=== PATIENT | male | born 1935 | race Caucasian/White ===

== ENCOUNTER → 2016-11-09 | Outpatient (CLI) | payer MEDICARE, OTHER ==
[~2016-11-09] MED LIST: ALLP300T PO; AMLO5TAB2 PO; ASP81TEC PO; B12 IJ; CHOL10003 PO; FRSM40T PO; IOHEXOL 350 MG/ML 100 ML (OMNIPAQUE 350) VIAL IV ONE; IPRA3AMP IH; LOSA100T7 PO; MTP100TCR PO; NS 100 ML (IVPB) BAG IV ONE; OXYGEN; SMV20T PO; TRM50T PO; WRF1T PO
[2016-11-09 12:37] LABS: BLOOD UREA NITROGEN 20 MG/DL (7-18); BUN/CREATININE RATIO 22; GFR ESTIMATED > 60
--- NOTE | 2016-11-09 16:00 | Diagnostic Imaging Report ---
EXAMINATION: CT angiogram of the neck was performed with intravenous contrast. MIP technique, coronal and sagittal reconstructions were performed. 80 mL of Omnipaque 350 is administered intravenously. INDICATION: Carotid stenosis. Presyncope. FINDINGS: There is prominent atherosclerotic plaque around the carotid bifurcation on both sides. The common, internal and external carotid arteries are patent. The calcified plaque in the right carotid bifurcation extends about 2.5 cm distance within the proximal internal carotid artery and is associated with prominent blooming artifact that appears to exaggerate the degree of stenosis. The estimated underlying degree of stenosis is around 60% in the proximal right internal carotid artery. There is less than 50% stenosis in the left internal carotid artery. Both carotid arteries demonstrate prominent tortuosity in the mid segment with a portion of the artery demonstrating a retropharyngeal course. The right common carotid artery is patent. The brachycephalic artery is patent. The right subclavian artery is patent. The left common carotid and the left subclavian arteries demonstrate proximal atherosclerotic plaque with no significant stenosis. There is codominance of the vertebral arteries with perhaps minimally larger left vertebral artery compared to the right side. No significant stenosis is seen. There is no significant soft tissue mass or lymphadenopathy seen in the neck. There is a mucosal retention cyst in the inferior aspect of the left maxillary sinus. Mild emphysema changes are seen in the upper lungs. The osseous structures demonstrate prominent degenerative changes with multilevel anterior osteophytes. IMPRESSION: 1. Prominent calcified plaque along the carotid bifurcation bilaterally, more prominent in the right side with extension into the proximal 2.5 cm of the right internal carotid artery. The heavy calcified plaque results in blooming artifacts exaggerating its size. The true underlying stenosis in the proximal right ICA is estimated to be around 60%. 2. Estimated underlying stenosis in the left ICA is less than 50%. Dictated by: Dictated on workstation # [id number]
== END ==
LOC: RAD 12:09
PROVIDERS: ATTEND Internal Medicine Cardiovascular Disease
DX: I65.23 Occlusion and stenosis of bilateral carotid arteries (principal)
CPT/HCPCS: 36415; 70498; 82565; 84520

== ENCOUNTER 2016-12-02 14:20 | Emergency (ER) | payer MEDICARE, OTHER ==
[~2016-12-02] VITALS: Ht 172.7 cm; Wt 90.7 kg
[~2016-12-02 14:20] MED LIST changes: -IOHEXOL 350 MG/ML 100 ML (OMNIPAQUE 350) VIAL IV ONE; -NS 100 ML (IVPB) BAG IV ONE
[2016-12-02] MEDS ORDERED: LIDOCAINE/EPI 2% 1:100,00 (XYLOCAINE) 20 ML VIAL ONE (14:59)
[2016-12-02] MEDS ORDERED: LIDOCAINE/EPI 1%-1:200,000 (XYLOCAINE) 10 ML VIAL INJ ONE (15:15)
--- NOTE | 2016-12-02 15:20 | Diagnostic Imaging Report ---
PROCEDURE: CT head and CT cervical spine without contrast. TECHNIQUE: Multiple contiguous axial images were obtained through the brain and cervical spine without the use of intravenous contrast. Sagittal and coronal reformations through the cervical spine were then performed. INDICATION: Injury. FINDINGS: CT HEAD: There is no intracranial hemorrhage, edema, or mass effect. The brain parenchyma demonstrates periventricular and deep white matter hypodensities, compatible with chronic microvascular ischemic changes. The lateral ventricles are mildly dilated which could be in part related to age related volume loss with question of an element of normal pressure hydrocephalus. The calvarium and visualized portions of the paranasal sinuses and orbits appear grossly unremarkable. There is a medial right parietal scalp hematoma. CT CERVICAL SPINE: There is reversal of the lordotic curvature. There is mild left convexity curvature also seen which is most likely positional. The vertebral body heights are preserved. There is moderate to severe disc height loss at the mid and lower cervical spine disc levels. Multilevel posterior osteophytes are seen. The alignment of the posterior spinal line and of the facet joints is satisfactory. Advanced degenerative changes along the upper to mid cervical spine facet joints are noted. There is no widening of the predental space. There is satisfactory alignment of the lateral masses of C1 and C2 and the atlantooccipital joints. There is severe foraminal stenosis bilaterally at C3-4 and C4-5. No fracture is seen. IMPRESSION: CT HEAD: 1. No intracranial hemorrhage. There is a posterior medial right scalp hematoma. 2. Mild dilatation of the lateral ventricles which is in part related to brain volume loss relating to aging. There is a possible element of normal pressure hydrocephalus. CT CERVICAL SPINE: Advanced degenerative changes. No fracture is seen. Dictated by: Dictated on workstation # [id number]
--- NOTE | 2016-12-02 15:33 | ED Fall/Injury ---
General Chief Complaint: Laceration Stated Complaint: HEAD VELARDE Nursing Triage Note: PT STATES HE FELL ASLEEP AND FELL OUT OF HIS CHAIR, WOKE AND WAS GRASPING FOR SOMETHING ON THE WAY DOWN BUT THERE WAS NOTHING TO CATCH HIS FALL, CC OF LAC TO THE TOP OF HIS HEAD THAT NEEDS REPAIRED. DENIES ANY LOC DUE TO FALL, DENIES NECK PAIN. BLEEDING ON ARRIVAL, NOT CONTROLLED, STATES IT HAS BEEN BLEEDING FOR AN HOUR. Source: patient Exam Limitations: no limitations History of Present Illness Time seen by provider: 15:15 Initial Comments Here with report of falling out of his chair and hitting the top of his head. He states that he was sitting on a high stool and thinks he fell asleep after eating. He fell backwards and hit his head. Denies loss of consciousness. He went to his doctor's office. Patient is on Coumadin so he was sent over here for further evaluation. Aside from the laceration to the top of the head, patient denies any other injury. Occurred: this morning Severity: moderate Injuries/Pain Location: head Context: other (fell asleep sitting up) Loss of Consciousness: no loss of consciousness Associated Symptoms (Fall): No Abdominal Pain, No Chest Pain, No Confusion, Headache, No Muscle Spasms, No Neck Pain Allergies and Home Medications Allergies Coded Allergies: No Allergy Information Available (Unverified , 11/09/16) Home Medications Allopurinol 300 Mg Tab, 300 MG PO DAILY, (Reported) Amlodipine Besylate 5 Mg Tablet, 5 MG PO DAILY, (Reported) Aspirin 81 Mg Tabec, 81 MG PO DAILY, (Reported) Cholecalciferol 1,000 Unit Tablet, 1,000 UNIT PO DAILY, (Reported) Furosemide 40 Mg Tab, 40 MG PO DAILY, (Reported) Ipratropium/Albuterol Sulfate 3 Ml Ampul.neb, 3 ML IH BID, (Reported) Losartan Potassium 100 Mg Tablet, 100 MG PO DAILY, (Reported) Metoprolol Succinate 100 Mg Tab.sr.24h, 1 EACH PO DAILY, (Reported) Simvastatin 20 Mg Tab, 20 MG PO DAILY, (Reported) Tramadol Hcl 50 Mg Tablet, 1-2 TAB PO NEEDED, (Reported) Warfarin Sodium 1 Mg Tablet, PO INSTRUCTED, (Reported) [B12] , IJ MONTHLY, (Reported) [Oxygen] , 2 L NA HS, (Reported) Constitutional: see HPI, No chills, No fever Respiratory: no symptoms reported Cardiovascular: no symptoms reported Musculoskeletal: see HPI Skin: see HPI, lesions Past Buqubwt-Vrxuha-Ndjoxt Hx Patient Social History Alcohol Use: Occasionally Uses Alcohol Beverage of Choice: Beer Recreational Drug Use: No Smoking Status: Former Smoker Type Used: Cigarettes Former Smoker, Quit: Nov 14, 1969 Recent Foreign Travel: No Contact w/Someone Who Travel: No Recent Infectious Disease Expo: No Recent Hopitalizations: No Seasonal Allergies Seasonal Allergies: Yes Surgeries History of Surgeries: No Cardiovascular History of Cardiac Disorders: Yes Cardiac Disorders: Hypertension Neurological History of Neurological Disord: No Genitourinary History of Genitourinary Disor: No Gastrointestinal History of Gastrointestinal Di: No Musculoskeletal History of Musculoskeletal Dis: No Endocrine History of Endocrine Disorders: No HEENT History of HEENT Disorders: No Cancer History of Cancer: No Psychosocial History of Psychiatric Problem: No Reviewed Nursing Assessment Reviewed/Agree w Nursing PMH: Yes Family Medical History Significant Family History: No Pertinent Family Hx Physical Exam Vital Signs Vital Sign - Last 12Hours 12/02/16 14:30 Temp 97.0 Pulse 69 Resp 20 B/P (MAP) 158/81 Pulse Ox 95 O2 Delivery Simple Mask Capillary Refill : Less Than 3 Seconds General Appearance: WD/WN, no apparent distress HEENT: PERRL/EOMI, pharynx normal Neck: non-tender, full range of motion, supple, normal inspection Cardiovascular: regular rate, rhythm, no murmur Respiratory: lungs clear, normal breath sounds Skin: normal color, other (4 cm laceration to the top of the head) Ye Coma Score Best Eye Response: (4) Open Spontaneously Best Verbal Response: (5) Oriented Best Motor Response: (6) Obeys Commands Laceration Repair : Staple Repair: Stapler 35W Progress/Results/Core Measures Results/Orders My Orders Orders - SABIHA HERNANDEZ MD Ct Head/Cervical Spine Wo (12/02/16 14:23) Lidocaine/Epi Mpf 1% 1:200,000 (Xylocain (12/02/16 15:15) Lidocaine/Epi 2% 1:100,000 (Xylocaine/Ep (12/02/16 14:59) Medications Given in ED Current Medications Medications Dose Ordered Sig/Nikia Route Start Time Stop Time Status Last Admin Dose Admin Lidocaine/ Epinephrine 20 ml STK-MED ONCE .ROUTE 12/02/16 14:59 12/02/16 15:08 DC 12/02/16 15:09 20 ML Vital Signs/I&O Vital Sign - Last 12Hours 12/02/16 12/02/16 14:30 15:09 Temp 97.0 97.0 Pulse 69 Resp 20 B/P (MAP) 158/81 Pulse Ox 95 O2 Delivery Simple Mask Blood Pressure Mean: 106 Progress Note : Progress Note Seen and evaluated. CT head and neck ordered. Dr. Mcintosh graciously evaluated and closed wound via comfort. See his note for procedures. Patient is on Coumadin and is followed by Dr. Antonio and he is following his INR. Discharged home with return precautions. Patient verbalize understanding instructions and agreement with plan. Diagnostic Imaging Diagonstic Imaging: CT Plain Films/CT/US/NM/MRI: c-spine, head Comments [facility] [place], [place] NAME: ODELL VELARDE [facility] REC#: [id number] PT STATUS: REG ER : 1935 PHYSICIAN: SABIHA HERNANDEZ MD ADMIT DATE: 12/02/16/ER Draft Date of Exam:12/02/16 CT HEAD/CERVICAL SPINE WO PROCEDURE: CT head and CT cervical spine without contrast. TECHNIQUE: Multiple contiguous axial images were obtained through the brain and cervical spine without the use of intravenous contrast. Sagittal and coronal reformations through the cervical spine were then performed. INDICATION: Injury. FINDINGS: CT HEAD: There is no intracranial hemorrhage, edema, or mass effect. The brain parenchyma demonstrates periventricular and deep white matter hypodensities, compatible with chronic microvascular ischemic changes. The lateral ventricles are mildly dilated which could be in part related to age related volume loss with question of an element of normal pressure hydrocephalus. The calvarium and visualized portions of the paranasal sinuses and orbits appear grossly unremarkable. There is a medial right parietal scalp hematoma. CT CERVICAL SPINE: There is reversal of the lordotic curvature. There is mild left convexity curvature also seen which is most likely positional. The vertebral body heights are preserved. There is moderate to severe disc height loss at the mid and lower cervical spine disc levels. Multilevel posterior osteophytes are seen. The alignment of the posterior spinal line and of the facet joints is satisfactory. Advanced degenerative changes along the upper to mid cervical spine facet joints are noted. There is no widening of the predental space. There is satisfactory alignment of the lateral masses of C1 and C2 and the atlantooccipital joints. There is severe foraminal stenosis bilaterally at C3-4 and C4-5. No fracture is seen. IMPRESSION: CT HEAD: 1. No intracranial hemorrhage. There is a posterior medial right scalp hematoma. 2. Mild dilatation of the lateral ventricles which is in part related to brain volume loss relating to aging. There is a possible element of normal pressure hydrocephalus. CT CERVICAL SPINE: Advanced degenerative changes. No fracture is seen. Dictated on workstation # [id number] Dict: 12/02/16 1503 Trans: 12/02/16 1519 [id number] Interpreted by: ZAIRE ONTIVEROS MD Electronically signed by: Departure Impression Impression: Primary Impression: Scalp laceration Qualified Codes: S01.01XA - Laceration without foreign body of scalp, initial encounter Disposition: HOME, SELF-CARE Condition: Improved Departure-Patient Inst. Decision time for Depature: 15:34 Referrals: NISSA ANTONIO DO (PCP/Family) Primary Care Physician Patient Instructions: Laceration Repair With [place] (DC) Add. Discharge Instructions: All discharge instructions reviewed with patient and/or family. Voiced understanding. [place] out in 7 days. He may return to the ER for staple removal. He may use antibiotic ointment and dressing over the comfort to protect the wound for the next few days and then as needed. Return for worse pain, fever, vomiting, weakness, vision or balance problems or other concerns as needed. Copy Copies To 1: NISSA ANTONIO TIMOTHY D MD Dec 02, 2016 15:33
[2016-12-02 15:37] VITALS: BP 158/81
--- NOTE | 2016-12-03 09:18 | OPERATIVE REPORT ---
DATE OF SERVICE: PREOPERATIVE DIAGNOSIS: Scalp laceration. POSTOPERATIVE DIAGNOSIS: Scalp laceration. PROCEDURE PERFORMED: Repair of scalp laceration, 3.8 cm. SURGEON: Indu Mcintosh DO. ANESTHESIA: Local anesthetic, Xylocaine 1% with epinephrine. INDICATIONS: The patient is an 81-year-old male on Coumadin, who was sitting on a bar stool and fell backward, striking his head, causing a semicircular laceration to the scalp that was approximately 3.8 cm in overall length. The wound was irrigated with Betasept and prepped. PROCEDURE: A 6 mL of 1% Xylocaine with epinephrine was used to anesthetize the area. The wound was irrigated with copious amounts of irrigation. The skin was then closed with comfort achieving hemostasis. The area was then washed and dried and sterile bandage was applied. The patient tolerated procedure well without any complications. Job ID: [id number] DocumentID: [id number] Dictated Date: 12/02/2016 15:26:07 Chief School Finance Officer Date: 12/02/2016 22:42:44 Dictated By: INDU MCINTOSH DO
== END 2016-12-02 15:37 | disposition home or self-care (01) ==
LOC: EDUNIT# 14:20 → ER 14:22
DX: S01.01XA Laceration without foreign body of scalp, initial encounter (principal); I10 Essential (primary) hypertension; Z79.82 Long term (current) use of aspirin; Z79.01 Long term (current) use of anticoagulants; Z87.891 Personal history of nicotine dependence; W07.XXXA Fall from chair, initial encounter; W22.09XA Striking against other stationary object, initial encounter
CPT/HCPCS: 12002; 70450; 72125

== ENCOUNTER 2016-12-08 14:26 | Inpatient (IN) | payer MEDICARE, OTHER ==
[~2016-12-08] VITALS: Ht 172.7 cm; Wt 94.8 kg
[2016-12-08] MEDS ORDERED: FUROSEMIDE 40 MG/4 ML INJ (LASIX) IVP ONE (14:45)
--- NOTE | 2016-12-08 14:50 | ED Cardiac General ---
History of Present Illness General Chief Complaint: General Problems/Pain Stated Complaint: FILLING UP W/ FLUID Nursing Triage Note: patient reports filling up with fluid over the last week. patient reports increased SOA Source: patient, spouse Exam Limitations: no limitations History of Present Illness Time seen by provider: 14:38 Initial Comments Patient presents ER by private conveyance with a chief complaint of shortness of breath, tiredness and malaise. He was sent over by his primary care physician after being seen in the clinic in follow-up for his recent fall a week ago in which she had to get comfort placed in the hospital his scalp. Patient had a fall about a week before that as well while at the [facility]. Patient says last to 3 days he's been feeling weak and tired and progressively worsening. He says in the last week he is gained 15 pounds and feels distended in his belly as well as his legs more swollen. He denies a cough, fevers, chills or heart palpitations or chest pain. His primary care physician called prior to his arrival and gave the history that the patient was somnolent and falling asleep in the middle of their interview and not like himself. Apparently his baseline he walks around is quite active and talkative and this concerned the PCP given the recent history of weight gain and CHF. The patient has had his coronary arteries catheterized by Dr. Bass, cardiology. Patient denies history of heart attack or stent. He is on warfarin for his atrial fibrillation and managed by his primary care physician. Patient remarks that he takes an albuterol treatment daily and took it this morning. Review of the records shows: Echocardiogram from 2013 mild left ventricular hypertrophy with ejection fraction 50% diastolic dysfunction suggested. Biatrial enlargement and mild mitral, tricuspid and aortic regurgitation. Pulmonary artery pressure 35 mmHg. Cardiac catheterization 2010 Dr. [place]: Heavily calcified coronary system with mild disease, nonobstructive throughout the coronary tree. Estimated ejection fraction of 45% with a previous echo showing a lower systolic function. Atherosclerosis in the thoracic artery without dissection or aneurysm seen. Allergies and Home Medications Allergies Coded Allergies: No Allergy Information Available (Unverified , 11/09/16) Home Medications Allopurinol 300 Mg Tab, 300 MG PO DAILY, (Reported) Amlodipine Besylate 5 Mg Tablet, 5 MG PO DAILY, (Reported) Aspirin 81 Mg Tabec, 81 MG PO DAILY, (Reported) Cholecalciferol 1,000 Unit Tablet, 1,000 UNIT PO DAILY, (Reported) Furosemide 40 Mg Tab, 40 MG PO DAILY, (Reported) Ipratropium/Albuterol Sulfate 3 Ml Ampul.neb, 3 ML IH BID, (Reported) Losartan Potassium 100 Mg Tablet, 100 MG PO DAILY, (Reported) Metoprolol Succinate 100 Mg Tab.sr.24h, 1 EACH PO DAILY, (Reported) Simvastatin 20 Mg Tab, 20 MG PO DAILY, (Reported) Tramadol Hcl 50 Mg Tablet, 1-2 TAB PO NEEDED, (Reported) Warfarin Sodium 1 Mg Tablet, PO INSTRUCTED, (Reported) [B12] , IJ MONTHLY, (Reported) [Oxygen] , 2 L NA HS, (Reported) Review of Systems Constitutional: No chills, No diaphoresis EENTM: No Eye Pain, No Ear Pain Respiratory: Denies Cough, Orthopnea, Shortness of Air, SOA With Exertion, SOA at Rest, Denies Wheezing Gastrointestinal: Abdomen Distended, Denies Abdominal Pain, Denies Nausea, Denies Vomiting Genitourinary: Denies Burning, Denies Discharge Musculoskeletal: No back pain, No joint pain Skin: No pruritus, No rash Psychiatric/Neurological: Denies Headache, Denies Numbness Past Vpodwjs-Hkncnl-Szmgge Hx Patient Social History Alcohol Use: Past History Number of Drinks Today: AA Alcohol Beverage of Choice: Beer Recreational Drug Use: No Smoking Status: Former Smoker Type Used: Cigarettes Former Smoker, Quit: Nov 14, 1969 Recent Foreign Travel: No Contact w/Someone Who Travel: No Recent Infectious Disease Expo: No Recent Hopitalizations: No Physical Abuse: No Sexual Abuse: No Seasonal Allergies Seasonal Allergies: Yes Surgeries History of Surgeries: No Respiratory History of Respiratory Disorde: Yes Respiratory Disorders: COPD Cardiovascular History of Cardiac Disorders: Yes Cardiac Disorders: Hypertension Neurological History of Neurological Disord: No Genitourinary History of Genitourinary Disor: No Gastrointestinal History of Gastrointestinal Di: No Musculoskeletal History of Musculoskeletal Dis: No Endocrine History of Endocrine Disorders: No HEENT History of HEENT Disorders: No Cancer History of Cancer: No Psychosocial History of Psychiatric Problem: No Suicide Risk Score: 0 Family Medical History Significant Family History: No Pertinent Family Hx Physical Exam Vital Signs Vital Sign - Last 12Hours 12/08/16 14:32 Temp 98.7 Pulse 70 Resp 18 B/P (MAP) 139/64 Pulse Ox 94 O2 Delivery Room Air Capillary Refill : Less Than 3 Seconds General Appearance: WD/WN, Mild Distress HEENT: PERRL/EOMI, TMs Normal, Normal ENT Inspection, Pharynx Normal (mucous membrane moist.) Neck: Full Range of Motion, Normal Inspection Respiratory: Chest Non Tender, No Accessory Muscle Use, No Respiratory Distress , Crackles (bilateral bases), No Wheezing Cardiovascular: Irregularly Irregular, JVD Gastrointestinal: Normal Bowel Sounds, No Organomegaly, Non Tender, Soft, Distended Extremity: Normal Capillary Refill, Pedal Edema (up to the level of the knees weeping 2+ pitting edema) Neurologic/Psychiatric: Alert, Oriented x3, Normal Mood/Affect Skin: Normal Color, Damp Focused Exam Time of Focused Exam: 15:58 Respiratory: Chest Non Tender, No Accessory Muscle Use, No Respiratory Distress , Crackles Cardiovascular: Irregularly Irregular, JVD, Other (weeping 2+ pitting bilateral lower extremity edema up to the knees.) Capillary Refill: Less Than 3 Seconds Peripheral Pulses: 1+ Dorsalis Pedis (R), 1+ Left Dors-Pedis (L) Skin: normal color, damp Progress/Results/Core Measures Results/Orders Lab Results Laboratory Tests Test 12/08/16 14:49 12/08/16 14:55 Range/Units White Blood Count 9.0 4.3-11.0 10^3/uL Red Blood Count 3.54 L 4.35-5.85 10^6/uL Hemoglobin 9.3 L 13.3-17.7 G/DL Hematocrit 30 L 40-54 % Mean Corpuscular Volume 85 80-99 FL Mean Corpuscular Hemoglobin 26 25-34 PG Mean Corpuscular Hemoglobin Concent 31 L 32-36 G/DL Red Cell Distribution Width 15.2 H 10.0-14.5 % Platelet Count 284 130-400 10^3/uL Mean Platelet Volume 8.7 7.4-10.4 FL Neutrophils (%) (Auto) 87 H 42-75 % Lymphocytes (%) (Auto) 6 L 12-44 % Monocytes (%) (Auto) 6 0-12 % Eosinophils (%) (Auto) 0 0-10 % Basophils (%) (Auto) 0 0-10 % Neutrophils # (Auto) 7.9 H 1.8-7.8 X 10^3 Lymphocytes # (Auto) 0.5 L 1.0-4.0 X 10^3 Monocytes # (Auto) 0.6 0.0-1.0 X 10^3 Eosinophils # (Auto) 0.0 0.0-0.3 10^3/uL Basophils # (Auto) 0.0 0.0-0.1 10^3/uL Neutrophils % (Manual) 88 % Lymphocytes % (Manual) 7 % Monocytes % (Manual) 5 % Eosinophils % (Manual) 0 % Basophils % (Manual) 0 % Band Neutrophils 0 % Blood Morphology Comment NORMAL Prothrombin Time 40.7 H 12.2-14.7 SEC INR Comment 4.3 H 0.8-1.4 Activated Partial Thromboplast Time 63 H 24-35 SEC Sodium Level 126 L 135-145 MMOL/L Potassium Level 5.4 H 3.6-5.0 MMOL/L Chloride Level 90 L 98-107 MMOL/L Carbon Dioxide Level 27 21-32 MMOL/L Anion Gap 9 5-14 MMOL/L Blood Urea Nitrogen 38 H 7-18 MG/DL Creatinine 1.09 0.60-1.30 MG/DL Estimat Glomerular Filtration Rate > 60 BUN/Creatinine Ratio 35 Glucose Level 69 L 70-105 MG/DL Calcium Level 8.4 L 8.5-10.1 MG/DL Magnesium Level 2.1 1.8-2.4 MG/DL Total Bilirubin 1.4 H 0.1-1.0 MG/DL Aspartate Amino Transf (AST/SGOT) 56 H 5-34 U/L Alanine Aminotransferase (ALT/SGPT) 32 0-55 U/L Alkaline Phosphatase 100 40-136 U/L Troponin I < 0.30 <0.30 NG/ML B-Type Natriuretic Peptide 951.3 H <100.0 PG/ML Total Protein 7.0 6.4-8.2 GM/DL Albumin 3.8 3.2-4.5 GM/DL Thyroid Stimulating Hormone (TSH) 1.61 0.35-4.94 UIU/ML My Orders Orders - ROMÁN LEWIS BNP (12/08/16 14:41) Cbc With Automated Diff (12/08/16 14:41) Comprehensive Metabolic Panel (12/08/16 14:41) Magnesium (12/08/16 14:41) Protime With Inr (12/08/16 14:41) Partial Thromboplastin Time (12/08/16 14:41) Troponin I (12/08/16 14:41) Chest Pa/Lat (2 View) (12/08/16 14:41) Ekg Tracing (12/08/16 14:41) Saline Lock/Iv-Start (12/08/16 14:41) Monitor-Rhythm Ecg Trace Only (12/08/16 14:41) Furosemide Injection (Lasix Injection) (12/08/16 14:45) Thyroid Stimulating Hormone (12/08/16 14:55) Manual Differential (12/08/16 14:49) Medications Given in ED Current Medications Medications Dose Ordered Sig/Nikia Route Start Time Stop Time Status Last Admin Dose Admin Furosemide 80 mg ONCE ONCE IVP 12/08/16 14:45 12/08/16 14:46 DC 12/08/16 14:54 80 MG Vital Signs/I&O Vital Sign - Last 12Hours 12/08/16 14:32 Temp 98.7 Pulse 70 Resp 18 B/P (MAP) 139/64 Pulse Ox 94 O2 Delivery Room Air Blood Pressure Mean: 89 Progress Note #1: Time: 14:53 Progress Note Appears to have heart failure is a recovered ejection fraction and in acute decompensation. We'll give him a double dose of his Lasix and labs as well as EKG looking for causes of his worsening heart failure. Progress Note #2: Time: 15:57 Progress Note Patient ate some crackers in response to mildly low blood sugar. He is breathing much better without wheezing after receiving the Lasix and he is producing urine. ECG Initial ECG Impression Date: Dec 08, 2016 Initial ECG Impression Time: 14:53 Initial ECG Rate: 86 Initial ECG Rhythm: A Fib/Flutter Initial ECG Intervals: QT (450) Initial ECG Impression: Atrial Fibrillation Initial ECG Comparisson: Unchanged Comment No T-wave elevation or depression. Diagnostic Imaging Diagonstic Imaging: Xray Plain Films/CT/US/NM/MRI: chest (2v) Comments Pulmonary congestion without any definitive infiltrate seen. Heart shadow mildly enlarged with a calcified aorta seen best in the lateral view. No other acute osseous or soft tissue abnormality noted. Reviewed: Reviewed by Me Departure Communication (Admissions) Time/Spoke to Admitting Phy: 15:[address] Antonio he recommends getting a BNP, CBC, CMP in the morning and consult in his risk consulting treasury director and he will see the patient. Time/Spoke to Consulting Phy: 15:45 Communication/Consulting Akshat: Left a message with cell, clinic and [facility]. Will have the floor contact Cardio when the patient arrives. Impression Impression: Primary Impression: Heart failure, diastolic, with acute decompensation Additional Impressions: Normocytic anemia Supratherapeutic INR Hypoglycemia associated with diabetes Hyperkalemia Hyponatremia Hypochloremia Disposition: ADMITTED INPATIENT Condition: Stable Admissions Decision to Admit Reason: Admit from ER (General) Decision to Admit/Date: Dec 08, 2016 Time/Decision to Admit Time: 15:58 Departure-Patient Inst. Referrals: NISSA ANTONIO DO (PCP/Family) Primary Care Physician Copy Copies To 1: NISSA ANTONIO DO Copies To 2: SVETLANA RUTLEDGE MD FACP FACC CCDS ROMÁN LEWIS Dec 08, 2016 14:50
[2016-12-08 14:55] LABS: BASOPHILS % (AUTO) 0 % (0-10); EOSINOPHILS % (AUTO) 0 % (0-10); LYMPHOCYTES # (AUTO) 0.5 X 10^3 (1.0-4.0); LYMPHOCYTES % (AUTO) 6 % (12-44); MEAN CORPUSCULAR HEMOGLOBIN 26 PG (25-34); MEAN CORPUSCULAR HGB CONC 31 G/DL (32-36); MEAN CORPUSCULAR VOLUME 85 FL (80-99); MEAN PLATELET VOLUME 8.7 FL (7.4-10.4); MONOCYTES # (AUTO) 0.6 X 10^3 (0.0-1.0); MONOCYTES % (AUTO) 6 % (0-12); NEUTROPHILS # (AUTO) 7.9 X 10^3 (1.8-7.8); NEUTROPHILS % (AUTO) 87 % (42-75); PLATELET COUNT 284 10^3/uL (130-400); RED BLOOD COUNT 3.54 10^6/uL (4.35-5.85); RED CELL DISTRIBUTION WIDTH 15.2 % (10.0-14.5)
[2016-12-08 15:07] LABS: INR 4.3 (0.8-1.4); PROTHROMBIN TIME PATIENT 40.7 SEC (12.2-14.7)
[2016-12-08 15:15] LABS: BAND NEUTROPHILS 0 %; BASOPHILS % (MANUAL) 0 %; EOSINOPHILS % (MANUAL) 0 %; LYMPHOCYTES % (MANUAL) 7 %; NEUTROPHILS % (MANUAL) 88 %
[2016-12-08 15:16] LABS: ALANINE AMINOTRANSFERASE 32 U/L (0-55); ALBUMIN 3.8 GM/DL (3.2-4.5); ANION GAP 9 MMOL/L (5-14); ASPARTATE AMINO TRANSFERASE 56 U/L (5-34); BILIRUBIN,TOTAL 1.4 MG/DL (0.1-1.0); BLOOD UREA NITROGEN 38 MG/DL (7-18); BUN/CREATININE RATIO 35; CALCIUM 8.4 MG/DL (8.5-10.1); CARBON DIOXIDE 27 MMOL/L (21-32); CHLORIDE 90 MMOL/L (98-107); CREATININE SERUM 1.09 MG/DL (0.60-1.30); GFR ESTIMATED > 60; GLUCOSE 69 MG/DL (70-105); MAGNESIUM 2.1 MG/DL (1.8-2.4); POTASSIUM 5.4 MMOL/L (3.6-5.0); SODIUM 126 MMOL/L (135-145)
[2016-12-08 15:40] LABS: TROPONIN I < 0.30 NG/ML (<0.30)
--- NOTE | 2016-12-08 15:42 | Diagnostic Imaging Report ---
AP and lateral views of the chest. INDICATION: Shortness of breath. COMPARISON: 07/24/2010. FINDINGS: The heart is moderately enlarged. There is mild pulmonary vascular congestion with no focal infiltrates. No effusion or pneumothorax. The mediastinum and julian appear unremarkable. IMPRESSION: Cardiomegaly with mild vascular congestion. Dictated by: Dictated on workstation # [id number]
[2016-12-08 16:40] VITALS: BP 170/77
[2016-12-08] MEDS ORDERED: CATHETER FLUSH 10 ML SYR IV PRN (17:15)
[2016-12-08] MEDS: FUROSEMIDE 40 MG/4 ML INJ (LASIX) IV SCH (18:19)
[2016-12-08 19:48] VITALS: BP 168/78
[2016-12-08] MEDS ORDERED: amLODIPine 5 MG (NORVASC) TAB PO NR (20:00)
[2016-12-09] VITALS (8 sets, daily range): BP systolic 137–175; BP diastolic 63–86
[2016-12-09] MEDS: FUROSEMIDE 40 MG/4 ML INJ (LASIX) IV SCH ×2 (00:16→06:16)
[2016-12-09] MEDS: HYDROcodone/APAP 5 MG/325 MG (LORTAB) TAB PO PRN ×2 (00:16→20:16)
[2016-12-09] MEDS: CATHETER FLUSH 10 ML SYR IV SCH ×4 (00:16→20:16)
[2016-12-09 06:36] LABS: BASOPHILS % (AUTO) 0 % (0-10); EOSINOPHILS # (AUTO) 0.2 10^3/uL (0.0-0.3); EOSINOPHILS % (AUTO) 2 % (0-10); LYMPHOCYTES # (AUTO) 0.7 X 10^3 (1.0-4.0); LYMPHOCYTES % (AUTO) 8 % (12-44); MEAN CORPUSCULAR HEMOGLOBIN 27 PG (25-34); MEAN CORPUSCULAR HGB CONC 32 G/DL (32-36); MEAN CORPUSCULAR VOLUME 85 FL (80-99); MEAN PLATELET VOLUME 9.4 FL (7.4-10.4); MONOCYTES # (AUTO) 0.9 X 10^3 (0.0-1.0); MONOCYTES % (AUTO) 11 % (0-12); NEUTROPHILS # (AUTO) 6.8 X 10^3 (1.8-7.8); NEUTROPHILS % (AUTO) 79 % (42-75); PLATELET COUNT 268 10^3/uL (130-400); RED BLOOD COUNT 3.14 10^6/uL (4.35-5.85); RED CELL DISTRIBUTION WIDTH 15.3 % (10.0-14.5); WHITE BLOOD COUNT 8.6 10^3/uL (4.3-11.0)
[2016-12-09 06:45] LABS: INR 3.4 (0.8-1.4)
[2016-12-09 07:03] LABS: ALANINE AMINOTRANSFERASE 29 U/L (0-55); ALBUMIN 3.4 GM/DL (3.2-4.5); ANION GAP 10 MMOL/L (5-14); ASPARTATE AMINO TRANSFERASE 48 U/L (5-34); BILIRUBIN,TOTAL 1.1 MG/DL (0.1-1.0); BLOOD UREA NITROGEN 38 MG/DL (7-18); BUN/CREATININE RATIO 38; CALCIUM 8.3 MG/DL (8.5-10.1); CARBON DIOXIDE 28 MMOL/L (21-32); CHLORIDE 92 MMOL/L (98-107); CREATININE SERUM 1.01 MG/DL (0.60-1.30); GFR ESTIMATED > 60; GLUCOSE 78 MG/DL (70-105); POTASSIUM 3.8 MMOL/L (3.6-5.0); SODIUM 130 MMOL/L (135-145)
--- NOTE | 2016-12-09 07:46 | History & Physicial ---
History of Present Illness History of Present Illness Reason for visit/HPI patient came into the office yesterday with shortness of breath and unsteady gait. patient states he gained 15 pounds in the last week. Patient fell asleep in the chair and unable to give history patient usually is alert and able to walk without shortness Patient states he uses 2 L of oxygen at night. Family states he snores much. Surgeries coronary angiography Patient has been falling lately and has comfort in the scalp Date of Admission Dec 08, 2016 at 15:52 Time Seen by Provider: 07:40 I consulted on this patient on 12/09/16 07:41 Attending Physician Brian Antonio DO Admitting Physician Brian Antonio DO Consult Allergies and Home Medications Allergies Coded Allergies: No Allergy Information Available (Unverified , 11/09/16) Home Medications Allopurinol 300 Mg Tab, 300 MG PO DAILY, (Reported) Amlodipine Besylate 5 Mg Tablet, 5 MG PO DAILY, (Reported) Aspirin 81 Mg Tabec, 81 MG PO DAILY, (Reported) Cholecalciferol 1,000 Unit Tablet, 1,000 UNIT PO DAILY, (Reported) Furosemide 40 Mg Tab, 40 MG PO DAILY, (Reported) Ipratropium/Albuterol Sulfate 3 Ml Ampul.neb, 3 ML IH BID, (Reported) Losartan Potassium 100 Mg Tablet, 100 MG PO DAILY, (Reported) Metoprolol Succinate 100 Mg Tab.sr.24h, 1 EACH PO DAILY, (Reported) Simvastatin 20 Mg Tab, 20 MG PO DAILY, (Reported) Tramadol Hcl 50 Mg Tablet, 1-2 TAB PO NEEDED, (Reported) Warfarin Sodium 1 Mg Tablet, PO INSTRUCTED, (Reported) [B12] , IJ MONTHLY, (Reported) [Oxygen] , 2 L NA HS, (Reported) Past Shijmte-Idprjy-Yrethz Hx Patient Social History Marrital Status: Employed/Student: unemployed Alcohol Use: Past History Number of Drinks Today: AA Alcohol Beverage of Choice: Beer Recreational Drug Use: No Smoking Status: Former Smoker Former Smoker, Quit: Nov 14, 1969 Type Used: Cigarettes Recent Foreign Travel: No Contact w/other who traveled: No Recent Hopitalizations: No Recent Infectious Disease Expo: No Seasonal Allergies Seasonal Allergies: Yes Surgeries No Respiratory Yes COPD Cardiovascular Yes Atrial Fibrillation, Hypertension, Irregular Heartbeat Neurological No Genitourinary No Gastrointestinal No Musculoskeletal No Endocrine History of Endocrine Disorders: No HEENT History of HEENT Disorders: No Cancer No Psychosocial History of Psychiatric Problem: No Family Medical History Significant Family History: No Pertinent Family Hx Constitutional: malaise, weakness EENTM: no symptoms reported Respiratory: dyspnea on exertion, short of breath Cardiovascular: edema, other (rouble fibrillation history) Gastrointestinal: no symptoms reported Genitourinary: no symptoms reported Musculoskeletal: no symptoms reported Physical Exam Vital Signs Vital Sign - Last 12Hours 12/08/16 14:32 Temp 98.7 Pulse 70 Resp 18 B/P (MAP) 139/64 Pulse Ox 94 O2 Delivery Room Air Capillary Refill : Less Than 3 Seconds General Appearance: WD/WN Eyes: Bilateral Eye Normal Inspection HEENT: Normal ENT Inspection, Other (6 tables n scalp) Neck: Full Range of Motion, Normal Inspection Respiratory: No Accessory Muscle Use, No Respiratory Distress, Decreased Breath Sounds Cardiovascular: Irregularly Irregular Assessment/Plan Assessment and Plan congestive heart failure. Anemia. Atrial fibrillation. probable sleep apnea. Supratherapeutic INR. Hyponatremia. Hypotension. scalp laceration healing well. Pretibial edema Problems: BRIAN ANTONIO DO Dec 09, 2016 07:46
--- NOTE | 2016-12-09 08:15 | Consultation-Cardiology ---
HPI-Cardiology Cardiology Consultation Date of Consultation 12/09/16 Date of Admission Time Seen by Provider: 08:10 Indication: shortness of breath, weight gain HPI 81 years old gentleman with history of COPD, persistent atrial fibrillation, had history of congestive heart failure. Seen in Dr. Mccoy's office yesterday he was lethargic, falling asleep easily. Denied any chest pain but reported some pressure in his chest. Has been having shortness of breath and pedal edema which has been worse, falling asleep easily in his chair. Denied any fever or chills. No cough or phlegm. Home Medications & Allergies Allergies: Coded Allergies: No Allergy Information Available (Unverified , 11/09/16) Home Medication List Reviewed: Yes QRW-Frbdom-Joqzza Hx Patient Social History Marital Status: Employed/Student: unemployed Alcohol Use: Past History Recreational Drug Use: No Smoking Status: Former Smoker Type Used: Cigarettes Recent Foreign Travel: No Recent Infectious Disease Expo: No Recent Hopitalizations: No Past Medical History medical history as discussed below Family Medical History Significant Family History: No Pertinent Family Hx Family Medical Hx noncontributory to his current condition Constitutional: see HPI, malaise, weakness EENTM: see HPI, no symptoms reported Respiratory: see HPI, dyspnea on exertion, orthopnea, short of breath Cardiovascular: see HPI, chest pain, edema, No Hx of Intervention, No palpitations, No syncope, No vascular heart diseas, No other Gastrointestinal: no symptoms reported, see HPI Genitourinary: no symptoms reported, see HPI Musculoskeletal: see HPI, muscle stiffness, muscle weakness Skin: no symptoms reported, see HPI Psychiatric/Neurological: No Symptoms Reported, See HPI Reviewed Test Results Reviewed Test Results Lab Laboratory Tests Test 12/08/16 14:49 12/08/16 14:55 12/09/16 05:43 Range/Units White Blood Count 9.0 8.6 4.3-11.0 10^3/uL Red Blood Count 3.54 L 3.14 L 4.35-5.85 10^6/uL Hemoglobin 9.3 L 8.5 L 13.3-17.7 G/DL Hematocrit 30 L 27 L 40-54 % Mean Corpuscular Volume 85 85 80-99 FL Mean Corpuscular Hemoglobin 26 27 25-34 PG Mean Corpuscular Hemoglobin Concent 31 L 32 32-36 G/DL Red Cell Distribution Width 15.2 H 15.3 H 10.0-14.5 % Platelet Count 284 268 130-400 10^3/uL Mean Platelet Volume 8.7 9.4 7.4-10.4 FL Neutrophils (%) (Auto) 87 H 79 H 42-75 % Lymphocytes (%) (Auto) 6 L 8 L 12-44 % Monocytes (%) (Auto) 6 11 0-12 % Eosinophils (%) (Auto) 0 2 0-10 % Basophils (%) (Auto) 0 0 0-10 % Neutrophils # (Auto) 7.9 H 6.8 1.8-7.8 X 10^3 Lymphocytes # (Auto) 0.5 L 0.7 L 1.0-4.0 X 10^3 Monocytes # (Auto) 0.6 0.9 0.0-1.0 X 10^3 Eosinophils # (Auto) 0.0 0.2 0.0-0.3 10^3/uL Basophils # (Auto) 0.0 0.0 0.0-0.1 10^3/uL Neutrophils % (Manual) 88 % Lymphocytes % (Manual) 7 % Monocytes % (Manual) 5 % Eosinophils % (Manual) 0 % Basophils % (Manual) 0 % Band Neutrophils 0 % Blood Morphology Comment NORMAL Prothrombin Time 40.7 H 34.0 H 12.2-14.7 SEC INR Comment 4.3 H 3.4 H 0.8-1.4 Activated Partial Thromboplast Time 63 H 24-35 SEC Sodium Level 126 L 130 L 135-145 MMOL/L Potassium Level 5.4 H 3.8 3.6-5.0 MMOL/L Chloride Level 90 L 92 L 98-107 MMOL/L Carbon Dioxide Level 27 28 21-32 MMOL/L Anion Gap 9 10 5-14 MMOL/L Blood Urea Nitrogen 38 H 38 H 7-18 MG/DL Creatinine 1.09 1.01 0.60-1.30 MG/DL Estimat Glomerular Filtration Rate > 60 > 60 BUN/Creatinine Ratio 35 38 Glucose Level 69 L 78 70-105 MG/DL Calcium Level 8.4 L 8.3 L 8.5-10.1 MG/DL Magnesium Level 2.1 1.8-2.4 MG/DL Total Bilirubin 1.4 H 1.1 H 0.1-1.0 MG/DL Aspartate Amino Transf (AST/SGOT) 56 H 48 H 5-34 U/L Alanine Aminotransferase (ALT/SGPT) 32 29 0-55 U/L Alkaline Phosphatase 100 82 40-136 U/L Troponin I < 0.30 <0.30 NG/ML B-Type Natriuretic Peptide 951.3 H 1001.8 H <100.0 PG/ML Total Protein 7.0 6.0 L 6.4-8.2 GM/DL Albumin 3.8 3.4 3.2-4.5 GM/DL Thyroid Stimulating Hormone (TSH) 1.61 0.35-4.94 UIU/ML Physical Exam Vital Signs Vital Sign - Last 12Hours 12/08/16 14:32 Temp 98.7 Pulse 70 Resp 18 B/P (MAP) 139/64 Pulse Ox 94 O2 Delivery Room Air Capillary Refill : Less Than 3 Seconds General Appearance: WD/WN, Moderate Distress Eyes: Bilateral Eye Normal Inspection, Bilateral Eye PERRL, Bilateral Eye EOMI HEENT: PERRL/EOMI, TMs Normal, Normal ENT Inspection, Pharynx Normal Neck: Full Range of Motion, Normal Inspection, Non Tender, Supple, Carotid Bruit Respiratory: Chest Non Tender, No Accessory Muscle Use, No Respiratory Distress , Crackles Cardiovascular: Regular Rate, Rhythm, No Gallop, No JVD, Normal Peripheral Pulses, Systolic Murmur, Irregularly Irregular Gastrointestinal: Normal Bowel Sounds, No Organomegaly, No Pulsatile Mass, Non Tender, Soft Back: Normal Inspection, No CVA Tenderness, No Vertebral Tenderness Extremity: Normal Capillary Refill, Normal Inspection, Normal Range of Motion, Non Tender, No Calf Tenderness, Pedal Edema (+2-3) Neurologic/Psychiatric: Alert, Oriented x3, No Motor/Sensory Deficits, Normal Mood/Affect Skin: Normal Color, Warm/Dry Lymphatic: No Adenopathy A/P-Cardiology Admission Diagnosis Shortness of breath Persistent atrial fibrillation Congestive heart failure Hypertension Assessment/Plan Shortness of breath, fatigue and loss of energy, weight gain 15 pound, congestive heart failure acute on chronic left ventricular diastolic dysfunction probably secondary to atrial fibrillation. I will start aggressive diuresis and monitor closely. COPD, bronchial asthma, questionable underlying sleep apnea, consider sleep study. Using oxygen at home. Persistent atrial fibrillation, rate is controlled, restart home medication and monitor heart rate and blood pressure response [id number] score is 4, yearly risk of stroke without oral anticoagulation is 4 percent. Patient is maintained on Coumadin, INR is elevated, hold Coumadin for now and monitor daily PT/INR. Consider NOACs Anemia, worse today, supratherapeutic INR, monitor H&H, followed and managed by Dr. Mccoy Coronary artery disease, mild to moderate disease, last cardiac catheterization was done in July 2010. Showing heavily calcified coronary system with mild disease, nonobstructive disease with cardiomyopathy, did not have the echocardiogram or the stress test done. Patient does not want to have a stress test done. Hypertension, restart home medication monitor blood pressure Hyperlipidemia, monitor lipids History of gouty arthritis, currently asymptomatic. Moderate carotid stenosis, continue to monitor as an outpatient Valvular heart disease with mild mitral, tricuspid and aortic regurgitation, Clinical Quality Measures DVT/VTE Risk/Contraindication: Contraindications-Pharm: Other *list below* LAVONNE KELLY MD Dec 09, 2016 08:15
[2016-12-09] MEDS ORDERED: METO-274 PO (08:59)
[2016-12-09] MEDS ORDERED: DIGO125T PO (08:59)
[2016-12-09] MEDS ORDERED: ASPI-983 PO (08:59)
[2016-12-09] MEDS ORDERED: WARF3TAB6 PO (08:59)
[2016-12-09] MEDS ORDERED: WARF-47 PO (08:59)
[2016-12-09] MEDS ORDERED: ALBU18HF2 INH (08:59)
[2016-12-09] MEDS ORDERED: ATOR20TA66 PO (08:59)
[2016-12-09] MEDS ORDERED: FURO40TA4 PO (08:59)
[2016-12-09] MEDS ORDERED: AMLO5TAB2 PO (08:59)
[2016-12-09] MEDS ORDERED: LOSA100T28 PO (08:59)
[2016-12-09] MEDS ORDERED: ALLO300T2 PO (08:59)
[2016-12-09] MEDS ORDERED: CHOL10007 PO (08:59)
[2016-12-09] MEDS ORDERED: meTOproloL SUCCINATE 50 MG (TOPROL XL) TAB PO SCH (09:00)
[2016-12-09] MEDS ORDERED: CYAN10006 PO (09:06)
[2016-12-09] MEDS ORDERED: TRAM50TA2 PO (09:06)
[2016-12-09] MEDS ORDERED: CLOB15CR2 TOP (09:06)
[2016-12-09] MEDS ORDERED: IPRA3AMP NEB (09:16)
[2016-12-09] MEDS: FUROSEMIDE 40 MG/4 ML INJ (LASIX) IVP SCH ×2 (09:36→17:07)
--- NOTE | 2016-12-09 09:47 | Diagnostic Imaging Report ---
PA and lateral views of the chest. INDICATION: COPD, CHF. FINDINGS: The heart is moderately enlarged. There is mild pulmonary vascular congestion. No effusion or pneumothorax. The mediastinum and julian appear unremarkable. Prominent atherosclerotic calcifications are seen in the thoracic aorta. IMPRESSION: Cardiomegaly with minimal vascular congestion. Dictated by: Dictated on workstation # [id number]
--- NOTE | 2016-12-09 10:06 | Physical Therapy Evaluation ---
PT Evaluation-General Medical Diagnosis Admission Date Dec 08, 2016 at 15:52 Medical Diagnosis: CHF Onset Date: Dec 09, 2016 Therapy Diagnosis Therapy Diagnosis: weakness Height/Weight Height (Feet): 5 Height (Inches): 8.00 Weight (Pounds): 222 Weight (Ounces): 8.0 Precautions Precautions/Isolations: Fall Prevention, Standard Precautions Weight Bear Status Full Weight Bearing Full Weight Bearing Referral Physician: Nadine Reason for Referral: Evaluation/Treatment Medical History Pertinent Medical History: COPD, Heart Failure, HTN Additional Medical History normocytic anemia Current History ER SOB malaise recent fall 15 lb weight gain Reviewed History: Yes Social History Home: Single Level Current Living Status: Spouse Prior/Core FIM Prior Level of Function Functional [place] Measure 0=Not Assessed/NA 4=Minimal Assistance 1=Total Assistance 5=Supervision or Setup 2=Maximal Assistance 6=Modified [place] 3=Moderate Assistance 7=Complete [place] Bed Mobility: 6 Transfers (B,C,W/C) (FIM): 6 Gait: 6 Locomotion: 6 Patient uses single point cane with ambulation. PT Evaluation-Current Subjective Patient is seated in deborah upon PT arrival. Patient is hard of hearing, but agrees to PT. HE states he has swelling in his legs and it has been taking him 20 minutes to put his shoes and socks on the last few days. Pain Numeric Pain Scale: 0-No Pain Location: No Pain Reported Pt/Family Goals Patient hopes to return to home without the extra weight in his legs. Objective Patient Orientation: Normal For Age Problem Solving: Good ROM/Strength ROM Upper Extremities WNL ROM Lower Extremities WNL Strength Upper Extremities WNL Strength Lower Extremities Left LE- hip flexion 4/5, knee flexion/extension 4/5, plantar/dorsiflexion 4/5 Right LE- hip flexion 4+/5, knee flexion/extension 4+/5, plantar/dorsiflexion 4+ /5 Integumentary/Posture Integumentary refer to nursing notes Bowel Incontinence: No Bladder Incontinence: No Posture WNL Neuromuscular (Tone, Coordination, Reflexes) grossly intact Sensory Vision: Functional Hearing: Impaired Hand Dominance: Right Sensation Right Upper Extremit: Intact Sensation Left Upper Extremity: Intact Sensation Right Lower Extremit: Intact Sensation Left Lower Extremity: Intact Transfers Functional [place] Measure 0=Not Assessed/NA 4=Minimal Assistance 1=Total Assistance 5=Supervision or Setup 2=Maximal Assistance 6=Modified [place] 3=Moderate Assistance 7=Complete [place] Transfers (B, C, W/C) (FIM): 5 Scootin Rollin Supine to/from Sit: 5 Sit to/from Stand: 5 Patient performs transfers with close SBA for safety. Gait Mode of Locomotion: Walk Anticipated Mode of Locomotion: Walk Gait (FIM): 5 Distance: 150' Gait Level of Assist: 5 Gait Persons Needed: 1 Gait Assistive Device: FWW Comments/Gait Description Patient ambulates with SBA for safety. Walking distance limited by patient becoming SOB due to diminished aerobic capacity. Balance Sitting Static: Normal Sitting Dynamic: Normal Standing Static: Normal Standing Dynamic: Normal Assessment/Needs Patient had good tolerance for PT and good mobility in bed. Patient is mostly limited by CHF and COPD limiting his tolerance for aerobic activity. PT will progress exercise as patient tolerates. Rehab Potential: Good PT Manager Environmental Health And Safety Goals Retirement Goals PT Retirement Goals Time Frame: Dec 16, 2016 Transfers (B,C,W/C) (FIM): 6 Gait (FIM): 6 Distance: >300' Gait Level of Assist: 6 Gait Assistive Device: Cane Single Point PT Plan Problem List Problem List: Activity Tolerance, Functional Strength, Balance, Gait, Bed Mobility Treatment/Plan Treatment Plan: Continue Plan of Care Treatment Plan: Education, Functional Activity [place], Functional Strength, Gait , Therapeutic Exercise Treatment Duration: Dec 16, 2016 Frequency: 6 times per week Estimated Hrs Per Day: .25 hour per day Patient and/or Family Agrees t: Yes Safety Risks/Education Patient Education: Gait Training, Steps Teaching Recipient: Patient Teaching Methods: Demonstration, Discussion Response to Teaching: Verbalize Understanding Discharge Recommendations Therapy D/C Recommendations: Home w/ Family Support Time/GCodes Time In: 915 Time Out: 930 Total Billed Treatment Time: 15 Total Billed Treatment 1 visit EVMod 15 min RILEY MALIK PT Dec 09, 2016 10:06
[2016-12-09] MEDS ORDERED: BACI1TAB3 PO (11:07)
[2016-12-09] MEDS ORDERED: CHOL500044 PO (11:07)
[2016-12-09] MEDS ORDERED: INFLUENZA TRIvalent 2017-2018 0.5 ML/45 MCG SYR IM ONE (13:00)
[2016-12-09] MEDS ORDERED: RT-ALBUTEROL HFA (VENTOLIN) PER PUFF IH PRN (13:30)
[2016-12-09] MEDS ORDERED: RT-ALBUTEROL/IPRATROPIUM 3 ML (DUONEB) VIAL IH PRN (13:30)
[2016-12-09] MEDS ORDERED: RX-TRAMADOL 50 MG (ULTRAM) TAB PPK#4 PO PRN (13:30)
[2016-12-09] MEDS ORDERED: RT-ALBUTEROL/IPRATROPIUM 3 ML (DUONEB) VIAL INH PRN (14:15)
[2016-12-09] MEDS: RT-ALBUTEROL/IPRATROPIUM 3 ML (DUONEB) VIAL INH SCH ×3 (14:35→22:17)
[2016-12-09] MEDS ORDERED: ATORVASTATIN 20 MG (LIPITOR) TABLET PO SCH (21:00)
[2016-12-10 00:05] VITALS: BP 154/65
[2016-12-10] MEDS: RT-ALBUTEROL/IPRATROPIUM 3 ML (DUONEB) VIAL INH SCH ×5 (02:05→14:28)
[2016-12-10 04:00] VITALS: BP 140/58
[2016-12-10 06:14] LABS: BASOPHILS % (AUTO) 0 % (0-10); EOSINOPHILS # (AUTO) 0.2 10^3/uL (0.0-0.3); EOSINOPHILS % (AUTO) 2 % (0-10); LYMPHOCYTES # (AUTO) 0.8 X 10^3 (1.0-4.0); LYMPHOCYTES % (AUTO) 11 % (12-44); MEAN CORPUSCULAR HEMOGLOBIN 27 PG (25-34); MEAN CORPUSCULAR HGB CONC 31 G/DL (32-36); MEAN CORPUSCULAR VOLUME 86 FL (80-99); MEAN PLATELET VOLUME 9.1 FL (7.4-10.4); MONOCYTES # (AUTO) 0.7 X 10^3 (0.0-1.0); MONOCYTES % (AUTO) 9 % (0-12); NEUTROPHILS # (AUTO) 6.2 X 10^3 (1.8-7.8); NEUTROPHILS % (AUTO) 78 % (42-75); PLATELET COUNT 270 10^3/uL (130-400); RED BLOOD COUNT 3.28 10^6/uL (4.35-5.85); RED CELL DISTRIBUTION WIDTH 15.5 % (10.0-14.5); WHITE BLOOD COUNT 7.9 10^3/uL (4.3-11.0)
[2016-12-10] MEDS: FUROSEMIDE 40 MG/4 ML INJ (LASIX) IVP SCH (06:17)
[2016-12-10] MEDS: CATHETER FLUSH 10 ML SYR IV SCH ×2 (06:17→14:11)
[2016-12-10 06:39] LABS: INR 3.7 (0.8-1.4); PROTHROMBIN TIME PATIENT 36.5 SEC (12.2-14.7)
[2016-12-10 06:48] LABS: ALANINE AMINOTRANSFERASE 28 U/L (0-55); ALBUMIN 3.4 GM/DL (3.2-4.5); ANION GAP 8 MMOL/L (5-14); ASPARTATE AMINO TRANSFERASE 46 U/L (5-34); BILIRUBIN,TOTAL 0.8 MG/DL (0.1-1.0); BLOOD UREA NITROGEN 29 MG/DL (7-18); BUN/CREATININE RATIO 33; CALCIUM 8.3 MG/DL (8.5-10.1); CARBON DIOXIDE 32 MMOL/L (21-32); CHLORIDE 92 MMOL/L (98-107); CHOLESTEROL 115 MG/DL (< 200); CREATININE SERUM 0.89 MG/DL (0.60-1.30); DIRECT LDL 70 MG/DL (1-129); GFR ESTIMATED > 60; GLUCOSE 109 MG/DL (70-105); MAGNESIUM 2.1 MG/DL (1.8-2.4); POTASSIUM 3.6 MMOL/L (3.6-5.0); SODIUM 132 MMOL/L (135-145); TRIGLYCERIDES 79 MG/DL (<150); VLDL CHOLESTEROL 16 MG/DL (5-40)
[2016-12-10 07:13] LABS: THYROID STIMULATING HORMONE 1.85 UIU/ML (0.35-4.94); TROPONIN I < 0.30 NG/ML (<0.30)
[2016-12-10 08:00] VITALS: BP 139/63
--- NOTE | 2016-12-10 08:09 | Progress Note (SOAP) ---
Subjective Time Seen by Provider: 08:05 Subjective/Events-last exam patient feeling better today. Patient alert. Patient lost 13 of his 15 pound weight gain. Anemia. INR 3.7. Sodium 132 better. BNP 587 better than 951. Asked x-ray yesterday shows cardiomegaly with minimal vascular congestion better than day before area Still some shortness of breath with exertion. COPD. Atrial fibrillation. Short of breath. Pretibial edema doing better. Supratherapeutic INR. Coronary artery disease. Hypertension better with medication. Hyperlipidemia history. Patient told no salt. Walker wanted her his instability Objective Exam Vital Signs Date Time Temp Pulse Resp B/P (MAP) Pulse Ox O2 Delivery O2 Flow Rate FiO2 12/10/16 06:18 91 Nasal Cannula 2.00 12/10/16 04:00 97.2 84 19 140/58 97 Nasal Cannula 2.00 12/10/16 02:05 97 Nasal Cannula 2.00 12/10/16 01:00 82 12/10/16 00:05 97.1 97 18 154/65 98 Nasal Cannula 2.00 12/09/16 22:18 96 Nasal Cannula 2.00 12/09/16 21:00 Nasal Cannula 2.00 12/09/16 20:55 97.9 61 17 137/63 99 Room Air 12/09/16 19:00 77 12/09/16 18:28 97 Nasal Cannula 2.00 12/09/16 16:41 97.7 66 17 151/70 98 Room Air 12/09/16 14:35 96 Nasal Cannula 2.00 12/09/16 13:55 83 86 12/09/16 13:55 86 Room Air 12/09/16 13:00 91 12/09/16 12:00 98.0 68 20 158/64 93 Room Air 12/09/16 09:08 Room Air 12/09/16 08:15 98.0 66 20 138/79 98 Room Air Capillary Refill : Less Than 3 Seconds General Appearance: No Apparent Distress, WD/WN HEENT: Normal ENT Inspection Neck: Normal Inspection, Non Tender Respiratory: Decreased Breath Sounds Cardiovascular: Irregularly Irregular Gastrointestinal: non tender, soft Results Lab Laboratory Tests 12/10/16 05:38 Laboratory Tests 12/10/16 05:38: White Blood Count 7.9, Red Blood Count 3.28L, Hemoglobin 8.8L, Hematocrit 28L, Mean Corpuscular Volume 86, Mean Corpuscular Hemoglobin 27, Mean Corpuscular Hemoglobin Concent 31L, Red Cell Distribution Width 15.5H, Platelet Count 270, Mean Platelet Volume 9.1, Neutrophils (%) (Auto) 78H, Lymphocytes (%) (Auto) 11L , Monocytes (%) (Auto) 9, Eosinophils (%) (Auto) 2, Basophils (%) (Auto) 0, Neutrophils # (Auto) 6.2, Lymphocytes # (Auto) 0.8L, Monocytes # (Auto) 0.7, Eosinophils # (Auto) 0.2, Basophils # (Auto) 0.0, Prothrombin Time 36.5H, INR Comment 3.7H, Sodium Level 132L, Potassium Level 3.6, Chloride Level 92L, Carbon Dioxide Level 32, Anion Gap 8, Blood Urea Nitrogen 29H, Creatinine 0.89, Estimat Glomerular Filtration Rate > 60, BUN/Creatinine Ratio 33, Glucose Level 109H, Calcium Level 8.3L, Magnesium Level 2.1, Total Bilirubin 0.8, Aspartate Amino Transf (AST/SGOT) 46H, Alanine Aminotransferase (ALT/SGPT) 28, Alkaline Phosphatase 81, Troponin I < 0.30, B-Type Natriuretic Peptide 582.7H, Total Protein 6.0L, Albumin 3.4, Triglycerides Level 79, Cholesterol Level 115, LDL Cholesterol Direct 70, VLDL Cholesterol 16, HDL Cholesterol 35L, Thyroid Stimulating Hormone (TSH) 1.85 Assessment/Plan Assessment/Plan Assess & Plan/Chief Complaint weakness. Confusion. COPD. Short of breath. Atrial fibrillation. Pretibial edema improving. Lost 13 pounds from the 15 pound weight gain. Supratherapeutic INR. Coronary artery disease. Hypertension better with medication. Hyperlipidemia. Unsteady gait needs a walker Clinical Quality Measures DVT/VTE Risk/Contraindication: Contraindications-Pharm: Other *list below* NISSA ANTONIO DO Dec 10, 2016 08:09
[2016-12-10] MEDS ORDERED: LACTOBACILLUS Acidoph/Bulgar (LACTINEX/FLORANEX) TAB PO SCH (09:00)
[2016-12-10] MEDS ORDERED: amLODIPine 5 MG (NORVASC) TAB PO SCH (09:00)
[2016-12-10] MEDS ORDERED: ASPIRIN E.C. 81 MG (ECOTRIN) TAB PO SCH (09:00)
[2016-12-10] MEDS ORDERED: CYANOCOBALAMIN 500 MCG TAB (VITAMIN B-12) PO SCH (09:00)
[2016-12-10] MEDS ORDERED: NON-FORMULARY MEDICATION 1 EA EA (Losartan Potassium 100 MG) PO SCH (09:00)
[2016-12-10] MEDS ORDERED: LOSARTAN 50 MG (COZAAR) TAB PO SCH (09:00)
[2016-12-10] MEDS ORDERED: meTOprolol SUCCINATE 100 MG (TOPROL XL) TAB PO SCH (09:00)
[2016-12-10] MEDS ORDERED: BACILLUS COAGULANS PO SCH (09:00)
[2016-12-10] MEDS ORDERED: VITAMIN D3 5,000 UNITS (CHOLECALCIFEROL ) CAPSULE PO SCH (09:00)
[2016-12-10] MEDS ORDERED: DIGOXIN 0.125 MG (LANOXIN) TAB PO SCH (09:00)
[2016-12-10] MEDS ORDERED: ALLOPURINOL 300 MG (ZYLOPRIM) TAB PO SCH (09:00)
[2016-12-10] MEDS ORDERED: NON-FORMULARY MEDICATION 1 EA EA (Cyanocobalamin (Vitamin B-12) (Vitamin B-12) 1,000 MCG) PO SCH (09:00)
--- NOTE | 2016-12-10 11:00 | Cardiology Progress Note ---
Subjective Date Seen by Provider: Dec 10, 2016 Time Seen by Provider: 10:58 Subjective/Events-last exam Patient is feeling better, breathing better, was walking earlier today. Still having peripheral edema Review of Systems General: No Chills, No Night Sweats, No Fatigue, No Malaise, No Appetite, No Other HEENT: No Head Aches, No Visual Changes, No Eye Pain, No Ear Pain, No Dysphasia , No Sinus Congestion, No Post Nasal Drip, No Sore Throat, No Other Pulmonary: Dyspnea, No Cough, No Pleuritic Chest Pain, No Other Cardiovascular: Edema, No: Chest Pain, Palpitations, Orthopnea, Paroxysmal Noc. Dyspnea, Lt Headedness, Other Objective-Cardiology Exam Last Set of Vital Signs Vital Signs 12/10/16 12/10/16 12/10/16 08:00 08: 10:51 Temp 98.2 Pulse 101 Resp 20 B/P (MAP) 139/63 Pulse Ox 96 O2 Delivery Nasal Cannula O2 Flow Rate 2.00 Capillary Refill : Less Than 3 Seconds I&O Intake and Output 12/11/16 00:00 Intake Total 200 ml Balance 200 ml Intake Oral 200 ml # Voids 2 General: Alert, Oriented X3, Cooperative HEENT: Atraumatic, PERRLA Neck: Supple, No JVD, No Thyromegaly Lungs: Normal Air Movement, Other (Bilateral rhonchi) Heart: Normal S1, Normal S2, No Murmurs, Other (Atrial fibrillation) Abdomen: Normal Bowel Sounds, Soft, No Tenderness, No Hepatosplenomegaly, No Masses Extremities: No Clubbing, No Cyanosis, Normal Pulses, No Tenderness/Swelling, Other (Peripheral edema) Skin: No Significant Lesion, Other (Chronic venous stasis) Neuro: Normal Gait, Normal Speech, Normal Tone, Sensation Intact Psych/Mental Status: Mood NL Results Lab Laboratory Tests 12/10/16 05:38 A/P-Cardiology Admission Diagnosis Shortness of breath Persistent atrial fibrillation Congestive heart failure Hypertension Assessment/Plan Shortness of breath, fatigue and loss of energy, improving, receiving physical therapy. Congestive heart failure acute on chronic left ventricular diastolic dysfunction probably secondary to atrial fibrillation. Continue with diuretics and monitor intake and output COPD, bronchial asthma, questionable underlying sleep apnea, consider sleep study. Using oxygen at home. Persistent atrial fibrillation, rate is controlled, restart home medication and monitor heart rate and blood pressure response [id number] score is 4, yearly risk of stroke without oral anticoagulation is 4 percent. Patient is maintained on Coumadin, INR is elevated, hold Coumadin for now and monitor daily PT/INR. Consider NOACs Anemia, supratherapeutic INR, monitor H&H, followed and managed by Dr. Mccoy Coronary artery disease, mild to moderate disease, last cardiac catheterization was done in July 2010. Showing heavily calcified coronary system with mild disease, nonobstructive disease with cardiomyopathy, did not have the echocardiogram or the stress test done. Patient does not want to have a stress test done. Hypertension, restart home medication monitor blood pressure Hyperlipidemia, monitor lipids History of gouty arthritis, currently asymptomatic. Moderate carotid stenosis, continue to monitor as an outpatient Valvular heart disease with mild mitral, tricuspid and aortic regurgitation, Clinical Quality Measures DVT/VTE Risk/Contraindication: Contraindications-Pharm: Other *list below* LAVONNE KELLY MD Dec 10, 2016 11:00
--- NOTE | 2016-12-10 11:15 | Physical Therapy Daily Note ---
PT Daily Note-Current Subjective Patient states that he has a bad attitude today and just wants to get this over with. PT is performed while RT performs an O2 study during patient's gait. Patient states he is going home today or tomorrow. Pain Numeric Pain Scale: 0-No Pain Location: No Pain Reported Appearance Patient appears healthy. Mental Status Patient Orientation: Normal For Age Attachments: Oxygen 2.0 L at rest; 3.0 L with activity Transfers Functional [place] Measure 0=Not Assessed/NA 4=Minimal Assistance 1=Total Assistance 5=Supervision or Setup 2=Maximal Assistance 6=Modified [place] 3=Moderate Assistance 7=Complete IndependenceIRFPAI Quality Coding Scale 6 Independent with activity with or without an assistive device 5 Patient requires set up or clean up by helper. Patient completes activity by themselves 4 Supervision or touching assist (CGA). Rienzi provide cues , steadying assist 3 The helper provides less than half the effort to complete the activity 2 The helper provides more than half the effort to complete the activity 1 Dependent. The helper does all the effort to complete an activity 7 Patient refused to complete or attempt activity 9 The patient did not perform the activity before the current illness or injury 88 Not attempted due to Medical conditions or safety concerns Transfers (B, C, W/C) (FIM): 5 Scootin Rollin Supine to/from Sit: 5 Sit to/from Stand: 5 Patient performs all transfers observed with SBA. Weight Bearing Full Weight Bearing Full Weight Bearing Gait Training Gait (FIM): 4 Distance (FIM): 3=150 ft Distance: 200' Gait Level of Assist: 4 Gait Persons Needed: 1 Gait Assistive Device: FWW PT alternates between CGA and SBA. Patient becomes SOB quickly and walks with a normal reciprocal gait pattern. Assessment Current Status: Good Progress RT study determined patient has a need for O2 at rest and with activity. Patient performs PT with good tolerance only being limited by SOB. PT Alf Goals Alf Goals PT Alf Goals Time Frame: Dec 16, 2016 Transfers (B,C,W/C) (FIM): 6 Gait (FIM): 6 Distance: >300' Gait Level of Assist: 6 Gait Assistive Device: Cane Single Point PT Plan Problem List Problem List: Activity Tolerance, Safety, Balance, Gait Treatment/Plan Treatment Plan: Continue Plan of Care Treatment Plan: Education, Functional Activity [place], Functional Strength, Gait , Therapeutic Exercise Treatment Duration: Dec 16, 2016 Frequency: 6 times per week Estimated Hrs Per Day: .25 hour per day Patient and/or Family Agrees t: Yes Time/GCodes Time In: 1031 Time Out: 1044 Total Billed Treatment Time: 13 Total Billed Treatment 1 visit GT 13 min RILEY MALIK PT Dec 10, 2016 11:15
[2016-12-10 12:06] VITALS: BP 180/74
--- NOTE | 2016-12-10 12:18 | Diagnostic Imaging Report ---
EXAM: PA and lateral views of the chest. INDICATION: Shortness of breath. COMPARISON: 12/09/16. FINDINGS: There is minimal opacity in the right lung base favored to be atelectasis rather than mild pneumonia. The heart size is moderately enlarged. No effusion or pneumothorax The mediastinum and julian appear unremarkable. IMPRESSION: Mild right basilar opacity may relate to atelectasis or less likely, mild pneumonia. Correlate clinically and with followup exams. Dictated by: Dictated on workstation # [id number]
--- NOTE | 2016-12-13 07:33 | Discharge Summary ---
Diagnosis/Chief Complaint Date of Admission Dec 08, 2016 at 15:52 Date of Discharge Dec 10, 2016 at 17:00 Discharge Date: Dec 10, 2016 Discharge Time: 07:30 Admission Diagnosis Admission Diagnosis congestive heart failure. Anemia. Atrial fibrillation. probable sleep apnea. Supratherapeutic INR. Hyponatremia. Hypotension. scalp laceration healing well. Pretibial edema Discharge Diagnosis short of breath. Congestive heart failure. Acute on chronic left ventricular diastolic dysfunction. Supratherapeutic INR. Hypertension. Chronic atrial fibrillation. Hyponatremia. Scalp laceration healing well. COPD. Lethargic. Pretibial edema . Anemia. Coronary artery disease. Hyperlipidemia Reason Hospital Visit patient came into the office yesterday with shortness of breath and unsteady gait. patient states he gained 15 pounds in the last week. Patient fell asleep in the chair and unable to give history patient usually is alert and able to walk without shortness Patient states he uses 2 L of oxygen at night. Family states he snores much. Surgeries coronary angiography Patient has been falling lately and has comfort in the scalp Discharge Summary Consultations cardiology Discharge Physical Examination Allergies: Coded Allergies: No Allergy Information Available (Unverified , 11/09/16) Vitals & I&Os Vital Signs Date Time Temp Pulse Resp B/P (MAP) Pulse Ox O2 Delivery O2 Flow Rate FiO2 12/10/16 17:01 12/10/16 14:28 95 Nasal Cannula 2.00 12/10/16 12:06 98.4 94 20 Hospital Course patient in hospital did do better. Patient alert. Patient wanted to go home. Patient improved Labs (last 24 hrs) Laboratory Tests 12/08/16 14:49: White Blood Count 9.0, Red Blood Count 3.54L, Hemoglobin 9.3L, Hematocrit 30L, Mean Corpuscular Volume 85, Mean Corpuscular Hemoglobin 26, Mean Corpuscular Hemoglobin Concent 31L, Red Cell Distribution Width 15.2H, Platelet Count 284, Mean Platelet Volume 8.7, Neutrophils (%) (Auto) 87H, Lymphocytes (%) (Auto) 6L , Monocytes (%) (Auto) 6, Eosinophils (%) (Auto) 0, Basophils (%) (Auto) 0, Neutrophils # (Auto) 7.9H, Lymphocytes # (Auto) 0.5L, Monocytes # (Auto) 0.6, Eosinophils # (Auto) 0.0, Basophils # (Auto) 0.0, Neutrophils % (Manual) 88, Lymphocytes % (Manual) 7, Monocytes % (Manual) 5, Eosinophils % (Manual) 0, Basophils % (Manual) 0, Band Neutrophils 0, Blood Morphology Comment NORMAL, Prothrombin Time 40.7H, INR Comment 4.3H, Activated Partial Thromboplast Time 63H, Sodium Level 126L, Potassium Level 5.4H, Chloride Level 90L, Carbon Dioxide Level 27, Anion Gap 9, Blood Urea Nitrogen 38H, Creatinine 1.09, Estimat Glomerular Filtration Rate > 60, BUN/Creatinine Ratio 35, Glucose Level 69L, Calcium Level 8.4L, Magnesium Level 2.1, Total Bilirubin 1.4H, Aspartate Amino Transf (AST/SGOT) 56H, Alanine Aminotransferase (ALT/SGPT) 32, Alkaline Phosphatase 100, Troponin I < 0.30, B-Type Natriuretic Peptide 951.3H, Total Protein 7.0, Albumin 3.8 12/08/16 14:55: Thyroid Stimulating Hormone (TSH) 1.61 12/09/16 05:43: White Blood Count 8.6, Red Blood Count 3.14L, Hemoglobin 8.5L, Hematocrit 27L, Mean Corpuscular Volume 85, Mean Corpuscular Hemoglobin 27, Mean Corpuscular Hemoglobin Concent 32, Red Cell Distribution Width 15.3H, Platelet Count 268, Mean Platelet Volume 9.4, Neutrophils (%) (Auto) 79H, Lymphocytes (%) (Auto) 8L , Monocytes (%) (Auto) 11, Eosinophils (%) (Auto) 2, Basophils (%) (Auto) 0, Neutrophils # (Auto) 6.8, Lymphocytes # (Auto) 0.7L, Monocytes # (Auto) 0.9, Eosinophils # (Auto) 0.2, Basophils # (Auto) 0.0, Prothrombin Time 34.0H, INR Comment 3.4H, Sodium Level 130L, Potassium Level 3.8, Chloride Level 92L, Carbon Dioxide Level 28, Anion Gap 10, Blood Urea Nitrogen 38H, Creatinine 1.01 , Estimat Glomerular Filtration Rate > 60, BUN/Creatinine Ratio 38, Glucose Level 78, Calcium Level 8.3L, Total Bilirubin 1.1H, Aspartate Amino Transf (AST/ SGOT) 48H, Alanine Aminotransferase (ALT/SGPT) 29, Alkaline Phosphatase 82, B- Type Natriuretic Peptide 1001.8H, Total Protein 6.0L, Albumin 3.4 12/10/16 05:38: White Blood Count 7.9, Red Blood Count 3.28L, Hemoglobin 8.8L, Hematocrit 28L, Mean Corpuscular Volume 86, Mean Corpuscular Hemoglobin 27, Mean Corpuscular Hemoglobin Concent 31L, Red Cell Distribution Width 15.5H, Platelet Count 270, Mean Platelet Volume 9.1, Neutrophils (%) (Auto) 78H, Lymphocytes (%) (Auto) 11L , Monocytes (%) (Auto) 9, Eosinophils (%) (Auto) 2, Basophils (%) (Auto) 0, Neutrophils # (Auto) 6.2, Lymphocytes # (Auto) 0.8L, Monocytes # (Auto) 0.7, Eosinophils # (Auto) 0.2, Basophils # (Auto) 0.0, Prothrombin Time 36.5H, INR Comment 3.7H, Sodium Level 132L, Potassium Level 3.6, Chloride Level 92L, Carbon Dioxide Level 32, Anion Gap 8, Blood Urea Nitrogen 29H, Creatinine 0.89, Estimat Glomerular Filtration Rate > 60, BUN/Creatinine Ratio 33, Glucose Level 109H, Calcium Level 8.3L, Magnesium Level 2.1, Total Bilirubin 0.8, Aspartate Amino Transf (AST/SGOT) 46H, Alanine Aminotransferase (ALT/SGPT) 28, Alkaline Phosphatase 81, Troponin I < 0.30, B-Type Natriuretic Peptide 582.7H, Total Protein 6.0L, Albumin 3.4, Thyroid Stimulating Hormone (TSH) 1.85, Triglycerides Level 79, Cholesterol Level 115, LDL Cholesterol Direct 70, VLDL Cholesterol 16, HDL Cholesterol 35L Laboratory Tests 12/08/16 14:49 12/09/16 05:43 12/10/16 05:38 Pending Labs Laboratory Tests 12/08/16 14:49: White Blood Count 9.0, Red Blood Count 3.54, Hemoglobin 9.3, Hematocrit 30, Mean Corpuscular Volume 85, Mean Corpuscular Hemoglobin 26, Mean Corpuscular Hemoglobin Concent 31, Red Cell Distribution Width 15.2, Platelet Count 284, Mean Platelet Volume 8.7, Neutrophils (%) (Auto) 87, Lymphocytes (%) (Auto) 6, Monocytes (%) (Auto) 6, Eosinophils (%) (Auto) 0, Basophils (%) (Auto) 0, Neutrophils # (Auto) 7.9, Lymphocytes # (Auto) 0.5, Monocytes # (Auto) 0.6, Eosinophils # (Auto) 0.0, Basophils # (Auto) 0.0, Neutrophils % (Manual) 88, Lymphocytes % (Manual) 7, Monocytes % (Manual) 5, Eosinophils % (Manual) 0, Basophils % (Manual) 0, Band Neutrophils 0, Blood Morphology Comment NORMAL, Prothrombin Time 40.7, INR Comment 4.3, Activated Partial Thromboplast Time 63, Sodium Level 126, Potassium Level 5.4, Chloride Level 90, Carbon Dioxide Level 27, Anion Gap 9, Blood Urea Nitrogen 38, Creatinine 1.09, Estimat Glomerular Filtration Rate > 60, BUN/Creatinine Ratio 35, Glucose Level 69, Calcium Level 8.4, Magnesium Level 2.1, Total Bilirubin 1.4, Aspartate Amino Transf (AST/SGOT ) 56, Alanine Aminotransferase (ALT/SGPT) 32, Alkaline Phosphatase 100, Troponin I < 0.30, B-Type Natriuretic Peptide 951.3, Total Protein 7.0, Albumin 3.8 12/08/16 14:55: Thyroid Stimulating Hormone (TSH) 1.61 12/09/16 05:43: White Blood Count 8.6, Red Blood Count 3.14, Hemoglobin 8.5, Hematocrit 27, Mean Corpuscular Volume 85, Mean Corpuscular Hemoglobin 27, Mean Corpuscular Hemoglobin Concent 32, Red Cell Distribution Width 15.3, Platelet Count 268, Mean Platelet Volume 9.4, Neutrophils (%) (Auto) 79, Lymphocytes (%) (Auto) 8, Monocytes (%) (Auto) 11, Eosinophils (%) (Auto) 2, Basophils (%) (Auto) 0, Neutrophils # (Auto) 6.8, Lymphocytes # (Auto) 0.7, Monocytes # (Auto) 0.9, Eosinophils # (Auto) 0.2, Basophils # (Auto) 0.0, Prothrombin Time 34.0, INR Comment 3.4, Sodium Level 130, Potassium Level 3.8, Chloride Level 92, Carbon Dioxide Level 28, Anion Gap 10, Blood Urea Nitrogen 38, Creatinine 1.01, Estimat Glomerular Filtration Rate > 60, BUN/Creatinine Ratio 38, Glucose Level 78, Calcium Level 8.3, Total Bilirubin 1.1, Aspartate Amino Transf (AST/SGOT) 48 , Alanine Aminotransferase (ALT/SGPT) 29, Alkaline Phosphatase 82, B-Type Natriuretic Peptide 1001.8, Total Protein 6.0, Albumin 3.4 12/10/16 05:38: White Blood Count 7.9, Red Blood Count 3.28, Hemoglobin 8.8, Hematocrit 28, Mean Corpuscular Volume 86, Mean Corpuscular Hemoglobin 27, Mean Corpuscular Hemoglobin Concent 31, Red Cell Distribution Width 15.5, Platelet Count 270, Mean Platelet Volume 9.1, Neutrophils (%) (Auto) 78, Lymphocytes (%) (Auto) 11, Monocytes (%) (Auto) 9, Eosinophils (%) (Auto) 2, Basophils (%) (Auto) 0, Neutrophils # (Auto) 6.2, Lymphocytes # (Auto) 0.8, Monocytes # (Auto) 0.7, Eosinophils # (Auto) 0.2, Basophils # (Auto) 0.0, Prothrombin Time 36.5, INR Comment 3.7, Sodium Level 132, Potassium Level 3.6, Chloride Level 92, Carbon Dioxide Level 32, Anion Gap 8, Blood Urea Nitrogen 29, Creatinine 0.89, Estimat Glomerular Filtration Rate > 60, BUN/Creatinine Ratio 33, Glucose Level 109, Calcium Level 8.3, Magnesium Level 2.1, Total Bilirubin 0.8, Aspartate Amino Transf (AST/SGOT) 46, Alanine Aminotransferase (ALT/SGPT) 28, Alkaline Phosphatase 81, Troponin I < 0.30, B-Type Natriuretic Peptide 582.7, Total Protein 6.0, Albumin 3.4, Thyroid Stimulating Hormone (TSH) 1.85, Triglycerides Level 79, Cholesterol Level 115, LDL Cholesterol Direct 70, VLDL Cholesterol 16 , HDL Cholesterol 35 Discharge Home Medications: Active Scripts Active Reported Probiotic (Bacillus Coagulans) 1 Each Tab.chew 1 Tab.chew PO DAILY Vitamin D3 (Cholecalciferol (Vitamin D3)) 5,000 Unit Tablet 5,000 Unit PO DAILY Iprat-Albut 0.5-3(2.5) mg/3 ml (Ipratropium/Albuterol Sulfate) 3 Ml Ampul.neb 3 Ml NEB QID PRN Tramadol HCl 50 Mg Tablet 50 Mg PO QID PRN Clobetasol Propionate 15 Gm Cream..g. TOP BID PRN Vitamin B-12 (Cyanocobalamin (Vitamin B-12)) 1,000 Mcg Tablet 1,000 Mcg PO DAILY Losartan Potassium 100 Mg Tablet 100 Mg PO DAILY Metoprolol Succinate 100 Mg Tab.er.24h 100 Mg PO DAILY Furosemide 40 Mg Tablet 40 Mg PO DAILY Allopurinol 300 Mg Tablet 300 Mg PO DAILY Ventolin Hfa (Albuterol Sulfate) 18 Gm Hfa.aer.ad 2 Puff INH Q4H PRN Amlodipine Besylate 5 Mg Tablet 5 Mg PO DAILY Digoxin 125 Mcg Tablet 125 Mcg PO DAILY Warfarin Sodium 3 Mg Tablet 3 Mg PO HS TAKES ALONG WITH 2MG TABLET FOR A TOTAL DAILY DOSE OF 5MG Warfarin Sodium 2 Mg Tablet 2 Mg PO HS TAKES ALONG WITH 3MG TABLET FOR A TOTAL DOSE OF 5MG Atorvastatin Calcium 20 Mg Tablet 20 Mg PO HS Aspirin EC (Aspirin) 81 Mg Tablet.dr 81 Mg PO DAILY Instructions to patient/family Please see electronic discharge instructions given to patient. Clinical Quality Measures DVT/VTE Risk/Contraindication: Risk Factor Score Per Nursin RFS Level Per Nursing on Admit: 2=Moderate Contraindications-Pharm: Other *list below* NISSA ANTONIO DO Dec 13, 2016 07:33
== END 2016-12-10 17:00 | disposition home or self-care (01) | DRG 292 ==
LOC: EDUNIT# 14:26 → ER 14:30 → 4TH 15:52
PROVIDERS: ADMIT Family Medicine; ATTEND Family Medicine
DX: I11.0 Hypertensive heart disease with heart failure (principal); I50.33 Acute on chronic diastolic (congestive) heart failure; I48.1 Persistent atrial fibrillation; I42.9 Cardiomyopathy, unspecified; E87.1 Hypo-osmolality and hyponatremia; J44.9 Chronic obstructive pulmonary disease, unspecified; G47.30 Sleep apnea, unspecified; D64.9 Anemia, unspecified; I25.10 Atherosclerotic heart disease of native coronary artery without angina pectoris; I70.8 Atherosclerosis of other arteries; E11.649 Type 2 diabetes mellitus with hypoglycemia without coma; E78.5 Hyperlipidemia, unspecified; I65.29 Occlusion and stenosis of unspecified carotid artery; I08.3 Combined rheumatic disorders of mitral, aortic and tricuspid valves; E87.5 Hyperkalemia; E87.8 Other disorders of electrolyte and fluid balance, not elsewhere classified; R79.1 Abnormal coagulation profile; J30.2 Other seasonal allergic rhinitis; R53.1 Weakness; R60.0 Localized edema; R41.0 Disorientation, unspecified; R26.81 Unsteadiness on feet; Z99.81 Dependence on supplemental oxygen; Z91.81 History of falling; Z87.891 Personal history of nicotine dependence; Z79.01 Long term (current) use of anticoagulants
CPT/HCPCS: 36415; 71020; 80053; 80061; 83735; 83880; 84443; 84484; 85007; 85025; 85027; 85610; 85730; 93005; 93306; 94640; 94760; 94761; 96374

== ENCOUNTER 2017-06-12 18:36 | Inpatient (IN) | payer MEDICARE, OTHER ==
[~2017-06-12] VITALS: Ht 172.7 cm; Wt 90.2 kg
[~2017-06-12 18:36] MED LIST changes: +ALBU18HF2 INH; +ALLO300T2 PO; +ASPI-983 PO; +ATOR20TA66 PO; +BACI1TAB3 PO; +CHOL10007 PO; +CHOL500044 PO; +CLOB15CR2 TOP; +CYAN10006 PO; +DIGO125T PO; +FURO40TA4 PO; +IPRA3AMP NEB; +LOSA100T28 PO; +METO-395 PO; +TRAM50TA2 PO; +WARF-47 PO; +WARF3TAB56 PO
[2017-06-12] MEDS ORDERED: RT-ALBUTEROL/IPRATROPIUM 3 ML (DUONEB) VIAL ONE (20:30)
[2017-06-12] MEDS ORDERED: RT-ALBUTEROL SULF 2.5 MG/3 ML PRE-MIX VIAL ONE (20:43)
[2017-06-12] MEDS ORDERED: RT-ALBUTEROL SULF 2.5 MG/3 ML PRE-MIX VIAL INH STA (20:56)
[2017-06-12] MEDS ORDERED: FURO80TA3 PO (20:56)
[2017-06-12] MEDS ORDERED: POTA10TA14 PO (20:56)
[2017-06-12] MEDS ORDERED: FUROSEMIDE 40 MG/4 ML INJ (LASIX) ONE (20:56)
[2017-06-12] MEDS ORDERED: HYDR25TA4 PO (20:56)
[2017-06-12] MEDS ORDERED: FUROSEMIDE 40 MG/4 ML INJ (LASIX) IVP ONE (21:00)
[2017-06-12] MEDS ORDERED: RT-ALBUTEROL/IPRATROPIUM 3 ML (DUONEB) VIAL INH ONE (21:00)
--- NOTE | 2017-06-12 21:04 | ED Respiratory ---
General Chief Complaint: Respiratory Problems Stated Complaint: FILLING UP WITH FLUID Nursing Triage Note: pt presents to er with complaint of wheezing and "filling up with fluid". pt has also been falling more frequently. Source: patient, family Exam Limitations: no limitations History of Present Illness Date Seen by Provider: Jun 12, 2017 Time Seen by Provider: 20:30 Initial Comments Patient presents to the ER by private conveyance with a family spouse and daughter and chief complaint that for the past couple days he's been getting short of breath, filling up with fluids and coughing productive mucopurulent sputum without fevers chills nausea vomiting or chest pain. He has some wheezing and mild shortness of breath using 2 L of oxygen at baseline per nasal cannula. The patient also says he's had a fall 2 days ago after which time his or having some right lower quadrant abdominal pain. He had another fall again last night. He daily basis to breathlessness. He says he did strike his head and he is on warfarin but he hasn't had any problems since then however he is not declining imaging her examination. He is having no pain in his neck. He has bandaged up his left elbow with some Band-Aids because of the recent falls. His remarks that he is very good at remembering to take all of his medications and has brought all of his medicines as well as his pill organizer's and with him. Allergies and Home Medications Allergies Coded Allergies: No Allergy Information Available (Unverified , 11/09/16) Home Medications Albuterol Sulfate 18 Gm Hfa.aer.ad, 2 PUFF INH Q4H PRN for SHORTNESS OF BREATH, (Reported) Allopurinol 300 Mg Tablet, 300 MG PO DAILY, (Reported) Amlodipine Besylate 5 Mg Tablet, 5 MG PO DAILY, (Reported) Aspirin 81 Mg Tablet.dr, 81 MG PO DAILY, (Reported) Atorvastatin Calcium 20 Mg Tablet, 20 MG PO HS, (Reported) Bacillus Coagulans 1 Each Tab.chew, 1 TAB.CHEW PO DAILY, (Reported) Cholecalciferol (Vitamin D3) 5,000 Unit Tablet, 5,000 UNIT PO DAILY, (Reported) Clobetasol Propionate 15 Gm Cream..g., TOP BID PRN for RASH, (Reported) Cyanocobalamin (Vitamin B-12) 1,000 Mcg Tablet, 1,000 MCG PO DAILY, (Reported) Digoxin 125 Mcg Tablet, 125 MCG PO DAILY, (Reported) Furosemide 40 Mg Tablet, 40 MG PO DAILY, (Reported) Ipratropium/Albuterol Sulfate 3 Ml Ampul.neb, 3 ML NEB QID PRN for SHORTNESS OF BREATH, (Reported) Losartan Potassium 100 Mg Tablet, 100 MG PO DAILY, (Reported) Metoprolol Succinate 100 Mg Tab.er.24h, 100 MG PO DAILY, (Reported) Tramadol HCl 50 Mg Tablet, 50 MG PO QID PRN for PAIN-MODERATE, (Reported) Warfarin Sodium 2 Mg Tablet, 2 MG PO HS, (Reported) TAKES ALONG WITH 3MG TABLET FOR A TOTAL DOSE OF 5MG Warfarin Sodium 3 Mg Tablet, 3 MG PO HS, (Reported) TAKES ALONG WITH 2MG TABLET FOR A TOTAL DAILY DOSE OF 5MG Patient Home Medication List Home Medication List Reviewed: Yes Review of Systems Constitutional: No chills, No diaphoresis, No fever, No malaise; weight gain ( he can't button his pants but he does not do daily weights) EENTM: No ear discharge, No hearing loss, No ear pain Respiratory: cough, phlegm, short of breath, wheezing Cardiovascular: No chest pain; edema, vascular heart diseas Gastrointestinal: RLQ; No nausea, No vomiting Genitourinary: No discharge, No dysuria Musculoskeletal: No back pain; joint pain Past Wfjxosa-Elaauo-Suhqca Hx Patient Social History Alcohol Use: Occasionally Uses Number of Drinks Today: AA Alcohol Beverage of Choice: Beer Recreational Drug Use: No Smoking Status: Former Smoker Type Used: Cigarettes Former Smoker, Quit: Nov 14, 1969 Recent Foreign Travel: No Contact w/Someone Who Travel: No Recent Infectious Disease Expo: No Recent Hopitalizations: No Immunizations Up To Date PED Vaccines UTD: Yes Seasonal Allergies Seasonal Allergies: Yes Past Medical History Surgeries: Yes Orthopedic Respiratory: Yes COPD Cardiac: Yes (CHF) Atrial Fibrillation, Chronic Edema/Swelling, Hypertension, Irregular Heartbeat Neurological: No Genitourinary: No Gastrointestinal: No Musculoskeletal: No Endocrine: No HEENT: No Cancer: No Psychosocial: No Family Medical History Alzheimer's disease Congenital heart disease Hypertension Respiratory disorder No Pertinent Family Hx Physical Exam Vital Signs Vital Signs - First Documented 06/12/17 06/12/17 20:28 20:51 Temp 97.7 Pulse 73 Resp 25 B/P (MAP) 161/80 (107) Pulse Ox 95 O2 Delivery Room Air O2 Flow Rate 2.00 Capillary Refill : Less Than 3 Seconds General Appearance: WD/WN, mild distress Eyes: Bilateral Eye Normal Inspection, Bilateral Eye PERRL, Bilateral Eye EOMI HEENT: PERRL/EOMI, normal ENT inspection, pharynx normal Neck: non-tender, full range of motion, supple, normal inspection Respiratory: chest non-tender, no accessory muscle use, respiratory distress ( mild), decreased breath sounds, rhonchi (b), wheezing (b), expiration Cardiovascular: normal peripheral pulses, regular rate, rhythm, other (2+ pitting edema bilateral lower extremity up to the calves) Gastrointestinal: normal bowel sounds, guarding (right lower quadrant); No rebound; tenderness, other (large ventral hernia involving the umbilicus) Neurologic/Psychiatric: alert, normal mood/affect, oriented x 3 Skin: normal color, warm/dry, ecchymosis (various stages of healing) Progress/Results/Core Measures Suspected Sepsis Recent Fever Within 48 Hours: No Infection Criteria Present: None New/Unexplained Altered Menta: No Sepsis Screen: No Definite Risk SIRS Temperature:97.7 Pulse: 73 Respiratory Rate: 25 Laboratory Tests 06/12/17 20:40: White Blood Count 9.6 Blood Pressure 161 /80 Mean: 107 Laboratory Tests 06/12/17 20:40: Creatinine 1.31H, INR Comment 1.8H, Platelet Count 281, Total Bilirubin 1.2H Results/Orders Lab Results Laboratory Tests Test 06/12/17 20:40 Range/Units White Blood Count 9.6 4.3-11.0 10^3/uL Red Blood Count 3.10 L 4.35-5.85 10^6/uL Hemoglobin 8.5 L 13.3-17.7 G/DL Hematocrit 26 L 40-54 % Mean Corpuscular Volume 82 80-99 FL Mean Corpuscular Hemoglobin 27 25-34 PG Mean Corpuscular Hemoglobin Concent 33 32-36 G/DL Red Cell Distribution Width 15.4 H 10.0-14.5 % Platelet Count 281 130-400 10^3/uL Mean Platelet Volume 9.3 7.4-10.4 FL Neutrophils (%) (Auto) 84 H 42-75 % Lymphocytes (%) (Auto) 7 L 12-44 % Monocytes (%) (Auto) 8 0-12 % Eosinophils (%) (Auto) 1 0-10 % Basophils (%) (Auto) 0 0-10 % Neutrophils # (Auto) 8.1 H 1.8-7.8 X 10^3 Lymphocytes # (Auto) 0.6 L 1.0-4.0 X 10^3 Monocytes # (Auto) 0.8 0.0-1.0 X 10^3 Eosinophils # (Auto) 0.1 0.0-0.3 10^3/uL Basophils # (Auto) 0.0 0.0-0.1 10^3/uL Neutrophils % (Manual) 89 % Lymphocytes % (Manual) 4 % Monocytes % (Manual) 4 % Eosinophils % (Manual) 2 % Basophils % (Manual) 0 % Band Neutrophils 0 % Reactive Lymphocytes 1 % Toxic Granulation 1+ Poikilocytosis MODERATE Basophilic Stippling SLIGHT Anisocytosis MODERATE Stomatocytes MODERATE Elliptocytes MODERATE Acanthocytes SLIGHT Rouleau MOD Prothrombin Time 20.9 H 12.2-14.7 SEC INR Comment 1.8 H 0.8-1.4 Activated Partial Thromboplast Time 46 H 24-35 SEC Urine Color YELLOW Urine Clarity CLEAR Urine pH 7 5-9 Urine Specific Warba 1.010 L 1.016-1.022 Urine Protein NEGATIVE NEGATIVE Urine Glucose (UA) NEGATIVE NEGATIVE Urine Ketones NEGATIVE NEGATIVE Urine Nitrite NEGATIVE NEGATIVE Urine Bilirubin NEGATIVE NEGATIVE Urine Urobilinogen NORMAL NORMAL MG/DL Urine Leukocyte Esterase NEGATIVE NEGATIVE Urine RBC (Auto) NEGATIVE NEGATIVE Urine RBC NONE /HPF Urine WBC RARE /HPF Urine Squamous Epithelial Cells 0-2 /HPF Urine Renal Epithelial Cells NONE /HPF Urine Crystals NONE /LPF Urine Bacteria NEGATIVE /HPF Urine Casts PRESENT /LPF Urine Hyaline Casts 5-10 H /LPF Urine Mucus NEGATIVE /LPF Urine Culture Indicated NO Sodium Level 120 *L 135-145 MMOL/L Potassium Level 4.1 3.6-5.0 MMOL/L Chloride Level 80 L 98-107 MMOL/L Carbon Dioxide Level 26 21-32 MMOL/L Anion Gap 14 5-14 MMOL/L Blood Urea Nitrogen 45 H 7-18 MG/DL Creatinine 1.31 H 0.60-1.30 MG/DL Estimat Glomerular Filtration Rate 53 BUN/Creatinine Ratio 34 Glucose Level 96 70-105 MG/DL Calcium Level 9.0 8.5-10.1 MG/DL Magnesium Level 2.4 1.8-2.4 MG/DL Total Bilirubin 1.2 H 0.1-1.0 MG/DL Aspartate Amino Transf (AST/SGOT) 38 H 5-34 U/L Alanine Aminotransferase (ALT/SGPT) 16 0-55 U/L Alkaline Phosphatase 86 40-136 U/L Troponin I < 0.30 <0.30 NG/ML C-Reactive Protein High Sensitivity 6.58 H 0.00-0.50 MG/DL B-Type Natriuretic Peptide 462.2 H <100.0 PG/ML Total Protein 7.1 6.4-8.2 GM/DL Albumin 4.2 3.2-4.5 GM/DL Digoxin Level 1.63 0.80-2.00 NG/ML My Orders Orders - ROMÁN LEWIS Albuterol/Ipra Inhalation Soln (Duoneb I (06/12/17 20:30) Albuterol Pre-Mix Nebs (Rt) (Proventil (06/12/17 20:43) BNP (06/12/17 20:56) Cbc With Automated Diff (06/12/17 20:56) Comprehensive Metabolic Panel (06/12/17 20:56) Hs C Reactive Protein (06/12/17 20:56) Magnesium (06/12/17 20:56) Protime With Inr (06/12/17 20:56) Partial Thromboplastin Time (06/12/17 20:56) Troponin I (06/12/17 20:56) Ua Culture If Indicated (06/12/17 20:56) Ct Abdomen/Pelvis Wo (06/12/17 20:56) Ct Head/Cervical Spine Wo (06/12/17 20:56) Saline Lock/Iv-Start (06/12/17 20:56) Chest 1 View, Ap/Pa Only (06/12/17 20:56) Albuterol Pre-Mix Nebs (Rt) (Proventil (06/12/17 20:56) Albuterol/Ipra Inhalation Soln (Duoneb I (06/12/17 21:00) Ekg Tracing (06/12/17 20:56) Monitor-Rhythm Ecg Trace Only (06/12/17 20:56) Svn Small Volume Nebulizer (06/12/17 20:56) Furosemide Injection (Lasix Injection) (06/12/17 21:00) Furosemide Injection (Lasix Injection) (06/12/17 20:56) Digoxin (06/12/17 21:04) Manual Differential (06/12/17 20:40) Medications Given in ED Current Medications Medications Dose Ordered Sig/Nikia Route Start Time Stop Time Status Last Admin Dose Admin Albuterol Sulfate 2.5 mg STK-MED ONCE .ROUTE 06/12/17 20:43 06/12/17 20:48 DC 06/12/17 20:48 5 MG Albuterol/ Ipratropium 3 ml STK-MED ONCE .ROUTE 06/12/17 20:30 06/12/17 20:34 DC 06/12/17 20:36 3 ML Furosemide 80 mg ONCE ONCE IVP 06/12/17 21:00 06/12/17 21:01 DC 06/12/17 21:04 80 MG Vital Signs/I&O 06/12/17 06/12/17 06/12/17 20:28 20:36 20:51 Temp 97.7 Pulse 73 Resp 25 B/P (MAP) 161/80 (107) Pulse Ox 95 100 99 O2 Delivery Room Air Room Air Nasal Cannula O2 Flow Rate 2.00 Capillary Refill : Less Than 3 Seconds Blood Pressure Mean: 107 Progress Note : Time: 21:11 Progress Note Appears to be CHF and acute exacerbation possible with a pneumonia although is having no fever or tachycardia. Check basic labs to include PT/INR and digoxin. We'll consider coverage with Rocephin and/or azithromycin for atypical coverage until we can prove there is not a pneumonia. We have given him 80 mg of Lasix. Echocardiogram by Dr. France on November 2016. EF 50-55% with mild diffuse hypokinesis. Strict of pattern with decreased left ventricular diastolic compliance grade 3 diastolic dysfunction. Right cavity size is moderately to severely increased. Left atrium moderately dilated. Right atrium moderately to severely dilated. Mitral regurg, mild. Aortic valve thickening and sclerotic Tricuspid valve with severe heart regurgitation. Severe pulmonary hypertension with estimated pulmonary artery pressure of 70 mmHg. ECG Initial ECG Impression Date: Jun 12, 2017 Initial ECG Impression Time: 21:12 Initial ECG Rate: 79 Initial ECG Rhythm: A Fib/Flutter Initial ECG Intervals: Normal Initial ECG Impression: Atrial Fibrillation Initial ECG Comparisson: Unchanged Comment Atrial fibrillation with an incomplete right bundle-branch block. Diagnostic Imaging Diagonstic Imaging: Xray Plain Films/CT/US/NM/MRI: chest (1v) Comments NAME: ODELL VELARDE [facility] REC#: [id number] PHYSICIAN: ROMÁN LEWIS MD CC: NEHEMIAS YOO MD; ROMÁN LEWIS Page 1 of 1 RADIOLOGY REPORT VIA [facility]. [place], [place] CC: NEHEMIAS YOO MD; ROMÁN LEWIS Page 1 of 1 RADIOLOGY REPORT NAME: ODELL VELARDE [facility] REC#: [id number] PT STATUS: REG ER : 1935 PHYSICIAN: ROMÁN LEWIS MD ADMIT DATE: 06/12/17/ER Signed Date of Exam: 06/12/17 CHEST 1 VIEW, AP/PA ONLY INDICATION: Wheezing. Comparison is made with prior examination from 12/20/2016. FINDINGS: There is cardiomegaly. There is mild venous congestion. There is no pleural effusion, pneumothorax or pneumonia. The mediastinum is unremarkable. IMPRESSION: Cardiomegaly and mild central pulmonary venous congestion. Dictated by: Dictated on workstation # [id number] Dict: 06/12/172135 Trans: 06/12/172143 Interpreted by: NEHEMIAS YOO MD Electronically signed by: NEHEMIAS YOO MD 06/12/172143 Reviewed: Reviewed by Me Diagonstic Imaging: CT Plain Films/CT/US/NM/MRI: abdomen, pelvis Comments NAME: ODELL VELARDE [facility] REC#: [id number] PHYSICIAN: ROMÁN LEWIS MD CC: NEHEMIAS YOO MD; ROMÁN LEWIS Page 2 of 2 RADIOLOGY REPORT VIA [facility]. [place], [place] CC: NEHEMIAS YOO MD; ROMÁN LEWIS Page 1 of 2 RADIOLOGY REPORT NAME: ODELL VELARDE [facility] REC#: [id number] PT STATUS: REG ER : 1935 PHYSICIAN: ROMÁN LEWIS MD ADMIT DATE: 06/12/17/ER Signed Date of Exam: 06/12/17 CT ABDOMEN/PELVIS WO PROCEDURE: CT abdomen and pelvis without contrast. TECHNIQUE: Multiple contiguous axial images were obtained through the abdomen and pelvis without the use of intravenous contrast. INDICATION: Wheezing and frequent falls. FINDINGS: The lung bases are clear. There are coronary artery calcifications. There is cardiomegaly. The liver is normal in size without focal lesions. There is cholelithiasis. There is no biliary ductal dilatation. The spleen is normal. The pancreas and adrenal glands are unremarkable. There are bilateral renal cysts. There is marked atherosclerotic calcification of the aorta which is nonaneurysmal. There is diastasis of the anterior abdominal wall. Bowel gas pattern is nonspecific. Bladder is normal. There is no pelvic mass or adenopathy. There is no ascites. There is no free air. There are no focal inflammatory changes. There are marked degenerative changes in the spine. IMPRESSION: Cardiomegaly and coronary artery calcification. Moderate atherosclerotic calcification of the aorta which is nonaneurysmal. Bilateral renal cysts. Degenerative changes in the spine. Dictated by: Dictated on workstation # [id number] Dict: 06/12/172132 Trans: 06/12/172143 Interpreted by: NEHEMIAS YOO MD Electronically signed by: NEHEMIAS YOO MD 06/12/172143 Reviewed: Reviewed by Me Diagonstic Imaging: CT Plain Films/CT/US/NM/MRI: c-spine, head Comments NAME: ODELL VELARDE [facility] REC#: [id number] PHYSICIAN: ROMÁN LEWIS MD CC: NEHEMIAS YOO MD; ROMÁN LEWIS Page 2 of 2 RADIOLOGY REPORT VIA [place], [place] CC: NEHEMIAS YOO MD; ROMÁN LEWIS Page 1 of 2 RADIOLOGY REPORT NAME: ODELL VELARDE [facility] REC#: [id number] PT STATUS: REG ER : 1935 PHYSICIAN: ROMÁN LEWIS MD ADMIT DATE: 06/12/17/ER Signed Date of Exam: 06/12/17 CT HEAD/CERVICAL SPINE WO PROCEDURE: CT head and CT cervical spine without contrast. TECHNIQUE: Multiple contiguous axial images were obtained through the brain and cervical spine without the use of intravenous contrast. Sagittal and coronal reformations through the cervical spine were then performed. INDICATION: Frequent falls. COMPARISON: Prior examination from 12/02/2016. FINDINGS: There is prominence of the ventricles and sulci. There is some chronic microvascular ischemic disease. There is no hydrocephalus. There is no midline shift. There is no intracranial mass, hemorrhage or extra-axial fluid collection. Calvarium is intact. Sinuses and mastoid air cells are clear. There is straightening of the normal cervical lordosis. There is severe cervical spondylosis and multilevel degenerative disease as well as some posterior facet arthropathy. The prevertebral soft tissues are within normal limits. There is no fracture or traumatic subluxation. There is marked atherosclerotic calcification of the carotid arteries. IMPRESSION: 1. No acute intracranial abnormality. There is some atrophy and mild chronic microvascular ischemic disease. 2. Severe cervical spondylosis and multilevel degenerative disc disease without acute fracture or traumatic subluxation. 3. Marked atherosclerotic calcification of the carotid arteries. Dictated by: Dictated on workstation # [id number] Dict: 06/12/172138 Trans: 06/12/172153 Interpreted by: NEHEMIAS YOO MD Electronically signed by: NEHEMIAS YOO MD 06/12/172153 Reviewed: Reviewed by Me Departure Communication (Admissions) Time/Spoke to Admitting Phy: 22:30 Discussed the case lab imaging and findings with Dr. Grimes and he would like saline at 100 miles milliliters an hour for the hyponatremia. He is okay with some Lasix in the morning as well as a standard dose of warfarin and jock some. Impression Primary Impression: COPD exacerbation Additional Impressions: Acute decompensated heart failure Hyponatremia Disposition: ADMITTED INPATIENT Condition: Improved Admissions Decision to Admit Reason: Admit from ER (General) Decision to Admit/Date: Jun 12, 2017 Time/Decision to Admit Time: 22:30 Departure-Patient Inst. Referrals: NISSA ANTONIO DO (PCP/Family) Primary Care Physician Copy Copies To 1: NISSA ANTONIO TITUS J Jun 12, 2017 21:03
[2017-06-12 21:06] LABS: BASOPHILS % (AUTO) 0 % (0-10); EOSINOPHILS # (AUTO) 0.1 10^3/uL (0.0-0.3); EOSINOPHILS % (AUTO) 1 % (0-10); HEMATOCRIT 26 % (40-54); HEMOGLOBIN 8.5 G/DL (13.3-17.7); LYMPHOCYTES # (AUTO) 0.6 X 10^3 (1.0-4.0); LYMPHOCYTES % (AUTO) 7 % (12-44); MEAN CORPUSCULAR HEMOGLOBIN 27 PG (25-34); MEAN CORPUSCULAR HGB CONC 33 G/DL (32-36); MEAN CORPUSCULAR VOLUME 82 FL (80-99); MEAN PLATELET VOLUME 9.3 FL (7.4-10.4); MONOCYTES # (AUTO) 0.8 X 10^3 (0.0-1.0); MONOCYTES % (AUTO) 8 % (0-12); NEUTROPHILS # (AUTO) 8.1 X 10^3 (1.8-7.8); NEUTROPHILS % (AUTO) 84 % (42-75); PLATELET COUNT 281 10^3/uL (130-400); RED CELL DISTRIBUTION WIDTH 15.4 % (10.0-14.5); WHITE BLOOD COUNT 9.6 10^3/uL (4.3-11.0)
[2017-06-12 21:10] LABS: INR 1.8 (0.8-1.4); PROTHROMBIN TIME PATIENT 20.9 SEC (12.2-14.7)
[2017-06-12 21:17] LABS: BILIRUBIN,URINE NEGATIVE (NEGATIVE); CLARITY,URINE CLEAR; COLOR,URINE YELLOW; GLUCOSE, URINE (UA) NEGATIVE (NEGATIVE); KETONES,URINE NEGATIVE (NEGATIVE); LEUKOCYTE ESTERASE ,URINE NEGATIVE (NEGATIVE); NITRITE,URINE NEGATIVE (NEGATIVE); PH,URINE 7 (5-9); PROTEIN,URINE NEGATIVE (NEGATIVE); UROBILINOGEN,URINE NORMAL (NORMAL)
[2017-06-12 21:25] LABS: BAND NEUTROPHILS 0 %; BASOPHILS % (MANUAL) 0 %; EOSINOPHILS % (MANUAL) 2 %; LYMPHOCYTES % (MANUAL) 4 %; MONOCYTES % (MANUAL) 4 %; NEUTROPHILS % (MANUAL) 89 %; POIKILOCYTOSIS MODERATE; REACTIVE LYMPHOCYTES 1 %
[2017-06-12 21:26] LABS: ACANTHOCYTES SLIGHT; ANISOCYTOSIS MODERATE; ELLIPT/OVALOCYTES MODERATE; ROULEAUX MOD; STOMATOCYTES MODERATE; TOXIC GRANULATION/VACUOLAZATIO 1+
[2017-06-12 21:34] LABS: BACTERIA,URINE NEGATIVE /HPF; SQUAMOUS EPITHELIAL CELL,UR 0-2 /HPF; WBC,URINE RARE /HPF
[2017-06-12 21:37] LABS: ALANINE AMINOTRANSFERASE 16 U/L (0-55); ALBUMIN 4.2 GM/DL (3.2-4.5); ALKALINE PHOSPHATASE 86 U/L (40-136); BILIRUBIN,TOTAL 1.2 MG/DL (0.1-1.0); BUN/CREATININE RATIO 34; CARBON DIOXIDE 26 MMOL/L (21-32); CHLORIDE 80 MMOL/L (98-107); CREATININE SERUM 1.31 MG/DL (0.60-1.30); GFR ESTIMATED 53; GLUCOSE 96 MG/DL (70-105); MAGNESIUM 2.4 MG/DL (1.8-2.4); POTASSIUM 4.1 MMOL/L (3.6-5.0); TOTAL PROTEIN 7.1 GM/DL (6.4-8.2)
--- NOTE | 2017-06-12 21:38 | Diagnostic Imaging Report ---
PROCEDURE: CT abdomen and pelvis without contrast. TECHNIQUE: Multiple contiguous axial images were obtained through the abdomen and pelvis without the use of intravenous contrast. INDICATION: Wheezing and frequent falls. FINDINGS: The lung bases are clear. There are coronary artery calcifications. There is cardiomegaly. The liver is normal in size without focal lesions. There is cholelithiasis. There is no biliary ductal dilatation. The spleen is normal. The pancreas and adrenal glands are unremarkable. There are bilateral renal cysts. There is marked atherosclerotic calcification of the aorta which is nonaneurysmal. There is diastasis of the anterior abdominal wall. Bowel gas pattern is nonspecific. Bladder is normal. There is no pelvic mass or adenopathy. There is no ascites. There is no free air. There are no focal inflammatory changes. There are marked degenerative changes in the spine. IMPRESSION: Cardiomegaly and coronary artery calcification. Moderate atherosclerotic calcification of the aorta which is nonaneurysmal. Bilateral renal cysts. Degenerative changes in the spine. Dictated by: Dictated on workstation # [id number]
--- NOTE | 2017-06-12 21:41 | Diagnostic Imaging Report ---
INDICATION: Wheezing. Comparison is made with prior examination from 12/20/2016. FINDINGS: There is cardiomegaly. There is mild venous congestion. There is no pleural effusion, pneumothorax or pneumonia. The mediastinum is unremarkable. IMPRESSION: Cardiomegaly and mild central pulmonary venous congestion. Dictated by: Dictated on workstation # [id number]
[2017-06-12 21:43] LABS: SODIUM 120 MMOL/L (135-145)
--- NOTE | 2017-06-12 21:52 | Diagnostic Imaging Report ---
PROCEDURE: CT head and CT cervical spine without contrast. TECHNIQUE: Multiple contiguous axial images were obtained through the brain and cervical spine without the use of intravenous contrast. Sagittal and coronal reformations through the cervical spine were then performed. INDICATION: Frequent falls. COMPARISON: Prior examination from 12/02/2016. FINDINGS: There is prominence of the ventricles and sulci. There is some chronic microvascular ischemic disease. There is no hydrocephalus. There is no midline shift. There is no intracranial mass, hemorrhage or extra-axial fluid collection. Calvarium is intact. Sinuses and mastoid air cells are clear. There is straightening of the normal cervical lordosis. There is severe cervical spondylosis and multilevel degenerative disease as well as some posterior facet arthropathy. The prevertebral soft tissues are within normal limits. There is no fracture or traumatic subluxation. There is marked atherosclerotic calcification of the carotid arteries. IMPRESSION: 1. No acute intracranial abnormality. There is some atrophy and mild chronic microvascular ischemic disease. 2. Severe cervical spondylosis and multilevel degenerative disc disease without acute fracture or traumatic subluxation. 3. Marked atherosclerotic calcification of the carotid arteries. Dictated by: Dictated on workstation # [id number]
[2017-06-12] MEDS ORDERED: ACETAMINOPHEN 500 MG TAB (TYLENOL) PO PRN (23:45)
[2017-06-13] VITALS (10 sets, daily range): BP systolic 120–156; BP diastolic 57–89
[2017-06-13] MEDS: NS W/KCL 20 MEQ/L 1,000 ML IV SCH ×3 (01:47→21:17)
[2017-06-13 06:05] LABS: BASOPHILS % (AUTO) 0 % (0-10); EOSINOPHILS # (AUTO) 0.1 10^3/uL (0.0-0.3); EOSINOPHILS % (AUTO) 2 % (0-10); HEMATOCRIT 22 % (40-54); HEMOGLOBIN 7.2 G/DL (13.3-17.7); LYMPHOCYTES # (AUTO) 0.6 X 10^3 (1.0-4.0); LYMPHOCYTES % (AUTO) 8 % (12-44); MEAN CORPUSCULAR HEMOGLOBIN 27 PG (25-34); MEAN CORPUSCULAR HGB CONC 33 G/DL (32-36); MEAN CORPUSCULAR VOLUME 83 FL (80-99); MEAN PLATELET VOLUME 9.5 FL (7.4-10.4); MONOCYTES # (AUTO) 0.6 X 10^3 (0.0-1.0); MONOCYTES % (AUTO) 9 % (0-12); NEUTROPHILS # (AUTO) 5.6 X 10^3 (1.8-7.8); NEUTROPHILS % (AUTO) 81 % (42-75); PLATELET COUNT 223 10^3/uL (130-400); RED BLOOD COUNT 2.64 10^6/uL (4.35-5.85); RED CELL DISTRIBUTION WIDTH 15.7 % (10.0-14.5); WHITE BLOOD COUNT 6.9 10^3/uL (4.3-11.0)
[2017-06-13 06:40] LABS: INR 1.9 (0.8-1.4); PROTHROMBIN TIME PATIENT 21.8 SEC (12.2-14.7)
[2017-06-13 06:50] LABS: CALCIUM 8.4 MG/DL (8.5-10.1); CREATININE SERUM 1.33 MG/DL (0.60-1.30); POTASSIUM 3.5 MMOL/L (3.6-5.0)
[2017-06-13] MEDS ORDERED: FUROSEMIDE 40 MG/4 ML INJ (LASIX) IV ONE (07:00)
[2017-06-13] MEDS: RT-ALBUTEROL/IPRATROPIUM 3 ML (DUONEB) VIAL INH SCH ×4 (07:24→19:41)
[2017-06-13 08:22] LABS: MAGNESIUM 2.2 MG/DL (1.8-2.4)
--- NOTE | 2017-06-13 08:31 | History & Physicial ---
History of Present Illness History of Present Illness Reason for visit/HPI Patient was brought out to the emergency room by family. According to daughter the patient feeling up with fluid. Patient has a history of atrial fibrillation. Family feels he is in congestive heart failure. Previous surgeries hip. Patient's blood cell shows anemia. Chest x-ray shows congestive heart failure. Elevated BNP. Date of Admission Jun 12, 2017 at 22:38 Time Seen by Provider: 08:25 I consulted on this patient on 06/13/17 08:25 Attending Physician Luan Grimes MD Admitting Physician Brian Antonio DO Consult Allergies and Home Medications Allergies Coded Allergies: No Allergy Information Available (Unverified , 11/09/16) Home Medications Albuterol Sulfate 18 Gm Hfa.aer.ad, 2 PUFF INH Q4H PRN for SHORTNESS OF BREATH, (Reported) Allopurinol 300 Mg Tablet, 300 MG PO DAILY, (Reported) Amlodipine Besylate 5 Mg Tablet, 5 MG PO DAILY, (Reported) Aspirin 81 Mg Tablet.dr, 81 MG PO DAILY, (Reported) Atorvastatin Calcium 20 Mg Tablet, 20 MG PO HS, (Reported) Bacillus Coagulans 1 Each Tab.chew, 1 TAB.CHEW PO DAILY, (Reported) Cholecalciferol (Vitamin D3) 5,000 Unit Tablet, 5,000 UNIT PO DAILY, (Reported) Clobetasol Propionate 15 Gm Cream..g., TOP BID PRN for RASH, (Reported) Cyanocobalamin (Vitamin B-12) 1,000 Mcg Tablet, 1,000 MCG PO DAILY, (Reported) Digoxin 125 Mcg Tablet, 125 MCG PO DAILY, (Reported) Furosemide 40 Mg Tablet, 40 MG PO DAILY, (Reported) Ipratropium/Albuterol Sulfate 3 Ml Ampul.neb, 3 ML NEB QID PRN for SHORTNESS OF BREATH, (Reported) Losartan Potassium 100 Mg Tablet, 100 MG PO DAILY, (Reported) Metoprolol Succinate 100 Mg Tab.er.24h, 100 MG PO DAILY, (Reported) Tramadol HCl 50 Mg Tablet, 50 MG PO QID PRN for PAIN-MODERATE, (Reported) Warfarin Sodium 2 Mg Tablet, 2 MG PO HS, (Reported) TAKES ALONG WITH 3MG TABLET FOR A TOTAL DOSE OF 5MG Warfarin Sodium 3 Mg Tablet, 3 MG PO HS, (Reported) TAKES ALONG WITH 2MG TABLET FOR A TOTAL DAILY DOSE OF 5MG Patient Home Medication List Home Medication List Reviewed: No Past [id number]-Jjkjzt Hx Patient Social History Marrital Status: Employed/Student: retired Alcohol Use: Regular Use Number of Drinks Today: AA Alcohol Beverage of Choice: Beer Recreational Drug Use: No Smoking Status: Former Smoker Former Smoker, Quit: Nov 14, 1969 Type Used: Cigarettes Physical Abuse Screen: No Sexual Abuse: No Recent Foreign Travel: No Contact w/other who traveled: No Recent Hopitalizations: No Recent Infectious Disease Expo: No Immunizations Up To Date Pediatric: Yes Seasonal Allergies Seasonal Allergies: Yes Surgeries Yes Orthopedic Respiratory Yes COPD Currently Using CPAP: No Currently Using BIPAP: No Cardiovascular Yes (CHF) Atrial Fibrillation, Chronic Edema/Swelling, Hypertension, Irregular Heartbeat Neurological Yes Reproductive System Sexually Transmitted Disease: No HIV/AIDS: No Genitourinary No Gastrointestinal No Musculoskeletal Yes Degenerate Disk Disease, Arthritis, Back Injury, Chronic Back Pain Endocrine History of Endocrine Disorders: No HEENT History of HEENT Disorders: No Hearing Impairment: Hard of Hearing Cancer No Psychosocial History of Psychiatric Problem: No Integumentary History of Skin or Integumenta: No (bruises, vairous stages) Blood Transfusions History of Blood Disorders: No Adverse Reaction to a Blood Tr: No Family Medical History Significant Family History: No Pertinent Family Hx Family Hx: Alzheimer's disease Congenital heart disease Hypertension Respiratory disorder Constitutional: weakness, other (Falling) EENTM: no symptoms reported Respiratory: dyspnea on exertion, short of breath, other (History of COPD and short of breath) Genitourinary: no symptoms reported Physical Exam Vital Signs Vital Signs - First Documented 06/12/17 06/12/17 06/13/17 20:28 20:51 03:20 Temp 97.7 Pulse 73 Resp 25 B/P (MAP) 161/80 (107) Pulse Ox 95 O2 Delivery Room Air O2 Flow Rate 2.00 FiO2 28 Capillary Refill : Less Than 3 Seconds General Appearance: No Apparent Distress, WD/WN Eyes: Bilateral Eye Normal Inspection HEENT: Normal ENT Inspection Neck: Normal Inspection Respiratory: Decreased Breath Sounds Cardiovascular: Irregularly Irregular Gastrointestinal: Non Tender, Soft Assessment/Plan Assessment and Plan Falling. Anemia. Congestive heart failure. Atrial fibrillation. COPD. CAD.PERICARDIOCENTESIS PROCEDURE NOTE INDICATION: Pericardial effusion with tamponade. INFORMED CONSENT: [Not obtained because of the patient's critical condition.] PROCEDURE: The subxiphoid region was prepped and draped in a sterile fashion. A spinal needle was introduced under the xiphoid process and directed posteriorly toward the tip of the right scapula until the pericardial space was entered and fluid aspirated. FINDINGS: [ ] EBL: [<25 mL] COMPLICATIONS: [None.] Admission Diagnosis 4 lying. Anemia. Congestive heart failure. Atrial fibrillation. COPD. CAD. Hyponatremia Admission Status: Inpatient Order (span 2 midnights) Reason for Inpatient Admission: Hyponatremia. Short of breath. Atrial fibrillation. Anemia requiring 1 blood. Coronary artery disease. Falling BRIAN ANTONIO DO Jun 13, 2017 08:31
[2017-06-13 08:35] LABS: DIGOXIN 1.26 NG/ML (0.80-2.00)
[2017-06-13] MEDS ORDERED: NON-FORMULARY MEDICATION 1 EA EA (Potassium Chloride (Klor-Con M10) 10 MEQ) PO SCH (09:00)
[2017-06-13] MEDS ORDERED: DIGOXIN 125 MCG PO SCH (09:00)
[2017-06-13] MEDS ORDERED: NON-FORMULARY MEDICATION 1 EA EA (Furosemide 80 MG) PO SCH (09:00)
[2017-06-13] MEDS ORDERED: NON-FORMULARY MEDICATION 1 EA EA (Amlodipine Besylate 5 MG) PO SCH (09:00)
[2017-06-13] MEDS ORDERED: LOSARTAN 100 MG (COZAAR) TABLET PO SCH (09:00)
[2017-06-13] MEDS ORDERED: ATORVASTATIN CALCIUM 20 MG PO SCH (09:00)
--- NOTE | 2017-06-13 09:04 | Consultation-Cardiology ---
HPI-Cardiology Cardiology Consultation Date of Consultation 06/13/17 Date of Admission Time Seen by Provider: 08:58 Indication: Atrial fibrillation, congestive heart failure HPI 81 years old gentleman with history of permanent atrial fibrillation, hypertension, congestive heart failure with left ventricular diastolic dysfunction and right-sided heart failure with cor pulmonale. Patient has been having increasing swelling. Generalized weakness and multiple falls, sustained a fall late last week, no syncope but patient has been complaining of generalized weakness. No chest pain, has chronic dyspnea which has been slightly worse, pedal edema has been slightly worse. Denied any fever or chills. No palpitation. Patient came into the emergency room yesterday with generalized weakness and shortness of breath. Upon my evaluation he was sitting up in a chair, eating breakfast, feeling slightly better but still complaining of generalized weakness. Home Medications & Allergies Allergies: Coded Allergies: No Allergy Information Available (Unverified , 11/09/16) Home Medication List Reviewed: Yes BVX-Oxvyyh-Uospls Hx Patient Social History Marital Status: Employed/Student: retired Alcohol Use: Regular Use Recreational Drug Use: No Smoking Status: Former Smoker Type Used: Cigarettes Recent Foreign Travel: No Recent Infectious Disease Expo: No Recent Hopitalizations: No Physical Abuse Screen: No Sexual Abuse: No Past Medical History Past medical history as discussed below Family Medical History Significant Family History: No Pertinent Family Hx Family History: Alzheimer's disease Congenital heart disease Hypertension Respiratory disorder Constitutional: see HPI, malaise, weakness EENTM: see HPI, no symptoms reported Respiratory: No no symptoms reported; see HPI, dyspnea on exertion; No hemoptysis; orthopnea; No phlegm; short of breath; No stridor, No wheezing, No other Cardiovascular: see HPI; No chest pain; edema; No Hx of Intervention, No palpitations, No syncope, No vascular heart diseas, No other Gastrointestinal: no symptoms reported, see HPI Genitourinary: see HPI, dysuria, frequency Musculoskeletal: see HPI, back pain, joint pain, muscle stiffness, muscle weakness Skin: no symptoms reported, see HPI Psychiatric/Neurological: No Symptoms Reported, See HPI Reviewed Test Results Reviewed Test Results Lab Laboratory Tests Test 06/12/17 20:40 06/13/17 05:33 Range/Units White Blood Count 9.6 6.9 4.3-11.0 10^3/uL Red Blood Count 3.10 L 2.64 L 4.35-5.85 10^6/uL Hemoglobin 8.5 L 7.2 L 13.3-17.7 G/DL Hematocrit 26 L 22 L 40-54 % Mean Corpuscular Volume 82 83 80-99 FL Mean Corpuscular Hemoglobin 27 27 25-34 PG Mean Corpuscular Hemoglobin Concent 33 33 32-36 G/DL Red Cell Distribution Width 15.4 H 15.7 H 10.0-14.5 % Platelet Count 281 223 130-400 10^3/uL Mean Platelet Volume 9.3 9.5 7.4-10.4 FL Neutrophils (%) (Auto) 84 H 81 H 42-75 % Lymphocytes (%) (Auto) 7 L 8 L 12-44 % Monocytes (%) (Auto) 8 9 0-12 % Eosinophils (%) (Auto) 1 2 0-10 % Basophils (%) (Auto) 0 0 0-10 % Neutrophils # (Auto) 8.1 H 5.6 1.8-7.8 X 10^3 Lymphocytes # (Auto) 0.6 L 0.6 L 1.0-4.0 X 10^3 Monocytes # (Auto) 0.8 0.6 0.0-1.0 X 10^3 Eosinophils # (Auto) 0.1 0.1 0.0-0.3 10^3/uL Basophils # (Auto) 0.0 0.0 0.0-0.1 10^3/uL Neutrophils % (Manual) 89 % Lymphocytes % (Manual) 4 % Monocytes % (Manual) 4 % Eosinophils % (Manual) 2 % Basophils % (Manual) 0 % Band Neutrophils 0 % Reactive Lymphocytes 1 % Toxic Granulation 1+ Poikilocytosis MODERATE Basophilic Stippling SLIGHT Anisocytosis MODERATE Stomatocytes MODERATE Elliptocytes MODERATE Acanthocytes SLIGHT Rouleau MOD Prothrombin Time 20.9 H 21.8 H 12.2-14.7 SEC INR Comment 1.8 H 1.9 H 0.8-1.4 Activated Partial Thromboplast Time 46 H 24-35 SEC Urine Color YELLOW Urine Clarity CLEAR Urine pH 7 5-9 Urine Specific [place] 1.010 L 1.016-1.022 Urine Protein NEGATIVE NEGATIVE Urine Glucose (UA) NEGATIVE NEGATIVE Urine Ketones NEGATIVE NEGATIVE Urine Nitrite NEGATIVE NEGATIVE Urine Bilirubin NEGATIVE NEGATIVE Urine Urobilinogen NORMAL NORMAL MG/DL Urine Leukocyte Esterase NEGATIVE NEGATIVE Urine RBC (Auto) NEGATIVE NEGATIVE Urine RBC NONE /HPF Urine WBC RARE /HPF Urine Squamous Epithelial Cells 0-2 /HPF Urine Renal Epithelial Cells NONE /HPF Urine Crystals NONE /LPF Urine Bacteria NEGATIVE /HPF Urine Casts PRESENT /LPF Urine Hyaline Casts 5-10 H /LPF Urine Mucus NEGATIVE /LPF Urine Culture Indicated NO Sodium Level 120 *L 121 *L 135-145 MMOL/L Potassium Level 4.1 3.5 L 3.6-5.0 MMOL/L Chloride Level 80 L 85 L 98-107 MMOL/L Carbon Dioxide Level 26 26 21-32 MMOL/L Anion Gap 14 10 5-14 MMOL/L Blood Urea Nitrogen 45 H 45 H 7-18 MG/DL Creatinine 1.31 H 1.33 H 0.60-1.30 MG/DL Estimat Glomerular Filtration Rate 53 52 BUN/Creatinine Ratio 34 34 Glucose Level 96 132 H 70-105 MG/DL Calcium Level 9.0 8.4 L 8.5-10.1 MG/DL Magnesium Level 2.4 2.2 1.8-2.4 MG/DL Total Bilirubin 1.2 H 0.1-1.0 MG/DL Aspartate Amino Transf (AST/SGOT) 38 H 5-34 U/L Alanine Aminotransferase (ALT/SGPT) 16 0-55 U/L Alkaline Phosphatase 86 40-136 U/L Troponin I < 0.30 <0.30 NG/ML C-Reactive Protein High Sensitivity 6.58 H 0.00-0.50 MG/DL B-Type Natriuretic Peptide 462.2 H <100.0 PG/ML Total Protein 7.1 6.4-8.2 GM/DL Albumin 4.2 3.2-4.5 GM/DL Digoxin Level 1.63 1.26 0.80-2.00 NG/ML Physical Exam Vital Signs Vital Signs - First Documented 06/12/17 06/12/17 06/13/17 20:28 20:51 03:20 Temp 97.7 Pulse 73 Resp 25 B/P (MAP) 161/80 (107) Pulse Ox 95 O2 Delivery Room Air O2 Flow Rate 2.00 FiO2 28 Capillary Refill : Less Than 3 Seconds General Appearance: WD/WN, Mild Distress Eyes: Bilateral Eye Normal Inspection, Bilateral Eye PERRL, Bilateral Eye EOMI HEENT: PERRL/EOMI, TMs Normal, Normal ENT Inspection, Pharynx Normal Neck: Full Range of Motion, Normal Inspection, Non Tender, Supple, Carotid Bruit Respiratory: Chest Non Tender, Lungs Clear, Normal Breath Sounds, No Accessory Muscle Use, No Respiratory Distress Cardiovascular: Normal Peripheral Pulses, Systolic Murmur, Gallop/S3, Irregularly Irregular Gastrointestinal: Normal Bowel Sounds, No Organomegaly, No Pulsatile Mass, Non Tender, Soft Back: Normal Inspection, No CVA Tenderness, No Vertebral Tenderness Extremity: Normal Capillary Refill, Normal Inspection, Normal Range of Motion, Non Tender, No Calf Tenderness, Pedal Edema Neurologic/Psychiatric: Alert, Oriented x3, No Motor/Sensory Deficits, Normal Mood/Affect Skin: Normal Color, Warm/Dry Lymphatic: No Adenopathy A/P-Cardiology Admission Diagnosis Generalized weakness Shortness of breath Acute renal insufficiency Anemia Hypertension Assessment/Plan Shortness of breath, fatigue and loss of energy, pedal edema. Patient has underlying left ventricular diastolic dysfunction and cor pulmonale with acute exacerbation secondary to atrial fibrillation and hypertension. Started on diuretics. We will continue to monitor closely. Anemia, worse today, stool for occult blood is ordered, will be given one unit of packed RBCs and continue to monitor renal function closely Acute renal insufficiency, continue to monitor renal function closely Congestive heart failure acute on chronic left ventricular diastolic dysfunction probably secondary to atrial fibrillation in addition to cor pulmonale with severe pulmonary hypertension. Restart beta blockers and losartan in addition to Lasix, hold hydrochlorothiazide for now. Generalized weakness, multiple falls, consider physical therapy consultation and evaluation. COPD, bronchial asthma, using home oxygen. Continue to monitor Persistent atrial fibrillation, rate is controlled, continue to monitor [id number] score is 4, yearly risk of stroke without oral anticoagulation is 4 percent. Patient is maintained on Coumadin, INR is elevated, hold Coumadin for now and monitor daily PT/INR. Consider NOACs Coronary artery disease, mild to moderate disease, last cardiac catheterization was done in July 2010. Showing heavily calcified coronary system with mild disease, nonobstructive disease with cardiomyopathy, continue to monitor Hypertension, restart home medication monitor blood pressure Hyperlipidemia, monitor lipids History of gouty arthritis, currently asymptomatic. Moderate carotid stenosis, continue to monitor as an outpatient Valvular heart disease with mild mitral, tricuspid and aortic regurgitation Clinical Quality Measures DVT/VTE Risk/Contraindication: Contraindications-Pharm: Other *list below* LAVONNE KELLY MD Jun 13, 2017 09:04
[2017-06-13] MEDS: ASPIRIN E.C. 81 MG (ECOTRIN) TAB PO SCH (10:06)
[2017-06-13] MEDS: KCL 20 MEQ TAB (K-DUR) PO SCH ×2 (10:06→21:18)
[2017-06-13] MEDS: DIGOXIN 0.125 MG (LANOXIN) TAB PO SCH (10:06)
[2017-06-13] MEDS: FUROSEMIDE 40 MG (LASIX) TAB PO SCH (10:07)
[2017-06-13] MEDS: predniSONE 20 MG TAB PO SCH (10:07)
[2017-06-13] MEDS: LOSARTAN 100 MG (COZAAR) TABLET PO SCH (10:07)
[2017-06-13] MEDS: PANTOPRAZOLE 40 MG/10 ML (PROTONIX) VIAL IV SCH (10:07)
[2017-06-13] MEDS: amLODIPine 5 MG (NORVASC) TAB PO SCH (10:07)
[2017-06-13] MEDS ORDERED: ACETAMINOPHEN 500 MG TAB (TYLENOL) PO ONE (10:15)
[2017-06-13] MEDS ORDERED: ACETAMINOPHEN 325 MG TABLET/CAPLET (TYLENOL) PO ONE (10:15)
[2017-06-13] MEDS ORDERED: diphenhydrAMINE 25 MG TAB (BENADRYL) PO ONE (10:15)
[2017-06-13] MEDS: NS IV 500 ML 500 ML IV SCH (11:01)
--- NOTE | 2017-06-13 14:53 | Physical Therapy Progress Note ---
Therapy Progress Note Pt had just sat up in chair and returned to bed. Will attempt PT eval tomorrow. Nurse reprots pt has had falls at home and therefore PT was ordered. SOLOMON STAUFFER PT Jun 13, 2017 14:53
[2017-06-13 16:54] LABS: HEMOGLOBIN 8.9 G/DL (13.3-17.7)
[2017-06-13] MEDS ORDERED: NON-FORMULARY MEDICATION 1 EA EA (Metoprolol Succinate 100 MG) PO SCH (21:00)
[2017-06-13] MEDS ORDERED: meTOprolol SUCCINATE 100 MG (TOPROL XL) TAB PO SCH (21:00)
[2017-06-13] MEDS ORDERED: warFARin 2 MG (COUMADIN) TAB PO SCH (21:00)
[2017-06-13] MEDS ORDERED: warFARin 3 MG (COUMADIN) TAB PO SCH (21:00)
[2017-06-13] MEDS: warFARin 5 MG (COUMADIN) TAB PO SCH (21:18)
[2017-06-13] MEDS: ATORVASTATIN 20 MG (LIPITOR) TABLET PO SCH (21:18)
[2017-06-14] VITALS: BP 145/69
[2017-06-14] MEDS: NS IV 500 ML 500 ML IV SCH ×5 (02:59→22:29)
[2017-06-14 05:00] VITALS: BP 160/71
[2017-06-14] MEDS: NS W/KCL 20 MEQ/L 1,000 ML IV SCH (06:32)
[2017-06-14] MEDS: VITAMIN D3 5,000 UNITS (CHOLECALCIFEROL ) CAPSULE PO SCH (06:36)
[2017-06-14] MEDS: predniSONE 20 MG TAB PO SCH (06:36)
[2017-06-14] MEDS: FUROSEMIDE 40 MG (LASIX) TAB PO SCH (06:36)
[2017-06-14] MEDS: CYANOCOBALAMIN 500 MCG TAB (VITAMIN B-12) PO SCH (06:36)
[2017-06-14 06:59] LABS: HEMOGLOBIN 8.6 G/DL (13.3-17.7); MEAN PLATELET VOLUME 9.4 FL (7.4-10.4); RED BLOOD COUNT 3.1 10^6/uL (4.35-5.85); RED CELL DISTRIBUTION WIDTH 15.4 % (10.0-14.5); WHITE BLOOD COUNT 7.1 10^3/uL (4.3-11.0)
[2017-06-14 07:12] LABS: INR 1.9 (0.8-1.4); PROTHROMBIN TIME PATIENT 21.8 SEC (12.2-14.7)
[2017-06-14 07:22] LABS: ALBUMIN 3.7 GM/DL (3.2-4.5); CALCIUM 8.4 MG/DL (8.5-10.1); CREATININE SERUM 1.32 MG/DL (0.60-1.30); TOTAL PROTEIN 6.3 GM/DL (6.4-8.2)
[2017-06-14 07:32] LABS: DIGOXIN 1.24 NG/ML (0.80-2.00)
[2017-06-14] MEDS: RT-ALBUTEROL/IPRATROPIUM 3 ML (DUONEB) VIAL INH SCH ×4 (07:35→19:04)
[2017-06-14 08:00] VITALS: BP 147/67
--- NOTE | 2017-06-14 08:09 | Progress Note (SOAP) ---
Subjective Time Seen by Provider: 08:05 Subjective/Events-last exam Patient seems to be feeling better today. Patient received a unit of blood yesterday. Hemoglobin and hematocrit stable today. Patient has hyponatremia. Weakness. Falls. Congestive heart failure. Hypertension. Pertinent atrial fibrillation Objective Exam Vital Signs Date Time Temp Pulse Resp B/P (MAP) Pulse Ox O2 Delivery O2 Flow Rate FiO2 06/14/17 07:35 98 Nasal Cannula 2.00 06/14/17 05:00 98.9 56 18 160/71 (100) 98 Nasal Cannula 2.00 06/14/17 01:00 77 06/14/17 00:00 97.0 84 19 145/69 (94) 97 Nasal Cannula 2.00 06/13/17 21:24 74 132/60 (84) 06/13/17 20:15 Nasal Cannula 3.00 06/13/17 19:41 97 Nasal Cannula 2.00 06/13/17 19:25 97.9 75 20 139/89 (106) 100 Nasal Cannula 2.00 06/13/17 19:00 79 06/13/17 16:05 97.8 70 22 120/58 (78) 97 Nasal Cannula 2.00 06/13/17 14:32 91 Room Air 06/13/17 14:30 97.6 75 20 126/57 96 Nasal Cannula 2.00 06/13/17 12:15 98.9 68 153/67 06/13/17 12:00 Nasal Cannula 2.00 06/13/17 11:50 99.1 63 148/64 06/13/17 10:17 92 Room Air 06/13/17 09:00 92 Nasal Cannula 2.00 06/13/17 08:45 96 Nasal Cannula 2.00 06/13/17 08:33 98.6 99 22 123/64 (83) 96 Nasal Cannula 2.00 I & O 06/14/17 07:00 Intake Total 3050 ml Output Total 2100 ml Balance 950 ml Capillary Refill : Less Than 3 Seconds General Appearance: No Apparent Distress, WD/WN HEENT: Normal ENT Inspection Neck: Normal Inspection Respiratory: No Accessory Muscle Use, No Respiratory Distress, Decreased Breath Sounds Cardiovascular: Irregularly Irregular Gastrointestinal: non tender, soft Results Lab Laboratory Tests 06/13/17 16:45 06/14/17 06:25 Laboratory Tests 06/13/17 16:45: Hemoglobin 8.9#L, Hematocrit 26L 06/14/17 06:25: Hemoglobin 8.6L, Hematocrit 26L, White Blood Count 7.1, Red Blood Count 3.10L, Mean Corpuscular Volume 84, Mean Corpuscular Hemoglobin 28, Mean Corpuscular Hemoglobin Concent 33, Red Cell Distribution Width 15.4H, Platelet Count 224, Mean Platelet Volume 9.4, Prothrombin Time 21.8H, INR Comment 1.9H, Activated Partial Thromboplast Time 45H, Sodium Level 121*L, Potassium Level 4.0, Chloride Level 85L, Carbon Dioxide Level 24, Anion Gap 12, Blood Urea Nitrogen 39H, Creatinine 1.32H, Estimat Glomerular Filtration Rate 52, BUN/Creatinine Ratio 30, Glucose Level 98, Calcium Level 8.4L, Total Bilirubin 1.0, Aspartate Amino Transf (AST/SGOT) 33, Alanine Aminotransferase (ALT/SGPT) 17, Alkaline Phosphatase 68, B-Type Natriuretic Peptide 224.5H, Total Protein 6.3L, Albumin 3.7, Digoxin Level 1.24 Assessment/Plan Assessment/Plan Assess & Plan/Chief Complaint CHF. Hyponatremia. Weakness. Falls. Hypertension. Permanent atrial fibrillation. COPD Clinical Quality Measures Admission Status Admission Dx 4 lying. Anemia. Congestive heart failure. Atrial fibrillation. COPD. CAD. Hyponatremia DVT/VTE Risk/Contraindication: Risk Factor Score Per Nursin RFS Level Per Nursing on Admit: 4+=Very High Contraindications-Pharm: Other *list below* NISSA ANTOINO DO June 14, 2017 08:09
--- NOTE | 2017-06-14 08:12 | Cardiology Progress Note ---
Subjective Date Seen by Provider: June 14, 2017 Time Seen by Provider: 08:05 Subjective/Events-last exam Patient is laying down in bed, receiving breathing treatment, feeling better, still having back pain, having wheezing. Review of Systems General: No Chills, No Night Sweats, No Fatigue, No Malaise, No Appetite, No Other HEENT: No Head Aches, No Visual Changes, No Eye Pain, No Ear Pain, No Dysphasia , No Sinus Congestion, No Post Nasal Drip, No Sore Throat, No Other Pulmonary: Dyspnea; No Cough, No Pleuritic Chest Pain, No Other Cardiovascular: Edema; No: Chest Pain, Palpitations, Orthopnea, Paroxysmal Noc. Dyspnea, Lt Headedness, Other Objective-Cardiology Exam Last Set of Vital Signs Vital Signs 06/13/17 06/14/17 06/14/17 03:20 05:00 07:35 Temp 98.9 Pulse 56 Resp 18 B/P (MAP) 160/71 (100) Pulse Ox 98 O2 Delivery Nasal Cannula O2 Flow Rate 2.00 FiO2 28 Capillary Refill : Less Than 3 Seconds I&O Intake and Output 06/14/17 00:00 Intake Total 2700 ml Output Total 1900 ml Balance 800 ml Intake Oral 1700 ml IV Total 1000 ml Output Urine Total 1900 ml Daily Weight Change No General: Alert, Oriented X3, Cooperative HEENT: Atraumatic, PERRLA Neck: Supple, No JVD, No Thyromegaly Lungs: Normal Air Movement, Other (Bilateral wheezing, bilateral rhonchi) Heart: Regular Rate, Normal S1, Normal S2, No Murmurs, Other (S3 present) Abdomen: Normal Bowel Sounds, Soft, No Tenderness, No Hepatosplenomegaly, No Masses Extremities: No Clubbing, No Cyanosis, Normal Pulses, No Tenderness/Swelling, Other (Mild edema) Skin: No Rashes, No Breakdown, No Significant Lesion Neuro: Normal Gait, Normal Speech, Strength at 5/5 X4 Ext, Normal Tone, Sensation Intact Psych/Mental Status: Mental Status NL, Mood NL Results Lab Laboratory Tests 06/13/17 16:45 06/14/17 06:25 A/P-Cardiology Admission Diagnosis Generalized weakness Shortness of breath Acute renal insufficiency Anemia Hypertension Assessment/Plan Shortness of breath, fatigue and loss of energy, pedal edema. Patient has underlying left ventricular diastolic dysfunction and cor pulmonale with acute exacerbation secondary to atrial fibrillation and hypertension. Continue on diuretics and monitor Bronchial asthma, COPD, still actively wheezing, I will hold metoprolol for now and monitor his response, continue on bronchodilators Anemia, received blood transfusion. Continue to monitor Acute renal insufficiency, continue to monitor renal function closely Congestive heart failure acute on chronic left ventricular diastolic dysfunction probably secondary to atrial fibrillation in addition to cor pulmonale with severe pulmonary hypertension. Continue on diuretics and monitor Generalized weakness, multiple falls, consider physical therapy consultation and evaluation. Persistent atrial fibrillation, rate is controlled, continue to monitor [id number] score is 4, yearly risk of stroke without oral anticoagulation is 4 percent. Patient is maintained on Coumadin, INR is elevated, hold Coumadin for now and monitor daily PT/INR. Consider NOACs Coronary artery disease, mild to moderate disease, last cardiac catheterization was done in July 2010. Showing heavily calcified coronary system with mild disease, nonobstructive disease with cardiomyopathy, continue to monitor Hypertension, monitor blood pressure Hyperlipidemia, monitor lipids History of gouty arthritis, currently asymptomatic. Moderate carotid stenosis, continue to monitor as an outpatient Valvular heart disease with mild mitral, tricuspid and aortic regurgitation Clinical Quality Measures DVT/VTE Risk/Contraindication: Risk Factor Score Per Nursin RFS Level Per Nursing on Admit: 4+=Very High Contraindications-Pharm: Other *list below* LAVONNE KELLY MD June 14, 2017 08:12
[2017-06-14] MEDS ORDERED: MILK OF MAGNESIA 400 MG/5 ML 30 ML UDC ONE (08:27)
[2017-06-14] MEDS: DIGOXIN 0.125 MG (LANOXIN) TAB PO SCH (08:38)
[2017-06-14] MEDS: ASPIRIN E.C. 81 MG (ECOTRIN) TAB PO SCH (08:38)
[2017-06-14] MEDS: ALLOPURINOL 300 MG (ZYLOPRIM) TAB PO SCH (08:38)
[2017-06-14] MEDS: LOSARTAN 100 MG (COZAAR) TABLET PO SCH (08:38)
[2017-06-14] MEDS: PANTOPRAZOLE 40 MG/10 ML (PROTONIX) VIAL IV SCH (08:39)
[2017-06-14] MEDS: KCL 20 MEQ TAB (K-DUR) PO SCH ×2 (08:39→20:44)
[2017-06-14] MEDS: amLODIPine 5 MG (NORVASC) TAB PO SCH (08:39)
[2017-06-14] MEDS ORDERED: MILK OF MAGNESIA 400 MG/5 ML 30 ML UDC PO PRN (09:30)
--- NOTE | 2017-06-14 09:33 | Diagnostic Imaging Report ---
Indication: Wheezing, congestive heart failure. Comparison: Study compared 06/12/2017. Findings: Cardiomegaly unchanged. No effusion or pneumothorax. Elevated right diaphragm unchanged. No focal pneumonia. Impression: Cardiomegaly and vascular congestion without pleural fluid or focal pneumonia. Overall significant change from prior is not apparent. Dictated by: Dictated on workstation # [id number]
--- NOTE | 2017-06-14 11:06 | Physical Therapy Evaluation ---
PT Evaluation-General Medical Diagnosis Admission Date Jun 12, 2017 at 22:38 Medical Diagnosis: CHF with acute exacerbation COPD Onset Date: Jun 12, 2017 Therapy Diagnosis Therapy Diagnosis: generalized weakness/debility Height/Weight Height (Feet): 5 Height (Inches): 8.00 Weight (Pounds): 205 Weight (Ounces): 4.2 Precautions Precautions/Isolations: Fall Prevention, Standard Precautions, Pressure Ulcer Weight Bear Status Right Lower Extremity: Right Full Weight Bearing Left Lower Extremity: Left Full Weight Bearing Referral Physician: Nadine Reason for Referral: Evaluation/Treatment Medical History Pertinent Medical History: CAD, COPD, Heart Failure, HTN Current History ED via POV with respiratory issues and falls/increase SOB Reviewed History: Yes Social History Home: Single Level Current Living Status: Spouse Entry Into Home: Stairs With Railing PT Steps Into Home: 2 Prior/Core FIM Prior Level of Function Functional [place] Measure 0=Not Assessed/NA 4=Minimal Assistance 1=Total Assistance 5=Supervision or Setup 2=Maximal Assistance 6=Modified [place] 3=Moderate Assistance 7=Complete [place] Bed Mobility: 6 Transfers (B,C,W/C) (FIM): 6 Gait: 6 uses FWW at home/wears O2 HS and PRN PT Evaluation-Current Subjective Patient agrees to PT. Pain Numeric Pain Scale: 5-Moderate Pain Location: Lower Location Body Site: Sacrum Pain Description: Acute Objective Patient Orientation: Person, Time, Situation Problem Solving: Fair Attachments: Oxygen, IV ROM/Strength ROM Lower Extremities bilateral LE WNL Strength Lower Extremities 4-/5 grossly bilaterally all planes Integumentary/Posture Integumentary sacral contusion Bowel Incontinence: No Bladder Incontinence: No Posture slightly kyphotic/trunk flexed posture Neuromuscular (Tone, Coordination, Reflexes) diminished coordination due to inactivity PLOF Sensory Vision: Functional Hearing: Impaired Sensation Right Lower Extremit: Impaired Sensation Left Lower Extremity: Impaired Transfers Functional [place] Measure 0=Not Assessed/NA 4=Minimal Assistance 1=Total Assistance 5=Supervision or Setup 2=Maximal Assistance 6=Modified [place] 3=Moderate Assistance 7=Complete [place] Transfers (B, C, W/C) (FIM): 5 Scootin Sit to/from Stand: 5 Gait Mode of Locomotion: Walk Anticipated Mode of Locomotion: Walk Gait (FIM): 5 Distance (FIM): 3=150 ft Distance: 380' Gait Level of Assist: 5 Gait Assistive Device: FWW Comments/Gait Description extended UE's with FWW (family reports this is his norm)/steady gait sequence Balance Sitting Static: Normal Sitting Dynamic: Normal Standing Static: Normal Standing Dynamic: Normal Assessment/Needs 81 y.o. male, will benefit from short term skilled PT to address functional strength and mobility to improve current LOF and to safely return to home with family at maximum LOF. Rehab Potential: Fair PT Plant Guard Goals Retirement Goals PT Retirement Goals Time Frame: June 24, 2017 Transfers (B,C,W/C) (FIM): 6 Gait (FIM): 6 Gait distance (FIM): 3=150 ft Distance: 400' Gait Level of Assist: 6 Gait Assistive Device: FWW PT Plan Problem List Problem List: Activity Tolerance, Safety, Gait Treatment/Plan Treatment Plan: Continue Plan of Care Treatment Plan: Bed Mobility, Education, Functional Activity [place], Functional Strength, Gait, Safety, Therapeutic Exercise, Transfers Treatment Duration: June 24, 2017 Frequency: 6 times per week Estimated Hrs Per Day: .25 hour per day Patient and/or Family Agrees t: Yes Safety Risks/Education Patient Education: Safety Issues (body position in FWW) Teaching Recipient: Patient, Family Teaching Methods: Demonstration, Discussion Response to Teaching: Verbalize Understanding (family), Return Demonstration, Reinforcement Needed (patient) Discharge Recommendations Therapy D/C Recommendations: Home w/ Family Support Time/GCodes Time In: 1005 Time Out: 1022 Total Billed Treatment Time: 17 Total Billed Treatment 1 visit EVModC 17 min G Codes Necessary: RILEY Bettencourt PT June 14, 2017 11:06
[2017-06-14 12:00] VITALS: BP 138/65
[2017-06-14 15:25] VITALS: BP 164/72
[2017-06-14 19:05] VITALS: BP 148/79
[2017-06-14] MEDS: HYDROcodone/APAP 5 MG/325 MG (LORTAB) TAB PO PRN (20:43)
[2017-06-14] MEDS: ATORVASTATIN 20 MG (LIPITOR) TABLET PO SCH (20:43)
[2017-06-14] MEDS: warFARin 5 MG (COUMADIN) TAB PO SCH (20:43)
[2017-06-15] VITALS (7 sets, daily range): BP systolic 140–179; BP diastolic 69–88
[2017-06-15] MEDS: HYDROcodone/APAP 5 MG/325 MG (LORTAB) TAB PO PRN ×2 (04:03→20:40)
[2017-06-15] MEDS: RT-ALBUTEROL/IPRATROPIUM 3 ML (DUONEB) VIAL INH PRN (04:12)
[2017-06-15 06:01] LABS: HEMOGLOBIN 7.8 G/DL (13.3-17.7); MEAN PLATELET VOLUME 9.3 FL (7.4-10.4); RED BLOOD COUNT 2.83 10^6/uL (4.35-5.85); RED CELL DISTRIBUTION WIDTH 15.5 % (10.0-14.5); WHITE BLOOD COUNT 9.3 10^3/uL (4.3-11.0)
[2017-06-15 06:21] LABS: BUN/CREATININE RATIO 33; CARBON DIOXIDE 28 MMOL/L (21-32); CHLORIDE 90 MMOL/L (98-107); CREATININE SERUM 1.05 MG/DL (0.60-1.30); GFR ESTIMATED > 60; GLUCOSE 101 MG/DL (70-105); POTASSIUM 4.5 MMOL/L (3.6-5.0); SODIUM 127 MMOL/L (135-145)
[2017-06-15 06:27] LABS: INR 1.8 (0.8-1.4); PROTHROMBIN TIME PATIENT 20.8 SEC (12.2-14.7)
[2017-06-15] MEDS: PANTOPRAZOLE 40 MG (PROTONIX) TAB PO SCH (06:42)
[2017-06-15] MEDS: VITAMIN D3 5,000 UNITS (CHOLECALCIFEROL ) CAPSULE PO SCH (06:42)
[2017-06-15] MEDS: CYANOCOBALAMIN 500 MCG TAB (VITAMIN B-12) PO SCH (06:42)
[2017-06-15] MEDS: FUROSEMIDE 40 MG (LASIX) TAB PO SCH (06:42)
[2017-06-15] MEDS: predniSONE 20 MG TAB PO SCH (06:43)
[2017-06-15] MEDS: RT-ALBUTEROL/IPRATROPIUM 3 ML (DUONEB) VIAL INH SCH ×4 (07:23→19:28)
--- NOTE | 2017-06-15 08:00 | Progress Note (SOAP) ---
Subjective Time Seen by Provider: 07:55 Subjective/Events-last exam Patient feeling better today. Hemoglobin and hematocrit decreased from yesterday. Sodium increased from 121-127. Plan to discharge tomorrow. Patient had home did not take his iron pills. Patient has a history of anemia. Occult blood of the stools negative Objective Exam Vital Signs Date Time Temp Pulse Resp B/P (MAP) Pulse Ox O2 Delivery O2 Flow Rate FiO2 06/15/17 07:23 98 Nasal Cannula 2.00 06/15/17 04:12 98 Nasal Cannula 2.00 06/15/17 04:09 98.3 79 20 144/83 (103) 98 Nasal Cannula 2.00 06/15/17 01:00 70 06/15/17 00:07 98.0 76 19 140/82 (101) 97 Nasal Cannula 2.00 06/14/17 19:50 Nasal Cannula 2.00 06/14/17 19:05 97.4 83 20 148/79 (102) 99 Nasal Cannula 2.00 06/14/17 19:04 99 Nasal Cannula 2.00 06/14/17 19:00 64 06/14/17 15:27 95 Nasal Cannula 2.00 06/14/17 15:25 97.0 78 20 164/72 (102) 98 Nasal Cannula 2.00 06/14/17 13:02 74 06/14/17 12:00 98.0 83 18 138/65 (89) 97 Nasal Cannula 2.00 06/14/17 11:28 94 Room Air 06/14/17 08:00 96.9 74 18 147/67 (93) 95 Nasal Cannula 2.00 06/14/17 08:00 92 Nasal Cannula 2.00 I & O 06/15/17 07:00 Intake Total 2530 ml Output Total 550 ml Balance 1980 ml Capillary Refill : Less Than 3 Seconds General Appearance: No Apparent Distress, WD/WN HEENT: Normal ENT Inspection, Other (E knows today) Neck: Full Range of Motion, Normal Inspection Respiratory: No Accessory Muscle Use, No Respiratory Distress, Decreased Breath Sounds Cardiovascular: Irregularly Irregular Extremity: Non Tender Results Lab Laboratory Tests 06/15/17 05:26 Laboratory Tests 06/14/17 12:10: Stool Occult Blood Immunoassay NEGATIVE 06/14/17 16:47: Lab Scanned Report Transfusion Reaction Form 06/15/17 05:26: White Blood Count 9.3, Red Blood Count 2.83L, Hemoglobin 7.8L, Hematocrit 24L, Mean Corpuscular Volume 86, Mean Corpuscular Hemoglobin 28, Mean Corpuscular Hemoglobin Concent 32, Red Cell Distribution Width 15.5H, Platelet Count 222, Mean Platelet Volume 9.3, Prothrombin Time 20.8H, INR Comment 1.8H, Sodium Level 127L, Potassium Level 4.5, Chloride Level 90L, Carbon Dioxide Level 28, Anion Gap 9, Blood Urea Nitrogen 35H, Creatinine 1.05, Estimat Glomerular Filtration Rate > 60, BUN/Creatinine Ratio 33, Glucose Level 101, Calcium Level 9.0 Assessment/Plan Assessment/Plan Assess & Plan/Chief Complaint CHF. Hyponatremia. Weakness. Falls. Hypertension. Permanent atrial fibrillation. COPD area . 06/15/17. CHF. Hyponatremia improving. Anemia worse today. Hypertension. Permanent atrial fibrillation. COPD Clinical Quality Measures Admission Status Admission Dx 4 lying. Anemia. Congestive heart failure. Atrial fibrillation. COPD. CAD. Hyponatremia DVT/VTE Risk/Contraindication: Risk Factor Score Per Nursin RFS Level Per Nursing on Admit: 4+=Very High Contraindications-Pharm: Other *list below* NISSA ANTONIO DO June 15, 2017 08:00
[2017-06-15] MEDS: LOSARTAN 100 MG (COZAAR) TABLET PO SCH (08:51)
[2017-06-15] MEDS: KCL 20 MEQ TAB (K-DUR) PO SCH ×2 (08:51→20:41)
[2017-06-15] MEDS: ALLOPURINOL 300 MG (ZYLOPRIM) TAB PO SCH (08:51)
[2017-06-15] MEDS: amLODIPine 5 MG (NORVASC) TAB PO SCH (08:51)
[2017-06-15] MEDS: DIGOXIN 0.125 MG (LANOXIN) TAB PO SCH (08:51)
[2017-06-15] MEDS: ASPIRIN E.C. 81 MG (ECOTRIN) TAB PO SCH (08:51)
--- NOTE | 2017-06-15 09:50 | Physical Therapy Daily Note ---
PT Daily Note-Current Subjective Patient agrees to PT. No c/o. He reports he wants to go home. Pain Numeric Pain Scale: 0-No Pain Location: No Pain Reported Mental Status Patient Orientation: Normal For Age Attachments: Oxygen, IV Transfers Functional [place] Measure 0=Not Assessed/NA 4=Minimal Assistance 1=Total Assistance 5=Supervision or Setup 2=Maximal Assistance 6=Modified [place] 3=Moderate Assistance 7=Complete [place] Quality Coding Scale 6 Independent with activity with or without an assistive device 5 Patient requires set up or clean up by helper. Patient completes activity by themselves 4 Supervision or touching assist (CGA). [place] provide cues , steadying assist 3 The helper provides less than half the effort to complete the activity 2 The helper provides more than half the effort to complete the activity 1 Dependent. The helper does all the effort to complete an activity 7 Patient refused to complete or attempt activity 9 The patient did not perform the activity before the current illness or injury 88 Not attempted due to Medical conditions or safety concerns Transfers (B, C, W/C) (FIM): 6 Scootin Sit to/from Stand: 6 Weight Bearing Right Lower Extremity: Right Full Weight Bearing Left Lower Extremity: Left Full Weight Bearing Gait Training Gait (FIM): 6 Distance (FIM): 3=150 ft Distance: 375' Gait Level of Assist: 6 Gait Assistive Device: FWW extended UE's with FWW use with skilled verbal instruction for body placement in FWW. Patient declined to use the technique described by PT. Assessment Patient ceased treatment and remains up in recliner with needs met. Patient does display minimal SOA with activity with O2 in place. PT Operational Assistant Goals Operational Assistant Goals PT [facility] Goals Time Frame: June 24, 2017 Transfers (B,C,W/C) (FIM): 6 Gait (FIM): 6 Gait distance (FIM): 3=150 ft Distance: 400' Gait Level of Assist: 6 Gait Assistive Device: FWW PT Plan Treatment/Plan Treatment Plan: Continue Plan of Care Treatment Plan: Bed Mobility, Education, Functional Activity [place], Functional Strength, Gait, Safety, Therapeutic Exercise, Transfers Treatment Duration: June 24, 2017 Frequency: 6 times per week Estimated Hrs Per Day: .25 hour per day Patient and/or Family Agrees t: Yes Safety Risks/Education Patient Education: Gait Training Teaching Recipient: Patient Teaching Methods: Demonstration, Discussion Response to Teaching: Reinforcement Needed Discharge Recommendations Therapy D/C Recommendations: Home w/ Family Support Time/GCodes Time In: 918 Time Out: 927 Total Billed Treatment Time: 9 Total Billed Treatment 1 visit GT 9 min RILEY MALIK PT June 15, 2017 09:50
--- NOTE | 2017-06-15 10:45 | Cardiology Progress Note ---
Subjective Date Seen by Provider: June 15, 2017 Time Seen by Provider: 10:42 Subjective/Events-last exam Patient sitting up in chair. States dyspnea has improved. Denies any CP or palpitations. Review of Systems General: No Chills, No Night Sweats HEENT: No Visual Changes, No Dysphasia Pulmonary: No Dyspnea, No Cough Cardiovascular: No: Chest Pain, Palpitations Gastrointestinal: No: Nausea, Vomiting, Abdominal Pain Genitourinary: No Dysuria, No Frequency Musculoskeletal: No: neck pain, back pain Neurological: No: Weakness, Change in speech, Confusion Objective-Cardiology Exam Last Set of Vital Signs Vital Signs 06/13/17 03:20 FiO2 28 Capillary Refill : Less Than 3 Seconds I&O Intake and Output 06/15/17 00:00 Intake Total 2930 ml Output Total 500 ml Balance 2430 ml Intake Oral 2180 ml IV Total 750 ml Output Urine Total 500 ml # Voids 7 # Bowel Movements 1 General: Alert, Oriented X3, Cooperative HEENT: Atraumatic, PERRLA Neck: Supple, No JVD, No Thyromegaly Lungs: Normal Air Movement, Other (bilat exp wheezing) Heart: Regular Rate, Normal S1, Normal S2, No Murmurs, Other (S3 present) Abdomen: Normal Bowel Sounds, Soft, No Tenderness, No Hepatosplenomegaly, No Masses Extremities: No Clubbing, No Cyanosis, Normal Pulses, No Tenderness/Swelling, Other (Mild edema) Skin: No Rashes, No Breakdown, No Significant Lesion Neuro: Normal Gait, Normal Speech, Strength at 5/5 X4 Ext, Normal Tone, Sensation Intact Psych/Mental Status: Mental Status NL, Mood NL Results Lab Laboratory Tests 06/15/17 05:26 A/P-Cardiology Admission Diagnosis Generalized weakness Shortness of breath Acute renal insufficiency Anemia Hypertension Assessment/Plan Shortness of breath, fatigue and loss of energy, pedal edema. Improving. Patient has underlying left ventricular diastolic dysfunction and cor pulmonale with acute exacerbation secondary to atrial fibrillation and hypertension. Continue on diuretics and monitor Bronchial asthma, COPD,improving. Beta blockers currently on hold, continue on bronchodilators Anemia, received blood transfusion. Continue to monitor H/H. Stool for occult blood is negative. Acute renal insufficiency, continue to monitor renal function closely Congestive heart failure acute on chronic left ventricular diastolic dysfunction probably secondary to atrial fibrillation in addition to cor pulmonale with severe pulmonary hypertension. Continue on diuretics and monitor Generalized weakness, multiple falls, consider physical therapy consultation and evaluation. Persistent atrial fibrillation, rate is controlled, continue to monitor [id number] score is 4, yearly risk of stroke without oral anticoagulation is 4 percent. Patient is maintained on Coumadin,continue to monitor INR. Coronary artery disease, mild to moderate disease, last cardiac catheterization was done in July 2010. Showing heavily calcified coronary system with mild disease, nonobstructive disease with cardiomyopathy, continue to monitor Hypertension, monitor blood pressure Hyperlipidemia, monitor lipids History of gouty arthritis, currently asymptomatic. Moderate carotid stenosis, continue to monitor as an outpatient Valvular heart disease with mild mitral, tricuspid and aortic regurgitation Clinical Quality Measures DVT/VTE Risk/Contraindication: Risk Factor Score Per Nursin RFS Level Per Nursing on Admit: 4+=Very High Contraindications-Pharm: Other *list below* LIVIER CERDA June 15, 2017 10:45
--- NOTE | 2017-06-15 15:20 | Cardiology Progress Note ---
Subjective Date Seen by Provider: June 15, 2017 Time Seen by Provider: 15:19 Subjective/Events-last exam Patient is sitting in a chair, feeling better, denied any chest pain or shortness of breath at this time. Muscle strength is improving. Receiving physical therapy Review of Systems General: No Chills, No Night Sweats, No Fatigue, No Malaise, No Appetite, No Other HEENT: No Head Aches, No Visual Changes, No Eye Pain, No Ear Pain, No Dysphasia , No Sinus Congestion, No Post Nasal Drip, No Sore Throat, No Other Pulmonary: No Dyspnea, No Cough, No Pleuritic Chest Pain, No Other Cardiovascular: No: Chest Pain, Palpitations, Orthopnea, Paroxysmal Noc. Dyspnea, Edema, Lt Headedness, Other Objective-Cardiology Exam Last Set of Vital Signs Vital Signs 06/13/17 06/15/17 03:20 12:00 Temp 98.3 Pulse 68 Resp 18 B/P (MAP) 160/69 (99) Pulse Ox 98 O2 Delivery Nasal Cannula O2 Flow Rate 2.00 FiO2 28 Capillary Refill : Less Than 3 Seconds I&O Intake and Output 06/15/17 00:00 Intake Total 2930 ml Output Total 500 ml Balance 2430 ml Intake Oral 2180 ml IV Total 750 ml Output Urine Total 500 ml # Voids 7 # Bowel Movements 1 General: Alert, Oriented X3, Cooperative HEENT: Atraumatic, PERRLA Neck: Supple, No JVD, No Thyromegaly Lungs: Normal Air Movement, Other (bilat exp wheezing) Heart: Regular Rate, Normal S1, Normal S2, No Murmurs, Other (S3 present) Abdomen: Normal Bowel Sounds, Soft, No Tenderness, No Hepatosplenomegaly, No Masses Extremities: No Clubbing, No Cyanosis, Normal Pulses, No Tenderness/Swelling, Other (Mild edema) Skin: No Rashes, No Breakdown, No Significant Lesion Neuro: Normal Gait, Normal Speech, Strength at 5/5 X4 Ext, Normal Tone, Sensation Intact Psych/Mental Status: Mental Status NL, Mood NL Results Lab Laboratory Tests 06/15/17 05:26 A/P-Cardiology Admission Diagnosis Generalized weakness Shortness of breath Acute renal insufficiency Anemia Hypertension Assessment/Plan Shortness of breath, fatigue and loss of energy, pedal edema. Improving. Patient has underlying left ventricular diastolic dysfunction and cor pulmonale with acute exacerbation secondary to atrial fibrillation and hypertension. Continue on diuretics and monitor Bronchial asthma, COPD,improving. Beta blockers currently on hold, continue on bronchodilators Anemia, received blood transfusion. Continue to monitor H/H. Stool for occult blood is negative. I will do another sets of stool occult blood. Acute renal insufficiency, continue to monitor renal function closely Congestive heart failure acute on chronic left ventricular diastolic dysfunction probably secondary to atrial fibrillation in addition to cor pulmonale with severe pulmonary hypertension. Continue on diuretics and monitor Generalized weakness, multiple falls, consider physical therapy consultation and evaluation. Persistent atrial fibrillation, rate is controlled, continue to monitor [id number] score is 4, yearly risk of stroke without oral anticoagulation is 4 percent. Patient is maintained on Coumadin,continue to monitor INR. Coronary artery disease, mild to moderate disease, last cardiac catheterization was done in July 2010. Showing heavily calcified coronary system with mild disease, nonobstructive disease with cardiomyopathy, continue to monitor Hypertension, monitor blood pressure Hyperlipidemia, monitor lipids History of gouty arthritis, currently asymptomatic. Moderate carotid stenosis, continue to monitor as an outpatient Valvular heart disease with mild mitral, tricuspid and aortic regurgitation Clinical Quality Measures DVT/VTE Risk/Contraindication: Risk Factor Score Per Nursin RFS Level Per Nursing on Admit: 4+=Very High Contraindications-Pharm: Other *list below* LAVONNE KELLY MD June 15, 2017 15:19
[2017-06-15] MEDS: NS IV 500 ML 500 ML IV SCH (15:30)
[2017-06-15] MEDS: ATORVASTATIN 20 MG (LIPITOR) TABLET PO SCH (20:40)
[2017-06-15] MEDS: warFARin 5 MG (COUMADIN) TAB PO SCH (20:40)
[2017-06-16] MEDS: RT-ALBUTEROL/IPRATROPIUM 3 ML (DUONEB) VIAL INH PRN (02:34)
[2017-06-16] MEDS: HYDROcodone/APAP 5 MG/325 MG (LORTAB) TAB PO PRN (04:07)
[2017-06-16 04:20] VITALS: BP 144/68
[2017-06-16 06:30] LABS: HEMOGLOBIN 7.9 G/DL (13.3-17.7); MEAN PLATELET VOLUME 9.4 FL (7.4-10.4); RED BLOOD COUNT 2.87 10^6/uL (4.35-5.85); RED CELL DISTRIBUTION WIDTH 15.7 % (10.0-14.5); WHITE BLOOD COUNT 10.2 10^3/uL (4.3-11.0)
[2017-06-16 06:43] LABS: INR 1.8 (0.8-1.4); PROTHROMBIN TIME PATIENT 21.3 SEC (12.2-14.7)
[2017-06-16] MEDS: predniSONE 20 MG TAB PO SCH (06:50)
[2017-06-16] MEDS: VITAMIN D3 5,000 UNITS (CHOLECALCIFEROL ) CAPSULE PO SCH (06:50)
[2017-06-16] MEDS: CYANOCOBALAMIN 500 MCG TAB (VITAMIN B-12) PO SCH (06:50)
[2017-06-16] MEDS: FUROSEMIDE 40 MG (LASIX) TAB PO SCH (06:50)
[2017-06-16] MEDS: PANTOPRAZOLE 40 MG (PROTONIX) TAB PO SCH (06:51)
[2017-06-16 07:00] LABS: BUN/CREATININE RATIO 29; CARBON DIOXIDE 25 MMOL/L (21-32); CHLORIDE 95 MMOL/L (98-107); CREATININE SERUM 1.02 MG/DL (0.60-1.30); GFR ESTIMATED > 60; GLUCOSE 95 MG/DL (70-105); POTASSIUM 4.4 MMOL/L (3.6-5.0); SODIUM 131 MMOL/L (135-145)
--- NOTE | 2017-06-16 07:10 | Cardiology Progress Note ---
Subjective Date Seen by Provider: June 16, 2017 Time Seen by Provider: 07:07 Subjective/Events-last exam Patient is sitting in a chair, short of breath, complaining of nose bleed, no chest pain Review of Systems General: No Chills, No Night Sweats, No Fatigue, No Malaise, No Appetite, No Other HEENT: No Head Aches, No Visual Changes, No Eye Pain, No Ear Pain, No Dysphasia , No Sinus Congestion, No Post Nasal Drip, No Sore Throat; Other (nose bleed) Pulmonary: Dyspnea; No Cough, No Pleuritic Chest Pain, No Other Cardiovascular: No: Chest Pain, Palpitations, Orthopnea, Paroxysmal Noc. Dyspnea, Edema, Lt Headedness, Other Objective-Cardiology Exam Last Set of Vital Signs Vital Signs 06/13/17 06/16/17 03:20 04:20 Temp 97.7 Pulse 75 Resp 20 B/P (MAP) 144/68 (93) Pulse Ox 97 O2 Delivery Nasal Cannula O2 Flow Rate 2.00 FiO2 28 Capillary Refill : Less Than 3 Seconds I&O Intake and Output 06/16/17 00:00 Intake Total 2420 ml Output Total 2650 ml Balance -230 ml Intake Oral 2420 ml Output Urine Total 2650 ml # Voids 4 # Bowel Movements 2 General: Alert, Oriented X3, Cooperative HEENT: Atraumatic, PERRLA Neck: Supple, No JVD, No Thyromegaly Lungs: Normal Air Movement, Other (bilat exp wheezing, Jose Martin rhonchi) Heart: Regular Rate, Normal S1, Normal S2, No Murmurs, Other (S3 present) Abdomen: Normal Bowel Sounds, Soft, No Tenderness, No Hepatosplenomegaly, No Masses Extremities: No Clubbing, No Cyanosis, Normal Pulses, No Tenderness/Swelling, Other (Mild edema) Skin: No Rashes, No Breakdown, No Significant Lesion Neuro: Normal Gait, Normal Speech, Strength at 5/5 X4 Ext, Normal Tone, Sensation Intact Psych/Mental Status: Mental Status NL, Mood NL Results Lab Laboratory Tests 06/16/17 05:35 A/P-Cardiology Admission Diagnosis Generalized weakness Shortness of breath Acute renal insufficiency Anemia Hypertension Assessment/Plan Bronchial asthma, COPD. Beta blockers currently on hold, continue on bronchodilators, slow improvement Anemia, received blood transfusion. Continue to monitor H/H. Stool for occult blood is negative. Continue to monitor Acute renal insufficiency, continue to monitor renal function closely Congestive heart failure acute on chronic left ventricular diastolic dysfunction probably secondary to atrial fibrillation in addition to cor pulmonale with severe pulmonary hypertension. Continue on diuretics and monitor Generalized weakness, multiple falls, consider physical therapy consultation and evaluation. Persistent atrial fibrillation, rate is controlled, continue to monitor [id number] score is 4, yearly risk of stroke without oral anticoagulation is 4 percent. Patient is maintained on Coumadin,continue to monitor INR. Coronary artery disease, mild to moderate disease, last cardiac catheterization was done in July 2010. Showing heavily calcified coronary system with mild disease, nonobstructive disease with cardiomyopathy, continue to monitor Hypertension, monitor blood pressure Hyperlipidemia, monitor lipids History of gouty arthritis, currently asymptomatic. Moderate carotid stenosis, continue to monitor as an outpatient Valvular heart disease with mild mitral, tricuspid and aortic regurgitation Clinical Quality Measures DVT/VTE Risk/Contraindication: Risk Factor Score Per Nursin RFS Level Per Nursing on Admit: 4+=Very High Contraindications-Pharm: Other *list below* LAVONNE KELLY MD June 16, 2017 07:10
[2017-06-16] MEDS: RT-ALBUTEROL/IPRATROPIUM 3 ML (DUONEB) VIAL INH SCH ×2 (07:36→11:20)
[2017-06-16 08:00] VITALS: BP 166/84
[2017-06-16] MEDS: ALLOPURINOL 300 MG (ZYLOPRIM) TAB PO SCH (08:20)
[2017-06-16] MEDS: ASPIRIN E.C. 81 MG (ECOTRIN) TAB PO SCH (08:20)
[2017-06-16] MEDS: LOSARTAN 100 MG (COZAAR) TABLET PO SCH (08:20)
[2017-06-16] MEDS: KCL 20 MEQ TAB (K-DUR) PO SCH (08:20)
[2017-06-16] MEDS: DIGOXIN 0.125 MG (LANOXIN) TAB PO SCH (08:20)
[2017-06-16] MEDS: amLODIPine 5 MG (NORVASC) TAB PO SCH (08:20)
--- NOTE | 2017-06-16 08:21 | Progress Note (SOAP) ---
Subjective Time Seen by Provider: 08:20 Subjective/Events-last exam Patient feeling better and doing better. Patient breathing better. Patient wants to go home. Last night patient had a small nosebleed. This morning no nosebleed. Waiting for chest x-ray report. Plan to discharge today Objective Exam Vital Signs Date Time Temp Pulse Resp B/P (MAP) Pulse Ox O2 Delivery O2 Flow Rate FiO2 06/16/17 07:36 100 96 06/16/17 07:36 96 Nasal Cannula 2.00 06/16/17 04:20 97.7 75 20 144/68 (93) 97 Nasal Cannula 2.00 06/16/17 02:35 96 Nasal Cannula 2.00 06/16/17 01:00 90 06/15/17 23:57 98.0 90 20 172/88 (116) 96 Nasal Cannula 2.00 06/15/17 20:35 Nasal Cannula 2.00 06/15/17 19:28 96 Nasal Cannula 2.00 06/15/17 19:00 70 06/15/17 19:00 98.0 56 18 179/72 (107) 96 Nasal Cannula 2.00 06/15/17 15:31 92 Nasal Cannula 2.00 06/15/17 15:15 98.0 75 18 168/72 (104) 95 Nasal Cannula 2.00 06/15/17 13:40 90 06/15/17 12:00 98.3 68 18 160/69 (99) 98 Nasal Cannula 2.00 06/15/17 11:58 98 Nasal Cannula 2.00 I & O 06/16/17 07:00 Intake Total 2270 ml Output Total 2500 ml Balance -230 ml Capillary Refill : Less Than 3 Seconds General Appearance: No Apparent Distress, WD/WN HEENT: Normal ENT Inspection Neck: Full Range of Motion, Normal Inspection Respiratory: Lungs Clear, No Accessory Muscle Use, No Respiratory Distress, Decreased Breath Sounds Cardiovascular: Irregularly Irregular Gastrointestinal: non tender, soft Results Lab Laboratory Tests 06/16/17 05:35 Laboratory Tests 06/15/17 14:50: Stool Occult Blood Immunoassay NEGATIVE 06/16/17 05:35: White Blood Count 10.2, Red Blood Count 2.87L, Hemoglobin 7.9L, Hematocrit 25L, Mean Corpuscular Volume 87, Mean Corpuscular Hemoglobin 28, Mean Corpuscular Hemoglobin Concent 32, Red Cell Distribution Width 15.7H, Platelet Count 266, Mean Platelet Volume 9.4, Prothrombin Time 21.3H, INR Comment 1.8H, Sodium Level 131L, Potassium Level 4.4, Chloride Level 95L, Carbon Dioxide Level 25, Anion Gap 11, Blood Urea Nitrogen 30H, Creatinine 1.02, Estimat Glomerular Filtration Rate > 60, BUN/Creatinine Ratio 29, Glucose Level 95, Calcium Level 9.0 Assessment/Plan Assessment/Plan Assess & Plan/Chief Complaint CHF. Hyponatremia. Weakness. Falls. Hypertension. Permanent atrial fibrillation. COPD area . 06/15/17. CHF. Hyponatremia improving. Anemia worse today. Hypertension. Permanent atrial fibrillation. COPD. . 06/16/17. CHF better. Hyponatremia better. Anemia stable. Hypertension. COPD. Atrial fibrillation. Patient feeling better and wants to go home Clinical Quality Measures Admission Status Admission Dx 4 lying. Anemia. Congestive heart failure. Atrial fibrillation. COPD. CAD. Hyponatremia DVT/VTE Risk/Contraindication: Risk Factor Score Per Nursin RFS Level Per Nursing on Admit: 4+=Very High Contraindications-Pharm: Other *list below* NISSA ANTONIO DO June 16, 2017 08:21
--- NOTE | 2017-06-16 09:02 | Diagnostic Imaging Report ---
INDICATION: Congestive heart failure. TECHNIQUE: Two view chest 8:25 AM CORRELATION STUDY: 06/14/2017 FINDINGS: Cardiac enlargement stable. Continued vascular congestion slightly less severe. Pulmonary parenchymal densities appear changed over the lateral right mid lung. No effusion. Degenerative changes about the thoracic spine are present. IMPRESSION: 1. Cardiac enlargement with some vascular congestion stable to perhaps minimally improved. 2. Parenchymal density lateral right mid lung appears change from prior study. This could reflect asymmetric edema versus developing infiltrate. Followup imaging as clinically warranted. Dictated by: Dictated on workstation # [id number]
--- NOTE | 2017-06-16 11:04 | D/C HH Face to Face Order ---
D/C Face to Face Orders Instructions for Patient Patient Instructions/FollowUp: to office on Tuesday Physician to follow Patient: yes Discharge Diet for Home: Low Sodium Diet Patient Data-Allergies,Ht & Wt Patient Allergies: Coded Allergies: No Allergy Information Available (Unverified , 11/09/16) Height (Feet): 5 Height (Inches): 8.00 Weight (Pounds): 198 Weight (Ounces): 13.7 Home Health Need/Face to Face Date of Face to Face: June 16, 2017 Clinical Findings: Generalized weakness and fatigue, Shortness of breath, Unsteady gait I have seen Pt [id number]: Yes Discharged To: Home Diagnosis/Conditions: chf unsteadygait falls atrial fibrillation Patient is Homebound due to: Blaze fall risk due to instabilty, Shortness of breath/distress Homebound Status Due to the above stated illness, injury or surgical procedure (medical condition or diagnosis) and associated clinical findings, the patient is homebound because of his/her inability to leave home except with aid of a supportive device and/or person AND leaving the home requires a considerable and taxing effort or is medically contraindicated. Pt req the following assistanc: Aid of another person, [facility] Nursing Orders Home Health Services Order: Nursing Services, Physical Therapy-Evaluate & Treat Home Health Infusion Therapy Line Start Date: Jun 12, 2017 Line Start Time: 2039 Line Type: Peripheral IV Site Location: Antecubital Certify Stmt I certify that this patient is under my care and that I, a nurse practitioner or a physician; a medication assistant working with me, had a face to face encounter that - meets the physician face to face encounter requirements with this patient as dated. NISSA ANTONIO DO June 16, 2017 11:04
[2017-06-16 11:40] VITALS: BP 166/84
--- NOTE | 2017-06-17 06:56 | Discharge Summary ---
Diagnosis/Chief Complaint Date of Admission Jun 12, 2017 at 22:38 Date of Discharge June 16, 2017 at 11:40 Discharge Date: June 16, 2017 Discharge Time: 06:55 Discharge Diagnosis Weakness. Congestive heart failure. Hypertension. Anemia. Hyponatremia. Renal insufficiency. Cardiomegaly. Permanent atrial fibrillation. COPD. Left ventricular diastolic dysfunction. Right sided heart failure. Coronary artery disease Reason Hospital Visit Patient was brought out to the emergency room by family. According to daughter the patient feeling up with fluid. Patient has a history of atrial fibrillation. Family feels he is in congestive heart failure. Previous surgeries hip. Patient's blood cell shows anemia. Chest x-ray shows congestive heart failure. Elevated BNP. Discharge Summary Consultations Cardiology Discharge Physical Examination Allergies: Coded Allergies: No Allergy Information Available (Unverified , 11/09/16) Vitals & I&Os Vital Signs Date Time Temp Pulse Resp B/P (MAP) Pulse Ox O2 Delivery O2 Flow Rate FiO2 06/16/17 11:40 84 16 166/84 95 Nasal Cannula 2.00 06/16/17 08:00 97.8 06/13/17 03:20 28 Hospital Course Patient hospital did improve. Patient discharged home. Patient put on home health Labs (last 24 hrs) Laboratory Tests 06/12/17 20:40: White Blood Count 9.6, Red Blood Count 3.10L, Hemoglobin 8.5L, Hematocrit 26L, Mean Corpuscular Volume 82, Mean Corpuscular Hemoglobin 27, Mean Corpuscular Hemoglobin Concent 33, Red Cell Distribution Width 15.4H, Platelet Count 281, Mean Platelet Volume 9.3, Neutrophils (%) (Auto) 84H, Lymphocytes (%) (Auto) 7L , Monocytes (%) (Auto) 8, Eosinophils (%) (Auto) 1, Basophils (%) (Auto) 0, Neutrophils # (Auto) 8.1H, Lymphocytes # (Auto) 0.6L, Monocytes # (Auto) 0.8, Eosinophils # (Auto) 0.1, Basophils # (Auto) 0.0, Neutrophils % (Manual) 89, Lymphocytes % (Manual) 4, Monocytes % (Manual) 4, Eosinophils % (Manual) 2, Basophils % (Manual) 0, Band Neutrophils 0, Reactive Lymphocytes 1, Toxic Granulation 1+, Poikilocytosis MODERATE, Basophilic Stippling SLIGHT, Anisocytosis MODERATE, Stomatocytes MODERATE, Elliptocytes MODERATE, Acanthocytes SLIGHT, Rouleau MOD, Prothrombin Time 20.9H, INR Comment 1.8H, Activated Partial Thromboplast Time 46H, Urine Color YELLOW, Urine Clarity CLEAR , Urine pH 7, Urine Specific [place] 1.010L, Urine Protein NEGATIVE, Urine Glucose (UA) NEGATIVE, Urine Ketones NEGATIVE, Urine Nitrite NEGATIVE, Urine Bilirubin NEGATIVE, Urine Urobilinogen NORMAL, Urine Leukocyte Esterase NEGATIVE , Urine RBC (Auto) NEGATIVE, Urine RBC NONE, Urine WBC RARE, Urine Squamous Epithelial Cells 0-2, Urine Renal Epithelial Cells NONE, Urine Crystals NONE, Urine Bacteria NEGATIVE, Urine Casts PRESENT, Urine Hyaline Casts 5-10H, Urine Mucus NEGATIVE, Urine Culture Indicated NO, Sodium Level 120*L, Potassium Level 4.1, Chloride Level 80L, Carbon Dioxide Level 26, Anion Gap 14, Blood Urea Nitrogen 45H, Creatinine 1.31H, Estimat Glomerular Filtration Rate 53, BUN/ Creatinine Ratio 34, Glucose Level 96, Calcium Level 9.0, Magnesium Level 2.4, Total Bilirubin 1.2H, Aspartate Amino Transf (AST/SGOT) 38H, Alanine Aminotransferase (ALT/SGPT) 16, Alkaline Phosphatase 86, Troponin I < 0.30, C- Reactive Protein High Sensitivity 6.58H, B-Type Natriuretic Peptide 462.2H, Total Protein 7.1, Albumin 4.2, Digoxin Level 1.63 06/13/17 05:33: White Blood Count 6.9, Red Blood Count 2.64L, Hemoglobin 7.2L, Hematocrit 22L, Mean Corpuscular Volume 83, Mean Corpuscular Hemoglobin 27, Mean Corpuscular Hemoglobin Concent 33, Red Cell Distribution Width 15.7H, Platelet Count 223, Mean Platelet Volume 9.5, Neutrophils (%) (Auto) 81H, Lymphocytes (%) (Auto) 8L , Monocytes (%) (Auto) 9, Eosinophils (%) (Auto) 2, Basophils (%) (Auto) 0, Neutrophils # (Auto) 5.6, Lymphocytes # (Auto) 0.6L, Monocytes # (Auto) 0.6, Eosinophils # (Auto) 0.1, Basophils # (Auto) 0.0, Prothrombin Time 21.8H, INR Comment 1.9H, Sodium Level 121*L, Potassium Level 3.5L, Chloride Level 85L, Carbon Dioxide Level 26, Anion Gap 10, Blood Urea Nitrogen 45H, Creatinine 1.33H , Estimat Glomerular Filtration Rate 52, BUN/Creatinine Ratio 34, Glucose Level 132H, Calcium Level 8.4L, Magnesium Level 2.2, Digoxin Level 1.26 06/13/17 16:45: Hemoglobin 8.9#L, Hematocrit 26L 06/14/17 06:25: White Blood Count 7.1, Red Blood Count 3.10L, Hemoglobin 8.6L, Hematocrit 26L, Mean Corpuscular Volume 84, Mean Corpuscular Hemoglobin 28, Mean Corpuscular Hemoglobin Concent 33, Red Cell Distribution Width 15.4H, Platelet Count 224, Mean Platelet Volume 9.4, Prothrombin Time 21.8H, INR Comment 1.9H, Activated Partial Thromboplast Time 45H, Sodium Level 121*L, Potassium Level 4.0, Chloride Level 85L, Carbon Dioxide Level 24, Anion Gap 12, Blood Urea Nitrogen 39H, Creatinine 1.32H, Estimat Glomerular Filtration Rate 52, BUN/Creatinine Ratio 30, Glucose Level 98, Calcium Level 8.4L, Total Bilirubin 1.0, Aspartate Amino Transf (AST/SGOT) 33, Alanine Aminotransferase (ALT/SGPT) 17, Alkaline Phosphatase 68, B-Type Natriuretic Peptide 224.5H, Total Protein 6.3L, Albumin 3.7, Digoxin Level 1.24 06/14/17 12:10: Stool Occult Blood Immunoassay NEGATIVE 06/14/17 16:47: Lab Scanned Report Transfusion Reaction Form 06/15/17 05:26: White Blood Count 9.3, Red Blood Count 2.83L, Hemoglobin 7.8L, Hematocrit 24L, Mean Corpuscular Volume 86, Mean Corpuscular Hemoglobin 28, Mean Corpuscular Hemoglobin Concent 32, Red Cell Distribution Width 15.5H, Platelet Count 222, Mean Platelet Volume 9.3, Prothrombin Time 20.8H, INR Comment 1.8H, Sodium Level 127L, Potassium Level 4.5, Chloride Level 90L, Carbon Dioxide Level 28, Anion Gap 9, Blood Urea Nitrogen 35H, Creatinine 1.05, Estimat Glomerular Filtration Rate > 60, BUN/Creatinine Ratio 33, Glucose Level 101, Calcium Level 9.0 06/15/17 14:50: Stool Occult Blood Immunoassay NEGATIVE 06/16/17 05:35: White Blood Count 10.2, Red Blood Count 2.87L, Hemoglobin 7.9L, Hematocrit 25L, Mean Corpuscular Volume 87, Mean Corpuscular Hemoglobin 28, Mean Corpuscular Hemoglobin Concent 32, Red Cell Distribution Width 15.7H, Platelet Count 266, Mean Platelet Volume 9.4, Prothrombin Time 21.3H, INR Comment 1.8H, Sodium Level 131L, Potassium Level 4.4, Chloride Level 95L, Carbon Dioxide Level 25, Anion Gap 11, Blood Urea Nitrogen 30H, Creatinine 1.02, Estimat Glomerular Filtration Rate > 60, BUN/Creatinine Ratio 29, Glucose Level 95, Calcium Level 9.0 Laboratory Tests 06/12/17 20:40 06/13/17 05:33 06/13/17 16:45 06/14/17 06:25 06/15/17 05:26 06/16/17 05:35 Pending Labs Laboratory Tests 06/12/17 20:40: White Blood Count 9.6, Red Blood Count 3.10, Hemoglobin 8.5, Hematocrit 26, Mean Corpuscular Volume 82, Mean Corpuscular Hemoglobin 27, Mean Corpuscular Hemoglobin Concent 33, Red Cell Distribution Width 15.4, Platelet Count 281, Mean Platelet Volume 9.3, Neutrophils (%) (Auto) 84, Lymphocytes (%) (Auto) 7, Monocytes (%) (Auto) 8, Eosinophils (%) (Auto) 1, Basophils (%) (Auto) 0, Neutrophils # (Auto) 8.1, Lymphocytes # (Auto) 0.6, Monocytes # (Auto) 0.8, Eosinophils # (Auto) 0.1, Basophils # (Auto) 0.0, Neutrophils % (Manual) 89, Lymphocytes % (Manual) 4, Monocytes % (Manual) 4, Eosinophils % (Manual) 2, Basophils % (Manual) 0, Band Neutrophils 0, Reactive Lymphocytes 1, Toxic Granulation 1+, Poikilocytosis MODERATE, Basophilic Stippling SLIGHT, Anisocytosis MODERATE, Stomatocytes MODERATE, Elliptocytes MODERATE, Acanthocytes SLIGHT, Rouleau MOD, Prothrombin Time 20.9, INR Comment 1.8, Activated Partial Thromboplast Time 46, Urine Color YELLOW, Urine Clarity CLEAR , Urine pH 7, Urine Specific [place] 1.010, Urine Protein NEGATIVE, Urine Glucose (UA) NEGATIVE, Urine Ketones NEGATIVE, Urine Nitrite NEGATIVE, Urine Bilirubin NEGATIVE, Urine Urobilinogen NORMAL, Urine Leukocyte Esterase NEGATIVE , Urine RBC (Auto) NEGATIVE, Urine RBC NONE, Urine WBC RARE, Urine Squamous Epithelial Cells 0-2, Urine Renal Epithelial Cells NONE, Urine Crystals NONE, Urine Bacteria NEGATIVE, Urine Casts PRESENT, Urine Hyaline Casts 5-10, Urine Mucus NEGATIVE, Urine Culture Indicated NO, Sodium Level 120, Potassium Level 4.1, Chloride Level 80, Carbon Dioxide Level 26, Anion Gap 14, Blood Urea Nitrogen 45, Creatinine 1.31, Estimat Glomerular Filtration Rate 53, BUN/ Creatinine Ratio 34, Glucose Level 96, Calcium Level 9.0, Magnesium Level 2.4, Total Bilirubin 1.2, Aspartate Amino Transf (AST/SGOT) 38, Alanine Aminotransferase (ALT/SGPT) 16, Alkaline Phosphatase 86, Troponin I < 0.30, C- Reactive Protein High Sensitivity 6.58, B-Type Natriuretic Peptide 462.2, Total Protein 7.1, Albumin 4.2, Digoxin Level 1.63 06/13/17 05:33: White Blood Count 6.9, Red Blood Count 2.64, Hemoglobin 7.2, Hematocrit 22, Mean Corpuscular Volume 83, Mean Corpuscular Hemoglobin 27, Mean Corpuscular Hemoglobin Concent 33, Red Cell Distribution Width 15.7, Platelet Count 223, Mean Platelet Volume 9.5, Neutrophils (%) (Auto) 81, Lymphocytes (%) (Auto) 8, Monocytes (%) (Auto) 9, Eosinophils (%) (Auto) 2, Basophils (%) (Auto) 0, Neutrophils # (Auto) 5.6, Lymphocytes # (Auto) 0.6, Monocytes # (Auto) 0.6, Eosinophils # (Auto) 0.1, Basophils # (Auto) 0.0, Prothrombin Time 21.8, INR Comment 1.9, Sodium Level 121, Potassium Level 3.5, Chloride Level 85, Carbon Dioxide Level 26, Anion Gap 10, Blood Urea Nitrogen 45, Creatinine 1.33, Estimat Glomerular Filtration Rate 52, BUN/Creatinine Ratio 34, Glucose Level 132, Calcium Level 8.4, Magnesium Level 2.2, Digoxin Level 1.26 06/13/17 16:45: Hemoglobin 8.9, Hematocrit 26 06/14/17 06:25: White Blood Count 7.1, Red Blood Count 3.10, Hemoglobin 8.6, Hematocrit 26, Mean Corpuscular Volume 84, Mean Corpuscular Hemoglobin 28, Mean Corpuscular Hemoglobin Concent 33, Red Cell Distribution Width 15.4, Platelet Count 224, Mean Platelet Volume 9.4, Prothrombin Time 21.8, INR Comment 1.9, Activated Partial Thromboplast Time 45, Sodium Level 121, Potassium Level 4.0, Chloride Level 85, Carbon Dioxide Level 24, Anion Gap 12, Blood Urea Nitrogen 39, Creatinine 1.32, Estimat Glomerular Filtration Rate 52, BUN/Creatinine Ratio 30 , Glucose Level 98, Calcium Level 8.4, Total Bilirubin 1.0, Aspartate Amino Transf (AST/SGOT) 33, Alanine Aminotransferase (ALT/SGPT) 17, Alkaline Phosphatase 68, B-Type Natriuretic Peptide 224.5, Total Protein 6.3, Albumin 3.7 , Digoxin Level 1.24 06/14/17 12:10: Stool Occult Blood Immunoassay NEGATIVE 06/14/17 16:47: Lab Scanned Report Transfusion Reaction Form 06/15/17 05:26: White Blood Count 9.3, Red Blood Count 2.83, Hemoglobin 7.8, Hematocrit 24, Mean Corpuscular Volume 86, Mean Corpuscular Hemoglobin 28, Mean Corpuscular Hemoglobin Concent 32, Red Cell Distribution Width 15.5, Platelet Count 222, Mean Platelet Volume 9.3, Prothrombin Time 20.8, INR Comment 1.8, Sodium Level 127, Potassium Level 4.5, Chloride Level 90, Carbon Dioxide Level 28, Anion Gap 9, Blood Urea Nitrogen 35, Creatinine 1.05, Estimat Glomerular Filtration Rate > 60, BUN/Creatinine Ratio 33, Glucose Level 101, Calcium Level 9.0 06/15/17 14:50: Stool Occult Blood Immunoassay NEGATIVE 06/16/17 05:35: White Blood Count 10.2, Red Blood Count 2.87, Hemoglobin 7.9, Hematocrit 25, Mean Corpuscular Volume 87, Mean Corpuscular Hemoglobin 28, Mean Corpuscular Hemoglobin Concent 32, Red Cell Distribution Width 15.7, Platelet Count 266, Mean Platelet Volume 9.4, Prothrombin Time 21.3, INR Comment 1.8, Sodium Level 131, Potassium Level 4.4, Chloride Level 95, Carbon Dioxide Level 25, Anion Gap 11, Blood Urea Nitrogen 30, Creatinine 1.02, Estimat Glomerular Filtration Rate > 60, BUN/Creatinine Ratio 29, Glucose Level 95, Calcium Level 9.0 Discharge Home Medications: Active Scripts Active Reported Furosemide 80 Mg Tablet 80 Mg PO DAILY Klor-Con M10 (Potassium Chloride) 10 Meq Tab.er.prt 10 Meq PO DAILY Vitamin D3 (Cholecalciferol (Vitamin D3)) 5,000 Unit Tablet 5,000 Unit PO DAILY Tramadol HCl 50 Mg Tablet 50 Mg PO QID PRN Vitamin B-12 (Cyanocobalamin (Vitamin B-12)) 1,000 Mcg Tablet 1,000 Mcg PO DAILY Losartan Potassium 100 Mg Tablet 100 Mg PO DAILY Metoprolol Succinate 100 Mg Tab.er.24h 100 Mg PO HS Allopurinol 300 Mg Tablet 300 Mg PO DAILY Ventolin Hfa (Albuterol Sulfate) 18 Gm Hfa.aer.ad 2 Puff INH Q4H PRN Amlodipine Besylate 5 Mg Tablet 5 Mg PO DAILY Digoxin 125 Mcg Tablet 125 Mcg PO DAILY Warfarin Sodium 3 Mg Tablet 3 Mg PO HS TAKES ALONG WITH 2MG TABLET FOR A TOTAL DAILY DOSE OF 5MG Warfarin Sodium 2 Mg Tablet 2 Mg PO HS TAKES ALONG WITH 3MG TABLET FOR A TOTAL DOSE OF 5MG Atorvastatin Calcium 20 Mg Tablet 20 Mg PO DAILY Aspirin EC (Aspirin) 81 Mg Tablet. 81 Mg PO DAILY Instructions to patient/family Please see electronic discharge instructions given to patient. Clinical Quality Measures DVT/VTE Risk/Contraindication: Risk Factor Score Per Nursin RFS Level Per Nursing on Admit: 4+=Very High Contraindications-Pharm: Other *list below* NISSA ANTONIO DO June 17, 2017 06:56
== END 2017-06-16 11:40 | disposition home health service (06) | DRG 292 ==
LOC: EDUNIT# 18:36 → ER 18:38 → 4TH 22:38
PROVIDERS: ADMIT Internal Medicine; ATTEND Internal Medicine
DX: I11.0 Hypertensive heart disease with heart failure (principal); I50.33 Acute on chronic diastolic (congestive) heart failure; I50.813 Acute on chronic right heart failure; I27.29 Other secondary pulmonary hypertension; E87.1 Hypo-osmolality and hyponatremia; J44.1 Chronic obstructive pulmonary disease with (acute) exacerbation; I48.2 Chronic atrial fibrillation; I25.10 Atherosclerotic heart disease of native coronary artery without angina pectoris; D64.9 Anemia, unspecified; N28.9 Disorder of kidney and ureter, unspecified; R53.1 Weakness; R29.6 Repeated falls; I08.3 Combined rheumatic disorders of mitral, aortic and tricuspid valves; I42.9 Cardiomyopathy, unspecified; I65.29 Occlusion and stenosis of unspecified carotid artery; M10.9 Gout, unspecified; E78.5 Hyperlipidemia, unspecified; J30.2 Other seasonal allergic rhinitis; Z87.891 Personal history of nicotine dependence; Z99.81 Dependence on supplemental oxygen; Z79.01 Long term (current) use of anticoagulants
CPT/HCPCS: 36415; 70450; 71045; 71046; 72125; 74176; 80048; 80053; 80162; 81000; 82274; 83735; 83880; 84484; 85007; 85014; 85018; 85025; 85027; 85610; 85730; 86141; 86850; 86900; 86901; 86920; 93005; 93041; 94640; 94664; 94760; 96374

== ENCOUNTER 2017-10-16 17:28 | Observation (INO) | payer MEDICARE, OTHER ==
[~2017-10-16] VITALS: Ht 172.7 cm; Wt 86.3 kg
[~2017-10-16 17:28] MED LIST changes: +AMLO5TAB7 PO; +FURO80TA3 PO; +HYDR25TA4 PO; -IPRA3AMP NEB; +IPRA3AMP31 NEB; -LOSA100T28 PO; +LOSA100T8 PO; +POTA10TA14 PO
--- OUTSIDE RECORDS SUMMARY | 2017-10-16 17:39 | XMS REPORT | Continuity of Care Document ---
Author Author [facility] Organization [facility] Address Unknown Phone Unavailable Allergies Active Description Code Type Severity Reaction Onset Reported/Identified Relationship to Patient Clinical Status Yes No Allergy Information Available [id number] Drug Allergy Unknown N/A 2016 Medications There is no data. Problems Date Dx Coded Attending Type Code Diagnosis Diagnosed By 07/24/2010 Ot 272.4 HYPERLIPIDEMIA NEC/NOS 07/24/2010 Ot 274.9 GOUT NOS 07/24/2010 Ot 414.01 CORONARY ATHEROSCLEROSIS OF [place] CORON 07/24/2010 Ot 416.8 CHR PULMON HEART DIS NEC 07/24/2010 Ot 425.4 PRIM CARDIOMYOPATHY NEC 07/24/2010 Ot 427.31 ATRIAL FIBRILLATION 07/24/2010 Ot 428.0 CONGESTIVE HEART FAILURE NOS 07/24/2010 Ot 440.0 AORTIC ATHEROSCLEROSIS 07/24/2010 Ot 727.3 BURSITIS NEC 07/24/2010 Ot 794.30 ABN CARDIOVASC STUDY NOS 07/24/2010 Ot V46.2 SUPPLEMENTAL OXYGEN 07/24/2010 Ot V58.61 ANTICOAGULANTS,LT,CURRENT USE 07/24/2010 Ot V58.66 LONG-TERM ( CURRENT) USE OF ASPIRIN 07/24/2010 Ot V58.69 OTH MED,LT, CURRENT USE 12/28/2013 LAVONNE KELLY MD Ot 272.4 12/28/2013 LAVONNE KELLY MD Ot 396.3 12/28/2013 LAVONNE KELLY MD Ot 397.0 12/28/2013 LAVONNE KELLY MD Ot 401.9 12/28/2013 LAVONNE KELLY MD Ot 414.00 12/28/2013 LAVONNE KELLY MD Ot 429.3 12/28/2013 LAVONNE KELLY MD Ot 433.10 12/28/2013 LAVONNE KELLY MD Ot 433.30 12/28/2013 LAVONNE KELLY MD Ot 785.9 12/28/2013 LAVONNE KELLY MD Ot 794.39 10/29/2015 Ot 429.3 CARDIOMEGALY 10/29/2015 Ot 496 CHR AIRWAY OBSTRUCT NEC 10/29/2015 Ot 729.81 SWELLING OF LIMB 10/29/2015 Ot 783.1 ABNORMAL WEIGHT GAIN 10/29/2015 Ot 786.05 SHORTNESS OF BREATH 10/29/2015 Ot 397.0 TRICUSPID VALVE DISEASE 10/29/2015 Ot 424.0 MITRAL VALVE DISORDER 10/29/2015 Ot 427.31 ATRIAL FIBRILLATION 10/29/2015 Ot 429.3 CARDIOMEGALY 10/29/2015 Ot 786.09 RESPIRATORY ABNORM NEC 11/04/2015 Ot 429.3 CARDIOMEGALY 11/04/2015 Ot 496 CHR AIRWAY OBSTRUCT NEC 11/04/2015 Ot 729.81 SWELLING OF LIMB 11/04/2015 Ot 783.1 ABNORMAL WEIGHT GAIN 11/04/2015 Ot 786.05 SHORTNESS OF BREATH 11/04/2015 Ot 397.0 TRICUSPID VALVE DISEASE 11/04/2015 Ot 424.0 MITRAL VALVE DISORDER 11/04/2015 Ot 427.31 ATRIAL FIBRILLATION 11/04/2015 Ot 429.3 CARDIOMEGALY 11/04/2015 Ot 786.09 RESPIRATORY ABNORM NEC 11/10/2015 Ot 429.3 CARDIOMEGALY 11/10/2015 Ot 496 CHR AIRWAY OBSTRUCT NEC 11/10/2015 Ot 729.81 SWELLING OF LIMB 11/10/2015 Ot 783.1 ABNORMAL WEIGHT GAIN 11/10/2015 Ot 786.05 SHORTNESS OF BREATH 11/10/2015 Ot 397.0 TRICUSPID VALVE DISEASE 11/10/2015 Ot 424.0 MITRAL VALVE DISORDER 11/10/2015 Ot 427.31 ATRIAL FIBRILLATION 11/10/2015 Ot 429.3 CARDIOMEGALY 11/10/2015 Ot 786.09 RESPIRATORY ABNORM NEC 11/10/2015 Ot 429.3 CARDIOMEGALY 11/10/2015 Ot 496 CHR AIRWAY OBSTRUCT NEC 11/10/2015 Ot 729.81 SWELLING OF LIMB 11/10/2015 Ot 783.1 ABNORMAL WEIGHT GAIN 11/10/2015 Ot 786.05 SHORTNESS OF BREATH 11/10/2015 Ot 397.0 TRICUSPID VALVE DISEASE 11/10/2015 Ot 424.0 MITRAL VALVE DISORDER 11/10/2015 Ot 427.31 ATRIAL FIBRILLATION 11/10/2015 Ot 429.3 CARDIOMEGALY 11/10/2015 Ot 786.09 RESPIRATORY ABNORM NEC 11/09/2016 LAVONNE KELLY MD Ot 272.4 HYPERLIPIDEMIA NEC/NOS 11/09/2016 LAVONNE KELLY MD Ot 401.9 HYPERTENSION NOS 11/09/2016 LAVONNE KELLY MD Ot 414.00 CORON ATHEROSCLER NOS TYPE VESSEL, NATIV 11/09/2016 LAVONNE KELLY MD Ot 428.0 CONGESTIVE HEART FAILURE NOS 11/09/2016 LAVONNE KELLY MD Ot 272.4 HYPERLIPIDEMIA NEC/NOS 11/09/2016 LAVONNE KELLY MD Ot 396.3 MITRAL/AORTIC STANISLAV INSUFF 11/09/2016 LAVONNE KELLY MD Ot 397.0 TRICUSPID VALVE DISEASE 11/09/2016 LAVONNE KELLY MD Ot 401.9 HYPERTENSION NOS 11/09/2016 LAVONNE KELLY MD Ot 414.00 CORON ATHEROSCLER NOS TYPE VESSEL, NATIV 11/09/2016 LAVONNE KELLY MD Ot 429.3 CARDIOMEGALY 11/09/2016 LAVONNE KELLY MD Ot 433.10 CAROTID ARTERY OCCLUSION W O CEREBRAL IN 11/09/2016 LAVONNE KELLY MD Ot 433.30 MULT BILTRAL ARTERY OCCLUSION WO CEREBRA 11/09/2016 LAVONNE KELLY MD Ot 785.9 CARDIOVAS SYS SYMP NEC 11/09/2016 LAVONNE KELLY MD Ot 794.39 ABN CARDIOVASC STUDY NEC 11/30/2016 LAVONNE KELLY MD Ot I65.23 OCCLUSION AND STENOSIS OF BILATERAL PORTER 12/02/2016 SABIHA HERNANDEZ MD Ot I10 ESSENTIAL (PRIMARY) HYPERTENSION 12/02/2016 SABIHA HERNANDEZ MD Ot S01.01XA LACERATION WITHOUT FOREIGN BODY OF SCALP 12/02/2016 SABIHA HERNANDEZ MD Ot S09.90XA UNSPECIFIED INJURY OF HEAD, INITIAL ENCO 12/02/2016 SABIHA HERNANDEZ MD Ot W07.XXXA FALL FROM CHAIR, INITIAL ENCOUNTER 12/02/2016 SABIHA HERNANDEZ MD Ot W22.09XA STRIKING AGAINST OTHER STATIONARY OBJECT 12/02/2016 SABIHA HERNANDEZ MD Ot Z79.01 INSULATION HELPER (CURRENT) USE OF ANTICOAGULANT 12/02/2016 SABIHA HERNANDEZ MD, Ot Z79.82 INSULATION HELPER (CURRENT) USE OF ASPIRIN 12/02/2016 DAVID MICHAELS, SABIHA Chauhan Ot Z87.891 PERSONAL HISTORY OF NICOTINE DEPENDENCE 12/06/2016 LETICIA MICAHELS, LAVONNE Manzano Ot I65.23 OCCLUSION AND STENOSIS OF BILATERAL PORTER 12/10/2016 NISSA ANTONIO DO Ot D64.9 ANEMIA, UNSPECIFIED 12/10/2016 NISSA ANTONIO DO Ot E11.649 TYPE 2 DIABETES MELLITUS WITH HYPOGLYCEM 12/10/2016 NISSA ANTONIO DO Ot E78.5 HYPERLIPIDEMIA, UNSPECIFIED 12/10/2016 NISSA ANTONIO DO Ot E87.1 HYPO-OSMOLALITY AND HYPONATREMIA 12/10/2016 NISSA ANTONIO DO Ot E87.5 HYPERKALEMIA 12/10/2016 NISSA ANTONIO DO Ot E87.8 OTH DISORDERS OF ELECTROLYTE AND FLUID B 12/10/2016 NISSA ANTONIO DO Ot G47.30 SLEEP APNEA, UNSPECIFIED 12/10/2016 NISSA ANTONIO DO Ot I08.3 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MITRAL, AORTIC 12/10/2016 NISSA ANTONIO DO Ot I10 ESSENTIAL (PRIMARY) HYPERTENSION 12/10/2016 NISSA ANTONIO DO Ot I25.10 ATHSCL HEART DISEASE OF [place] CORONARY 12/10/2016 NISSA ANTONIO DO Ot I42.9 CARDIOMYOPATHY, UNSPECIFIED 12/10/2016 NISSA ANTONIO DO Ot I48.1 PERSISTENT ATRIAL FIBRILLATION 12/10/2016 NISSA ANTONIO DO Ot I50.33 ACUTE ON CHRONIC DIASTOLIC (CONGESTIVE) 12/10/2016 NISSA ANTONIO DO Ot I65.29 OCCLUSION AND STENOSIS OF UNSPECIFIED CA 12/10/2016 NISSA ANTONIO DO Ot I70.8 ATHEROSCLEROSIS OF OTHER ARTERIES 12/10/2016 NISSA ANTONIO DO Ot J30.2 OTHER SEASONAL ALLERGIC RHINITIS 12/10/2016 NISSA ANTONIO DO Ot J44.9 CHRONIC OBSTRUCTIVE PULMONARY DISEASE, U 12/10/2016 NISSA ANTONIO DO Ot R79.1 ABNORMAL COAGULATION PROFILE 12/10/2016 NISSA ANTONIO DO Ot Z79.01 SNF (CURRENT) USE OF ANTICOAGULANT 12/10/2016 NISSA ANTONIO DO Ot Z87.891 PERSONAL HISTORY OF NICOTINE DEPENDENCE 12/10/2016 PACO BLACKMON NISSA Dubose Ot Z91.81 HISTORY OF FALLING 12/10/2016 [facility]ISSA Dubose Ot Z99.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 12/10/2016 [facility] DO, NISAS Dubose Ot D64.9 ANEMIA, UNSPECIFIED 12/10/2016 [facility] NISSA Dubose Ot E11.649 TYPE 2 DIABETES MELLITUS WITH HYPOGLYCEM 12/10/2016, NISSA Dubose Ot E78.5 HYPERLIPIDEMIA, UNSPECIFIED 12/10/2016 [facility] DO, NISSA Dubose Ot E87.1 HYPO-OSMOLALITY AND HYPONATREMIA 12/10/2016, NISSA Dubose Ot E87.5 HYPERKALEMIA 12/10/2016, NISSA Dubose Ot E87.8 OTH DISORDERS OF ELECTROLYTE AND FLUID B 12/10/2016, NISSA Dubose Ot G47.30 SLEEP APNEA, UNSPECIFIED 12/10/2016 [facility], NISSA Dubose Ot I08.3 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MITRAL, AORTIC 12/10/2016 [facility] , NISSA Dubose Ot I11.0 HYPERTENSIVE HEART DISEASE WITH HEART FA 12/10/2016 [facility], NISSA Dubose Ot I25.10 ATHSCL HEART DISEASE OF [place] CORONARY 12/10/2016 [facility], NISSA Dubose Ot I42.9 CARDIOMYOPATHY, UNSPECIFIED 12/10/2016 [facility], NISSA Dubose Ot I48.1 PERSISTENT ATRIAL FIBRILLATION 12/10/2016 [facility], NISSA Dubose Ot I50.33 ACUTE ON CHRONIC DIASTOLIC (CONGESTIVE) 12/10/2016 [facility], NISSA Dubose Ot I65.29 OCCLUSION AND STENOSIS OF UNSPECIFIED CA 12/10/2016 [facility], NISSA Dubose Ot I70.8 ATHEROSCLEROSIS OF OTHER ARTERIES 12/10/2016[facility], NISSA Dubose Ot J30.2 OTHER SEASONAL ALLERGIC RHINITIS 12/10/2016, NISSA Dubose Ot J44.9 CHRONIC OBSTRUCTIVE PULMONARY DISEASE, U 12/10/2016 [facility], NISSA Dubose Ot R26.81 UNSTEADINESS ON FEET 12/10/2016 DO, NISSA Dubose Ot R41.0 DISORIENTATION, UNSPECIFIED 12/10/2016 [facility] DON[facility]SA Ot R53.1 WEAKNESS 12/10/2016 [facility] DON[facility]SA Ot R60.0 LOCALIZED EDEMA 12/10/2016 NISSA ANTONIO DO Ot R79.1 ABNORMAL COAGULATION PROFILE 12/10/2016 NISSA ANTONIO DO Ot Z79.01 SNF (CURRENT) USE OF ANTICOAGULANT 12/10/2016 NISSA ANTONIO DO Ot Z87.891 PERSONAL HISTORY OF NICOTINE DEPENDENCE 12/10/2016 NISSA ANTONIO DO Ot Z91.81 HISTORY OF FALLING 12/10/2016 NISSA ANTONIO DO Ot Z99.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 12/20/2016 LAVONNE KELLY MD Ot 272.4 HYPERLIPIDEMIA NEC/NOS 12/20/2016 LAVONNE KELLY MD Ot 401.9 HYPERTENSION NOS 12/20/2016 LAVONNE KELLY MD Ot 414.00 CORON ATHEROSCLER NOS TYPE VESSEL, NATIV 12/20/2016 LAVONNE KELLY MD Ot 428.0 CONGESTIVE HEART FAILURE NOS 12/20/2016 LAVONNE KELLY MD Ot 272.4 HYPERLIPIDEMIA NEC/NOS 12/20/2016 LAVONNE KELLY MD Ot 396.3 MITRAL/AORTIC STANISLAV INSUFF 12/20/2016 LAVONNE KELLY MD Ot 397.0 TRICUSPID VALVE DISEASE 12/20/2016 LAVONNE KELLY MD Ot 401.9 HYPERTENSION NOS 12/20/2016 LAVONNE KELLY MD Ot 414.00 CORON ATHEROSCLER NOS TYPE VESSEL, NATIV 12/20/2016 LAVONNE KELLY MD Ot 429.3 CARDIOMEGALY 12/20/2016 LAVONNE KELLY MD Ot 433.10 CAROTID ARTERY OCCLUSION W O CEREBRAL IN 12/20/2016 LAVONNE KELLY MD Ot 433.30 MULT BILTRAL ARTERY OCCLUSION WO CEREBRA 12/20/2016 LAVONNE KELLY MD Ot 785.9 CARDIOVAS SYS SYMP NEC 12/20/2016 LAVONNE KELLY MD Ot 794.39 ABN CARDIOVASC STUDY NEC 12/20/2016 LAVONNE KELLY MD Ot I65.23 OCCLUSION AND STENOSIS OF BILATERAL PORTER 12/20/2016 NANCY HINKLE APRN Ot I48.91 UNSPECIFIED ATRIAL FIBRILLATION 12/20/2016 LAVONNE KELLY MD Ot 272.4 HYPERLIPIDEMIA NEC/NOS 12/20/2016 LAVONNE KELLY MD Ot 401.9 HYPERTENSION NOS 12/20/2016 LAVONNE KELLY MD Ot 414.00 CORON ATHEROSCLER NOS TYPE VESSEL, NATIV 12/20/2016 LAVONNE KELLY MD Ot 428.0 CONGESTIVE HEART FAILURE NOS 12/20/2016 LAVONNE KELLY MD Ot 272.4 HYPERLIPIDEMIA NEC/NOS 12/20/2016 LAVONNE KELLY MD Ot 396.3 MITRAL/AORTIC STANISLAV INSUFF 12/20/2016 LAVONNE KELLY MD Ot 397.0 TRICUSPID VALVE DISEASE 12/20/2016 LAVONNE KELLY MD Ot 401.9 HYPERTENSION NOS 12/20/2016 LAVONNE KELLY MD Ot 414.00 CORON ATHEROSCLER NOS TYPE VESSEL, NATIV 12/20/2016 LAVONNE KELLY MD Ot 429.3 CARDIOMEGALY 12/20/2016 LAVONNE KELLY MD Ot 433.10 CAROTID ARTERY OCCLUSION W O CEREBRAL IN 12/20/2016 LAVONNE KELLY MD Ot 433.30 MULT BILTRAL ARTERY OCCLUSION WO CEREBRA 12/20/2016 LAVONNE KELLY MD Ot 785.9 CARDIOVAS SYS SYMP NEC 12/20/2016 LAVONNE KELLY MD Ot 794.39 ABN CARDIOVASC STUDY NEC 12/20/2016 LAVONNE KELLY MD Ot I65.23 OCCLUSION AND STENOSIS OF BILATERAL PORTER 12/20/2016 NANCY HINKLE APRN Ot I48.91 UNSPECIFIED ATRIAL FIBRILLATION 12/22/2016 NANCY HINKLE APRN Ot G47.33 OBSTRUCTIVE SLEEP APNEA (ADULT) (PEDIATR 12/22/2016 NANCY HINKLE APRN Ot G47.33 OBSTRUCTIVE SLEEP APNEA (ADULT) (PEDIATR 12/22/2016 NANCY HINKLE APRN Ot G47.33 OBSTRUCTIVE SLEEP APNEA (ADULT) (PEDIATR 12/23/2016 LAVONNE KELLY MD Ot 272.4 HYPERLIPIDEMIA NEC/NOS 12/23/2016 LAVONNE KELLY MD Ot 401.9 HYPERTENSION NOS 12/23/2016 LAVONNE KELLY MD Ot 414.00 CORON ATHEROSCLER NOS TYPE VESSEL, NATIV 12/23/2016 LAVONNE KELLY MD Ot 428.0 CONGESTIVE HEART FAILURE NOS 12/23/2016 LAVONNE KELLY MD Ot 272.4 HYPERLIPIDEMIA NEC/NOS 12/23/2016 LAVONNE KELLY MD Ot 396.3 MITRAL/AORTIC STANISLAV INSUFF 12/23/2016 LAVONNE KELLY MD Ot 397.0 TRICUSPID VALVE DISEASE 12/23/2016 LAVONNE KELLY MD Ot 401.9 HYPERTENSION NOS 12/23/2016 LAVONNE KELLY MD Ot 414.00 CORON ATHEROSCLER NOS TYPE VESSEL, NATIV 12/23/2016 LAVONNE KELLY MD Ot 429.3 CARDIOMEGALY 12/23/2016 LAVONNE KELLY MD Ot 433.10 CAROTID ARTERY OCCLUSION W O CEREBRAL IN 12/23/2016 LAVONNE KELLY MD Ot 433.30 MULT BILTRAL ARTERY OCCLUSION WO CEREBRA 12/23/2016 LAVONNE KELLY MD Ot 785.9 CARDIOVAS SYS SYMP NEC 12/23/2016 LAVONNE KELLY MD Ot 794.39 ABN CARDIOVASC STUDY NEC 12/23/2016 LAVONNE KELLY MD Ot I65.23 OCCLUSION AND STENOSIS OF BILATERAL PORTER 12/23/2016 NANCY HINKLE E INFORMATION CLERK Ot G47.33 OBSTRUCTIVE SLEEP APNEA (ADULT) (PEDIATR 12/23/2016 ANGELES HINKLEINE E INFORMATION CLERK Ot I48.2 CHRONIC ATRIAL FIBRILLATION 12/23/2016 NANCY HINKLE E INFORMATION CLERK Ot J44.9 CHRONIC OBSTRUCTIVE PULMONARY DISEASE, U 01/03/2017 NANCY HINKLE E INFORMATION CLERK Ot G47.33 OBSTRUCTIVE SLEEP APNEA (ADULT) (PEDIATR 01/11/2017 ANGELES HINKLEINE E INFORMATION CLERK Ot I48.2 CHRONIC ATRIAL FIBRILLATION 01/11/2017 ANGELES HINKLEINE E INFORMATION CLERK Ot J44.9 CHRONIC OBSTRUCTIVE PULMONARY DISEASE, U 01/13/2017 ANGELES HINKLEINE E INFORMATION CLERK Ot I48.2 CHRONIC ATRIAL FIBRILLATION 01/13/2017 ANGELES HINKLEINE E INFORMATION CLERK Ot J44.9 CHRONIC OBSTRUCTIVE PULMONARY DISEASE, U 01/19/2017 NANCY HINKLE E INFORMATION CLERK Ot G47.33 OBSTRUCTIVE SLEEP APNEA (ADULT) (PEDIATR 06/12/2017 LAVONNE KELLY MD Ot 272.4 HYPERLIPIDEMIA NEC/NOS 06/12/2017 LAVONNE KELLY MD Ot 401.9 HYPERTENSION NOS 06/12/2017 LAVONNE KELLY MD Ot 414.00 CORON ATHEROSCLER NOS TYPE VESSEL, NATIV 06/12/2017 LAVONNE KELLY MD Ot 428.0 CONGESTIVE HEART FAILURE NOS 06/12/2017 LAVONNE KELLY MD Ot 272.4 HYPERLIPIDEMIA NEC/NOS 06/12/2017 LAVONNE KELLY MD Ot 396.3 MITRAL/AORTIC STANISLAV INSUFF 06/12/2017 LAVONNE KELLY MD Ot 397.0 TRICUSPID VALVE DISEASE 06/12/2017 LAVONNE KELLY MD Ot 401.9 HYPERTENSION NOS 06/12/2017 LAVONNE KELLY MD Ot 414.00 CORON ATHEROSCLER NOS TYPE VESSEL, NATIV 06/12/2017 LAVONNE KELLY MD Ot 429.3 CARDIOMEGALY 06/12/2017 LAVONNE KELLY MD Ot 433.10 CAROTID ARTERY OCCLUSION W O CEREBRAL IN 06/12/2017 LAVONNE KELLY MD Ot 433.30 MULT BILTRAL ARTERY OCCLUSION WO CEREBRA 06/12/2017 LAVONNE KELLY MD Ot 785.9 CARDIOVAS SYS SYMP NEC 06/12/2017 LAVONNE KELLY MD Ot 794.39 ABN CARDIOVASC STUDY NEC 06/12/2017 LAVONNE KELLY MD Ot I65.23 OCCLUSION AND STENOSIS OF BILATERAL PORTER 06/12/2017 NANCY HINKLE APRN Ot I48.2 CHRONIC ATRIAL FIBRILLATION 06/12/2017 NANCY HINKLE APRN Ot J44.9 CHRONIC OBSTRUCTIVE PULMONARY DISEASE, U 06/14/2017 LEVAR GARCIA MD Ot D64.9 ANEMIA, UNSPECIFIED 06/14/2017 LEVAR GARCIA MD Ot E78.5 HYPERLIPIDEMIA, UNSPECIFIED 06/14/2017 LEVAR GARCIA MD Ot E87.1 HYPO-OSMOLALITY AND HYPONATREMIA 06/14/2017 LEVAR GARCIA MD Ot I08.3 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MITRAL, AORTIC 06/14/2017 LEVAR GARCIA MD Ot I11.0 HYPERTENSIVE HEART DISEASE WITH HEART FA 06/14/2017 LEVAR GARCIA MD Ot I25.10 ATHSCL HEART DISEASE OF [place] CORONARY 06/14/2017 LEVAR GARCIA MD Ot I27.29 OTHER SECONDARY PULMONARY HYPERTENSION 06/14/2017 LEVAR GARCIA MD Ot I42.9 CARDIOMYOPATHY, UNSPECIFIED 06/14/2017 LEVAR GARCIA MD Ot I48.2 CHRONIC ATRIAL FIBRILLATION 06/14/2017 LEVAR GARCIA MD Ot I50.33 ACUTE ON CHRONIC DIASTOLIC (CONGESTIVE) 06/14/2017 LEVAR GARCIA MD Ot I50.813 ACUTE ON CHRONIC RIGHT HEART FAILURE 06/14/2017 LEVAR GARCIA MD Ot I65.29 OCCLUSION AND STENOSIS OF UNSPECIFIED CA 06/14/2017 LEVAR GARCIA MD Ot J30.2 OTHER SEASONAL ALLERGIC RHINITIS 06/14/2017 LEVAR GARCIA MD Ot J44.1 CHRONIC OBSTRUCTIVE PULMONARY DISEASE W 06/14/2017 LEVAR GARCIA MD Ot M10.9 GOUT, UNSPECIFIED 06/14/2017 LEVAR GARCIA MD Ot N28.9 DISORDER OF KIDNEY AND URETER, UNSPECIFI 06/14/2017 LEVAR GARCIA MD Ot R29.6 REPEATED FALLS 06/14/2017 LEVAR GARCIA MD Ot R53.1 WEAKNESS 06/14/2017 LEVAR GARCIA MD Ot Z79.01 INSULATION HELPER (CURRENT) USE OF ANTICOAGULANT 06/14/2017 LEVAR GARCIA MD Ot Z87.891 PERSONAL HISTORY OF NICOTINE DEPENDENCE 06/14/2017 LEVAR GARCIA MD Ot Z99.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 06/15/2017 LEVAR GARCIA MD Ot D64.9 ANEMIA, UNSPECIFIED 06/15/2017 LEVAR GARCIA MD Ot E78.5 HYPERLIPIDEMIA, UNSPECIFIED 06/15/2017 LVEAR GARCIA MD Ot E87.1 HYPO-OSMOLALITY AND HYPONATREMIA 06/15/2017 LEVAR GARCIA MD Ot I08.3 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MITRAL, AORTIC 06/15/2017 LEVAR GARCIA MD Ot I11.0 HYPERTENSIVE HEART DISEASE WITH HEART FA 06/15/2017 LEVAR GARCIA MD Ot I25.10 ATHSCL HEART DISEASE OF [place] CORONARY 06/15/2017 LEVAR GARCIA MD Ot I27.29 OTHER SECONDARY PULMONARY HYPERTENSION 06/15/2017 LEVAR GARCIA MD Ot I42.9 CARDIOMYOPATHY, UNSPECIFIED 06/15/2017 LEVAR GARCIA MD Ot I48.2 CHRONIC ATRIAL FIBRILLATION 06/15/2017 LEVAR GARCIA MD Ot I50.33 ACUTE ON CHRONIC DIASTOLIC (CONGESTIVE) 06/15/2017 LEVAR GARCIA MD Ot I50.813 ACUTE ON CHRONIC RIGHT HEART FAILURE 06/15/2017 LEVAR GARCIA MD Ot I65.29 OCCLUSION AND STENOSIS OF UNSPECIFIED CA 06/15/2017 LEVAR GARCIA MD Ot J30.2 OTHER SEASONAL ALLERGIC RHINITIS 06/15/2017 LEVAR GARCIA MD Ot J44.1 CHRONIC OBSTRUCTIVE PULMONARY DISEASE W 06/15/2017 LEVAR GARCIA MD Ot M10.9 GOUT, UNSPECIFIED 06/15/2017 LEVAR GARCIA MD Ot N28.9 DISORDER OF KIDNEY AND URETER, UNSPECIFI 06/15/2017 LEVAR GARCIA MD Ot R29.6 REPEATED FALLS 06/15/2017 LEVAR GARCIA MD Ot R53.1 WEAKNESS 06/15/2017 LEVAR GARCIA MD Ot Z79.01 INSULATION HELPER (CURRENT) USE OF ANTICOAGULANT 06/15/2017 LEVAR GARCIA MD Ot Z87.891 PERSONAL HISTORY OF NICOTINE DEPENDENCE 06/15/2017 LEVAR GARCIA MD Ot Z99.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 06/16/2017 LEVAR GARCIA MD Ot D64.9 ANEMIA, UNSPECIFIED 06/16/2017 LEVAR GARCIA MD Ot E78.5 HYPERLIPIDEMIA, UNSPECIFIED 06/16/2017 LEVAR GARCIA MD Ot E87.1 HYPO-OSMOLALITY AND HYPONATREMIA 06/16/2017 LEVAR GARCIA MD Ot I08.3 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MITRAL, AORTIC 06/16/2017 LEVAR GARCIA MD Ot I11.0 HYPERTENSIVE HEART DISEASE WITH HEART FA 06/16/2017 LEVAR GARCIA MD Ot I25.10 ATHSCL HEART DISEASE OF [place] CORONARY 06/16/2017 LEVAR GARCIA MD Ot I27.29 OTHER SECONDARY PULMONARY HYPERTENSION 06/16/2017 LEVAR GARCIA MD Ot I42.9 CARDIOMYOPATHY, UNSPECIFIED 06/16/2017 LEVAR GARCIA MD Ot I48.2 CHRONIC ATRIAL FIBRILLATION 06/16/2017 LEVAR GARCIA MD Ot I50.33 ACUTE ON CHRONIC DIASTOLIC (CONGESTIVE) 06/16/2017 LEVAR GARCIA MD Ot I50.813 ACUTE ON CHRONIC RIGHT HEART FAILURE 06/16/2017 LEVAR GARCIA MD Ot I65.29 OCCLUSION AND STENOSIS OF UNSPECIFIED CA 06/16/2017 LEVAR GARCIA MD Ot J30.2 OTHER SEASONAL ALLERGIC RHINITIS 06/16/2017 LEVAR GARCIA MD Ot J44.1 CHRONIC OBSTRUCTIVE PULMONARY DISEASE W 06/16/2017 LEVAR GARCIA MD Ot M10.9 GOUT, UNSPECIFIED 06/16/2017 LEVAR GARCIA MD Ot N28.9 DISORDER OF KIDNEY AND URETER, UNSPECIFI 06/16/2017 LEVAR GARCIA MD Ot R29.6 REPEATED FALLS 06/16/2017 LEVAR GARCIA MD Ot R53.1 WEAKNESS 06/16/2017 LEVAR GACRIA MD Ot Z79.01 INSULATION HELPER (CURRENT) USE OF ANTICOAGULANT 06/16/2017 LEVAR GARCIA MD Ot Z87.891 PERSONAL HISTORY OF NICOTINE DEPENDENCE 06/16/2017 LEVAR GARCIA MD Ot Z99.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 06/16/2017 LEVAR GARCIA MD Ot D64.9 ANEMIA, UNSPECIFIED 06/16/2017 LEVAR GARCIA MD Ot E78.5 HYPERLIPIDEMIA, UNSPECIFIED 06/16/2017 LEVAR GARCIA MD Ot E87.1 HYPO-OSMOLALITY AND HYPONATREMIA 06/16/2017 LEVAR GARCAI MD Ot I08.3 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MITRAL, AORTIC 06/16/2017 LEVAR GARCIA MD Ot I11.0 HYPERTENSIVE HEART DISEASE WITH HEART FA 06/16/2017 LEVAR GARCIA MD Ot I25.10 ATHSCL HEART DISEASE OF [place] CORONARY 06/16/2017 LEVAR GARCIA MD Ot I27.29 OTHER SECONDARY PULMONARY HYPERTENSION 06/16/2017 LEVAR GARCIA MD Ot I42.9 CARDIOMYOPATHY, UNSPECIFIED 06/16/2017 LEVAR GARCIA MD Ot I48.2 CHRONIC ATRIAL FIBRILLATION 06/16/2017 LEVAR GARCIA MD Ot I50.33 ACUTE ON CHRONIC DIASTOLIC (CONGESTIVE) 06/16/2017 LEVAR GARCIA MD Ot I50.813 ACUTE ON CHRONIC RIGHT HEART FAILURE 06/16/2017 LEVAR GARCIA MD Ot I65.29 OCCLUSION AND STENOSIS OF UNSPECIFIED CA 06/16/2017 LEVAR GARCIA MD Ot J30.2 OTHER SEASONAL ALLERGIC RHINITIS 06/16/2017 LEVAR GARCIA MD Ot J44.1 CHRONIC OBSTRUCTIVE PULMONARY DISEASE W 06/16/2017 LEVAR GARCIA MD Ot M10.9 GOUT, UNSPECIFIED 06/16/2017 LEVAR GARCIA MD Ot N28.9 DISORDER OF KIDNEY AND URETER, UNSPECIFI 06/16/2017 LEVAR GARCIA MD Ot R29.6 REPEATED FALLS 06/16/2017 LEVAR GARCIA MD Ot R53.1 WEAKNESS 06/16/2017 LEVAR GARCIA MD Ot Z79.01 INSULATION HELPER (CURRENT) USE OF ANTICOAGULANT 06/16/2017 LEVAR GARCIA MD Ot Z87.891 PERSONAL HISTORY OF NICOTINE DEPENDENCE 06/16/2017 LEVAR GARCIA MD Ot Z99.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 06/16/2017 LEVAR GARCIA MD Ot D64.9 ANEMIA, UNSPECIFIED 06/16/2017 LEVAR GARCIA MD Ot E78.5 HYPERLIPIDEMIA, UNSPECIFIED 06/16/2017 LEVAR GARCIA MD Ot E87.1 HYPO-OSMOLALITY AND HYPONATREMIA 06/16/2017 LEVAR GARCIA MD Ot I08.3 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[place], AORTIC 06/16/2017 LEVAR GARCIA MD Ot I11.0 HYPERTENSIVE HEART DISEASE WITH HEART FA 06/16/2017 LEVAR GARCIA MD Ot I25.10 ATHSCL HEART DISEASE OF [place] CORONARY 06/16/2017 LEVAR GARCIA MD Ot I27.29 OTHER SECONDARY PULMONARY HYPERTENSION 06/16/2017 LEVAR GARCIA MD Ot I42.9 CARDIOMYOPATHY, UNSPECIFIED 06/16/2017 LEVAR GARCIA MD Ot I48.2 CHRONIC ATRIAL FIBRILLATION 06/16/2017 LEVAR GARCIA MD Ot I50.33 ACUTE ON CHRONIC DIASTOLIC (CONGESTIVE) 06/16/2017 LEVAR GARCIA MD Ot I50.813 ACUTE ON CHRONIC RIGHT HEART FAILURE 06/16/2017 LEVAR GARCIA MD Ot I65.29 OCCLUSION AND STENOSIS OF UNSPECIFIED CA 06/16/2017 LEVAR GARCIA MD Ot J30.2 OTHER SEASONAL ALLERGIC RHINITIS 06/16/2017 LEVAR GARCIA MD Ot J44.1 CHRONIC OBSTRUCTIVE PULMONARY DISEASE W 06/16/2017 LEVAR GARCIA MD Ot M10.9 GOUT, UNSPECIFIED 06/16/2017 LEVAR GARCIA MD Ot N28.9 DISORDER OF KIDNEY AND URETER, UNSPECIFI 06/16/2017 LEVAR GARCIA MD Ot R29.6 REPEATED FALLS 06/16/2017 LEVAR GARCIA MD Ot R53.1 WEAKNESS 06/16/2017 LEVAR GARCIA MD Ot Z79.01 SNF (CURRENT) USE OF ANTICOAGULANT 06/16/2017 LEVAR GARCIA MD Ot Z87.891 PERSONAL HISTORY OF NICOTINE DEPENDENCE 06/16/2017 LEVAR GARCIA MD D Ot Z99.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 Results Test Result Range [id number] - 11/09/16 12:17 Serum or plasma urea nitrogen measurement (mass/volume) 20 mg/dL 7-18 Serum or plasma creatinine measurement (mass/volume) 0.90 mg/dL 0.60-1.30 Serum or plasma urea nitrogen/creatinine mass ratio 22 NRG Serum or plasma creatinine measurement with calculation of estimated glomerular filtration rate > NRG Complete blood count (CBC) with automated white blood cell (WBC) differential - 12/08/16 14:49 Blood leukocytes automated count (number/volume) 9.0 10*3/uL 4.3-11.0 Blood erythrocytes automated count (number/volume) 3.54 10*6/uL 4.35-5.85 Venous blood hemoglobin measurement (mass/volume) 9.3 g/dL 13.3-17.7 Blood hematocrit (volume fraction) 30 % 40-54 Automated erythrocyte mean corpuscular volume 85 [foz_us] 80-99 Automated erythrocyte mean corpuscular hemoglobin (mass per erythrocyte) 26 pg 25-34 Automated erythrocyte mean corpuscular hemoglobin concentration measurement ( mass/volume) 31 g/dL 32-36 Automated erythrocyte distribution width ratio 15.2 % 10.0-14.5 Automated blood platelet count (count/volume) 284 10*3/uL 130-400 Automated blood platelet mean volume measurement 8.7 [foz_us] 7.4-10.4 Automated blood neutrophils/100 leukocytes 87 % 42-75 Automated blood lymphocytes/100 leukocytes 6 % 12-44 Blood monocytes/100 leukocytes 6 % 0-12 Automated blood eosinophils/100 leukocytes 0 % 0-10 Automated blood basophils/100 leukocytes 0 % 0-10 Blood neutrophils automated count (number/volume) 7.9 10*3 1.8-7.8 Blood lymphocytes automated count (number/volume) 0.5 10*3 1.0-4.0 Blood monocytes automated count (number/volume) 0.6 10*3 0.0-1.0 Automated eosinophil count 0.0 10*3/uL 0.0-0.3 Automated blood basophil count (count/volume) 0.0 10*3/uL 0.0-0.1 PT panel in platelet poor plasma by coagulation assay - 12/08/16 14:49 Prothrombin time (PT) in platelet poor plasma by coagulation assay 40.7 s 12.2-14.7 INR in platelet poor plasma or blood by coagulation assay 4.3 0.8-1.4 Activated partial thromboplastin time (aPTT) in platelet poor plasma bycoagulation assay - 12/08/16 14:49 Activated partial thromboplastin time (aPTT) in platelet poor plasma bycoagulation assay 63 s 24-35 Blood manual differential performed detection - 12/08/16 14:49 Blood monocytes/100 leukocytes 5 % NR Manual blood segmented neutrophils/100 leukocytes 88 % NRG Blood band neutrophils/100 leukocytes 0 % NR Manual blood lymphocytes/100 leukocytes 7 % NR Manual eosinophils/100 leukocytes in nose 0 % NR Manual blood basophils/100 leukocytes 0 % NR Blood erythrocyte morphology finding identification [facility] Comprehensive metabolic panel - 12/08/16 14:49 Serum or plasma sodium measurement (moles/volume) 126 mmol/L 135-145 Serum or plasma potassium measurement (moles/volume) 5.4 mmol/L 3.6-5.0 Serum or plasma chloride measurement (moles/volume) 90 mmol/L 98-107 Carbon dioxide 27 mmol/L 21-32 Serum or plasma anion gap determination (moles/volume) 9 mmol/L 5-14 Serum or plasma urea nitrogen measurement (mass/volume) 38 mg/dL 7-18 Serum or plasma creatinine measurement (mass/volume) 1.09 mg/dL 0.60-1.30 Serum or plasma urea nitrogen/creatinine mass ratio 35 NRG Serum or plasma creatinine measurement with calculation of estimated glomerular filtration rate > NRG Serum or plasma glucose measurement (mass/volume) 69 mg/dL 70-105 Serum or plasma calcium measurement (mass/volume) 8.4 mg/dL 8.5-10.1 Serum or plasma total bilirubin measurement (mass/volume) 1.4 mg/dL 0.1-1.0 Serum or plasma alkaline phosphatase measurement (enzymatic activity/volume) 100 U/L 40-136 Serum or plasma aspartate aminotransferase measurement (enzymatic activity/ volume) 56 U/L 5-34 Serum or plasma alanine aminotransferase measurement (enzymatic activity/volume ) 32 U/L 0-55 Serum or plasma protein measurement (mass/volume) 7.0 g/dL 6.4-8.2 Serum or plasma albumin measurement (mass/volume) 3.8 g/dL 3.2-4.5 Magnesium - 12/08/16 14:49 Magnesium 2.1 mg/dL 1.8-2.4 Serum or plasma lithium measurement (moles/volume) - 12/08/16 14:49 BNP level 951.3 pg/mL <100.0 Serum or plasma troponin i.cardiac measurement (mass/volume) - 12/08/16 14:49 Serum or plasma troponin i.cardiac measurement (mass/volume) < ng/ mL <0.30 THYROID STIMULATING HORMONE - 12/08/16 14:55 THYROID STIMULATING HORMONE 1.61 u[iU]/mL 0.35-4.94 Complete blood count (CBC) with automated white blood cell (WBC) differential - 12/09/16 05:43 Blood leukocytes automated count (number/volume) 8.6 10*3/uL 4.3-11.0 Blood erythrocytes automated count (number/volume) 3.14 10*6/uL 4.35-5.85 Venous blood hemoglobin measurement (mass/volume) 8.5 g/dL 13.3-17.7 Blood hematocrit (volume fraction) 27 % 40-54 Automated erythrocyte mean corpuscular volume 85 [foz_us] 80-99 Automated erythrocyte mean corpuscular hemoglobin (mass per erythrocyte) 27 pg 25-34 Automated erythrocyte mean corpuscular hemoglobin concentration measurement ( mass/volume) 32 g/dL 32-36 Automated erythrocyte distribution width ratio 15.3 % 10.0-14.5 Automated blood platelet count (count/volume) 268 10*3/uL 130-400 Automated blood platelet mean volume measurement 9.4 [foz_us] 7.4-10.4 Automated blood neutrophils/100 leukocytes 79 % 42-75 Automated blood lymphocytes/100 leukocytes 8 % 12-44 Blood monocytes/100 leukocytes 11 % 0-12 Automated blood eosinophils/100 leukocytes 2 % 0-10 Automated blood basophils/100 leukocytes 0 % 0-10 Blood neutrophils automated count (number/volume) 6.8 10*3 1.8-7.8 Blood lymphocytes automated count (number/volume) 0.7 10*3 1.0-4.0 Blood monocytes automated count (number/volume) 0.9 10*3 0.0-1.0 Automated eosinophil count 0.2 10*3/uL 0.0-0.3 Automated blood basophil count (count/volume) 0.0 10*3/uL 0.0-0.1 PT panel in platelet poor plasma by coagulation assay - 12/09/16 05:43 Prothrombin time (PT) in platelet poor plasma by coagulation assay 34.0 s 12.2-14.7 INR in platelet poor plasma or blood by coagulation assay 3.4 0.8-1.4 Comprehensive metabolic panel - 12/09/16 05:43 Serum or plasma sodium measurement (moles/volume) 130 mmol/L 135-145 Serum or plasma potassium measurement (moles/volume) 3.8 mmol/L 3.6-5.0 Serum or plasma chloride measurement (moles/volume) 92 mmol/L 98-107 Carbon dioxide 28 mmol/L 21-32 Serum or plasma anion gap determination (moles/volume) 10 mmol/L 5-14 Serum or plasma urea nitrogen measurement (mass/volume) 38 mg/dL 7-18 Serum or plasma creatinine measurement (mass/volume) 1.01 mg/dL 0.60-1.30 Serum or plasma urea nitrogen/creatinine mass ratio 38 NRG Serum or plasma creatinine measurement with calculation of estimated glomerular filtration rate > NRG Serum or plasma glucose measurement (mass/volume) 78 mg/dL 70-105 Serum or plasma calcium measurement (mass/volume) 8.3 mg/dL 8.5-10.1 Serum or plasma total bilirubin measurement (mass/volume) 1.1 mg/dL 0.1-1.0 Serum or plasma alkaline phosphatase measurement (enzymatic activity/volume) 82 U/L 40-136 Serum or plasma aspartate aminotransferase measurement (enzymatic activity/ volume) 48 U/L 5-34 Serum or plasma alanine aminotransferase measurement (enzymatic activity/volume ) 29 U/L 0-55 Serum or plasma protein measurement (mass/volume) 6.0 g/dL 6.4-8.2 Serum or plasma albumin measurement (mass/volume) 3.4 g/dL 3.2-4.5 Serum or plasma lithium measurement (moles/volume) - 12/09/16 05:43 BNP level 1001.8 pg/mL <100.0 Complete blood count (CBC) with automated white blood cell (WBC) differential - 12/10/16 05:38 Blood leukocytes automated count (number/volume) 7.9 10*3/uL 4.3-11.0 Blood erythrocytes automated count (number/volume) 3.28 10*6/uL 4.35-5.85 Venous blood hemoglobin measurement (mass/volume) 8.8 g/dL 13.3-17.7 Blood hematocrit (volume fraction) 28 % 40-54 Automated erythrocyte mean corpuscular volume 86 [foz_us] 80-99 Automated erythrocyte mean corpuscular hemoglobin (mass per erythrocyte) 27 pg 25-34 Automated erythrocyte mean corpuscular hemoglobin concentration measurement ( mass/volume) 31 g/dL 32-36 Automated erythrocyte distribution width ratio 15.5 % 10.0-14.5 Automated blood platelet count (count/volume) 270 10*3/uL 130-400 Automated blood platelet mean volume measurement 9.1 [foz_us] 7.4-10.4 Automated blood neutrophils/100 leukocytes 78 % 42-75 Automated blood lymphocytes/100 leukocytes 11 % 12-44 Blood monocytes/100 leukocytes 9 % 0-12 Automated blood eosinophils/100 leukocytes 2 % 0-10 Automated blood basophils/100 leukocytes 0 % 0-10 Blood neutrophils automated count (number/volume) 6.2 10*3 1.8-7.8 Blood lymphocytes automated count (number/volume) 0.8 10*3 1.0-4.0 Blood monocytes automated count (number/volume) 0.7 10*3 0.0-1.0 Automated eosinophil count 0.2 10*3/uL 0.0-0.3 Automated blood basophil count (count/volume) 0.0 10*3/uL 0.0-0.1 PT panel in platelet poor plasma by coagulation assay - 12/10/16 05:38 Prothrombin time (PT) in platelet poor plasma by coagulation assay 36.5 s 12.2-14.7 INR in platelet poor plasma or blood by coagulation assay 3.7 0.8-1.4 Comprehensive metabolic panel - 12/10/16 05:38 Serum or plasma sodium measurement (moles/volume) 132 mmol/L 135-145 Serum or plasma potassium measurement (moles/volume) 3.6 mmol/L 3.6-5.0 Serum or plasma chloride measurement (moles/volume) 92 mmol/L 98-107 Carbon dioxide 32 mmol/L 21-32 Serum or plasma anion gap determination (moles/volume) 8 mmol/L 5-14 Serum or plasma urea nitrogen measurement (mass/volume) 29 mg/dL 7-18 Serum or plasma creatinine measurement (mass/volume) 0.89 mg/dL 0.60-1.30 Serum or plasma urea nitrogen/creatinine mass ratio 33 NRG Serum or plasma creatinine measurement with calculation of estimated glomerular filtration rate > NRG Serum or plasma glucose measurement (mass/volume) 109 mg/dL 70-105 Serum or plasma calcium measurement (mass/volume) 8.3 mg/dL 8.5-10.1 Serum or plasma total bilirubin measurement (mass/volume) 0.8 mg/dL 0.1-1.0 Serum or plasma alkaline phosphatase measurement (enzymatic activity/volume) 81 U/L 40-136 Serum or plasma aspartate aminotransferase measurement (enzymatic activity/ volume) 46 U/L 5-34 Serum or plasma alanine aminotransferase measurement (enzymatic activity/volume ) 28 U/L 0-55 Serum or plasma protein measurement (mass/volume) 6.0 g/dL 6.4-8.2 Serum or plasma albumin measurement (mass/volume) 3.4 g/dL 3.2-4.5 Magnesium - 12/10/16 05:38 Magnesium 2.1 mg/dL 1.8-2.4 Serum or plasma troponin i.cardiac measurement (mass/volume) - 12/10/16 05:38 Serum or plasma troponin i.cardiac measurement (mass/volume) < ng/ mL <0.30 Serum or plasma lithium measurement (moles/volume) - 12/10/16 05:38 BNP level 582.7 pg/mL <100.0 Lipid 1996 panel - 12/10/16 05:38 Serum or plasma triglyceride measurement (mass/volume) 79 mg/dL <150 Serum or plasma cholesterol measurement (mass/volume) 115 mg/dL < 200 Serum or plasma cholesterol in HDL measurement (mass/volume) 35 mg/ dL 40-60 Cholesterol in LDL [mass/volume] in serum or plasma by direct assay 70 mg/dL 1-129 Serum or plasma cholesterol in VLDL measurement (mass/volume) 16 mg/ dL 5-40 THYROID STIMULATING HORMONE - 12/10/16 05:38 THYROID STIMULATING HORMONE 1.85 u[iU]/mL 0.35-4.94 PT panel in platelet poor plasma by coagulation assay - 12/20/16 12:25 Prothrombin time (PT) in platelet poor plasma by coagulation assay 17.4 s 12.2-14.7 INR in platelet poor plasma or blood by coagulation assay 1.4 0.8-1.4 PT panel in platelet poor plasma by coagulation assay - 06/12/17 20:40 Prothrombin time (PT) in platelet poor plasma by coagulation assay 20.9 s 12.2-14.7 INR in platelet poor plasma or blood by coagulation assay 1.8 0.8-1.4 Activated partial thromboplastin time (aPTT) in platelet poor plasma bycoagulation assay - 06/12/17 20:40 Activated partial thromboplastin time (aPTT) in platelet poor plasma bycoagulation assay 46 s 24-35 Complete blood count (CBC) with automated white blood cell (WBC) differential - 06/12/17 20:40 Blood leukocytes automated count (number/volume) 9.6 10*3/uL 4.3-11.0 Blood erythrocytes automated count (number/volume) 3.10 10*6/uL 4.35-5.85 Venous blood hemoglobin measurement (mass/volume) 8.5 g/dL 13.3-17.7 Blood hematocrit (volume fraction) 26 % 40-54 Automated erythrocyte mean corpuscular volume 82 [foz_us] 80-99 Automated erythrocyte mean corpuscular hemoglobin (mass per erythrocyte) 27 pg 25-34 Automated erythrocyte mean corpuscular hemoglobin concentration measurement ( mass/volume) 33 g/dL 32-36 Automated erythrocyte distribution width ratio 15.4 % 10.0-14.5 Automated blood platelet count (count/volume) 281 10*3/uL 130-400 Automated blood platelet mean volume measurement 9.3 [foz_us] 7.4-10.4 Automated blood neutrophils/100 leukocytes 84 % 42-75 Automated blood lymphocytes/100 leukocytes 7 % 12-44 Blood monocytes/100 leukocytes 8 % 0-12 Automated blood eosinophils/100 leukocytes 1 % 0-10 Automated blood basophils/100 leukocytes 0 % 0-10 Blood neutrophils automated count (number/volume) 8.1 10*3 1.8-7.8 Blood lymphocytes automated count (number/volume) 0.6 10*3 1.0-4.0 Blood monocytes automated count (number/volume) 0.8 10*3 0.0-1.0 Automated eosinophil count 0.1 10*3/uL 0.0-0.3 Automated blood basophil count (count/volume) 0.0 10*3/uL 0.0-0.1 Blood manual differential performed detection - 06/12/17 20:40 Blood monocytes/100 leukocytes 4 % NRG Manual blood segmented neutrophils/100 leukocytes 89 % NRG Blood band neutrophils/100 leukocytes 0 % NRG Manual blood lymphocytes/100 leukocytes 4 % NRG Manual eosinophils/100 leukocytes in nose 2 % NRG Manual blood basophils/100 leukocytes 0 % NRG Blood lymphocytes variant/100 leukocytes 1 % NRG Blood anisocytosis detection by light microscopy MODERATE NRG Blood ovalocytes detection by light microscopy MODERATE NRG Blood toxic granules detection by light microscopy 1+ NRG Blood poikilocytosis detection by light microscopy MODERATE NRG Blood rouleaux detection by light microscopy MOD NRG Blood stomatocytes detection by light microscopy MODERATE NRG Acanthocyte detection SLIGHT NRG Blood basophilic stippling detection by light microscopy SLIGHT NRG Comprehensive metabolic panel - 06/12/17 20:40 Serum or plasma sodium measurement (moles/volume) 120 mmol/L 135-145 Serum or plasma potassium measurement (moles/volume) 4.1 mmol/L 3.6-5.0 Serum or plasma chloride measurement (moles/volume) 80 mmol/L 98-107 Carbon dioxide 26 mmol/L 21-32 Serum or plasma anion gap determination (moles/volume) 14 mmol/L 5-14 Serum or plasma urea nitrogen measurement (mass/volume) 45 mg/dL 7-18 Serum or plasma creatinine measurement (mass/volume) 1.31 mg/dL 0.60-1.30 Serum or plasma urea nitrogen/creatinine mass ratio 34 NRG Serum or plasma creatinine measurement with calculation of estimated glomerular filtration rate 53 NRG Serum or plasma glucose measurement (mass/volume) 96 mg/dL 70-105 Serum or plasma calcium measurement (mass/volume) 9.0 mg/dL 8.5-10.1 Serum or plasma total bilirubin measurement (mass/volume) 1.2 mg/dL 0.1-1.0 Serum or plasma alkaline phosphatase measurement (enzymatic activity/volume) 86 U/L 40-136 Serum or plasma aspartate aminotransferase measurement (enzymatic activity/ volume) 38 U/L 5-34 Serum or plasma alanine aminotransferase measurement (enzymatic activity/volume ) 16 U/L 0-55 Serum or plasma protein measurement (mass/volume) 7.1 g/dL 6.4-8.2 Serum or plasma albumin measurement (mass/volume) 4.2 g/dL 3.2-4.5 Complete urinalysis with reflex to culture - 06/12/17 20:40 Urine color determination YELLOW NRG Urine clarity determination CLEAR NRG Urine pH measurement by test strip 7 5-9 Specific gravity of urine by test strip 1.010 1.016- 1.022 Urine protein assay by test strip, semi-quantitative NEGATIVE NEGATIVE Urine glucose detection by automated test strip NEGATIVE NEGATIVE Erythrocytes detection in urine sediment by light microscopy NEGATIVE NEGATIVE Urine ketones detection by automated test strip NEGATIVE NEGATIVE Urine nitrite detection by test strip NEGATIVE NEGATIVE Urine total bilirubin detection by test strip NEGATIVE NEGATIVE Urine urobilinogen measurement by automated test strip (mass/volume) NORMAL NORMAL Urine leukocyte esterase detection by dipstick NEGATIVE NEGATIVE Automated urine sediment erythrocyte count by microscopy (number/high power field) NONE NRG Automated urine sediment leukocyte count by microscopy (number/high power field ) RARE NRG Bacteria detection in urine sediment by light microscopy NEGATIVE NRG Squamous epithelial cells detection in urine sediment by light microscopy 0-2 NRG Crystals detection in urine sediment by light microscopy NONE NRG Casts detection in urine sediment by light microscopy PRESENT NRG Mucus detection in urine sediment by light microscopy NEGATIVE NRG Complete urinalysis with reflex to culture NO NRG Hyaline casts detection in urine sediment by light microscopy 5-10 NRG Renal epithelial cells detection in urine sediment by light microscopy NONE NRG Magnesium - 06/12/17 20:40 Magnesium 2.4 mg/dL 1.8-2.4 Serum or plasma troponin i.cardiac measurement (mass/volume) - 06/12/17 20:40 Serum or plasma troponin i.cardiac measurement (mass/volume) < ng/ mL <0.30 Serum or plasma C reactive protein measurement (mass/volume) - 06/12/17 20:40 Serum or plasma C reactive protein measurement (mass/volume) 6.58 mg /dL 0.00-0.50 Digoxin - 06/12/17 20:40 Digoxin 1.63 ng/mL 0.80-2.00 Serum or plasma lithium measurement (moles/volume) - 06/12/17 20:40 BNP level 462.2 pg/mL <100.0 Complete blood count (CBC) with automated white blood cell (WBC) differential - 06/13/17 05:33 Blood leukocytes automated count (number/volume) 6.9 10*3/uL 4.3-11.0 Blood erythrocytes automated count (number/volume) 2.64 10*6/uL 4.35-5.85 Venous blood hemoglobin measurement (mass/volume) 7.2 g/dL 13.3-17.7 Blood hematocrit (volume fraction) 22 % 40-54 Automated erythrocyte mean corpuscular volume 83 [foz_us] 80-99 Automated erythrocyte mean corpuscular hemoglobin (mass per erythrocyte) 27 pg 25-34 Automated erythrocyte mean corpuscular hemoglobin concentration measurement ( mass/volume) 33 g/dL 32-36 Automated erythrocyte distribution width ratio 15.7 % 10.0-14.5 Automated blood platelet count (count/volume) 223 10*3/uL 130-400 Automated blood platelet mean volume measurement 9.5 [foz_us] 7.4-10.4 Automated blood neutrophils/100 leukocytes 81 % 42-75 Automated blood lymphocytes/100 leukocytes 8 % 12-44 Blood monocytes/100 leukocytes 9 % 0-12 Automated blood eosinophils/100 leukocytes 2 % 0-10 Automated blood basophils/100 leukocytes 0 % 0-10 Blood neutrophils automated count (number/volume) 5.6 10*3 1.8-7.8 Blood lymphocytes automated count (number/volume) 0.6 10*3 1.0-4.0 Blood monocytes automated count (number/volume) 0.6 10*3 0.0-1.0 Automated eosinophil count 0.1 10*3/uL 0.0-0.3 Automated blood basophil count (count/volume) 0.0 10*3/uL 0.0-0.1 PT panel in platelet poor plasma by coagulation assay - 06/13/17 05:33 Prothrombin time (PT) in platelet poor plasma by coagulation assay 21.8 s 12.2-14.7 INR in platelet poor plasma or blood by coagulation assay 1.9 0.8-1.4 Whole blood basic metabolic panel - 06/13/17 05:33 Serum or plasma sodium measurement (moles/volume) 121 mmol/L 135-145 Serum or plasma potassium measurement (moles/volume) 3.5 mmol/L 3.6-5.0 Serum or plasma chloride measurement (moles/volume) 85 mmol/L 98-107 Carbon dioxide 26 mmol/L 21-32 Serum or plasma anion gap determination (moles/volume) 10 mmol/L 5-14 Serum or plasma urea nitrogen measurement (mass/volume) 45 mg/dL 7-18 Serum or plasma creatinine measurement (mass/volume) 1.33 mg/dL 0.60-1.30 Serum or plasma urea nitrogen/creatinine mass ratio 34 NRG Serum or plasma creatinine measurement with calculation of estimated glomerular filtration rate 52 NRG Serum or plasma glucose measurement (mass/volume) 132 mg/dL 70-105 Serum or plasma calcium measurement (mass/volume) 8.4 mg/dL 8.5-10.1 Magnesium - 06/13/17 05:33 Magnesium 2.2 mg/dL 1.8-2.4 Digoxin - 06/13/17 05:33 Digoxin 1.26 ng/mL 0.80-2.00 RED CELLS LEUKO REDUCED AS1 - 06/13/17 09:24 RED CELLS LEUKO REDUCED AS1 TRANSFUSED 06/13/17 1140 NRG Blood type T Indirect antibody screen panel - 06/13/17 09:24 ABO+Rh group AN NRG Transfusion band number [id number] NRG Blood group antibody screen NEGATIVE NRG Whole blood hemoglobin and hematocrit panel - 06/13/17 16:45 Venous blood hemoglobin measurement (mass/volume) 8.9 g/dL 13.3-17.7 Blood hematocrit (volume fraction) 26 % 40-54 Automated blood complete blood count (hemogram) panel - 06/14/17 06:25 Blood leukocytes automated count (number/volume) 7.1 10*3/uL 4.3-11.0 Blood erythrocytes automated count (number/volume) 3.10 10*6/uL 4.35-5.85 Venous blood hemoglobin measurement (mass/volume) 8.6 g/dL 13.3-17.7 Blood hematocrit (volume fraction) 26 % 40-54 Automated erythrocyte mean corpuscular volume 84 [foz_us] 80-99 Automated erythrocyte mean corpuscular hemoglobin (mass per erythrocyte) 28 pg 25-34 Automated erythrocyte mean corpuscular hemoglobin concentration measurement ( mass/volume) 33 g/dL 32-36 Automated erythrocyte distribution width ratio 15.4 % 10.0-14.5 Automated blood platelet count (count/volume) 224 10*3/uL 130-400 Automated blood platelet mean volume measurement 9.4 [foz_us] 7.4-10.4 PT panel in platelet poor plasma by coagulation assay - 06/14/17 06:25 Prothrombin time (PT) in platelet poor plasma by coagulation assay 21.8 s 12.2-14.7 INR in platelet poor plasma or blood by coagulation assay 1.9 0.8-1.4 Activated partial thromboplastin time (aPTT) in platelet poor plasma bycoagulation assay - 06/14/17 06:25 Activated partial thromboplastin time (aPTT) in platelet poor plasma bycoagulation assay 45 s 24-35 Comprehensive metabolic panel - 06/14/17 06:25 Serum or plasma sodium measurement (moles/volume) 121 mmol/L 135-145 Serum or plasma potassium measurement (moles/volume) 4.0 mmol/L 3.6-5.0 Serum or plasma chloride measurement (moles/volume) 85 mmol/L 98-107 Carbon dioxide 24 mmol/L 21-32 Serum or plasma anion gap determination (moles/volume) 12 mmol/L 5-14 Serum or plasma urea nitrogen measurement (mass/volume) 39 mg/dL 7-18 Serum or plasma creatinine measurement (mass/volume) 1.32 mg/dL 0.60-1.30 Serum or plasma urea nitrogen/creatinine mass ratio 30 NRG Serum or plasma creatinine measurement with calculation of estimated glomerular filtration rate 52 NRG Serum or plasma glucose measurement (mass/volume) 98 mg/dL 70-105 Serum or plasma calcium measurement (mass/volume) 8.4 mg/dL 8.5-10.1 Serum or plasma total bilirubin measurement (mass/volume) 1.0 mg/dL 0.1-1.0 Serum or plasma alkaline phosphatase measurement (enzymatic activity/volume) 68 U/L 40-136 Serum or plasma aspartate aminotransferase measurement (enzymatic activity/ volume) 33 U/L 5-34 Serum or plasma alanine aminotransferase measurement (enzymatic activity/volume ) 17 U/L 0-55 Serum or plasma protein measurement (mass/volume) 6.3 g/dL 6.4-8.2 Serum or plasma albumin measurement (mass/volume) 3.7 g/dL 3.2-4.5 Digoxin - 06/14/17 06:25 Digoxin 1.24 ng/mL 0.80-2.00 Serum or plasma lithium measurement (moles/volume) - 06/14/17 06:25 BNP level 224.5 pg/mL <100.0 Stool occult blood screen - 06/14/17 12:10 Stool gastrointestinal hemoglobin detection NEGATIVE NEGATIVE Automated blood complete blood count (hemogram) panel - 06/15/17 05:26 Blood leukocytes automated count (number/volume) 9.3 10*3/uL 4.3-11.0 Blood erythrocytes automated count (number/volume) 2.83 10*6/uL 4.35-5.85 Venous blood hemoglobin measurement (mass/volume) 7.8 g/dL 13.3-17.7 Blood hematocrit (volume fraction) 24 % 40-54 Automated erythrocyte mean corpuscular volume 86 [foz_us] 80-99 Automated erythrocyte mean corpuscular hemoglobin (mass per erythrocyte) 28 pg 25-34 Automated erythrocyte mean corpuscular hemoglobin concentration measurement ( mass/volume) 32 g/dL 32-36 Automated erythrocyte distribution width ratio 15.5 % 10.0-14.5 Automated blood platelet count (count/volume) 222 10*3/uL 130-400 Automated blood platelet mean volume measurement 9.3 [foz_us] 7.4-10.4 Whole blood basic metabolic panel - 06/15/17 05:26 Serum or plasma sodium measurement (moles/volume) 127 mmol/L 135-145 Serum or plasma potassium measurement (moles/volume) 4.5 mmol/L 3.6-5.0 Serum or plasma chloride measurement (moles/volume) 90 mmol/L 98-107 Carbon dioxide 28 mmol/L 21-32 Serum or plasma anion gap determination (moles/volume) 9 mmol/L 5-14 Serum or plasma urea nitrogen measurement (mass/volume) 35 mg/dL 7-18 Serum or plasma creatinine measurement (mass/volume) 1.05 mg/dL 0.60-1.30 Serum or plasma urea nitrogen/creatinine mass ratio 33 NRG Serum or plasma creatinine measurement with calculation of estimated glomerular filtration rate > NRG Serum or plasma glucose measurement (mass/volume) 101 mg/dL 70-105 Serum or plasma calcium measurement (mass/volume) 9.0 mg/dL 8.5-10.1 PT panel in platelet poor plasma by coagulation assay - 06/15/17 05:26 Prothrombin time (PT) in platelet poor plasma by coagulation assay 20.8 s 12.2-14.7 INR in platelet poor plasma or blood by coagulation assay 1.8 0.8-1.4 Stool occult blood screen - 06/15/17 14:50 Stool gastrointestinal hemoglobin detection NEGATIVE NEGATIVE Automated blood complete blood count (hemogram) panel - 06/16/17 05:35 Blood leukocytes automated count (number/volume) 10.2 10*3/uL 4.3-11.0 Blood erythrocytes automated count (number/volume) 2.87 10*6/uL 4.35-5.85 Venous blood hemoglobin measurement (mass/volume) 7.9 g/dL 13.3-17.7 Blood hematocrit (volume fraction) 25 % 40-54 Automated erythrocyte mean corpuscular volume 87 [foz_us] 80-99 Automated erythrocyte mean corpuscular hemoglobin (mass per erythrocyte) 28 pg 25-34 Automated erythrocyte mean corpuscular hemoglobin concentration measurement ( mass/volume) 32 g/dL 32-36 Automated erythrocyte distribution width ratio 15.7 % 10.0-14.5 Automated blood platelet count (count/volume) 266 10*3/uL 130-400 Automated blood platelet mean volume measurement 9.4 [foz_us] 7.4-10.4 PT panel in platelet poor plasma by coagulation assay - 06/16/17 05:35 Prothrombin time (PT) in platelet poor plasma by coagulation assay 21.3 s 12.2-14.7 INR in platelet poor plasma or blood by coagulation assay 1.8 0.8-1.4 Whole blood basic metabolic panel - 06/16/17 05:35 Serum or plasma sodium measurement (moles/volume) 131 mmol/L 135-145 Serum or plasma potassium measurement (moles/volume) 4.4 mmol/L 3.6-5.0 Serum or plasma chloride measurement (moles/volume) 95 mmol/L 98-107 Carbon dioxide 25 mmol/L 21-32 Serum or plasma anion gap determination (moles/volume) 11 mmol/L 5-14 Serum or plasma urea nitrogen measurement (mass/volume) 30 mg/dL 7-18 Serum or plasma creatinine measurement (mass/volume) 1.02 mg/dL 0.60-1.30 Serum or plasma urea nitrogen/creatinine mass ratio 29 NRG Serum or plasma creatinine measurement with calculation of estimated glomerular filtration rate > NRG Serum or plasma glucose measurement (mass/volume) 95 mg/dL 70-105 Serum or plasma calcium measurement (mass/volume) 9.0 mg/dL 8.5-10.1 Encounters ACCT No. Visit Date/Time Discharge Status Pt. Type Provider Facility Loc./Unit Complaint [id number] 06/12/2017 22:38:00 06/16/2017 11:40:00 DIS Inpatient RADHA MICHAELS, LEVAR Chauhan [facility] 4TH CHF W ACUTE EXACERBATION , HYPONATREMIA, COPD [id number] 02/21/2017 13:00:00 02/21/2017 23:59:59 CLS Preadmit NANCY HINKLE INFORMATION CLERK [facility] PULM J44.9 COPD [id number] 12/21/2016 07:27:00 12/21/2016 23:59:59 CLS Preadmit NANCY HINKEL INFORMATION CLERK [facility] RT COPD J44.9 [id number] 12/20/2016 11:46:00 12/20/2016 23:59:59 CLS Outpatient NANCY HINKLE APRN [facility] LAB J44.9 I25.10 I65.23 I10 E78.2 I48.0 [id number] 12/20/2016 11:46:00 12/20/2016 23:59:59 CLS Preadmit NANCY HINKLE INFORMATION CLERK [facility] RAD G47.9,I48.0,M59027, G47.33 [id number] 12/08/2016 15:52:00 12/10/2016 17:00:00 DIS Inpatient NISSA ANTONIO DO [facility] 4TH ADCHF,NORMOCYTIC ANEMIA, SUBTHERAPEUTIC ANEMIA; [id number] 12/02/2016 14:22:00 12/02/2016 15:37:00 DIS Emergency SABIHA HERNANDEZ MD [facility] ER HEAD INJ [id number] 11/09/2016 12:09:00 11/09/2016 23:59:59 CLS Outpatient LAVONNE KELLY MD [facility] RAD CAROTID ARTERY STENOSIS I65.23 [id number] 11/29/2013 09:35:00 11/29/2013 23:59:59 CLS Outpatient LAVONNE KELLY MD [facility] CARD ABNORMAL STRESS, CAD,HTN ,HLP,CAROTID BRUIT [id number] 09/25/2012 09:47:00 09/25/2012 23:59:59 CLS Outpatient LAVONNE KELLY MD [facility] CARD CHF,CAD,HYPERTIENSION, HYPERLIPIDEMIA [id number] 07/24/2010 06:47:00 Document Registration [id number] 07/15/2010 10:39:00 Document Registration [id number] 07/08/2010 14:10:00 Document Registration
--- NOTE | 2017-10-16 18:20 | ED General ---
General Chief Complaint: General Problems/Pain Stated Complaint: NOSE BLEED,SWELLING IN LEGS Nursing Triage Note: ARRIVED VIA WC FROM HOME. COMPLAINTS OF NOSE BLEED LEFT NARE OFF AND ON SINCE LAST NOC. SWELLING IN LEGS X2 WEEKS. Nursing Sepsis Screen: No Definite Risk Source of Information: Patient, Family (DAUGHTER) Exam Limitations: Other (SPEECH VERY DIFFICULT TO UNDER STAND--MUMBLES--NORMAL FOR PT) History of Present Illness Date Seen by Provider: Oct 16, 2017 Time Seen by Provider: 18:05 Initial Comments PT ARRIVES VIA POV FROM HOME MULTIPLE COMPLAINTS C/O LEFT NOSEBLEED SINCE 1999 LAST PM NO INJURY--CLAIMS HE WAS NOT BLOWING OR PICKING NOSE OR SNEEZING, ETC NO PAIN TO NOSE NO URI SYMPTOMS PT IS ON COUMADIN--NO CHANGES IN DOSES PT WEARS HOME O2 MOST OF THE TIME FOR COPD AND CHF NOT REALLY BLEEDING NOW HAS OCCASIONAL NOSEBLEEDS--LAST ONE > 6 MONTHS AGO PT ALSO C/O WORSENING OF CHRONIC LEG SWELLING OVER THE LAST COUPLE OF WEEKS NO CHEST PAIN NO INCREASE IN CHRONIC SHORTNESS OF BREATH NO PALPITATIONS NO DIFFERENT TODAY HAS NOT SOUGHT CARE UNTIL TODAY PT HAS NOT TAKEN ANY OF HIS MEDICATIONS TODAY DID USE NEBULIZER X 1 EARLIER STATES HE DID NOT WAKE UP UNTIL 1500 TODAY--STATES HE WAS UP FOR MOST OF THE NIGHT DUE TO NOSE BLEED FAMILY REPORTS THAT HE AND BOTH SLEEP UNTIL MID AFTERNOON NORMALLY OF NOTE, NOW CHECKING IN TO BE SEEN ALSO ( AFTER PT HAS ALREADY BEEN TRIAGED AND BACK IN ROOM) , FOR UNRELATED PROBLEMS ( ONGOING/CHRONIC ISSUES) -- DAUGHTER STATES "WE'RE GOING TO GET HER ADMITTED TOO" PCP: DR. ANTONIO Allergies and Home Medications Allergies Coded Allergies: No Allergy Information Available (Unverified , 11/09/16) Home Medications Albuterol Sulfate 18 Gm Hfa.aer.ad, 2 PUFF INH Q4H PRN for SHORTNESS OF BREATH, (Reported) Allopurinol 300 Mg Tablet, 300 MG PO DAILY, (Reported) Amlodipine Besylate 5 Mg Tablet, 5 MG PO DAILY, (Reported) Aspirin 81 Mg Tablet.dr, 81 MG PO DAILY, (Reported) Atorvastatin Calcium 20 Mg Tablet, 20 MG PO DAILY, (Reported) Cholecalciferol (Vitamin D3) 5,000 Unit Tablet, 5,000 UNIT PO DAILY, (Reported) Cyanocobalamin (Vitamin B-12) 1,000 Mcg Tablet, 1,000 MCG PO DAILY, (Reported) Digoxin 125 Mcg Tablet, 125 MCG PO DAILY, (Reported) Furosemide 80 Mg Tablet, 80 MG PO DAILY, (Reported) Losartan Potassium 100 Mg Tablet, 100 MG PO DAILY, (Reported) Metoprolol Succinate 100 Mg Tab.er.24h, 100 MG PO HS, (Reported) Potassium Chloride 10 Meq Tab.er.prt, 10 MEQ PO DAILY, (Reported) Tramadol HCl 50 Mg Tablet, 50 MG PO QID PRN for PAIN-MODERATE, (Reported) Warfarin Sodium 2 Mg Tablet, 2 MG PO HS, (Reported) TAKES ALONG WITH 3MG TABLET FOR A TOTAL DOSE OF 5MG Warfarin Sodium 3 Mg Tablet, 3 MG PO HS, (Reported) TAKES ALONG WITH 2MG TABLET FOR A TOTAL DAILY DOSE OF 5MG Patient Home Medication List Home Medication List Reviewed: Yes Review of Systems Review of Systems Constitutional: no symptoms reported; No dizziness EENTM: see HPI, epistaxis; No nose congestion, No nose pain Respiratory: see HPI, dyspnea on exertion, short of breath Cardiovascular: No chest pain; edema; No palpitations, No syncope Gastrointestinal: no symptoms reported Genitourinary: no symptoms reported Musculoskeletal: no symptoms reported Skin: no symptoms reported Psychiatric/Neurological: No Symptoms Reported Hematologic/Lymphatic: No Symptoms Reported Immunological/Allergic: no symptoms reported Past Dclkxcb-Hdfcpw-Dggqgd Hx Patient Social History Alcohol Use: Regular Use (HEAVY BY HISTORY--STILL DRINKS UP TO A 6 PACK A DAY) Alcohol Beverage of Choice: Beer Recreational Drug Use: No Smoking Status: Former Smoker (< 1 PPD, QUIT > 40 YEARS AGO) Type Used: Cigarettes Former Smoker, Quit: Nov 14, 1969 Recent Foreign Travel: No Contact w/Someone Who Travel: No Recent Infectious Disease Expo: No Recent Hopitalizations: No Immunizations Up To Date PED Vaccines UTD: Yes Seasonal Allergies Seasonal Allergies: Yes Past Medical History Surgeries: Yes (CARDIAC CATH 2010-NO INTERVENTION) Cardiac Respiratory: Yes (O2 DEPENDENT) Chronic Bronchitis, COPD Currently Using CPAP: No Currently Using BIPAP: No Cardiac: Yes (CHF) Atrial Fibrillation, Cardiomyopathy, Chronic Edema/Swelling, Coronary Artery Disease, High Cholesterol, Hypertension, Irregular Heartbeat, Valvular Heart Disease Neurological: No Sexually Transmitted Disease: No HIV/AIDS: No Genitourinary: No Gastrointestinal: No Musculoskeletal: Yes Degenerate Disk Disease, Arthritis, Back Injury, Chronic Back Pain, Gout Endocrine: No HEENT: No Hearing Impairment: Hard of Hearing Cancer: No Psychosocial: No Integumentary: No (bruises, vairous stages) Blood Disorders: No Adverse Reaction/Blood Tranf: No Family Medical History Alzheimer's disease Congenital heart disease Hypertension Respiratory disorder No Pertinent Family Hx Physical Exam Vital Signs Vital Signs - First Documented 10/16/17 17:50 Temp 98.0 Pulse 70 Resp 18 B/P (MAP) 162/85 (110) Pulse Ox 95 O2 Delivery Room Air Capillary Refill : Less Than 3 Seconds Height, Weight, BMI Height: 5'7.00" Weight: 185lbs. 13.7oz. 83.128381zf; 30.3 BMI Method:Stated General Appearance: WD/WN, Other (SLIGHTLY LABORED BREATHING WITH MILD UPPER AIRWAY NOISE--PT STATES IS NORMAL--O2 SATS IN UPPER 90'S ON ROOM AIR. ) HEENT: Pale Conjunctivae (L), Pale Conjunctivae (R), Other (DRIED BLOOD IN LEFT NARE--SEPTAL WALL., NO ACTIVE BLEEDING FROM NOSE AND NO BLOOD IN POSTERIOR PHARYNX) Neck: Normal Inspection Respiratory: Other (MILD UPPER AIRWAY NOISE, MILDLY DYSPNEIC) Cardiovascular: No JVD, Systolic Murmur (2/6), Irregularly Irregular Gastrointestinal: Normal Bowel Sounds, No Organomegaly, No Pulsatile Mass, Non Tender, Distended (FIRM, ), Hernia (LARGE UMBILICAL HERNIA) Back: No CVA Tenderness Extremity: Normal Range of Motion, Non Tender, Pedal Edema (2+ EDEMA BILATERALLY) Neurologic/Psychiatric: Alert, Oriented x3, No Motor/Sensory Deficits, Normal Mood/Affect, criminal investigator II-XII Norm as Tested Skin: Warm/Dry, Pallor, Petechia (TO LOWER LEGS BILATERALLY WITH CHRONIC VENOUS STASIS CHANGES BILATERALLY) Procedures/Interventions Nasal : Nasal Location: Left Clots Cleared from Nasal: Patient Blowing Inspection with: Otoscope Nasal Procedures: Rapid Rhino (5.5 CM) Progress PT TOLERATED WELL Progress/Results/Core Measures Suspected Sepsis Recent Fever Within 48 Hours: No Infection Criteria Present: None New/Unexplained Altered Menta: No Sepsis Screen: No Definite Risk SIRS Temperature:98.0 Pulse: 70 Respiratory Rate: 18 Laboratory Tests 10/16/17 18:15: White Blood Count 6.0 Blood Pressure 162 /85 Mean: 110 Laboratory Tests 10/16/17 18:15: Creatinine 1.24, INR Comment 2.8H, Platelet Count 168, Total Bilirubin 1.1H Results/Orders Lab Results Laboratory Tests Test 10/16/17 18:15 Range/Units White Blood Count 6.0 4.3-11.0 10^3/uL Red Blood Count 2.88 L 4.35-5.85 10^6/uL Hemoglobin 8.3 L 13.3-17.7 G/DL Hematocrit 24 L 40-54 % Mean Corpuscular Volume 84 80-99 FL Mean Corpuscular Hemoglobin 29 25-34 PG Mean Corpuscular Hemoglobin Concent 34 32-36 G/DL Red Cell Distribution Width 17.1 H 10.0-14.5 % Platelet Count 168 130-400 10^3/uL Mean Platelet Volume 9.0 7.4-10.4 FL Neutrophils (%) (Auto) 82 H 42-75 % Lymphocytes (%) (Auto) 7 L 12-44 % Monocytes (%) (Auto) 8 0-12 % Eosinophils (%) (Auto) 2 0-10 % Basophils (%) (Auto) 0 0-10 % Neutrophils # (Auto) 4.9 1.8-7.8 X 10^3 Lymphocytes # (Auto) 0.4 L 1.0-4.0 X 10^3 Monocytes # (Auto) 0.5 0.0-1.0 X 10^3 Eosinophils # (Auto) 0.1 0.0-0.3 10^3/uL Basophils # (Auto) 0.0 0.0-0.1 10^3/uL Neutrophils % (Manual) 81 % Lymphocytes % (Manual) 7 % Monocytes % (Manual) 7 % Eosinophils % (Manual) 5 % Basophils % (Manual) 0 % Band Neutrophils 0 % Toxic Granulation 1+ Hypochromasia MODERATE Poikilocytosis MODERATE Basophilic Stippling MODERATE Anisocytosis MODERATE Microcytosis SLIGHT Pappenheimer Bodies SLIGHT Stomatocytes SLIGHT Elliptocytes SLIGHT Acanthocytes SLIGHT Prothrombin Time 29.6 H 12.2-14.7 SEC INR Comment 2.8 H 0.8-1.4 Activated Partial Thromboplast Time 59 H 24-35 SEC Sodium Level 117 *L 135-145 MMOL/L Potassium Level 3.9 3.6-5.0 MMOL/L Chloride Level 83 L 98-107 MMOL/L Carbon Dioxide Level 24 21-32 MMOL/L Anion Gap 10 5-14 MMOL/L Blood Urea Nitrogen 33 H 7-18 MG/DL Creatinine 1.24 0.60-1.30 MG/DL Estimat Glomerular Filtration Rate 56 BUN/Creatinine Ratio 27 Glucose Level 123 H 70-105 MG/DL Calcium Level 8.8 8.5-10.1 MG/DL Corrected Calcium 8.8 8.5-10.1 MG/DL Magnesium Level 2.2 1.8-2.4 MG/DL Total Bilirubin 1.1 H 0.1-1.0 MG/DL Aspartate Amino Transf (AST/SGOT) 21 5-34 U/L Alanine Aminotransferase (ALT/SGPT) 11 0-55 U/L Alkaline Phosphatase 84 40-136 U/L Troponin I < 0.30 <0.30 NG/ML B-Type Natriuretic Peptide 657.2 H <100.0 PG/ML Total Protein 6.6 6.4-8.2 GM/DL Albumin 4.0 3.2-4.5 GM/DL Digoxin Level 1.19 0.80-2.00 NG/ML Serum Alcohol < 10 <10 MG/DL My Orders Orders - JAMA,HENRY K DO Saline Lock/Iv-Start (10/16/17 18:05) BNP (10/16/17 18:05) Cbc With Automated Diff (10/16/17 18:05) Comprehensive Metabolic Panel (10/16/17 18:05) Magnesium (10/16/17 18:05) Protime With Inr (10/16/17 18:05) Partial Thromboplastin Time (10/16/17 18:05) Troponin I (10/16/17 18:05) Ekg Tracing (10/16/17 18:07) Monitor-Rhythm Ecg Trace Only (10/16/17 18:07) Chest 1 View, Ap/Pa Only (10/16/17 18:07) Manual Differential (10/16/17 18:15) Alcohol (10/16/17 18:15) Digoxin (10/16/17 18:15) Red Cells Leukocytes Reduced (10/16/17 19:23) Type And Screen (10/16/17 19:23) Furosemide Injection (Lasix Injection) (10/16/17 19:45) Vital Signs/I&O 10/16/17 17:50 Temp 98.0 Pulse 70 Resp 18 B/P (MAP) 162/85 (110) Pulse Ox 95 O2 Delivery Room Air Capillary Refill : Less Than 3 Seconds Blood Pressure Mean: 110 Progress Note : Progress Note UNEVENTFUL ER STAY ECG Initial ECG Impression Date: Oct 16, 2017 Initial ECG Impression Time: 18:24 Initial ECG Rate: 68 Initial ECG Rhythm: A Fib/Flutter (IVCD) Initial ECG Comparisson: Unchanged Diagnostic Imaging Comments CXR--CARDIOMEGALY, IMPROVED VENOUS CONGESTION--PER RADIOLOGIST REPORT @ 1921 Reviewed: Reviewed by Me Departure Communication (Admissions) 1934--SPOKE WITH DR. CORONADO, UX VISUAL DESIGNER FOR FP HOSPITALIST, ACCEPTS PT FOR ADMIT. ORDERS NOTED FOR BLOOD TRANSFUSION AND LASIX Impression Primary Impression: CHF exacerbation Additional Impressions: Anemia SEVERE HYPONATREMIA EPISTAXIS ON ANTICOAGULATION Chronic atrial fibrillation Disposition: ADMITTED INPATIENT Condition: Stable Admissions Decision to Admit Reason: Admit from ER (General) Decision to Admit/Date: Oct 16, 2017 Time/Decision to Admit Time: 19:35 Departure-Patient Inst. Referrals: NISSA ANTONIO DO (PCP/Family) Primary Care Physician HENRY YUN DO Oct 16, 2017 18:20
[2017-10-16 18:29] LABS: BASOPHILS % (AUTO) 0 % (0-10); EOSINOPHILS # (AUTO) 0.1 10^3/uL (0.0-0.3); EOSINOPHILS % (AUTO) 2 % (0-10); HEMATOCRIT 24 % (40-54); HEMOGLOBIN 8.3 G/DL (13.3-17.7); LYMPHOCYTES # (AUTO) 0.4 X 10^3 (1.0-4.0); LYMPHOCYTES % (AUTO) 7 % (12-44); MEAN CORPUSCULAR HEMOGLOBIN 29 PG (25-34); MEAN CORPUSCULAR HGB CONC 34 G/DL (32-36); MEAN CORPUSCULAR VOLUME 84 FL (80-99); MONOCYTES # (AUTO) 0.5 X 10^3 (0.0-1.0); MONOCYTES % (AUTO) 8 % (0-12); NEUTROPHILS # (AUTO) 4.9 X 10^3 (1.8-7.8); NEUTROPHILS % (AUTO) 82 % (42-75); PLATELET COUNT 168 10^3/uL (130-400); RED BLOOD COUNT 2.88 10^6/uL (4.35-5.85); RED CELL DISTRIBUTION WIDTH 17.1 % (10.0-14.5)
[2017-10-16 18:36] LABS: INR 2.8 (0.8-1.4); PROTHROMBIN TIME PATIENT 29.6 SEC (12.2-14.7)
[2017-10-16 18:45] LABS: ALANINE AMINOTRANSFERASE 11 U/L (0-55); ALKALINE PHOSPHATASE 84 U/L (40-136); BILIRUBIN,TOTAL 1.1 MG/DL (0.1-1.0); BUN/CREATININE RATIO 27; CALCIUM 8.8 MG/DL (8.5-10.1); CARBON DIOXIDE 24 MMOL/L (21-32); CHLORIDE 83 MMOL/L (98-107); CREATININE SERUM 1.24 MG/DL (0.60-1.30); GFR ESTIMATED 56; GLUCOSE 123 MG/DL (70-105); MAGNESIUM 2.2 MG/DL (1.8-2.4); POTASSIUM 3.9 MMOL/L (3.6-5.0); TOTAL PROTEIN 6.6 GM/DL (6.4-8.2)
[2017-10-16 18:52] LABS: DIGOXIN 1.19 NG/ML (0.80-2.00)
--- NOTE | 2017-10-16 18:54 | Diagnostic Imaging Report ---
EXAM: Chest 1 view, AP/PA only. INDICATION: Congestive heart failure. COMPARISON: Chest radiograph, 06/16/2017. FINDINGS: Persistent cardiomegaly and mild pulmonary venous congestion which is improved since the prior exam. No dense consolidation. No pleural effusion or pneumothorax. No acute osseous findings. IMPRESSION: Cardiomegaly. Pulmonary venous congestion has improved since the prior exam. No dense consolidation. Dictated by: Dictated on workstation # [id number]
[2017-10-16 18:59] LABS: BAND NEUTROPHILS 0 %; BASOPHILS % (MANUAL) 0 %; EOSINOPHILS % (MANUAL) 5 %; HYPOCHROMASIA MODERATE; LYMPHOCYTES % (MANUAL) 7 %; MICROCYTOSIS SLIGHT; MONOCYTES % (MANUAL) 7 %; NEUTROPHILS % (MANUAL) 81 %; POIKILOCYTOSIS MODERATE
[2017-10-16 19:00] LABS: ACANTHOCYTES SLIGHT; ELLIPT/OVALOCYTES SLIGHT; PAPPENHEIMER BODIES SLIGHT; STOMATOCYTES SLIGHT; TOXIC GRANULATION/VACUOLAZATIO 1+
[2017-10-16 19:01] LABS: ANISOCYTOSIS MODERATE
[2017-10-16 19:09] LABS: SODIUM 117 MMOL/L (135-145)
[2017-10-16] MEDS ORDERED: FUROSEMIDE 40 MG/4 ML INJ (LASIX) ONE (19:43)
[2017-10-16] MEDS ORDERED: FUROSEMIDE 40 MG/4 ML INJ (LASIX) IVP ONE (19:45)
--- OUTSIDE RECORDS SUMMARY | 2017-10-16 19:52 | XMS REPORT | Continuity of Care Document ---
Author Author [facility] Organization [facility] Address Unknown Phone Unavailable Allergies Active Description Code Type Severity Reaction Onset Reported/Identified Relationship to Patient Clinical Status Yes No Allergy Information Available [id number] Drug Allergy Unknown N/A 2016 Medications There is no data. Problems Date Dx Coded Attending Type Code Diagnosis Diagnosed By 07/24/2010 Ot 272.4 HYPERLIPIDEMIA NEC/NOS 07/24/2010 Ot 274.9 GOUT NOS 07/24/2010 Ot 414.01 CORONARY ATHEROSCLEROSIS OF [place] CORON 07/24/2010 Ot 416.8 CHR PULMON HEART [...] OBJECT 12/02/2016 SABIHA HERNANDEZ MD Ot Z79.01 PREDATOR CONTROL TRAPPER (CURRENT) USE OF ANTICOAGULANT 12/02/2016 SABIHA HERNANDEZ MD, Ot Z79.82 PREDATOR CONTROL TRAPPER (CURRENT) USE OF ASPIRIN 12/02/2016 DAVID MICHAELS, SABIHA Chauhan Ot Z87.891 PERSONAL HISTORY OF NICOTINE DEPENDENCE 12/06/2016 LETICIA MICHAELS, LAVONNE Manzano Ot I65.23 OCCLUSION AND STENOSIS [...] DO Ot I25.10 ATHSCL HEART DISEASE OF [place] CORONARY 12/10/2016 NISSA ANTONIO DO Ot I42.9 [...] PROFILE 12/10/2016 NISSA ANTONIO DO Ot Z79.01 ALF (CURRENT) USE OF ANTICOAGULANT 12/10/2016 NISSA ANTONIO DO Ot Z87.891 PERSONAL HISTORY OF NICOTINE DEPENDENCE 12/10/2016 [facility] NISSA Dubose Ot Z91.81 HISTORY OF FALLING [facility]/10/[facility] Ot Z99.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 12/10/2016 [facility], NISSA Dubose Ot D64.9 ANEMIA, UNSPECIFIED 12/10/2016 [facility] NISSA Dubose Ot E11.649 TYPE 2 DIABETES MELLITUS WITH HYPOGLYCEM 12/10/2016, NISSA Dubose Ot E78.5 HYPERLIPIDEMIA, UNSPECIFIED 12/10/2016 [facility], NISSA Dubose Ot E87.1 HYPO-OSMOLALITY AND HYPONATREMIA 12/10/2016, NISSA Dubose Ot E87.5 HYPERKALEMIA 12/10/2016, NISSA Dubose Ot E87.8 OTH DISORDERS OF ELECTROLYTE AND FLUID B 12/10/2016, NISSA Dubose Ot G47.30 SLEEP APNEA, UNSPECIFIED 12/10/2016 [facility], NISSA Dubose Ot I08.3 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MITRAL, AORTIC 12/10/2016 [facility] , NISSA Dubose Ot I11.0 HYPERTENSIVE HEART DISEASE WITH HEART FA 12/10/2016 [facility], NISSA Dubose Ot I25.10 ATHSCL HEART DISEASE OF [place] CORONARY 12/10/2016 [facility], NISSA Dubose Ot I42.9 CARDIOMYOPATHY, UNSPECIFIED 12/10/2016 [facility], NISSA Dubose Ot I48.1 PERSISTENT ATRIAL FIBRILLATION 12/10/2016 [facility], NISSA Dubose Ot I50.33 ACUTE ON CHRONIC DIASTOLIC (CONGESTIVE) 12/10/2016 [facility], NISSA Dubose Ot I65.29 OCCLUSION AND STENOSIS OF UNSPECIFIED CA 12/10/2016 [facility], NISSA Dubose Ot I70.8 ATHEROSCLEROSIS OF OTHER ARTERIES 12/10/2016[facility], NISSA Dubose Ot J30.2 OTHER SEASONAL ALLERGIC RHINITIS 12/10/2016, NISSA Dubose Ot J44.9 CHRONIC OBSTRUCTIVE PULMONARY DISEASE, U 12/10/2016 [facility], NISSA Dubose Ot R26.81 UNSTEADINESS ON FEET 12/10/2016 DO, NISSA Dubose Ot R41.0 DISORIENTATION, UNSPECIFIED 12/10/2016 [facility] DON[facility] Ot R53.1 WEAKNESS 12/10/2016 [facility] Ot R60.0 LOCALIZED EDEMA 12/10/2016 NISSA ANTONIO DO Ot R79.1 ABNORMAL COAGULATION PROFILE 12/10/2016 NISSA ANTONIO DO Ot Z79.01 ALF (CURRENT) USE OF ANTICOAGULANT 12/10/2016 NISSA ANTONIO [...] OF BILATERAL PORTER 12/23/2016 NANCY HINKLE E CLOTH WASHER OPERATOR Ot G47.33 OBSTRUCTIVE SLEEP APNEA (ADULT) (PEDIATR 12/23/2016 ANGELES HINKLEINE E CLOTH WASHER OPERATOR Ot I48.2 CHRONIC ATRIAL FIBRILLATION 12/23/2016 NANCY HINKLE E CLOTH WASHER OPERATOR Ot J44.9 CHRONIC OBSTRUCTIVE PULMONARY DISEASE, U 01/03/2017 NANCY HINKLE E CLOTH WASHER OPERATOR Ot G47.33 OBSTRUCTIVE SLEEP APNEA (ADULT) (PEDIATR 01/11/2017 ANGELES HINKLEINE E CLOTH WASHER OPERATOR Ot I48.2 CHRONIC ATRIAL FIBRILLATION 01/11/2017 ANGELES HINKLEINE E CLOTH WASHER OPERATOR Ot J44.9 CHRONIC OBSTRUCTIVE PULMONARY DISEASE, U 01/13/2017 ANGELES HINKLEINE E CLOTH WASHER OPERATOR Ot I48.2 CHRONIC ATRIAL FIBRILLATION 01/13/2017 ANGELES HINKLEINE E CLOTH WASHER OPERATOR Ot J44.9 CHRONIC OBSTRUCTIVE PULMONARY DISEASE, U 01/19/2017 NANCY HINKLE E CLOTH WASHER OPERATOR Ot G47.33 OBSTRUCTIVE SLEEP APNEA (ADULT) (PEDIATR [...] MD Ot I25.10 ATHSCL HEART DISEASE OF [place] CORONARY 06/14/2017 LEVAR GARCIA MD Ot I27.29 [...] WEAKNESS 06/14/2017 LEVAR GARCIA MD Ot Z79.01 PREDATOR CONTROL TRAPPER (CURRENT) USE OF ANTICOAGULANT 06/14/2017 LEVAR GARCIA MD Ot Z87.891 PERSONAL HISTORY OF NICOTINE DEPENDENCE 06/14/2017 LEVAR GARCIA MD Ot Z99.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 06/15/2017 LEVAR GARCIA MD Ot D64.9 ANEMIA, UNSPECIFIED 06/15/2017 LEVAR GARCIA MD Ot E78.5 HYPERLIPIDEMIA, UNSPECIFIED 06/15/2017 LEVAR GARCIA MD Ot E87.1 HYPO-OSMOLALITY AND HYPONATREMIA 06/15/2017 LEVAR GARCIA MD Ot I08.3 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[place], AORTIC 06/15/2017 LEVAR GARCIA MD Ot I11.0 HYPERTENSIVE HEART DISEASE WITH HEART FA 06/15/2017 LEVAR GARCIA MD Ot I25.10 ATHSCL HEART DISEASE OF [place] CORONARY 06/15/2017 LEVAR GARCIA MD Ot I27.29 [...] WEAKNESS 06/15/2017 LEVAR GARCIA MD Ot Z79.01 PREDATOR CONTROL TRAPPER (CURRENT) USE OF ANTICOAGULANT 06/15/2017 LEVAR GARCIA [...] MD Ot I25.10 ATHSCL HEART DISEASE OF [place] CORONARY 06/16/2017 LEVAR GARCIA MD Ot I27.29 [...] WEAKNESS 06/16/2017 LEVAR GARCIA MD Ot Z79.01 PREDATOR CONTROL TRAPPER (CURRENT) USE OF ANTICOAGULANT 06/16/2017 LEVAR GARCIA [...] MD Ot I25.10 ATHSCL HEART DISEASE OF [place] CORONARY 06/16/2017 LEVAR GARCIA MD Ot I27.29 [...] WEAKNESS 06/16/2017 LEVAR GARCIA MD Ot Z79.01 PREDATOR CONTROL TRAPPER (CURRENT) USE OF ANTICOAGULANT 06/16/2017 LEVAR GARCIA MD Ot Z87.891 PERSONAL HISTORY OF NICOTINE DEPENDENCE 06/16/2017 LEVAR GARCIA MD Ot Z99.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 06/16/2017 LEVAR GARCIA MD Ot D64.9 ANEMIA, UNSPECIFIED 06/16/2017 LEAVR GARCIA MD Ot E78.5 HYPERLIPIDEMIA, UNSPECIFIED 06/16/2017 LEVAR GARCIA MD Ot E87.1 HYPO-OSMOLALITY AND HYPONATREMIA 06/16/2017 LEVAR GARCIA MD Ot I08.3 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MITRAL, AORTIC 06/16/2017 LEVAR GARCIA MD Ot I11.0 HYPERTENSIVE HEART DISEASE WITH HEART FA 06/16/2017 LEVAR GARCIA MD Ot I25.10 ATHSCL HEART DISEASE OF [place] CORONARY 06/16/2017 LEVAR GARCIA MD Ot I27.29 [...] WEAKNESS 06/16/2017 LEVAR GARCIA MD Ot Z79.01 ALF (CURRENT) USE OF ANTICOAGULANT 06/16/2017 LEVAR GARCIA MD Ot Z87.891 PERSONAL HISTORY OF NICOTINE DEPENDENCE 06/16/2017 LEVAR GARCIA MD D Ot Z99.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 Results Test Result Range [id number] - 11/09/16 12:17 Serum or plasma urea [...] NR Blood erythrocyte morphology finding identification [facility] Comprehensive metabolic panel - 12/08/16 14:49 Serum [...] ABO+Rh group AN NRG Transfusion band number [id number] NRG Blood group antibody screen NEGATIVE NRG [...] Status Pt. Type Provider Facility Loc./Unit Complaint [id number] 06/12/2017 22:38:00 06/16/2017 11:40:00 DIS Inpatient RADHA MICHAELS, LEVAR Chauhan [facility] 4TH CHF W ACUTE EXACERBATION , HYPONATREMIA, COPD [id number] 02/21/2017 13:00:00 02/21/2017 23:59:59 CLS Preadmit NANCY HINKLE CLOTH WASHER OPERATOR [facility] PULM J44.9 COPD [id number] 12/21/2016 07:27:00 12/21/2016 23:59:59 CLS Preadmit NANCY HINKLE CLOTH WASHER OPERATOR [facility] RT COPD J44.9 [id number] 12/20/2016 11:46:00 12/20/2016 23:59:59 CLS Outpatient NANCY HINKLE APRN [facility] LAB J44.9 I25.10 I65.23 I10 E78.2 I48.0 [id number] 12/20/2016 11:46:00 12/20/2016 23:59:59 CLS Preadmit NANCY HINKLE CLOTH WASHER OPERATOR [facility] RAD G47.9,I48.0,V23598, G47.33 [id number] 12/08/2016 15:52:00 12/10/2016 17:00:00 DIS Inpatient NISSA ANTONIO DO [facility] 4TH ADCHF,NORMOCYTIC ANEMIA, SUBTHERAPEUTIC ANEMIA; [id number] 12/02/2016 14:22:00 12/02/2016 15:37:00 DIS Emergency SABIHA HERNANDEZ MD [facility] ER HEAD INJ [id number] 11/09/2016 12:09:00 11/09/2016 23:59:59 CLS Outpatient LAVONNE KELLY MD [facility] RAD CAROTID ARTERY STENOSIS I65.23 [id number] 11/29/2013 09:35:00 11/29/2013 23:59:59 CLS Outpatient LAVONNE KELLY MD [facility] CARD ABNORMAL STRESS, CAD,HTN ,HLP,CAROTID BRUIT [id number] 09/25/2012 09:47:00 09/25/2012 23:59:59 CLS Outpatient LAVONNE KELLY MD [facility] CARD CHF,CAD,HYPERTIENSION, HYPERLIPIDEMIA [id number] 07/24/2010 06:47:00 Document Registration [id number] 07/15/2010 10:39:00 Document Registration [id number] 07/08/2010 14:10:00 Document Registration
[2017-10-16 20:15] VITALS: BP 169/79
[2017-10-16] MEDS ORDERED: NS IV 500 ML 500 ML ONE (21:08)
[2017-10-16 21:10] VITALS: BP 134/99
[2017-10-16] MEDS ORDERED: NS IV 500 ML 500 ML IV ONE (21:15)
[2017-10-16 21:29] VITALS: BP 151/70
[2017-10-16 21:44] VITALS: BP 140/66
[2017-10-16] MEDS ORDERED: RT-ALBUTEROL SULF 2.5 MG/3 ML PRE-MIX VIAL INH PRN (21:45)
[2017-10-16 22:15] VITALS: BP 166/80
[2017-10-16] MEDS: AMOXICILLIN 400 MG/5 ML 50 ML BTL PO SCH (23:19)
[2017-10-16 23:51] VITALS: BP 148/64
[2017-10-17] VITALS (8 sets, daily range): BP systolic 131–155; BP diastolic 64–90
[2017-10-17 04:23] LABS: BASOPHILS % (AUTO) 0 % (0-10); EOSINOPHILS # (AUTO) 0.2 10^3/uL (0.0-0.3); EOSINOPHILS % (AUTO) 3 % (0-10); HEMATOCRIT 29 % (40-54); HEMOGLOBIN 10.1 G/DL (13.3-17.7); LYMPHOCYTES # (AUTO) 0.9 X 10^3 (1.0-4.0); LYMPHOCYTES % (AUTO) 12 % (12-44); MEAN CORPUSCULAR HEMOGLOBIN 29 PG (25-34); MEAN CORPUSCULAR HGB CONC 35 G/DL (32-36); MEAN CORPUSCULAR VOLUME 83 FL (80-99); MEAN PLATELET VOLUME 9.5 FL (7.4-10.4); MONOCYTES # (AUTO) 0.6 X 10^3 (0.0-1.0); MONOCYTES % (AUTO) 8 % (0-12); NEUTROPHILS # (AUTO) 5.6 X 10^3 (1.8-7.8); NEUTROPHILS % (AUTO) 77 % (42-75); PLATELET COUNT 163 10^3/uL (130-400); RED BLOOD COUNT 3.48 10^6/uL (4.35-5.85); RED CELL DISTRIBUTION WIDTH 16.2 % (10.0-14.5); WHITE BLOOD COUNT 7.3 10^3/uL (4.3-11.0)
[2017-10-17 04:30] LABS: BUN/CREATININE RATIO 28; CARBON DIOXIDE 22 MMOL/L (21-32); CHLORIDE 87 MMOL/L (98-107); CREATININE SERUM 1.07 MG/DL (0.60-1.30); GFR ESTIMATED > 60; GLUCOSE 96 MG/DL (70-105); POTASSIUM 3.7 MMOL/L (3.6-5.0)
[2017-10-17 04:34] LABS: SODIUM 123 MMOL/L (135-145)
[2017-10-17] MEDS ORDERED: RT-ALBUTEROL SULF 2.5 MG/3 ML PRE-MIX VIAL INH SCH (08:00)
[2017-10-17] MEDS: AMOXICILLIN 400 MG/5 ML 50 ML BTL PO SCH (08:37)
--- NOTE | 2017-10-17 09:22 | Diagnostic Imaging Report ---
EXAMINATION: CHEST (PA AND LATERAL) CLINICAL INDICATION: 81-year-old male, history of congestive heart failure. Shortness of breath. COMPARISON: October 16, 2017. FINDINGS: Stable mild cardiomegaly and overall appearance of the cardiomediastinal silhouette. There is no identified pneumothorax. There is no pleural effusion. There are bilateral predominantly interstitial opacities which are essentially unchanged since the comparison exam. There are aortic calcifications. IMPRESSION: 1. Cardiomegaly with grossly unchanged bilateral interstitial opacities most likely relating to mild interstitial edema. Dictated by: Dictated on workstation # [id number]
[2017-10-17] MEDS ORDERED: METO2.5T PO (10:10)
--- NOTE | 2017-10-17 10:49 | History & Physical-Hospitalist ---
History of Present Illness HPI/Chief Complaint The patient is an 81-year-old white male who presented to the emergency room last night with complaints of a nosebleed which had begun at about 2000 hours the evening before. He denied picking or excess blowing. He takes Coumadin and uses nasal cannula oxygen most of the time. This is required for hypoxia secondary to COPD and CHF. He reports he has not taken Coumadin for 2 days prior to today. He apparently does this when he feels he has bruising or bleeding more than he should be. His INR at the emergency room was 2.8. He also has a history of alcohol abuse. He apparently still takes up to a sixpack of beer per day. He also notes leg swelling. He uses Lasix at home. Date Seen 10/17/17 Time Seen by Provider: 10:44 Attending Physician Salo Yoon MD PCP Brian Antonio DO Referring Physician Date of Admission Oct 16, 2017 at 19:35 Home Medications & Allergies Home Medications Reviewed patient Home Medication Reconciliation performed by pharmacy medication reconciliations exhibit technician and/or nursing. Patients Allergies have been reviewed. Allergies Allergies Coded Allergies No Allergy Information Available (Unverified11/09/16) Past Pttxfbt-Mtvcor-Hbwenm Hx Past Med/Social Hx: Reviewed Nursing Past Med/Soc Hx Patient Social History Marrital Status: Alcohol Use: Regular Use Number of Drinks Today: 0 Alcohol Beverage of Choice: Beer Recreational Drug Use: No Smoking Status: Former Smoker Former Smoker, Quit: Nov 14, 1969 Type Used: Cigarettes Physical Abuse Screen: No Sexual Abuse: No Recent Foreign Travel: No Contact w/other who traveled: Yes Recent Hopitalizations: No Recent Infectious Disease Expo: No Immunizations Up To Date Pediatric: Yes Seasonal Allergies Seasonal Allergies: Yes Past Medical History Surgeries: Cardiac Respiratory: COPD Currently Using CPAP: No Currently Using BIPAP: No Cardiac: Atrial Fibrillation, Cardiomyopathy, Chronic Edema/Swelling, Coronary Artery Disease, High Cholesterol, Hypertension, Irregular Heartbeat, Valvular Heart Disease Sexually Transmitted Disease: No HIV/AIDS: No Musculoskeletal: Degenerate Disk Disease, Arthritis, Back Injury, Chronic Back Pain, Gout Hearing Impairment: Hard of Hearing History of Blood Disorders: No Adverse Reaction to Blood Cohen: No Family History Alzheimer's disease Congenital heart disease Hypertension Respiratory disorder No Pertinent Family Hx Review of Systems Constitutional: see HPI EENTM: see HPI Respiratory: cough, dyspnea on exertion, phlegm, short of breath, wheezing Cardiovascular: no symptoms reported Gastrointestinal: no symptoms reported Genitourinary: frequency Musculoskeletal: no symptoms reported Skin: no symptoms reported Psychiatric/Neurological: No Symptoms Reported Physical Exam Physical Exam Vital Signs Vital Signs - First Documented 10/16/17 17:50 Temp 98.0 Pulse 70 Resp 18 B/P (MAP) 162/85 (110) Pulse Ox 95 O2 Delivery Room Air Capillary Refill : Less Than 3 Seconds Height, Weight, BMI Height: 5'8.00" Weight: 190lbs. 4.8oz. 86.567063oo; 29.1 BMI Method:Stated General Appearance: Mild Distress Eyes: Bilateral Eye Normal Inspection HEENT: Other (no bleeding or clots noted in either Nare) Neck: Full Range of Motion Respiratory: Wheezing Cardiovascular: Regular Rate, Rhythm Gastrointestinal: Normal Bowel Sounds, No Organomegaly, No Pulsatile Mass, Non Tender, Soft Neurologic/Psychiatric: Alert, Oriented x3, shafting cleaner II-XII Norm as Tested Skin: Ecchymosis (forearms and shins) Lymphatic: No Adenopathy Results Results/Procedures Labs Laboratory Tests 10/16/17 18:15 10/17/17 04:00 Patient resulted labs reviewed. Assessment/Plan Admission Diagnosis Epistaxis. 2.COPD. 3.history of CHF. 4.hyponatremia. 5.alcoholism. Admission Status: Observation Assessment and Plan The patient was admitted observation. There is been no further evidence of epistaxis. He is instructed to hold his Coumadin today and tomorrow. He is to see Dr. Antonio on 10/20 FOR repeat electrolytes and INR Clinical Quality Measures DVT/VTE Risk/Contraindication: Risk Factor Score Per Nursin RFS Level Per Nursing on Admit: 3=High Copy Copies To 1: BRIAN ANTONIO RODNEY K MD Oct 17, 2017 10:49
--- NOTE | 2017-10-17 11:02 | Discharge Instructions ---
Discharge Instructions Patient Instructions Patient Instructions: Medications as listed on your discharge sequence. Do not take Coumadin today Tuesday or tomorrow Tuesday. You may resume on Tuesday. See Dr. Mccoy on for an electrolyte panel and pro time/INR. Activity & Diet Discharge Diet: No Restrictions JULIA CORONADO MD Oct 17, 2017 11:02
[2017-10-17] MEDS ORDERED: meTOprolol SUCCINATE 100 MG (TOPROL XL) TAB PO SCH (21:00)
[2017-10-17] MEDS ORDERED: warFARin 3 MG (COUMADIN) TAB PO SCH (21:00)
[2017-10-17] MEDS ORDERED: warFARin 2 MG (COUMADIN) TAB PO SCH (21:00)
[2017-10-18] MEDS ORDERED: LOSARTAN 100 MG (COZAAR) TABLET PO SCH (09:00)
[2017-10-18] MEDS ORDERED: ATORVASTATIN 20 MG (LIPITOR) TABLET PO SCH (09:00)
[2017-10-18] MEDS ORDERED: DIGOXIN 0.125 MG (LANOXIN) TAB PO SCH (09:00)
[2017-10-18] MEDS ORDERED: ASPIRIN E.C. 81 MG (ECOTRIN) TAB PO SCH (09:00)
== END 2017-10-17 12:02 | disposition home or self-care (01) ==
LOC: EDUNIT# 17:28 → ER 17:29 → UNDOADMOB 19:35 → 4TH 19:35 → UNDODISOB 10-17 12:04
PROVIDERS: ADMIT Internal Medicine; ATTEND Internal Medicine
DX: I11.0 Hypertensive heart disease with heart failure (principal); I50.9 Heart failure, unspecified; E87.1 Hypo-osmolality and hyponatremia; R04.0 Epistaxis; D64.9 Anemia, unspecified; I48.91 Unspecified atrial fibrillation; R60.0 Localized edema; J44.9 Chronic obstructive pulmonary disease, unspecified; I42.9 Cardiomyopathy, unspecified; I25.10 Atherosclerotic heart disease of native coronary artery without angina pectoris; E78.00 Pure hypercholesterolemia, unspecified; F10.10 Alcohol abuse, uncomplicated; Z79.01 Long term (current) use of anticoagulants; Z79.82 Long term (current) use of aspirin; Z87.891 Personal history of nicotine dependence; Z99.81 Dependence on supplemental oxygen; S01.511A Laceration without foreign body of lip, initial encounter; M10.9 Gout, unspecified; R40.2142 Coma scale, eyes open, spontaneous, at arrival to emergency department; R40.2362 Coma scale, best motor response, obeys commands, at arrival to emergency department; Z79.51 Long term (current) use of inhaled steroids; Z82.49 Family history of ischemic heart disease and other diseases of the circulatory system; Z23 Encounter for immunization; W01.190A Fall on same level from slipping, tripping and stumbling with subsequent striking against furniture, initial encounter
CPT/HCPCS: 12011; 36415; 36430; 70450; 71045; 71046; 72125; 80048; 80053; 80162; 80320; 83735; 83880; 84484; 85007; 85025; 85027; 85610; 85730; 86850; 86900; 86901; 86920; 90471; 90715; 93005; 93041; 94640; 94760; 96374; G0378

== ENCOUNTER 2017-10-17 18:44 | Emergency (ER) | payer MEDICARE, OTHER ==
[~2017-10-17] VITALS: Ht 172.7 cm; Wt 86.3 kg
[~2017-10-17 18:44] MED LIST changes: +METO2.5T PO
--- OUTSIDE RECORDS SUMMARY | 2017-10-17 18:51 | XMS REPORT | Continuity of Care Document ---
Author Author [facility] Organization [facility] Address Unknown Phone Unavailable Allergies Active Description Code Type Severity Reaction Onset Reported/Identified Relationship to Patient Clinical Status Yes No Allergy Information Available [id number] Drug Allergy Unknown N/A 2016 Medications There is no data. Problems Date Dx Coded Attending Type Code Diagnosis Diagnosed By 07/24/2010 Ot 272.4 HYPERLIPIDEMIA NEC/NOS 07/24/2010 Ot 274.9 GOUT NOS 07/24/2010 Ot 414.01 CORONARY ATHEROSCLEROSIS OF [place] CORON 07/24/2010 Ot 416.8 CHR PULMON HEART [...] OBJECT 12/02/2016 SABIHA HERNANDEZ MD Ot Z79.01 TALENT ACQUISITION OPERATIONS MANAGER (CURRENT) USE OF ANTICOAGULANT 12/02/2016 SABIHA HERNANDEZ MD, Ot Z79.82 TALENT ACQUISITION OPERATIONS MANAGER (CURRENT) USE OF ASPIRIN 12/02/2016 DAVID MICHAELS, [...] DO Ot I25.10 ATHSCL HEART DISEASE OF [place] CORONARY 12/10/2016 NISSA ANTONIO DO Ot I42.9 CARDIOMYOPATHY, UNSPECIFIED 12/10/2016 NISSA ANTONIO DO Ot I48.1 PERSISTENT ATRIAL FIBRILLATION 12/10/2016 NISSA ANTNOIO DO Ot I50.33 ACUTE ON CHRONIC DIASTOLIC [...] Dubose Ot Z91.81 HISTORY OF FALLING 12/10/2016 [facility] NISSA Dubose Ot Z99.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 12/10/2016 [facility] DO, NISSA Dubose Ot D64.9 ANEMIA, UNSPECIFIED 12/10/[address] [facility] 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 DO, NISSA Dubose Ot E87.1 HYPO-OSMOLALITY AND HYPONATREMIA 12/10/2016, NISSA Dubose Ot E87.5 HYPERKALEMIA 12/10/2016, NISSA Dubose Ot E87.8 OTH DISORDERS OF ELECTROLYTE AND FLUID B 12/10/2016, NISSA Dubose Ot G47.30 SLEEP APNEA, UNSPECIFIED 12/10/2016 [facility], NISSA Dubose Ot I08.3 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[place], AORTIC 12/10/2016 COUNT INCLUDES THE [facility] , NISSA Dubose Ot I11.0 HYPERTENSIVE HEART DISEASE WITH HEART FA 12/10/2016 [facility], NISSA Dubose Ot I25.10 ATHSCL HEART DISEASE OF [place] CORONARY 12/10/2016 [facility], NISSA Dubose Ot I42.9 CARDIOMYOPATHY, UNSPECIFIED 12/10/2016 [facility], NISSA Dubose Ot I48.1 PERSISTENT ATRIAL FIBRILLATION 12/10/2016 [facility], NISSA Dubose Ot I50.33 ACUTE ON CHRONIC DIASTOLIC (CONGESTIVE) 12/10/2016 [facility], NISSA Dubose Ot I65.29 OCCLUSION AND STENOSIS OF UNSPECIFIED [place] 12/10/[address] [facility], NISSA Dubose Ot I70.8 ATHEROSCLEROSIS OF OTHER ARTERIES 12/10/2016[facility], NISSA Dubose Ot J30.2 OTHER SEASONAL ALLERGIC RHINITIS 12/10/2016, NISSA Dubose Ot J44.9 CHRONIC OBSTRUCTIVE PULMONARY DISEASE, U 12/10/2016 [facility], NISSA Dubose Ot R26.81 UNSTEADINESS ON FEET 12/10/2016 DO, NISSA Dubose Ot R41.0 DISORIENTATION, UNSPECIFIED 12/10/[address] [facility] DONISSA Ot R53.1 WEAKNESS 12/10/2016 [facility] DONISSA Ot R60.0 LOCALIZED EDEMA [...] OF BILATERAL PORTER 12/23/2016 NANCY HINKLE E SOLAR MECHANICAL ENGINEER Ot G47.33 OBSTRUCTIVE SLEEP APNEA (ADULT) (PEDIATR 12/23/2016 ANGELES HINKLEINE E SOLAR MECHANICAL ENGINEER Ot I48.2 CHRONIC ATRIAL FIBRILLATION 12/23/2016 NANCY HINKLE E SOLAR MECHANICAL ENGINEER Ot J44.9 CHRONIC OBSTRUCTIVE PULMONARY DISEASE, U 01/03/2017 NANCY HINKLE E SOLAR MECHANICAL ENGINEER Ot G47.33 OBSTRUCTIVE SLEEP APNEA (ADULT) (PEDIATR 01/11/2017 ANGELES HINKLEINE E SOLAR MECHANICAL ENGINEER Ot I48.2 CHRONIC ATRIAL FIBRILLATION 01/11/2017 ANGELES HINKLEINE E SOLAR MECHANICAL ENGINEER Ot J44.9 CHRONIC OBSTRUCTIVE PULMONARY DISEASE, U 01/13/2017 ANGELES HINKLEINE E SOLAR MECHANICAL ENGINEER Ot I48.2 CHRONIC ATRIAL FIBRILLATION 01/13/2017 ANGELES HINKLEINE E SOLAR MECHANICAL ENGINEER Ot J44.9 CHRONIC OBSTRUCTIVE PULMONARY DISEASE, U 01/19/2017 NANCY HINKLE E SOLAR MECHANICAL ENGINEER Ot G47.33 OBSTRUCTIVE SLEEP APNEA (ADULT) (PEDIATR [...] 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[place], AORTIC 06/14/2017 LVEAR GARCIA MD Ot I11.0 HYPERTENSIVE HEART DISEASE WITH HEART FA 06/14/2017 LEVAR GARCIA MD Ot I25.10 ATHSCL HEART DISEASE OF [place] CORONARY 06/14/2017 LEVAR GARCIA MD Ot I27.29 [...] WEAKNESS 06/14/2017 LEVAR GARCIA MD Ot Z79.01 TALENT ACQUISITION OPERATIONS MANAGER (CURRENT) USE OF ANTICOAGULANT 06/14/2017 LEVAR GARCIA [...] MD Ot I25.10 ATHSCL HEART DISEASE OF [place] CORONARY 06/15/2017 LEVAR GARCIA MD Ot I27.29 [...] WEAKNESS 06/15/2017 LEVAR GARCIA MD Ot Z79.01 TALENT ACQUISITION OPERATIONS MANAGER (CURRENT) USE OF ANTICOAGULANT 06/15/2017 LEVAR GARCIA [...] MD Ot I25.10 ATHSCL HEART DISEASE OF [place] CORONARY 06/16/2017 LEVAR GARCIA MD Ot I27.29 [...] WEAKNESS 06/16/2017 LEVAR GARCIA MD Ot Z79.01 TALENT ACQUISITION OPERATIONS MANAGER (CURRENT) USE OF ANTICOAGULANT 06/16/2017 LEVAR GARICA MD Ot Z87.891 PERSONAL HISTORY OF NICOTINE [...] MD Ot I25.10 ATHSCL HEART DISEASE OF [place] CORONARY 06/16/2017 LEVAR GARCIA MD Ot I27.29 [...] WEAKNESS 06/16/2017 LEVAR GARCIA MD Ot Z79.01 TALENT ACQUISITION OPERATIONS MANAGER (CURRENT) USE OF ANTICOAGULANT 06/16/2017 LEVAR GARCIA [...] MD Ot I25.10 ATHSCL HEART DISEASE OF [place] CORONARY 06/16/2017 LEVAR GARCIA MD Ot I27.29 [...] is no data. Results Test Result Range [id number] - 11/09/16 12:17 Serum or plasma urea [...] NR Blood erythrocyte morphology finding identification [facility] Comprehensive metabolic panel - 12/08/16 14:49 Serum [...] ABO+Rh group AN NRG Transfusion band number [id number] NRG Blood group antibody screen NEGATIVE NRG [...] Status Pt. Type Provider Facility Loc./Unit Complaint [id number] 06/12/2017 22:38:00 06/16/2017 11:40:00 DIS Inpatient RADHA MICHAELS, LEVAR Chauhan [facility] 4TH CHF W ACUTE EXACERBATION , HYPONATREMIA, COPD [id number] 02/21/2017 13:00:00 02/21/2017 23:59:59 CLS Preadmit NANCY HINKLE SOLAR MECHANICAL ENGINEER [facility] PULM J44.9 COPD [id number] 12/21/2016 07:27:00 12/21/2016 23:59:59 CLS Preadmit NANCY HINKLE SOLAR MECHANICAL ENGINEER [facility] RT COPD J44.9 [id number] 12/20/2016 11:46:00 12/20/2016 23:59:59 CLS Outpatient NANCY HINKLE APRN [facility] LAB J44.9 I25.10 I65.23 I10 E78.2 I48.0 [id number] 12/20/2016 11:46:00 12/20/2016 23:59:59 CLS Preadmit NANCY HINKLE SOLAR MECHANICAL ENGINEER [facility] RAD G47.9,I48.0,Z29550, G47.33 [id number] 12/08/2016 15:52:00 12/10/2016 17:00:00 DIS Inpatient NISSA ANTONIO DO [facility] 4TH ADCHF,NORMOCYTIC ANEMIA, SUBTHERAPEUTIC ANEMIA; [id number] 12/02/2016 14:22:00 12/02/2016 15:37:00 DIS Emergency SABIHA HERNANDEZ MD [facility] ER HEAD INJ [id number] 11/09/2016 12:09:00 11/09/2016 23:59:59 CLS Outpatient LAVONNE KELLY MD [facility] RAD CAROTID ARTERY STENOSIS I65.23 [id number] 11/29/2013 09:35:00 11/29/2013 23:59:59 CLS Outpatient LAVONNE KELLY MD [facility] CARD ABNORMAL STRESS, CAD,HTN ,HLP,CAROTID BRUIT [id number] 09/25/2012 09:47:00 09/25/2012 23:59:59 CLS Outpatient LAVONNE KELLY MD [facility] CARD CHF,CAD,HYPERTIENSION, HYPERLIPIDEMIA [id number] 07/24/2010 06:47:00 Document Registration [id number] 07/15/2010 10:39:00 Document Registration [id number] 07/08/2010 14:10:00 Document Registration
[2017-10-17] MEDS ORDERED: LIDOCAINE 1% INJ 20 ML 20 ML VIAL INJ ONE (19:45)
[2017-10-17] MEDS ORDERED: TETANUS,DIPTH,PERTUSS P/F (BOOSTRIX) 0.5 ML VIAL IM ONE (19:45)
--- NOTE | 2017-10-17 19:59 | ED Fall/Injury ---
General Chief Complaint: Laceration Stated Complaint: FALL, SPLIT LIP Nursing Triage Note: upper lip laceration Source: patient, family, spouse Exam Limitations: no limitations History of Present Illness Date Seen by Provider: Oct 17, 2017 Time Seen by Provider: 19:30 Initial Comments Patient is an 81-year-old male who presents to the emergency room with a fall and a laceration to his upper lip. He reports that he was leaning over on a glass topped table when the glass top slipped causing him to fall hitting his face on the metal frame of the table. He has a 1 cm laceration to his upper lip. Denies LOC, neck pain, or other injuries from fall. Occurred: just prior to arrival Injuries/Pain Location: face (lip laceration) Loss of Consciousness: no loss of consciousness Associated Symptoms (Fall): Denies Symptoms Allergies and Home Medications Allergies Coded Allergies: No Allergy Information Available (Unverified , 11/09/16) Home Medications Albuterol Sulfate 18 Gm Hfa.aer.ad, 2 PUFF INH Q4H PRN for SHORTNESS OF BREATH, (Reported) Allopurinol 300 Mg Tablet, 300 MG PO DAILY, (Reported) Amlodipine Besylate 5 Mg Tablet, 5 MG PO DAILY, (Reported) Aspirin 81 Mg Tablet.dr, 81 MG PO DAILY, (Reported) Atorvastatin Calcium 20 Mg Tablet, 20 MG PO DAILY, (Reported) Digoxin 125 Mcg Tablet, 125 MCG PO DAILY, (Reported) Furosemide 80 Mg Tablet, 80 MG PO DAILY, (Reported) Losartan Potassium 100 Mg Tablet, 100 MG PO DAILY, (Reported) Metoprolol Succinate 100 Mg Tab.er.24h, 100 MG PO HS, (Reported) Potassium Chloride 10 Meq Tab.er.prt, 10 MEQ PO BID, (Reported) Patient Home Medication List Home Medication List Reviewed: Yes Review of Systems Review of Systems Constitutional: see HPI; No chills, No fever Ears, Nose, Mouth, Throat: see HPI, mouth pain (upper lip pain and laceration) Skin: see HPI, other (laceration to upper lip) All Other Systems Reviewed Negative Unless Noted: Yes Past [place]-Zezjfm-Jscglf Hx Past Med/Social Hx: Reviewed Nursing Past Med/Soc Hx Patient Social History Alcohol Use: Regular Use Number of Drinks Today: AA Alcohol Beverage of Choice: Beer Recreational Drug Use: No Smoking Status: Former Smoker Type Used: Cigarettes Former Smoker, Quit: Nov 14, 1969 Recent Foreign Travel: No Contact w/Someone Who Travel: No Recent Infectious Disease Expo: No Recent Hopitalizations: Yes (epitaxis 10/16/17) Immunizations Up To Date Tetanus Booster (TDap): Less than 5yrs PED Vaccines UTD: Yes Seasonal Allergies Seasonal Allergies: Yes Past Medical History Surgeries: Yes (CARDIAC CATH 2010-NO INTERVENTION) Cardiac Respiratory: Yes (O2 DEPENDENT) Chronic Bronchitis, COPD Currently Using CPAP: No Currently Using BIPAP: No Cardiac: Yes (CHF) Atrial Fibrillation, Cardiomyopathy, Chronic Edema/Swelling, Coronary Artery Disease, High Cholesterol, Hypertension, Irregular Heartbeat, Valvular Heart Disease Neurological: No Sexually Transmitted Disease: No HIV/AIDS: No Genitourinary: No Gastrointestinal: No Musculoskeletal: Yes Degenerate Disk Disease, Arthritis, Back Injury, Chronic Back Pain, Gout Endocrine: No HEENT: No Hearing Impairment: Hard of Hearing Cancer: No Psychosocial: No Integumentary: No (bruises, vairous stages) Blood Disorders: No Adverse Reaction/Blood Tranf: No Family Medical History Reviewed Nursing Family Hx Alzheimer's disease Congenital heart disease Hypertension Respiratory disorder No Pertinent Family Hx Physical Exam Vital Signs Vital Signs - First Documented 10/17/17 19:10 Temp 98.6 Pulse 71 Resp 18 B/P (MAP) 159/76 (103) Pulse Ox 97 O2 Delivery Room Air Capillary Refill : Less Than 3 Seconds Height, Weight, BMI Height: 5'8.00" Weight: 190lbs. 4.8oz. 86.492457ah; 29.1 BMI Method:Stated General Appearance: WD/WN, no apparent distress Cardiovascular: normal peripheral pulses, regular rate, rhythm, no edema, no gallop, no JVD, no murmur Respiratory: chest non-tender, lungs clear, normal breath sounds, no respiratory distress, no accessory muscle use Extremities: normal range of motion, non-tender, normal inspection, no pedal edema, no calf tenderness, normal capillary refill Neurologic/Psychiatric: alert, normal mood/affect, oriented x 3 Skin: normal color, warm/dry, other (1 cm laceration to his upper lip. Images) [place] Coma Score Best Eye Response: (4) Open Spontaneously Best Verbal Response: (5) Oriented Best Motor Response: (6) Obeys Commands Ye Total: 15 Procedures/Interventions Wound Location: Face (top lip) Wound Length (cm): 1 Wound's Depth, Shape: superficial, flap Wound Explored: clean Irrigated w/ Saline (ccs): 50 Anesthesia: 1% Lidocaine Volume Anesthetic (ccs): 1 Suture: Prolene Suture Size: 5-0 Number of Sutures: 3 Progress The laceration was cleaned and irrigated with normal saline and betasept. The area was anesthetized with 1 ml of lidocaine with out epi. The wound was close with 3 simple interrupted sutures. Progress/Results/Core Measures Results/Orders My Orders Orders - PATY CLEMENTS Ct Head/Cervical Spine Wo (10/17/17 19:34) Dipht,Pertuss(Acell),Tet Adult (Boostrix (10/17/17 19:45) Lidocaine 1% Inj 20 Ml (Xylocaine 1% Inj (10/17/17 19:45) Medications Given in ED Vital Signs/I&O 10/17/17 10/17/17 19:10 21:13 Temp 98.6 98.0 Pulse 71 70 Resp 18 18 B/P (MAP) 159/76 (103) 149/75 (103) Pulse Ox 97 98 O2 Delivery Room Air Room Air Blood Pressure Mean: 103 Progress Progress Note : Time: 20:30 Progress Note I have seen and evaluated the patient. I have informed him of normal imaging studies. He agrees with plan of care, plans for discharge, return precautions were given. Diagnostic Imaging Diagonstic Imaging: CT Plain Films/CT/US/NM/MRI: c-spine, head Comments NAME: ODELL VELARDE [facility] REC#: [id number] PT STATUS: REG ER : 1935 PHYSICIAN: PATY CLEMENTS [facility] ADMIT DATE: 10/17/17/ER Draft Date of Exam:10/17/17 CT HEAD/CERVICAL SPINE WO PROCEDURE: CT head and CT cervical spine without contrast. TECHNIQUE: Multiple contiguous axial images were obtained through the brain and cervical spine without the use of intravenous contrast. Sagittal and coronal reformations through the cervical spine were then performed. INDICATION: Fall. Head injury. COMPARISON: CT head and cervical spine without contrast 06/12/2017. FINDINGS: CT HEAD: Advanced generalized cerebral and cerebellar parenchymal volume loss. Moderate leukoaraiosis. No CT evidence of acute infarction. No intracranial hemorrhage, mass effect, hydrocephalus or extraaxial fluid collections. The visualized paranasal sinuses and mastoids are clear. Osseous structures are intact. CT CERVICAL SPINE: Normal alignment. Vertebral body heights are preserved. No fractures. There are advanced degenerative endplate changes and facet arthropathy throughout the cervical spine. This results in diffuse moderate to advanced neural foraminal narrowing. No definite high-grade spinal canal narrowing is evident on this noncontrast exam. Advanced atherosclerotic calcifications in the carotid bifurcations. The visualized paravertebral soft tissues are otherwise unremarkable. IMPRESSION: 1. No acute intracranial or cervical spine CT findings. 2. Advanced generalized parenchymal volume loss and moderate leukoaraiosis. 3. Advanced spondylotic changes throughout the cervical spine. Dictated on workstation # [id number] Dict: 10/17/172003 Trans: 10/17/172017 [facility] [id number] Interpreted by: DORITA ROCHA MD Electronically signed by: Reviewed: Reviewed by Me Departure Impression Primary Impression: Laceration of lip Disposition: 01 HOME, SELF-CARE Condition: Stable/Unchanged Departure-Patient Inst. Decision time for Depature: 20:36 Referrals: NISSA ANTONIO DO (PCP/Family) Primary Care Physician Patient Instructions: Laceration Repair With Stitches (DC) Add. Discharge Instructions: Return back to the emergency room for suture removal in 5 days or to his primary care provider. Watch for signs of infection such as increased pain, swelling, drainage, fevers. Follow-up with her primary care provider within 1 week for recheck. Return back to the emergency room for any other concerns as needed. All discharge instructions reviewed with patient and/or family. Voiced understanding. Images Head/Face 1 - Laceration 2 - Abrasion PATY CLEMENTS Oct 17, 2017 19:59
--- NOTE | 2017-10-17 20:19 | Diagnostic Imaging Report ---
PROCEDURE: CT head and CT cervical spine without contrast. TECHNIQUE: Multiple contiguous axial images were obtained through the brain and cervical spine without the use of intravenous contrast. Sagittal and coronal reformations through the cervical spine were then performed. INDICATION: Fall. Head injury. COMPARISON: CT head and cervical spine without contrast 06/12/2017. FINDINGS: CT HEAD: Advanced generalized cerebral and cerebellar parenchymal volume loss. Moderate leukoaraiosis. No CT evidence of acute infarction. No intracranial hemorrhage, mass effect, hydrocephalus or extraaxial fluid collections. The visualized paranasal sinuses and mastoids are clear. Osseous structures are intact. CT CERVICAL SPINE: Normal alignment. Vertebral body heights are preserved. No fractures. There are advanced degenerative endplate changes and facet arthropathy throughout the cervical spine. This results in diffuse moderate to advanced neural foraminal narrowing. No definite high-grade spinal canal narrowing is evident on this noncontrast exam. Advanced atherosclerotic calcifications in the carotid bifurcations. The visualized paravertebral soft tissues are otherwise unremarkable. IMPRESSION: 1. No acute intracranial or cervical spine CT findings. 2. Advanced generalized parenchymal volume loss and moderate leukoaraiosis. 3. Advanced spondylotic changes throughout the cervical spine. Dictated by: Dictated on workstation # [id number]
[2017-10-17 21:13] VITALS: BP 149/75
== END 2017-10-17 21:13 | disposition home or self-care (01) ==
LOC: EDUNIT# 18:44 → ER 18:45
DX: S01.511A Laceration without foreign body of lip, initial encounter (principal); J44.9 Chronic obstructive pulmonary disease, unspecified; I11.0 Hypertensive heart disease with heart failure; I50.9 Heart failure, unspecified; E78.00 Pure hypercholesterolemia, unspecified; M10.9 Gout, unspecified; I25.10 Atherosclerotic heart disease of native coronary artery without angina pectoris; I48.91 Unspecified atrial fibrillation; R40.2142 Coma scale, eyes open, spontaneous, at arrival to emergency department; R40.2252 Coma scale, best verbal response, oriented, at arrival to emergency department; R40.2362 Coma scale, best motor response, obeys commands, at arrival to emergency department; Z79.82 Long term (current) use of aspirin; Z79.51 Long term (current) use of inhaled steroids; Z82.49 Family history of ischemic heart disease and other diseases of the circulatory system; Z23 Encounter for immunization; Z87.891 Personal history of nicotine dependence; W01.190A Fall on same level from slipping, tripping and stumbling with subsequent striking against furniture, initial encounter
CPT/HCPCS: 12011; 70450; 72125; 90471; 90715

== ENCOUNTER 2017-10-22 13:20 | Emergency (ER) | payer MEDICARE, OTHER ==
[~2017-10-22] VITALS: Ht 172.7 cm; Wt 86.3 kg
--- OUTSIDE RECORDS SUMMARY | 2017-10-22 13:25 | XMS REPORT | Continuity of Care Document ---
Author Author [facility] Organization [facility] Address Unknown Phone Unavailable Allergies Active Description Code Type Severity Reaction Onset Reported/Identified Relationship to Patient Clinical Status Yes No Allergy Information Available [id number] Drug Allergy Unknown N/A 2016 Medications There is no data. Problems Date Dx Coded Attending Type Code Diagnosis Diagnosed By 07/24/2010 Ot 272.4 HYPERLIPIDEMIA NEC/NOS 07/24/2010 Ot 274.9 GOUT NOS 07/24/2010 Ot 414.01 CORONARY ATHEROSCLEROSIS OF [place] CORON 07/24/2010 Ot 416.8 CHR PULMON HEART [...] OBJECT 12/02/2016 SABIHA HERNANDEZ MD Ot Z79.01 LIVESTOCK HANDLER (CURRENT) USE OF ANTICOAGULANT 12/02/2016 SABIHA HERNANDEZ MD, Ot Z79.82 LIVESTOCK HANDLER (CURRENT) USE OF ASPIRIN 12/02/2016 DAVID MICHAELS, [...] DO Ot I25.10 ATHSCL HEART DISEASE OF [place] CORONARY 12/10/2016 NISSA ANTONIO DO Ot I42.9 [...] PROFILE 12/10/2016 NISSA ANTONIO DO Ot Z79.01 [facility] (CURRENT) USE OF ANTICOAGULANT 12/10/2016 NISSA ANTONIO DO Ot Z87.891 PERSONAL HISTORY OF NICOTINE DEPENDENCE 12/10/2016 [facility] NISSA Dubose Ot Z91.81 HISTORY OF FALLING [facility]/10[facility] Dub[facility] Ot Z99.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 12/10/2016 [facility], NISSA Dubose Ot D64.9 ANEMIA, UNSPECIFIED 12/10/[facility] Ot E11.649 TYPE 2 DIABETES MELLITUS WITH HYPOGLYCEM 12/10/2016, NISSA Dubose Ot E78.5 HYPERLIPIDEMIA, UNSPECIFIED 12/10/2016 [facility], NISSA Dubose Ot E87.1 HYPO-OSMOLALITY AND HYPONATREMIA 12/10/2016, NISSA Dubose Ot E87.5 HYPERKALEMIA 12/10/2016, NISSA Dubose Ot E87.8 OTH DISORDERS OF ELECTROLYTE AND FLUID B 12/10/2016, NISSA Dubose Ot G47.30 SLEEP APNEA, UNSPECIFIED 12/10/2016 [facility], NISSA Dubose Ot I08.3 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[place], AORTIC 12/10/2016 [facility] , NISSA Dubose Ot I11.0 HYPERTENSIVE HEART DISEASE WITH HEART FA 12/10/2016 [facility], NISSA Dubose Ot I25.10 ATHSCL HEART DISEASE OF [place] CORONARY 12/10/2016 [facility], NISSA Dubose Ot I42.9 CARDIOMYOPATHY, UNSPECIFIED 12/10/2016 [facility], NISSA Dubose Ot I48.1 PERSISTENT ATRIAL FIBRILLATION 12/10/2016 [facility], NISSA Dubose Ot I50.33 ACUTE ON CHRONIC DIASTOLIC (CONGESTIVE) 12/10/2016 [facility], NISSA Dubose Ot I65.29 OCCLUSION AND STENOSIS OF UNSPECIFIED CA 12/10/2016 [facility], NISSA Dubose Ot I70.8 ATHEROSCLEROSIS OF OTHER ARTERIES 12/10/2016[facility], NISSA Dubose Ot J30.2 OTHER SEASONAL ALLERGIC RHINITIS 12/10/2016, NISSA Dubose Ot J44.9 CHRONIC OBSTRUCTIVE PULMONARY DISEASE, U 12/10/2016 [facility], NISSA Dubose Ot R26.81 UNSTEADINESS ON FEET 12/10/2016 DO, NISSA Dubose Ot R41.0 DISORIENTATION, UNSPECIFIED 12/10/2016 [facility] Ot R53.1 WEAKNESS 12/10/2016 [facility] Ot R60.0 LOCALIZED EDEMA 12/10/2016 NISSA ANTONIO DO Ot R79.1 ABNORMAL COAGULATION PROFILE 12/10/2016 NISSA ANTONIO DO Ot Z79.01 [facility] (CURRENT) USE OF ANTICOAGULANT 12/10/2016 NISSA ANTONIO [...] OF BILATERAL PORTER 12/23/2016 NANCY HINKLE E [employer] W[employer]ER HELPER Ot G47.33 OBSTRUCTIVE SLEEP APNEA (ADULT) (PEDIATR 12/23/2016 ANGELES HINKLEINE E SPIRAL [employer] WINDER HELPER Ot I48.2 CHRONIC ATRIAL FIBRILLATION 12/23/2016 NANCY HINKLE E SP[employer]AL [employer] WINDER HELPER Ot J44.9 CHRONIC OBSTRUCTIVE PULMONARY DISEASE, U 01/03/2017 NANCY HINKLE E SP[employer] WINDER HELPER Ot G47.33 OBSTRUCTIVE SLEEP APNEA (ADULT) (PEDIATR 01/11/2017 ANGELES HINKLEINE E SPIRAL TUBE WINDER HELPER Ot I48.2 CHRONIC ATRIAL FIBRILLATION 01/11/2017 ANGELES HINKLEINE E SPIRAL TUBE WINDER HELPER Ot J44.9 CHRONIC OBSTRUCTIVE PULMONARY DISEASE, U 01/13/2017 ANGELES HINKLEINE E SPIRAL TU[employer] WINDER HELPER Ot I48.2 CHRONIC ATRIAL FIBRILLATION 01/13/2017 ANGELES HINKLEINE E SPIRAL TUBE WINDER HELPER Ot J44.9 CHRONIC OBSTRUCTIVE PULMONARY DISEASE, U 01/19/2017 NANCY HINKLE E SPIRAL TU[employer] WINDER HELPER Ot G47.33 OBSTRUCTIVE SLEEP APNEA (ADULT) (PEDIATR [...] MD Ot I25.10 ATHSCL HEART DISEASE OF [place] CORONARY 06/14/2017 LEVAR GARCIA MD Ot I27.29 [...] WEAKNESS 06/14/2017 LEVAR GARCIA MD Ot Z79.01 LIVESTOCK HANDLER (CURRENT) USE OF ANTICOAGULANT 06/14/2017 LEVAR GARCIA [...] MD Ot I25.10 ATHSCL HEART DISEASE OF [place] CORONARY 06/15/2017 LEVAR GARCIA MD Ot I27.29 [...] WEAKNESS 06/15/2017 LEVAR GARCIA MD Ot Z79.01 LIVESTOCK HANDLER (CURRENT) USE OF ANTICOAGULANT 06/15/2017 LEVAR GARCIA [...] MD Ot I25.10 ATHSCL HEART DISEASE OF [place] CORONARY 06/16/2017 LEVAR GARCIA MD Ot I27.29 [...] WEAKNESS 06/16/2017 LEVAR GARCIA MD Ot Z79.01 LIVESTOCK HANDLER (CURRENT) USE OF ANTICOAGULANT 06/16/2017 LEVAR GARCIA [...] MD Ot I25.10 ATHSCL HEART DISEASE OF [place] CORONARY 06/16/2017 LEVAR GARCIA MD Ot I27.29 [...] WEAKNESS 06/16/2017 LEVAR GARCIA MD Ot Z79.01 LIVESTOCK HANDLER (CURRENT) USE OF ANTICOAGULANT 06/16/2017 LEVAR GARCIA [...] MD Ot I25.10 ATHSCL HEART DISEASE OF [place] CORONARY 06/16/2017 LEVAR GARCIA MD Ot I27.29 [...] WEAKNESS 06/16/2017 LEVAR GARCIA MD Ot Z79.01 [facility] (CURRENT) USE OF ANTICOAGULANT 06/16/2017 LEVAR GARCIA MD Ot Z87.891 PERSONAL HISTORY OF NICOTINE DEPENDENCE 06/16/2017 LEVAR GARCIA MD D Ot Z99.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 Results Test Result Range [id number] - 11/09/16 12:17 Serum or plasma urea [...] NR Blood erythrocyte morphology finding identification [facility] Comprehensive metabolic panel - 12/08/16 14:49 Serum [...] ABO+Rh group AN NRG Transfusion band number [id number] NRG Blood group antibody screen NEGATIVE NRG [...] Status Pt. Type Provider Facility Loc./Unit Complaint [id number] 06/12/2017 22:38:00 06/16/2017 11:40:00 DIS Inpatient RADHA MICHAELS, LEVAR Chauhan [facility] 4TH CHF W ACUTE EXACERBATION , HYPONATREMIA, COPD [id number] 02/21/2017 13:00:00 02/21/2017 23:59:59 CLS Preadmit NANCY HINKLE [employer] HELPER [facility] PULM J44.9 COPD [id number] 12/21/2016 07:27:00 12/21/2016 23:59:59 CLS Preadmit NANCY HINKLE [employer] HELPER [facility] RT COPD J44.9 [id number] 12/20/2016 11:46:00 12/20/2016 23:59:59 CLS Outpatient NANCY HINKLE APRN [facility] LAB J44.9 I25.10 I65.23 I10 E78.2 I48.0 [id number] 12/20/2016 11:46:00 12/20/2016 23:59:59 CLS Preadmit NANCY HINKLE [employer] HELPER [facility] RAD G47.9,I48.0,T16246, G47.33 [id number] 12/08/2016 15:52:00 12/10/2016 17:00:00 DIS Inpatient NISSA ANTONIO DO [facility] 4TH ADCHF,NORMOCYTIC ANEMIA, SUBTHERAPEUTIC ANEMIA; [id number] 12/02/2016 14:22:00 12/02/2016 15:37:00 DIS Emergency SABIHA HERNANDEZ MD [facility] ER HEAD INJ [id number] 11/09/2016 12:09:00 11/09/2016 23:59:59 CLS Outpatient LAVONNE KELLY MD [facility] RAD CAROTID ARTERY STENOSIS I65.23 [id number] 11/29/2013 09:35:00 11/29/2013 23:59:59 CLS Outpatient LAVONNE KELLY MD [facility] CARD ABNORMAL STRESS, CAD,HTN ,HLP,CAROTID BRUIT [id number] 09/25/2012 09:47:00 09/25/2012 23:59:59 CLS Outpatient LAVONNE KELLY MD [facility] CARD CHF,CAD,HYPERTIENSION, HYPERLIPIDEMIA [id number] 07/24/2010 06:47:00 Document Registration [id number] 07/15/2010 10:39:00 Document Registration [id number] 07/08/2010 14:10:00 Document Registration
[2017-10-22 13:32] VITALS: BP 120/82
== END 2017-10-22 13:32 | disposition home or self-care (01) ==
LOC: EDUNIT# 13:20 → ER 13:21
DX: S01.511D Laceration without foreign body of lip, subsequent encounter (principal); X58.XXXD Exposure to other specified factors, subsequent encounter

== ENCOUNTER → 2017-11-17 | Outpatient (CLI) | payer MEDICARE, OTHER ==
[~2017-11-17] MED LIST changes: +METO-370 PO; +OMEP20CA12 PO; +WARF-47; +WARF3TAB56; +WARF5TAB PO
[2017-11-17 16:07] LABS: INR 4.4 (0.8-1.4); PROTHROMBIN TIME PATIENT 42.5 SEC (12.2-14.7)
[2017-11-17 16:16] LABS: CALCIUM 9.2 MG/DL (8.5-10.1); CREATININE SERUM 1.28 MG/DL (0.60-1.30); POTASSIUM 4.4 MMOL/L (3.6-5.0)
[2017-11-17 16:23] LABS: DIGOXIN 1.36 NG/ML (0.80-2.00)
--- NOTE | 2017-11-17 17:27 | Diagnostic Imaging Report ---
INDICATION: Shortness of breath. TIME OF EXAM: 3:58 PM Comparison is made with prior chest radiograph from 10/17/2017. FINDINGS: The heart is enlarged but stable. The lungs appear to be clear. No infiltrates are seen. No effusion or pneumothorax is identified. IMPRESSION: Cardiomegaly. No acute feature is detected. Dictated by: Dictated on workstation # [id number]
== END ==
LOC: RAD 15:13
PROVIDERS: ATTEND Family Medicine
DX: I50.9 Heart failure, unspecified (principal); I51.7 Cardiomegaly; I48.91 Unspecified atrial fibrillation; J81.1 Chronic pulmonary edema
CPT/HCPCS: 36415; 71046; 80048; 80162; 83880; 85610

== ENCOUNTER 2017-11-22 15:28 | Inpatient (IN) | payer MEDICARE, OTHER ==
[~2017-11-22] VITALS: Ht 172.7 cm; Wt 83.9 kg
[~2017-11-22 15:28] MED LIST changes: -METO-370 PO; -OMEP20CA12 PO; -WARF-47; -WARF3TAB56; -WARF5TAB PO
--- OUTSIDE RECORDS SUMMARY | 2017-11-22 15:35 | XMS REPORT | Continuity of Care Document ---
Author Author [facility] Organization [facility] Address Unknown Phone Unavailable Allergies Active Description Code Type Severity Reaction Onset Reported/Identified Relationship to Patient Clinical Status Yes No Allergy Information Available [id number] Drug Allergy Unknown N/A 2016 Medications There is no data. Problems Date Dx Coded Attending Type Code Diagnosis Diagnosed By 07/24/2010 Ot 272.4 HYPERLIPIDEMIA NEC/NOS 07/24/2010 Ot 274.9 GOUT NOS 07/24/2010 Ot 414.01 CORONARY ATHEROSCLEROSIS OF [place] CORON 07/24/2010 Ot 416.8 CHR PULMON HEART [...] OBJECT 12/02/2016 SABIHA HERNANDEZ MD Ot Z79.01 SUPPORT DIRECTOR (CURRENT) USE OF ANTICOAGULANT 12/02/2016 SABIHA HERNANDEZ MD, Ot Z79.82 SUPPORT DIRECTOR (CURRENT) USE OF ASPIRIN 12/02/2016 DAVID MICHAELS, SABIHA Chauhan Ot Z87.891 PERSONAL HISTORY OF NICOTINE DEPENDENCE 12/06/2016 LETICIA MICHAELS, LAVONNE Mnazano Ot I65.23 OCCLUSION AND STENOSIS OF BILATERAL [...] Ot I10 ESSENTIAL (PRIMARY) HYPERTENSION 12/10/2016 NISSA NATONIO DO Ot I25.10 ATHSCL HEART DISEASE OF [place] CORONARY 12/10/2016 NISSA ANTONIO DO Ot I42.9 [...] PROFILE 12/10/2016 NISSA ANTONIO DO Ot Z79.01 CORRECTION (CURRENT) USE OF ANTICOAGULANT 12/10/2016 NISSA ANTONIO DO Ot Z87.891 PERSONAL HISTORY OF NICOTINE DEPENDENCE 12/10/2016 [facility] NISSA Dubose Ot Z91.81 HISTORY OF FALLING 12/10/[facility] Ot Z99.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 12/10/2016 [facility] DO, NISSA Dubose Ot D64.9 ANEMIA, UNSPECIFIED 12/10/2016 [facility] Dubose Ot E11.649 TYPE 2 DIABETES MELLITUS WITH HYPOGLYCEM 12/10/2016, NISSA Dubose Ot E78.5 HYPERLIPIDEMIA, UNSPECIFIED 12/10/2016 [facility] DO, NISSA Dubose Ot E87.1 HYPO-OSMOLALITY AND HYPONATREMIA 12/10/2016, NISSA Dubose Ot E87.5 HYPERKALEMIA 12/10/2016, NISSA Dubose Ot E87.8 OTH DISORDERS OF ELECTROLYTE AND FLUID B 12/10/2016, NISSA Dubose Ot G47.30 SLEEP APNEA, UNSPECIFIED 12/10/2016 [facility], NISSA Dubose Ot I08.3 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MITRAL, AORTIC 12/10/2016 [facility] , NISSA Dubose Ot I11.0 HYPERTENSIVE HEART DISEASE WITH HEART FA 12/10/2016 [facility], NISSA Dubose Ot I25.10 ATHSCL HEART DISEASE OF [place] CORONARY 12/10/2016 [facility], NISSA Dubose Ot I42.9 CARDIOMYOPATHY, UNSPECIFIED 12/10/2016 [facility], NISSA Dubose Ot I48.1 PERSISTENT ATRIAL FIBRILLATION 12/10/2016 [facility], NISSA Dubose Ot I50.33 ACUTE ON CHRONIC DIASTOLIC (CONGESTIVE) 12/10/2016 [facility], NISSA Dubose Ot I65.29 OCCLUSION AND STENOSIS OF UNSPECIFIED CA 12/10/2016 [facility], NISSA Dubose Ot I70.8 ATHEROSCLEROSIS OF OTHER ARTERIES 12/10/2016[facility], NISSA Dubose Ot J30.2 OTHER SEASONAL ALLERGIC RHINITIS 12/10/2016, NISSA Dubose Ot J44.9 CHRONIC OBSTRUCTIVE PULMONARY DISEASE, U 12/10/2016 [facility], NISSA Dubose Ot R26.81 UNSTEADINESS ON FEET 12/10/2016 DO, NISSA Dubose Ot R41.0 DISORIENTATION, UNSPECIFIED 12/10/2016 [facility] DON[facility] Ot R53.1 WEAKNESS 12/10/2016 [facility] DONIS[facility] Ot R60.0 LOCALIZED EDEMA 12/10/2016 NISSA ANTONIO DO Ot R79.1 ABNORMAL COAGULATION PROFILE 12/10/2016 NISSA ANTONIO DO Ot Z79.01 CORRECTION (CURRENT) USE OF ANTICOAGULANT 12/10/2016 NISSA ANTONIO [...] OF BILATERAL PORTER 12/23/2016 NANCY HINKLE E WOOL SCOURER Ot G47.33 OBSTRUCTIVE SLEEP APNEA (ADULT) (PEDIATR 12/23/2016 ANGELES HINKLEINE E WOOL SCOURER Ot I48.2 CHRONIC ATRIAL FIBRILLATION 12/23/2016 NANCY HINKLE E WOOL SCOURER Ot J44.9 CHRONIC OBSTRUCTIVE PULMONARY DISEASE, U 01/03/2017 NANCY HINKLE E WOOL SCOURER Ot G47.33 OBSTRUCTIVE SLEEP APNEA (ADULT) (PEDIATR 01/11/2017 ANGELES HINKLEINE E WOOL SCOURER Ot I48.2 CHRONIC ATRIAL FIBRILLATION 01/11/2017 ANGELES HINKLEINE E WOOL SCOURER Ot J44.9 CHRONIC OBSTRUCTIVE PULMONARY DISEASE, U 01/13/2017 ANGELES HINKLEINE E WOOL SCOURER Ot I48.2 CHRONIC ATRIAL FIBRILLATION 01/13/2017 ANGELES HINKLEINE E WOOL SCOURER Ot J44.9 CHRONIC OBSTRUCTIVE PULMONARY DISEASE, U 01/19/2017 NANCY HINKLE E WOOL SCOURER Ot G47.33 OBSTRUCTIVE SLEEP APNEA (ADULT) (PEDIATR [...] MD Ot I25.10 ATHSCL HEART DISEASE OF [place] CORONARY 06/14/2017 LEVAR GARCIA MD Ot I27.29 [...] WEAKNESS 06/14/2017 LEVAR GARCIA MD Ot Z79.01 SUPPORT DIRECTOR (CURRENT) USE OF ANTICOAGULANT 06/14/2017 LEVAR GARCIA [...] MD Ot I25.10 ATHSCL HEART DISEASE OF [place] CORONARY 06/15/2017 LEVAR GARCIA MD Ot I27.29 [...] WEAKNESS 06/15/2017 LEVAR GARCIA MD Ot Z79.01 SUPPORT DIRECTOR (CURRENT) USE OF ANTICOAGULANT 06/15/2017 LEVAR GARCIA [...] MD Ot I25.10 ATHSCL HEART DISEASE OF [place] CORONARY 06/16/2017 LEVAR GARCIA MD Ot I27.29 [...] WEAKNESS 06/16/2017 LEVAR GARCIA MD Ot Z79.01 SUPPORT DIRECTOR (CURRENT) USE OF ANTICOAGULANT 06/16/2017 LEVAR GARCIA [...] MD Ot I25.10 ATHSCL HEART DISEASE OF [place] CORONARY 06/16/2017 LEVAR GARCIA MD Ot I27.29 [...] WEAKNESS 06/16/2017 LEVAR GARCIA MD Ot Z79.01 SUPPORT DIRECTOR (CURRENT) USE OF ANTICOAGULANT 06/16/2017 LEVAR GARCIA [...] MD Ot I25.10 ATHSCL HEART DISEASE OF [place] CORONARY 06/16/2017 LEVAR GARCIA MD Ot I27.29 OTHER SECONDARY PULMONARY HYPERTENSION 06/16/2017 LEVAR GARCIA MD Ot I42.9 CARDIOMYOPATHY, UNSPECIFIED 06/16/2017 LEVAR AGRCIA MD Ot I48.2 CHRONIC ATRIAL FIBRILLATION 06/16/2017 [...] WEAKNESS 06/16/2017 LEVAR GARCIA MD Ot Z79.01 CORRECTION (CURRENT) USE OF ANTICOAGULANT 06/16/2017 LEVAR GARCIA MD Ot Z87.891 PERSONAL HISTORY OF NICOTINE DEPENDENCE 06/16/2017 LEVAR GARCIA MD D Ot Z99.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 10/16/2017 LAVONNE KELLY MD Ot 272.4 HYPERLIPIDEMIA NEC/NOS 10/16/2017 LAVONNE KELLY MD Ot 401.9 HYPERTENSION NOS 10/16/2017 LAVONNE KELLY MD Ot 414.00 CORON ATHEROSCLER NOS TYPE VESSEL, NATIV 10/16/2017 LAVONNE KELLY MD Ot 428.0 CONGESTIVE HEART FAILURE NOS 10/16/2017 LAVONNE KELLY MD Ot 272.4 HYPERLIPIDEMIA NEC/NOS 10/16/2017 LAVONNE KELLY MD Ot 396.3 MITRAL/AORTIC STANISLAV INSUFF 10/16/2017 LAVONNE KELLY MD Ot 397.0 TRICUSPID VALVE DISEASE 10/16/2017 LAVONNE KELLY MD Ot 401.9 HYPERTENSION NOS 10/16/2017 LAVONNE KELLY MD Ot 414.00 CORON ATHEROSCLER NOS TYPE VESSEL, NATIV 10/16/2017 LAVONNE KELLY MD Ot 429.3 CARDIOMEGALY 10/16/2017 LAVONNE KELLY MD Ot 433.10 CAROTID ARTERY OCCLUSION W O CEREBRAL IN 10/16/2017 LAVONNE KELLY MD Ot 433.30 MULT BILTRAL ARTERY OCCLUSION WO CEREBRA 10/16/2017 LAVONNE KELLY MD Ot 785.9 CARDIOVAS SYS SYMP NEC 10/16/2017 LAVONNE KELLY MD Ot 794.39 ABN CARDIOVASC STUDY NEC 10/16/2017 LAVONNE KELLY MD Ot I65.23 OCCLUSION AND STENOSIS OF BILATERAL PORTER 10/16/2017 NANCY HINKLE APRN Ot I48.2 CHRONIC ATRIAL FIBRILLATION 10/16/2017 NANCY HINKLE APRN Ot J44.9 CHRONIC OBSTRUCTIVE PULMONARY DISEASE, U 10/17/2017 JULIA CORONADO MD Ot D64.9 ANEMIA, UNSPECIFIED 10/17/2017 JULIA CORONADO MD Ot E78.00 PURE HYPERCHOLESTEROLEMIA, UNSPECIFIED 10/17/2017 JULIA CORONADO MD Ot E87.1 HYPO-OSMOLALITY AND HYPONATREMIA 10/17/2017 JULIA CORONADO MD Ot F10.10 ALCOHOL ABUSE, UNCOMPLICATED 10/17/2017 JULIA CORONADO MD Ot I11.0 HYPERTENSIVE HEART DISEASE WITH HEART FA 10/17/2017 JULIA CORONADO MD Ot I25.10 ATHSCL HEART DISEASE OF [place] CORONARY 10/17/2017 JULIA CORONADO MD Ot I42.9 CARDIOMYOPATHY, UNSPECIFIED 10/17/2017 JULIA CORONADO MD Ot I48.91 UNSPECIFIED ATRIAL FIBRILLATION 10/17/2017 JULIA CORONADO MD Ot I50.9 HEART FAILURE, UNSPECIFIED 10/17/2017 JULIA CORONADO MD Ot J44.9 CHRONIC OBSTRUCTIVE PULMONARY DISEASE, U 10/17/2017 JULIA CORONADO MD Ot M10.9 GOUT, UNSPECIFIED 10/17/2017 JULIA CORONADO MD Ot R04.0 EPISTAXIS 10/17/2017 JULIA CORONADO MD Ot R40.2142 COMA SCALE, EYES OPEN, SPONTANEOUS, EMR 10/17/2017 JULIA CORONADO MD, Ot R40.2362 COMA SCALE, BEST MOTOR RESPONSE, OBEYS C 10/17/2017 JULIA CORONADO MD Ot R60.0 LOCALIZED EDEMA 10/17/2017 JULIA CORONADO MD Ot S01.511A LACERATION WITHOUT FOREIGN BODY OF LIP, 10/17/2017 JULIA CORONADO MD Ot W01.190A FALL SAME LEV FROM SLIP/TRIP W STRIKE AG 10/17/2017 JULIA CORONADO MD Ot Z23 ENCOUNTER FOR IMMUNIZATION 10/17/2017 JULIA CORONADO MD Ot Z79.01 CORRECTION (CURRENT) USE OF ANTICOAGULANT 10/17/2017 JULIA CORONADO MD Ot Z79.51 SUPPORT DIRECTOR (CURRENT) USE OF INHALED STERO 10/17/2017 JULIA CORONADO MD Ot Z79.82 CORRECTION (CURRENT) USE OF ASPIRIN 10/17/2017 JULIA CORONADO MD Ot Z82.49 FAMILY HX OF ISCHEM HEART DIS AND OTH DI 10/17/2017 JULIA CORONADO MD Ot Z87.891 PERSONAL HISTORY OF NICOTINE DEPENDENCE 10/17/2017 JULIA CORONADO MD Ot Z99.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 10/17/2017 JULIA CORONADO MD Ot D64.9 ANEMIA, UNSPECIFIED 10/17/2017 JULIA CORONADO MD Ot E78.00 PURE HYPERCHOLESTEROLEMIA, UNSPECIFIED 10/17/2017 JULIA CORONADO MD Ot E87.1 HYPO-OSMOLALITY AND HYPONATREMIA 10/17/2017 JULIA CORONADO MD Ot F10.10 ALCOHOL ABUSE, UNCOMPLICATED 10/17/2017 JULIA CORONADO MD Ot I11.0 HYPERTENSIVE HEART DISEASE WITH HEART FA 10/17/2017 JULIA CORONADO MD Ot I25.10 ATHSCL HEART DISEASE OF [place] CORONARY 10/17/2017 JULIA CORONADO MD Ot I42.9 CARDIOMYOPATHY, UNSPECIFIED 10/17/2017 JULIA CORONADO MD Ot I48.91 UNSPECIFIED ATRIAL FIBRILLATION 10/17/2017 JULIA CORONADO MD Ot I50.9 HEART FAILURE, UNSPECIFIED 10/17/2017 JULIA CORONADO MD Ot J44.9 CHRONIC OBSTRUCTIVE PULMONARY DISEASE, U 10/17/2017 JULIA CORONADO MD Ot R04.0 EPISTAXIS 10/17/2017 JULIA CORONADO MD Ot R60.0 LOCALIZED EDEMA 10/17/2017 JULIA CORONADO MD Ot Z79.01 CORRECTION (CURRENT) USE OF ANTICOAGULANT 10/17/2017 JULIA CORONADO MD Ot Z79.82 CORRECTION (CURRENT) USE OF ASPIRIN 10/17/2017 JULIA CORONADO MD Ot Z87.891 PERSONAL HISTORY OF NICOTINE DEPENDENCE 10/17/2017 JULIA CORONADO MD Ot Z99.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 10/17/2017 LAVONNE KELLY MD Ot 272.4 HYPERLIPIDEMIA NEC/NOS 10/17/2017 LAVONNE KELLY MD Ot 401.9 HYPERTENSION NOS 10/17/2017 LAVONNE KELLY MD Ot 414.00 CORON ATHEROSCLER NOS TYPE VESSEL, NATIV 10/17/2017 LAVONNE KELLY MD Ot 428.0 CONGESTIVE HEART FAILURE NOS 10/17/2017 LAVONNE KELLY MD Ot 272.4 HYPERLIPIDEMIA NEC/NOS 10/17/2017 LAVONNE KELLY MD Ot 396.3 MITRAL/AORTIC STANISLAV INSUFF 10/17/2017 LAVONNE KELLY MD Ot 397.0 TRICUSPID VALVE DISEASE 10/17/2017 LAVONNE KELLY MD Ot 401.9 HYPERTENSION NOS 10/17/2017 LAVONNE KELLY MD Ot 414.00 CORON ATHEROSCLER NOS TYPE VESSEL, NATIV 10/17/2017 LAVONNE KELLY MD Ot 429.3 CARDIOMEGALY 10/17/2017 LETICIA MICHAELS, LAVONNE Manzano Ot 433.10 CAROTID ARTERY OCCLUSION W O CEREBRAL IN 10/17/2017 LETICIA MICHAELS, LAVONNE Manzano Ot 433.30 MULT BILTRAL ARTERY OCCLUSION WO CEREBRA 10/17/2017 LETICIA MICHAELS, LAVONNE Manzano Ot 785.9 CARDIOVAS SYS SYMP NEC 10/17/2017 LAVONNE KELLY MD Ot 794.39 ABN CARDIOVASC STUDY NEC 10/17/2017 LETICIA MICHAELS, LAVONNE Manzano Ot I65.23 OCCLUSION AND STENOSIS OF BILATERAL PORTER 10/17/2017 NANCY HINKLE APRN Ot I48.2 CHRONIC ATRIAL FIBRILLATION 10/17/2017 NANCY HINKLE APRN Ot J44.9 CHRONIC OBSTRUCTIVE PULMONARY DISEASE, U 10/17/2017 PATY CLEMENTS Ot E78.00 PURE HYPERCHOLESTEROLEMIA, UNSPECIFIED 10/17/2017 PATY CLEMENTS Ot I11.0 HYPERTENSIVE HEART DISEASE WITH HEART FA 10/17/2017 PATY CLEMENTS Ot I25.10 ATHSCL HEART DISEASE OF [place] CORONARY 10/17/2017 PATY CLEMENTS Ot I48.91 UNSPECIFIED ATRIAL FIBRILLATION 10/17/2017 PATY CLEMENTS Ot I50.9 HEART FAILURE, UNSPECIFIED 10/17/2017 PATY CLEMENTS Ot J44.9 CHRONIC OBSTRUCTIVE PULMONARY DISEASE, U 10/17/2017 PATY CLEMENTS Ot M10.9 GOUT, UNSPECIFIED 10/17/2017 PATY CLEMENTS Ot R40.2142 COMA SCALE, EYES OPEN, SPONTANEOUS, EMR 10/17/2017 PATY CLEMENTS Ot R40.2252 COMA SCALE, BEST VERBAL RESPONSE, ORIENT 10/17/2017 PATY CLEMENTS Ot R40.2362 COMA SCALE, BEST MOTOR RESPONSE, OBEYS C 10/17/2017 PATY CLEMENTS Ot S01.511A LACERATION WITHOUT FOREIGN BODY OF LIP, 10/17/2017 PATY CLEMENTS Ot W01.190A FALL SAME LEV FROM SLIP/TRIP W STRIKE AG 10/17/2017 PATY CLEMENTS Ot Z23 ENCOUNTER FOR IMMUNIZATION 10/17/2017 PATY CLEMENTS Ot Z79.51 SUPPORT DIRECTOR (CURRENT) USE OF INHALED STERO 10/17/2017 PATY CLEMENTS Ot Z79.82 SUPPORT DIRECTOR (CURRENT) USE OF ASPIRIN 10/17/2017 BERNOT, PATY Ot Z82.49 FAMILY HX OF ISCHEM HEART DIS AND OTH DI 10/17/2017 DEEYESICABRANDYIS Ot Z87.891 PERSONAL HISTORY OF NICOTINE DEPENDENCE 10/20/2017 BRANDY CLEMENTSIS Ot E78.00 PURE HYPERCHOLESTEROLEMIA, UNSPECIFIED 10/20/2017 BRANDY CLEMENTSIS Ot I11.0 HYPERTENSIVE HEART DISEASE WITH HEART FA 10/20/2017 BRANDY CLEMENTSIS Ot I25.10 ATHSCL HEART DISEASE OF [place] CORONARY 10/20/2017 BRANDY CLEMENTSIS Ot I48.91 UNSPECIFIED ATRIAL FIBRILLATION 10/20/2017 BRANDY CLEMENTSIS Ot I50.9 HEART FAILURE, UNSPECIFIED 10/20/2017 BRANDY CLEMENTSIS Ot J44.9 CHRONIC OBSTRUCTIVE PULMONARY DISEASE, U 10/20/2017 PATY CLEMENTS Ot M10.9 GOUT, UNSPECIFIED 10/20/2017 BRANDY CLEMENTSIS Ot R40.2142 COMA SCALE, EYES OPEN, SPONTANEOUS, EMR 10/20/2017 BRANDY CLEMENTSIS Ot R40.2252 COMA SCALE, BEST VERBAL RESPONSE, ORIENT 10/20/2017 BRANDY CLEMENTSIS Ot R40.2362 COMA SCALE, BEST MOTOR RESPONSE, OBEYS C 10/20/2017 BRANDY CLEMENTSIS Ot S01.511A LACERATION WITHOUT FOREIGN BODY OF LIP, 10/20/2017 BRANDY CLEMENTSIS Ot W01.190A FALL SAME LEV FROM SLIP/TRIP W STRIKE AG 10/20/2017 BRANDY CLEMENTSIS Ot Z23 ENCOUNTER FOR IMMUNIZATION 10/20/2017 BRANDY CLEMENTSIS Ot Z79.51 CORRECTION (CURRENT) USE OF INHALED STERO 10/20/2017 BRANDY CLEMENTSIS Ot Z79.82 SUPPORT DIRECTOR (CURRENT) USE OF ASPIRIN 10/20/2017 BRANDY CLEMENTSIS Ot Z82.49 FAMILY HX OF ISCHEM HEART DIS AND OTH DI 10/20/2017 BRANDY CLEMENTSIS Ot Z87.891 PERSONAL HISTORY OF NICOTINE DEPENDENCE 10/20/2017 JULIA CORONADO MD Ot D64.9 ANEMIA, UNSPECIFIED 10/20/2017 JULIA CORONADO MD Ot E78.00 PURE HYPERCHOLESTEROLEMIA, UNSPECIFIED 10/20/2017 JULIA CORONADO MD Ot E87.1 HYPO-OSMOLALITY AND HYPONATREMIA 10/20/2017 JULIA CORONADO MD Ot F10.10 ALCOHOL ABUSE, UNCOMPLICATED 10/20/2017 JULIA CORONADO MD Ot I11.0 HYPERTENSIVE HEART DISEASE WITH HEART FA 10/20/2017 JULIA CORONADO MD Ot I25.10 ATHSCL HEART DISEASE OF [place] CORONARY 10/20/2017 JULIA CORONADO MD Ot I42.9 CARDIOMYOPATHY, UNSPECIFIED 10/20/2017 JULIA CORONADO MD Ot I48.91 UNSPECIFIED ATRIAL FIBRILLATION 10/20/2017 JULIA CORONADO MD Ot I50.9 HEART FAILURE, UNSPECIFIED 10/20/2017 JULIA CORONADO MD Ot J44.9 CHRONIC OBSTRUCTIVE PULMONARY DISEASE, U 10/20/2017 JULIA CORONADO MD Ot R04.0 EPISTAXIS 10/20/2017 JULIA CORONADO MD Ot R60.0 LOCALIZED EDEMA 10/20/2017 JULIA CORONADO MD Ot Z79.01 SUPPORT DIRECTOR (CURRENT) USE OF ANTICOAGULANT 10/20/2017 JULIA CORONADO MD Ot Z79.82 CORRECTION (CURRENT) USE OF ASPIRIN 10/20/2017 JULIA CORONADO MD Ot Z87.891 PERSONAL HISTORY OF NICOTINE DEPENDENCE 10/20/2017 JULIA CROONADO MD Ot Z99.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 10/20/2017 JULIA CORONADO MD Ot D64.9 ANEMIA, UNSPECIFIED 10/20/2017 JULIA CORONADO MD Ot E78.00 PURE HYPERCHOLESTEROLEMIA, UNSPECIFIED 10/20/2017 JULIA CORONADO MD Ot E87.1 HYPO-OSMOLALITY AND HYPONATREMIA 10/20/2017 JULIA CORONADO MD Ot F10.10 ALCOHOL ABUSE, UNCOMPLICATED 10/20/2017 JULIA CORONADO MD Ot I11.0 HYPERTENSIVE HEART DISEASE WITH HEART FA 10/20/2017 JULIA CORONADO MD Ot I25.10 ATHSCL HEART DISEASE OF [place] CORONARY 10/20/2017 JULIA CORONADO MD Ot I42.9 CARDIOMYOPATHY, UNSPECIFIED 10/20/2017 JULIA CORONADO MD Ot I48.91 UNSPECIFIED ATRIAL FIBRILLATION 10/20/2017 JULIA CORONADO MD Ot I50.9 HEART FAILURE, UNSPECIFIED 10/20/2017 JULIA CORONADO MD Ot J44.9 CHRONIC OBSTRUCTIVE PULMONARY DISEASE, U 10/20/2017 JULIA CORONADO MD Ot R04.0 EPISTAXIS 10/20/2017 JULIA CORONADO MD Ot R60.0 LOCALIZED EDEMA 10/20/2017 JULIA CORONADO MD Ot Z79.01 CORRECTION (CURRENT) USE OF ANTICOAGULANT 10/20/2017 JULIA CORONADO MD Ot Z79.82 SUPPORT DIRECTOR (CURRENT) USE OF ASPIRIN 10/20/2017 JULIA CORONADO MD Ot Z87.891 PERSONAL HISTORY OF NICOTINE DEPENDENCE 10/20/2017 JULIA CORONADO MD Ot Z99.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 10/23/2017 BRANDY CLEMENTSIS Ot E78.00 PURE HYPERCHOLESTEROLEMIA, UNSPECIFIED 10/23/2017 BERNOTBRANDYIS Ot I11.0 HYPERTENSIVE HEART DISEASE WITH HEART FA 10/23/2017 BRANDY CLEMENTSIS Ot I25.10 ATHSCL HEART DISEASE OF [place] CORONARY 10/23/2017 BRANDY CLEMENTSIS Ot I48.91 UNSPECIFIED ATRIAL FIBRILLATION 10/23/2017 BRANDY CLEMENTSIS Ot I50.9 HEART FAILURE, UNSPECIFIED 10/23/2017 BRANDY CLEMENTSIS Ot J44.9 CHRONIC OBSTRUCTIVE PULMONARY DISEASE, U 10/23/2017 BRANDY CLEMENTSIS Ot M10.9 GOUT, UNSPECIFIED 10/23/2017 STARR PATY Ot R40.2142 COMA SCALE, EYES OPEN, SPONTANEOUS, EMR 10/23/2017 BRANDY LCEMENTSIS Ot R40.2252 COMA SCALE, BEST VERBAL RESPONSE, ORIENT 10/23/2017 BRANDY CLEMENTSIS Ot R40.2362 COMA SCALE, BEST MOTOR RESPONSE, OBEYS C 10/23/2017 BRANDY CLEMENTSIS Ot S01.511A LACERATION WITHOUT FOREIGN BODY OF LIP, 10/23/2017 BRANDY CLEMENTSIS Ot W01.190A FALL SAME LEV FROM SLIP/TRIP W STRIKE AG 10/23/2017 BRANDY CLEMENTSIS Ot Z23 ENCOUNTER FOR IMMUNIZATION 10/23/2017 BRANDY CLEMENTSIS Ot Z79.51 SUPPORT DIRECTOR (CURRENT) USE OF INHALED STERO 10/23/2017 BRANDY CLEMENTSIS Ot Z79.82 CORRECTION (CURRENT) USE OF ASPIRIN 10/23/2017 BRANDY CLEMENTSIS Ot Z82.49 FAMILY HX OF ISCHEM HEART DIS AND OTH DI 10/23/2017 PATY CLEMENTS Ot Z87.891 PERSONAL HISTORY OF NICOTINE DEPENDENCE 10/25/2017 JULIA CORONADO MD Ot S01.511D LACERATION WITHOUT FOREIGN BODY OF LIP, 10/25/2017 JULIA CORONADO MD Ot X58.XXXD EXPOSURE TO OTHER SPECIFIED FACTORS, SUB 11/18/2017 GELLENDER DO, NISSA Dubose Ot I48.91 UNSPECIFIED ATRIAL FIBRILLATION 11/18/2017 GELLENDER DO, NISSA Dubose Ot I50.9 HEART FAILURE, UNSPECIFIED 11/18/2017 GELLENDER DO, NISSA Dubose Ot I51.7 CARDIOMEGALY 11/18/2017 GELLENDER DO, NISSA Dubose Ot J81.1 CHRONIC PULMONARY EDEMA Procedures There is no data. Results Test Result Range [id number] - 11/09/16 12:17 Serum or plasma urea [...] 0 % NRG Manual blood lymphocytes/100 leukocytes 7 % NRG Manual eosinophils/100 leukocytes in nose 0 % NR Manual blood basophils/100 leukocytes 0 % NR Blood erythrocyte morphology finding identification NORMAL [facility] Comprehensive metabolic panel - [...] CELLS LEUKO REDUCED AS1 TRANSFUSED 06/13/17 1140 [facility] Blood type T Indirect antibody screen panel - 06/13/17 09:24 ABO+Rh group AN [facility] Transfusion band number [id number] [facility] Blood group antibody screen NEGATIVE [facility] Whole blood hemoglobin and hematocrit panel - [...] plasma calcium measurement (mass/volume) 9.0 mg/dL 8.5-10.1 Complete blood count (CBC) with automated white blood cell (WBC) differential - 10/16/17 18:15 Blood leukocytes automated count (number/volume) 6.0 10*3/uL 4.3-11.0 Blood erythrocytes automated count (number/volume) 2.88 10*6/uL 4.35-5.85 Venous blood hemoglobin measurement (mass/volume) 8.3 g/dL 13.3-17.7 Blood hematocrit (volume fraction) 24 % 40-54 Automated erythrocyte mean corpuscular volume 84 [foz_us] 80-99 Automated erythrocyte mean corpuscular hemoglobin (mass per erythrocyte) 29 pg 25-34 Automated erythrocyte mean corpuscular hemoglobin concentration measurement ( mass/volume) 34 g/dL 32-36 Automated erythrocyte distribution width ratio 17.1 % 10.0-14.5 Automated blood platelet count (count/volume) 168 10*3/uL 130-400 Automated blood platelet mean volume measurement 9.0 [foz_us] 7.4-10.4 Automated blood neutrophils/100 leukocytes 82 % 42-75 Automated blood lymphocytes/100 leukocytes 7 % 12-44 Blood monocytes/100 leukocytes 8 % 0-12 Automated blood eosinophils/100 leukocytes 2 % 0-10 Automated blood basophils/100 leukocytes 0 % 0-10 Blood neutrophils automated count (number/volume) 4.9 10*3 1.8-7.8 Blood lymphocytes automated count (number/volume) 0.4 10*3 1.0-4.0 Blood monocytes automated count (number/volume) 0.5 10*3 0.0-1.0 Automated eosinophil count 0.1 10*3/uL 0.0-0.3 Automated blood basophil count (count/volume) 0.0 10*3/uL 0.0-0.1 PT panel in platelet poor plasma by coagulation assay - 10/16/17 18:15 Prothrombin time (PT) in platelet poor plasma by coagulation assay 29.6 s 12.2-14.7 INR in platelet poor plasma or blood by coagulation assay 2.8 0.8-1.4 Activated partial thromboplastin time (aPTT) in platelet poor plasma bycoagulation assay - 10/16/17 18:15 Activated partial thromboplastin time (aPTT) in platelet poor plasma bycoagulation assay 59 s 24-35 Comprehensive metabolic panel - 10/16/17 18:15 Serum or plasma sodium measurement (moles/volume) 117 mmol/L 135-145 Serum or plasma potassium measurement (moles/volume) 3.9 mmol/L 3.6-5.0 Serum or plasma chloride measurement (moles/volume) 83 mmol/L 98-107 Carbon dioxide 24 mmol/L 21-32 Serum or plasma anion gap determination (moles/volume) 10 mmol/L 5-14 Serum or plasma urea nitrogen measurement (mass/volume) 33 mg/dL 7-18 Serum or plasma creatinine measurement (mass/volume) 1.24 mg/dL 0.60-1.30 Serum or plasma urea nitrogen/creatinine mass ratio 27 NRG Serum or plasma creatinine measurement with calculation of estimated glomerular filtration rate 56 NRG Serum or plasma glucose measurement (mass/volume) 123 mg/dL 70-105 Serum or plasma calcium measurement (mass/volume) 8.8 mg/dL 8.5-10.1 Serum or plasma total bilirubin measurement (mass/volume) 1.1 mg/dL 0.1-1.0 Serum or plasma alkaline phosphatase measurement (enzymatic activity/volume) 84 U/L 40-136 Serum or plasma aspartate aminotransferase measurement (enzymatic activity/ volume) 21 U/L 5-34 Serum or plasma alanine aminotransferase measurement (enzymatic activity/volume ) 11 U/L 0-55 Serum or plasma protein measurement (mass/volume) 6.6 g/dL 6.4-8.2 Serum or plasma albumin measurement (mass/volume) 4.0 g/dL 3.2-4.5 CALCIUM CORRECTED 8.8 mg/dL 8.5-10.1 Magnesium - 09/02/18 18:15 Magnesium 2.2 mg/dL 1.8-2.4 Serum or plasma troponin i.cardiac measurement (mass/volume) - 10/16/17 18:15 Serum or plasma troponin i.cardiac measurement (mass/volume) < ng/ mL <0.30 Blood manual differential performed detection - 10/16/17 18:15 Blood monocytes/100 leukocytes 7 % NRG Manual blood segmented neutrophils/100 leukocytes 81 % NRG Blood band neutrophils/100 leukocytes 0 % NRG Manual blood lymphocytes/100 leukocytes 7 % NRG Manual eosinophils/100 leukocytes in nose 5 % NRG Manual blood basophils/100 leukocytes 0 % NRG Blood anisocytosis detection by light microscopy MODERATE NRG Blood ovalocytes detection by light microscopy SLIGHT NRG Blood toxic granules detection by light microscopy 1+ NRG Blood poikilocytosis detection by light microscopy MODERATE NRG Blood hypochromia detection by light microscopy MODERATE NRG Blood microcytes detection by light microscopy SLIGHT NRG Blood stomatocytes detection by light microscopy SLIGHT NRG Acanthocyte detection SLIGHT NRG Blood basophilic stippling detection by light microscopy MODERATE NRG Blood pappenheimer bodies detection by light microscopy SLIGHT NRG Serum or plasma lithium measurement (moles/volume) - 10/16/17 18:15 BNP level 657.2 pg/mL <100.0 Digoxin - 10/16/17 18:15 Digoxin 1.19 ng/mL 0.80-2.00 Serum or plasma ethanol measurement (mass/volume) - 10/16/17 18:15 Serum or plasma ethanol measurement (mass/volume) < mg/dL <10 RED CELLS LEUKO REDUCED AS1 - 10/16/17 19:45 RED CELLS LEUKO REDUCED AS1 TRANSFUSED 10/16/17 2120 NRG Blood type T Indirect antibody screen panel - 10/16/17 19:45 ABO+Rh group AN NRG Transfusion band number [id number] NRG Blood group antibody screen NEGATIVE NRG Complete blood count (CBC) with automated white blood cell (WBC) differential - 10/17/17 04:00 Blood leukocytes automated count (number/volume) 7.3 10*3/uL 4.3-11.0 Blood erythrocytes automated count (number/volume) 3.48 10*6/uL 4.35-5.85 Venous blood hemoglobin measurement (mass/volume) 10.1 g/dL 13.3-17.7 Blood hematocrit (volume fraction) 29 % 40-54 Automated erythrocyte mean corpuscular volume 83 [foz_us] 80-99 Automated erythrocyte mean corpuscular hemoglobin (mass per erythrocyte) 29 pg 25-34 Automated erythrocyte mean corpuscular hemoglobin concentration measurement ( mass/volume) 35 g/dL 32-36 Automated erythrocyte distribution width ratio 16.2 % 10.0-14.5 Automated blood platelet count (count/volume) 163 10*3/uL 130-400 Automated blood platelet mean volume measurement 9.5 [foz_us] 7.4-10.4 Automated blood neutrophils/100 leukocytes 77 % 42-75 Automated blood lymphocytes/100 leukocytes 12 % 12-44 Blood monocytes/100 leukocytes 8 % 0-12 Automated blood eosinophils/100 leukocytes 3 % 0-10 Automated blood basophils/100 leukocytes 0 % 0-10 Blood neutrophils automated count (number/volume) 5.6 10*3 1.8-7.8 Blood lymphocytes automated count (number/volume) 0.9 10*3 1.0-4.0 Blood monocytes automated count (number/volume) 0.6 10*3 0.0-1.0 Automated eosinophil count 0.2 10*3/uL 0.0-0.3 Automated blood basophil count (count/volume) 0.0 10*3/uL 0.0-0.1 Whole blood basic metabolic panel - 10/17/17 04:00 Serum or plasma sodium measurement (moles/volume) 123 mmol/L 135-145 Serum or plasma potassium measurement (moles/volume) 3.7 mmol/L 3.6-5.0 Serum or plasma chloride measurement (moles/volume) 87 mmol/L 98-107 Carbon dioxide 22 mmol/L 21-32 Serum or plasma anion gap determination (moles/volume) 14 mmol/L 5-14 Serum or plasma urea nitrogen measurement (mass/volume) 30 mg/dL 7-18 Serum or plasma creatinine measurement (mass/volume) 1.07 mg/dL 0.60-1.30 Serum or plasma urea nitrogen/creatinine mass ratio 28 NRG Serum or plasma creatinine measurement with calculation of estimated glomerular filtration rate > NRG Serum or plasma glucose measurement (mass/volume) 96 mg/dL 70-105 Serum or plasma calcium measurement (mass/volume) 9.0 mg/dL 8.5-10.1 PT panel in platelet poor plasma by coagulation assay - 11/17/17 15:48 Prothrombin time (PT) in platelet poor plasma by coagulation assay 42.5 s 12.2-14.7 INR in platelet poor plasma or blood by coagulation assay 4.4 0.8-1.4 Whole blood basic metabolic panel - 11/17/17 15:48 Serum or plasma sodium measurement (moles/volume) 120 mmol/L 135-145 Serum or plasma potassium measurement (moles/volume) 4.4 mmol/L 3.6-5.0 Serum or plasma chloride measurement (moles/volume) 85 mmol/L 98-107 Carbon dioxide 24 mmol/L 21-32 Serum or plasma anion gap determination (moles/volume) 11 mmol/L 5-14 Serum or plasma urea nitrogen measurement (mass/volume) 49 mg/dL 7-18 Serum or plasma creatinine measurement (mass/volume) 1.28 mg/dL 0.60-1.30 Serum or plasma urea nitrogen/creatinine mass ratio 38 NRG Serum or plasma creatinine measurement with calculation of estimated glomerular filtration rate 54 NRG Serum or plasma glucose measurement (mass/volume) 78 mg/dL 70-105 Serum or plasma calcium measurement (mass/volume) 9.2 mg/dL 8.5-10.1 Digoxin - 11/17/17 15:48 Digoxin 1.36 ng/mL 0.80-2.00 Serum or plasma lithium measurement (moles/volume) - 11/17/17 15:48 BNP level 1054.9 pg/mL <100.0 Encounters ACCT No. Visit Date/Time Discharge Status Pt. Type Provider Facility Loc./Unit Complaint [id number] 11/17/2017 15:13:00 11/17/2017 23:59:59 CLS Outpatient NISSA ANTONIO DO [facility] RAD SOB,CHF [id number] 2017 13:21:00 2017 13:32:00 DIS Outpatient JULIA CORONADO MD [facility] ER SUTURE REMOVAL [id number] 10/17/2017 18:45:00 10/17/2017 21:13:00 DIS Emergency PATY CLEMENTS [facility] ER FALL, SPLIT LIP [id number] 10/16/2017 20:10:00 10/17/2017 12:02:00 DIS Outpatient IVONNE MICHAELS, JULIA Aaron [facility] 4TH CHF,ANEMIA,HYPONATREMIA, CHRONIC ATRIAL FIB [id number] 06/12/2017 22:38:00 06/16/2017 11:40:00 DIS Inpatient RADHA MICHAELS, LEVAR Chauhan [facility] 4TH CHF W ACUTE EXACERBATION , HYPONATREMIA, COPD [id number] 02/21/2017 13:00:00 02/21/2017 23:59:59 CLS Preadmit NANCY HINKLE WOOL SCOURER [facility] PULM J44.9 COPD [id number] 12/21/2016 07:27:00 12/21/2016 23:59:59 CLS Preadmit NANCY HINKLE [employer] SCOURER [facility] RT COPD J44.9 [id number] 12/20/2016 11:46:00 12/20/2016 23:59:59 CLS Outpatient NANCY HINKLE WOOL SCOURER [facility] LAB J44.9 I25.10 I65.23 I10 E78.2 I48.0 [id number] 12/20/2016 11:46:00 12/20/2016 23:59:59 CLS Preadmit NANCY HINKLE [employer] SCOURER [facility] RAD G47.9,I48.0,X28395, G47.33 [id number] 12/08/2016 15:52:00 12/10/2016 17:00:00 DIS Inpatient NISSA ANTONIO DO [facility] 4TH ADCHF,NORMOCYTIC ANEMIA, SUBTHERAPEUTIC ANEMIA; [id number] 12/02/2016 14:22:00 12/02/2016 15:37:00 DIS Emergency SABIHA HERNANDEZ MD [facility] ER HEAD INJ [id number] 11/09/2016 12:09:00 11/09/2016 23:59:59 CLS Outpatient LAVONNE KELLY MD [facility] RAD CAROTID ARTERY STENOSIS I65.23 [id number] 11/29/2013 09:35:00 11/29/2013 23:59:59 CLS Outpatient LAVONNE KELLY MD [facility] CARD ABNORMAL STRESS, CAD,HTN ,HLP,CAROTID BRUIT [id number] 09/25/2012 09:47:00 09/25/2012 23:59:59 CLS Outpatient LETICIA MICHAELS, LAVONNE Manzano [facility] CARD CHF,CAD,HYPERTIENSION, HYPERLIPIDEMIA [id number] 07/24/2010 06:47:00 Document Registration [id number] 07/15/2010 10:39:00 Document Registration [id number] 07/08/2010 14:10:00 Document Registration
[2017-11-22] MEDS ORDERED: WARF-47 (15:49)
[2017-11-22] MEDS ORDERED: WARF3TAB56 (15:49)
--- NOTE | 2017-11-22 16:27 | Diagnostic Imaging Report ---
PROCEDURE: CT head without contrast. TECHNIQUE: Multiple contiguous axial images were obtained through the brain without the use of intravenous contrast. DATE: November 22, 2017. COMPARISON: CT head and cervical spine October 17, 2017. INDICATION: 82-year-old male, found down. Bleeding from nose. FINDINGS: There is no identified skull fracture. The visualized portions of the paranasal sinuses, mastoid air cells, and middle ears are well aerated. There is proportional prominence of the ventricles and CSF spaces compatible with severe cerebral volume loss. There are areas of low attenuation in the periventricular and subcortical white matter which likely reflect changes of chronic small vessel ischemic disease. There is no mass effect or midline shift. There is no acute intracranial hemorrhage. There is no abnormal extra-axial fluid collection. IMPRESSION: 1. No identified acute intracranial abnormality. 2. Severe cerebral volume loss with changes of chronic small vessel ischemic disease. Dictated by: Dictated on workstation # [id number]
--- NOTE | 2017-11-22 17:12 | ED Trauma-Multisystem ---
General Chief Complaint: Trauma-Non Activation Stated Complaint: FALL, NOSE BLEED Nursing Triage Note: ARRIVED VIA WC TO ROOM 10. DAUGHTER STATES SHE FOUND HIM ON THE FLOOR AT APPX 1330 TODAY. STATES SHE SAW HIM AT 0530 AND WAS FINE. HAS DEMENTIA ET UNABLE TO TELL US WHEN HE FELL. History of Present Illness Date Seen by Provider: Nov 22, 2017 Time Seen by Provider: 15:40 Initial Comments 82-year-old male presents for fall that occurred sometime earlier today. It was unwitnessed. His daughter reports she was at their home at 0500, he was still sleeping at that time. She arrived after lunch and found him lying on the floor, alert and oriented but unsure if there was LOC. He's had significant bleeding from his right nare, but thought he hit the back of his head. No neck pain or other areas of discomfort reported. He has had multiple falls over the last few weeks with healing bruises noted to all extremities. 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 Their daughter comes multiple times a day to help with her care. They have not discussed long-term care placement at this point. His medications have been adjusted over the last week, his INR was 4.4 late last week and the Coumadin was held and resumed yesterday. He has significant swelling in his lower extremities, and his daughter is concerned that is causing him to be unsteady on his feet. Occurred: This Afternoon Severity: Mild Pain/Injury Location: Head Method of Injury: Fall Loss of Consciousness: Unsure Associated Symptoms (Fall): Denies Symptoms Allergies and Home Medications Allergies Coded Allergies: No Allergy Information Available (Unverified , 11/09/16) Home Medications Albuterol Sulfate 18 Gm Hfa.aer.ad, 2 PUFF INH Q4H PRN for SHORTNESS OF BREATH, (Reported) Allopurinol 300 Mg Tablet, 300 MG PO DAILY, (Reported) Amlodipine Besylate 5 Mg Tablet, 5 MG PO DAILY, (Reported) Aspirin 81 Mg Tablet.dr, 81 MG PO DAILY, (Reported) Atorvastatin Calcium 20 Mg Tablet, 20 MG PO DAILY, (Reported) Digoxin 125 Mcg Tablet, 125 MCG PO DAILY, (Reported) Furosemide 80 Mg Tablet, 80 MG PO DAILY, (Reported) Losartan Potassium 100 Mg Tablet, 100 MG PO DAILY, (Reported) Metoprolol Succinate 100 Mg Tab.er.24h, 100 MG PO HS, (Reported) Potassium Chloride 10 Meq Tab.er.prt, 10 MEQ PO BID, (Reported) Patient Home Medication List Home Medication List Reviewed: Yes Review of Systems Review of Systems Constitutional: no symptoms reported, see HPI Nose: See HPI, Bloody Discharge All Other Systems Reviewed Negative Unless Noted: Yes Past Gnlsmgj-Csomsi-Njzhyz Hx Past Med/Social Hx: Reviewed Nursing Past Med/Soc Hx Patient Social History Alcohol Use: Occasionally Uses Alcohol Beverage of Choice: Beer Recreational Drug Use: No Smoking Status: Former Smoker Type Used: Cigarettes Former Smoker, Quit: Nov 14, 1969 Recent Foreign Travel: No Contact w/Someone Who Travel: No Recent Infectious Disease Expo: No Recent Hopitalizations: Yes (epitaxis 10/16/17) Immunizations Up To Date Tetanus Booster (TDap): Less than 5yrs PED Vaccines UTD: Yes Seasonal Allergies Seasonal Allergies: Yes Past Medical History Surgeries: Yes (CARDIAC CATH 2010-NO INTERVENTION) Cardiac Respiratory: Yes (O2 DEPENDENT) Chronic Bronchitis, COPD Currently Using CPAP: No Currently Using BIPAP: No Cardiac: Yes (CHF) Atrial Fibrillation, Cardiomyopathy, Chronic Edema/Swelling, Coronary Artery Disease, High Cholesterol, Hypertension, Irregular Heartbeat, Valvular Heart Disease Neurological: No Sexually Transmitted Disease: No HIV/AIDS: No Genitourinary: No Gastrointestinal: No Musculoskeletal: Yes Degenerate Disk Disease, Arthritis, Back Injury, Chronic Back Pain, Gout Endocrine: No HEENT: No Hearing Impairment: Hard of Hearing Cancer: No Psychosocial: No Integumentary: No (bruises, vairous stages) Blood Disorders: No Adverse Reaction/Blood Tranf: No Family Medical History Alzheimer's disease Congenital heart disease Hypertension Respiratory disorder No Pertinent Family Hx Physical Exam Vital Signs Vital Signs - First Documented 11/22/17 15:32 Temp 98.0 Pulse 70 Resp 18 B/P (MAP) 168/59 (95) Pulse Ox 96 O2 Delivery Room Air Height, Weight, BMI Height: 5'8.00" Weight: 185lbs. 4.8oz. 83.561160nt; 28.12 BMI Method:Stated General Appearance: WD/WN, Mild Distress Head: Active Bleeding (From right nare) Eyes: Bilateral Eye Normal Inspection, Bilateral Eye PERRL, Bilateral Eye EOMI Ears, Nose, Throat: Hearing Grossly Normal, No Dental Injury Neck: Full Range of Motion, Normal Inspection, Non Tender, Supple Cardiovascular: Regular Rate, Rhythm, No Murmur, Normal Peripheral Pulses Respiratory: Chest Non Tender, Lungs Clear, Normal Breath Sounds Gastrointestinal: Normal Bowel Sounds, Non Tender, Soft Extremity: Normal Inspection, Normal Range of Motion, Pedal Edema (3+ pitting) , Swelling Neurologic/Psychiatric: Alert, Oriented x3, No Motor/Sensory Deficits, Normal Mood/Affect Skin: Normal Color, Warm/Dry, Ecchymosis (Multiple areas of bruising at various stages noted to upper and lower extremities, patient reports history of several falls in the last few weeks.) [place] Coma Score Best Eye Response ([place]): (4) Open Spontaneously Best Verbal Response (Ye): (5) Oriented Best Motor Response ([place]): (6) Obeys Commands Ye Total: 15 Procedures/Interventions Suture Size: 5-0 Progress/Results/Core Measures Results/Orders Lab Results Laboratory Tests Test 11/22/17 17:10 Range/Units White Blood Count 8.5 4.3-11.0 10^3/uL Red Blood Count 2.55 L 4.35-5.85 10^6/uL Hemoglobin 7.3 L 13.3-17.7 G/DL Hematocrit 22 L 40-54 % Mean Corpuscular Volume 88 80-99 FL Mean Corpuscular Hemoglobin 29 25-34 PG Mean Corpuscular Hemoglobin Concent 33 32-36 G/DL Red Cell Distribution Width 16.3 H 10.0-14.5 % Platelet Count 224 130-400 10^3/uL Mean Platelet Volume 8.7 7.4-10.4 FL Neutrophils (%) (Auto) 85 H 42-75 % Lymphocytes (%) (Auto) 6 L 12-44 % Monocytes (%) (Auto) 8 0-12 % Eosinophils (%) (Auto) 1 0-10 % Basophils (%) (Auto) 0 0-10 % Neutrophils # (Auto) 7.3 1.8-7.8 X 10^3 Lymphocytes # (Auto) 0.5 L 1.0-4.0 X 10^3 Monocytes # (Auto) 0.6 0.0-1.0 X 10^3 Eosinophils # (Auto) 0.1 0.0-0.3 10^3/uL Basophils # (Auto) 0.0 0.0-0.1 10^3/uL Neutrophils % (Manual) 88 % Lymphocytes % (Manual) 10 % Monocytes % (Manual) 2 % Eosinophils % (Manual) 0 % Basophils % (Manual) 0 % Band Neutrophils 0 % Hypochromasia MODERATE Anisocytosis SLIGHT Spherocytes SLIGHT Elliptocytes SLIGHT Prothrombin Time 26.9 H 12.2-14.7 SEC INR Comment 2.5 H 0.8-1.4 Activated Partial Thromboplast Time 58 H 24-35 SEC Sodium Level 124 *L 135-145 MMOL/L Potassium Level 4.6 3.6-5.0 MMOL/L Chloride Level 90 L 98-107 MMOL/L Carbon Dioxide Level 25 21-32 MMOL/L Anion Gap 9 5-14 MMOL/L Blood Urea Nitrogen 44 H 7-18 MG/DL Creatinine 1.37 H 0.60-1.30 MG/DL Estimat Glomerular Filtration Rate 50 BUN/Creatinine Ratio 32 Glucose Level 93 70-105 MG/DL Calcium Level 8.8 8.5-10.1 MG/DL Corrected Calcium 8.9 8.5-10.1 MG/DL Total Bilirubin 1.8 H 0.1-1.0 MG/DL Aspartate Amino Transf (AST/SGOT) 29 5-34 U/L Alanine Aminotransferase (ALT/SGPT) 18 0-55 U/L Alkaline Phosphatase 77 40-136 U/L B-Type Natriuretic Peptide 1058.5 H <100.0 PG/ML Total Protein 6.6 6.4-8.2 GM/DL Albumin 3.9 3.2-4.5 GM/DL My Orders Orders - FLORENCIO FRANKLIN Ct Head Wo (11/22/17 16:08) Cbc With Automated Diff (11/22/17 16:52) Comprehensive Metabolic Panel (11/22/17 16:52) Protime With Inr (11/22/17 16:52) Partial Thromboplastin Time (11/22/17 16:52) Manual Differential (11/22/17 17:10) Ns Iv 1000 Ml (Sodium Chloride 0.9%) (11/22/17 17:54) BNP (11/22/17 18:10) Medications Given in ED Current Medications Medications Dose Ordered Sig/Nikia Route Start Time Stop Time Status Last Admin Dose Admin Sodium Chloride 1,000 ml @ [facility]-MED ONCE .ROUTE 11/22/17 17:54 11/22/17 17:59 DC 11/22/17 18:00 1,000 MLS/HR Vital Signs/I&O 11/22/17 15:32 Temp 98.0 Pulse 70 Resp 18 B/P (MAP) 168/59 (95) Pulse Ox 96 O2 Delivery Room Air Blood Pressure Mean: 95 Progress Progress Note : Time: 15:40 Progress Note Patient seen and evaluated, will obtain labs, CT head and packing placed to right nare. [address] results with the patient and his daughter. Patient anemic with a hemoglobin of 7.7 and BNP elevated 1058, Na low at 124. Recommended discussing with Dr. ANTONIO and plan to admit patient for observation. Patient was reluctant to stay in the hospital as his needs care at home. Discussed with the patient and her daughter the need to consider placement in long-term care. As he has sustained multiple falls in the past few weeks and I have concerns that these will continue and he will sustain a serious injury. Patient's assessment and diagnostic study findings reviewed with Dr. Medina, agreed with the plan of care. Rhino Rescue nasal packing placed to right nare, no further bleeding noted, patient tolerated placement. 1700 spoke with , agreed to admit patient. Admission orders received. [address] France, agreed to see patient tomorrow for cardiac evaluation. Diagnostic Imaging Diagonstic Imaging: CT Plain Films/CT/US/NM/MRI: head Comments NAME: ODELL VELARDE MED REC#: [id number] PT STATUS: REG ER : 1935 PHYSICIAN: FLORENCIO FRANKLIN ADMIT DATE: 11/22/17/ER Draft Date of Exam:11/22/17 CT HEAD WO PROCEDURE: CT head without contrast. TECHNIQUE: Multiple contiguous axial images were obtained through the brain without the use of intravenous contrast. DATE: November 22, 2017. COMPARISON: CT head and cervical spine October 17, 2017. INDICATION: 82-year-old male, found down. Bleeding from nose. FINDINGS: There is no identified skull fracture. The visualized portions of the paranasal sinuses, mastoid air cells, and middle ears are well aerated. There is proportional prominence of the ventricles and CSF spaces compatible with severe cerebral volume loss. There are areas of low attenuation in the periventricular and subcortical white matter which likely reflect changes of chronic small vessel ischemic disease. There is no mass effect or midline shift. There is no acute intracranial hemorrhage. There is no abnormal extra-axial fluid collection. IMPRESSION: 1. No identified acute intracranial abnormality. 2. Severe cerebral volume loss with changes of chronic small vessel ischemic disease. Dictated on workstation # [id number] Dict: 11/22/17 1622 Trans: 11/22/17 1626 CVB [id number] Interpreted by: EMILIE EM MD Electronically signed by: Reviewed: Reviewed by Me Diagonstic Imaging: Xray Plain Films/CT/US/NM/MRI: chest Comments NAME: ODELL VELARDE MED REC#: [id number] PT STATUS: ADM Faisal : 1935 PHYSICIAN: NISSA ANTONIO DO ADMIT DATE: 11/22/17 Signed Date of Exam: 11/22/17 CHEST 1 VIEW, AP/PA ONLY INDICATION: Congestive heart failure with shortness of breath. COMPARISON: 11/17/2017. FINDINGS: Stable marked cardiomegaly. Retrocardiac linear opacities are stable. No pleural effusion or pneumothorax. Atherosclerotic aorta. IMPRESSION: Stable marked cardiomegaly without features of pulmonary edema. Dictated by: Dictated on workstation # [id number] Dict: 11/22/172228 Trans: 11/22/172233 Interpreted by: RENUKA VALDEZ MD Electronically signed by: RENUKA VALDEZ MD 11/22/172233 Reviewed: Reviewed by Me Departure Impression Primary Impression: Fall Qualified Codes: W19.XXXA - Unspecified fall, initial encounter Additional Impressions: CHF exacerbation Qualified Codes: I50.9 - Heart failure, unspecified Anemia Qualified Codes: D64.9 - Anemia, unspecified Epistaxis Disposition: ADMITTED INPATIENT Condition: Stable Departure-Patient Inst. Referrals: NISSA ANTONIO DO (PCP/Family) Primary Care Physician Copy Copies To 1: NISSA ANTONIO DO Copies To 2: LAVONNE FRANCE MD, AMY ARNP Nov 22, 2017 17:12
[2017-11-22 17:15] LABS: BASOPHILS % (AUTO) 0 % (0-10); EOSINOPHILS # (AUTO) 0.1 10^3/uL (0.0-0.3); EOSINOPHILS % (AUTO) 1 % (0-10); HEMATOCRIT 22 % (40-54); HEMOGLOBIN 7.3 G/DL (13.3-17.7); LYMPHOCYTES # (AUTO) 0.5 X 10^3 (1.0-4.0); LYMPHOCYTES % (AUTO) 6 % (12-44); MEAN CORPUSCULAR HEMOGLOBIN 29 PG (25-34); MEAN CORPUSCULAR HGB CONC 33 G/DL (32-36); MEAN CORPUSCULAR VOLUME 88 FL (80-99); MEAN PLATELET VOLUME 8.7 FL (7.4-10.4); MONOCYTES # (AUTO) 0.6 X 10^3 (0.0-1.0); MONOCYTES % (AUTO) 8 % (0-12); NEUTROPHILS # (AUTO) 7.3 X 10^3 (1.8-7.8); NEUTROPHILS % (AUTO) 85 % (42-75); PLATELET COUNT 224 10^3/uL (130-400); RED BLOOD COUNT 2.55 10^6/uL (4.35-5.85); RED CELL DISTRIBUTION WIDTH 16.3 % (10.0-14.5); WHITE BLOOD COUNT 8.5 10^3/uL (4.3-11.0)
[2017-11-22 17:26] LABS: INR 2.5 (0.8-1.4); PROTHROMBIN TIME PATIENT 26.9 SEC (12.2-14.7)
[2017-11-22 17:34] LABS: ANISOCYTOSIS SLIGHT; BAND NEUTROPHILS 0 %; BASOPHILS % (MANUAL) 0 %; ELLIPT/OVALOCYTES SLIGHT; EOSINOPHILS % (MANUAL) 0 %; HYPOCHROMASIA MODERATE; LYMPHOCYTES % (MANUAL) 10 %; MONOCYTES % (MANUAL) 2 %; NEUTROPHILS % (MANUAL) 88 %; SPHEROCYTES SLIGHT
[2017-11-22 17:35] LABS: ALBUMIN 3.9 GM/DL (3.2-4.5); BILIRUBIN,TOTAL 1.8 MG/DL (0.1-1.0); CALCIUM 8.8 MG/DL (8.5-10.1); CREATININE SERUM 1.37 MG/DL (0.60-1.30); POTASSIUM 4.6 MMOL/L (3.6-5.0); TOTAL PROTEIN 6.6 GM/DL (6.4-8.2)
[2017-11-22] MEDS ORDERED: NS IV 1000 ML 1,000 ML ONE (17:54)
--- OUTSIDE RECORDS SUMMARY | 2017-11-22 18:41 | XMS REPORT | Continuity of Care Document ---
Author Author [facility] Organization [facility] Address Unknown Phone Unavailable Allergies Active Description Code Type Severity Reaction Onset Reported/Identified Relationship to Patient Clinical Status Yes No Allergy Information Available [id number] Drug Allergy Unknown N/A 2016 Medications There is no data. 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 12/10/2016, NISSA Dubose Ot E78.5 HYPERLIPIDEMIA, UNSPECIFIED 12/10/2016 [facility] DO, NISSA Dubose Ot E87.1 HYPO-OSMOLALITY AND HYPONATREMIA 12/10/2016, NISSA Dubose Ot E87.5 HYPERKALEMIA 12/10/2016, NISSA Dubose Ot E87.8 OTH DISORDERS OF ELECTROLYTE AND FLUID B 12/10/2016, NISSA Dubose Ot G47.30 SLEEP APNEA, UNSPECIFIED 12/10/2016 [facility], NISSA Dubose Ot I08.3 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MITRAL, AORTIC 12/10/2016 [facility] , NISSA Dubose Ot I11.0 HYPERTENSIVE HEART DISEASE WITH HEART FA 12/10/2016 [facility], NISSA Dubose Ot 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, NISSA Dubose Ot I70.8 ATHEROSCLEROSIS OF OTHER ARTERIES 12/10/2016[facility], NISSA Dubose Ot J30.2 OTHER SEASONAL ALLERGIC RHINITIS 12/10/2016, NISSA Dubose Ot J44.9 CHRONIC OBSTRUCTIVE PULMONARY DISEASE, U 12/10/2016 [facility], NISSA Dubose Ot R26.81 UNSTEADINESS ON FEET 12/10/2016 DO, NISSA Dubose Ot R41.0 DISORIENTATION, UNSPECIFIED 12/10/[address] DONISSA Ot R53.1 WEAKNESS 12/10/2016 [facility] Ot R60.0 LOCALIZED EDEMA 12/10/2016 NISSA ANTONIO DO Ot R79.1 ABNORMAL COAGULATION PROFILE 12/10/2016 NISSA ANTONIO DO Ot Z79.01 PRISON (CURRENT) USE OF ANTICOAGULANT 12/10/2016 NISSA ANTONIO [...] OF BILATERAL PORTER 12/23/2016 NANCY HINKLE E MANAGED CARE ANALYST Ot G47.33 OBSTRUCTIVE SLEEP APNEA (ADULT) (PEDIATR 12/23/2016 ANGELES HINKLEINE E MANAGED CARE ANALYST Ot I48.2 CHRONIC ATRIAL FIBRILLATION 12/23/2016 NANCY HINKLE E MANAGED CARE ANALYST Ot J44.9 CHRONIC OBSTRUCTIVE PULMONARY DISEASE, U 01/03/2017 NANCY HINKLE E MANAGED CARE ANALYST Ot G47.33 OBSTRUCTIVE SLEEP APNEA (ADULT) (PEDIATR 01/11/2017 ANGELES HINKLEINE E MANAGED CARE ANALYST Ot I48.2 CHRONIC ATRIAL FIBRILLATION 01/11/2017 ANGELES HINKLEINE E MANAGED CARE ANALYST Ot J44.9 CHRONIC OBSTRUCTIVE PULMONARY DISEASE, U 01/13/2017 ANGELES HINKLEINE E MANAGED CARE ANALYST Ot I48.2 CHRONIC ATRIAL FIBRILLATION 01/13/2017 ANGELES HINKLEINE E MANAGED CARE ANALYST Ot J44.9 CHRONIC OBSTRUCTIVE PULMONARY DISEASE, U 01/19/2017 NANCY HINKLE E MANAGED CARE ANALYST Ot G47.33 OBSTRUCTIVE SLEEP APNEA (ADULT) (PEDIATR [...] MD Ot 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 06/14/2017 LEVAR GARCIA MD Ot I27.29 [...] WEAKNESS 06/14/2017 LEVAR GARCIA MD Ot Z79.01 SLATE ROOFER HELPER (CURRENT) USE OF ANTICOAGULANT 06/14/2017 LEVAR [...] MD Ot 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 06/15/2017 LEVAR GARCIA MD Ot I27.29 [...] WEAKNESS 06/15/2017 LEVAR GARCIA MD Ot Z79.01 SLATE ROOFER HELPER (CURRENT) USE OF ANTICOAGULANT 06/15/2017 LEVAR [...] MD Ot 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 06/16/2017 LEVAR GARCIA MD Ot I27.29 [...] WEAKNESS 06/16/2017 LEVAR GARCIA MD Ot Z79.01 SLATE ROOFER HELPER (CURRENT) USE OF ANTICOAGULANT 06/16/2017 LEVAR [...] MD Ot 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 06/16/2017 LEVAR GARCIA MD Ot I27.29 [...] WEAKNESS 06/16/2017 LEVAR GARCIA MD Ot Z79.01 SLATE ROOFER HELPER (CURRENT) USE OF ANTICOAGULANT 06/16/2017 LEVAR [...] MD Ot 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 06/16/2017 LEVAR GARCIA MD Ot I27.29 [...] LEVAR GARCIA MD Ot R53.1 WEAKNESS 06/16/2017 ELVAR GARCIA MD Ot Z79.01 PRISON (CURRENT) USE OF ANTICOAGULANT 06/16/2017 LEVAR GARCIA [...] Ot I48.2 CHRONIC ATRIAL FIBRILLATION 10/16/2017 NANCY HINLKE APRN Ot J44.9 CHRONIC OBSTRUCTIVE PULMONARY DISEASE, [...] MD Ot 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 10/17/2017 JULIA CORONADO MD Ot I42.9 [...] IMMUNIZATION 10/17/2017 JULIA CORONADO MD Ot Z79.01 PRISON (CURRENT) USE OF ANTICOAGULANT 10/17/2017 JULIA CORONADO MD Ot Z79.51 SLATE ROOFER HELPER (CURRENT) USE OF INHALED STERO 10/17/2017 JULIA CORONADO MD Ot Z79.82 PRISON (CURRENT) USE OF ASPIRIN 10/17/2017 JULIA CORONADO [...] MD Ot 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 10/17/2017 JULIA CORONADO MD Ot I42.9 CARDIOMYOPATHY, UNSPECIFIED 10/17/2017 JULIA CORONADO MD Ot I48.91 UNSPECIFIED ATRIAL FIBRILLATION 10/17/2017 JULIA CORONADO MD Ot I50.9 HEART FAILURE, UNSPECIFIED 10/17/2017 JULIA CORONADO MD Ot J44.9 CHRONIC OBSTRUCTIVE PULMONARY DISEASE, U 10/17/2017 JULIA CORONADO MD Ot R04.0 EPISTAXIS 10/17/2017 JULIA CORONADO MD Ot R60.0 LOCALIZED EDEMA 10/17/2017 JULIA CORONADO MD Ot Z79.01 PRISON (CURRENT) USE OF ANTICOAGULANT 10/17/2017 JULIA CORONADO MD Ot Z79.82 PRISON (CURRENT) USE OF ASPIRIN 10/17/2017 JULIA CORONADO [...] MD Ot 429.3 CARDIOMEGALY 10/17/2017 LETICIA MICHAELS, LAVNONE Manzano Ot 433.10 CAROTID ARTERY OCCLUSION W [...] CLEMENTS Ot 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 10/17/2017 PATY CLEMENTS Ot I48.91 UNSPECIFIED [...] FOR IMMUNIZATION 10/17/2017 PATY CLEMENTS Ot Z79.51 SLATE ROOFER HELPER (CURRENT) USE OF INHALED STERO 10/17/2017 PATY CLEMENTS Ot Z79.82 SLATE ROOFER HELPER (CURRENT) USE OF ASPIRIN 10/17/2017 BERNOT, PATY Ot Z82.49 FAMILY HX OF ISCHEM HEART DIS AND OTH DI 10/17/2017 DEEYESICABRANDYIS Ot Z87.891 PERSONAL HISTORY OF NICOTINE DEPENDENCE 10/20/2017 BRANDY CLEMENTSIS Ot E78.00 PURE HYPERCHOLESTEROLEMIA, UNSPECIFIED 10/20/2017 BRANDY CLEMENTSIS Ot I11.0 HYPERTENSIVE HEART DISEASE WITH HEART FA 10/20/2017 BRANDY CLEMENTSIS Ot 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 10/20/2017 BRANDY CLEMENTSIS Ot I48.91 UNSPECIFIED [...] FOR IMMUNIZATION 10/20/2017 BRANDY CLEMENTSIS Ot Z79.51 PRISON (CURRENT) USE OF INHALED STERO 10/20/2017 BRANDY CLEMENTSIS Ot Z79.82 SLATE ROOFER HELPER (CURRENT) USE OF ASPIRIN 10/20/2017 BRANDY CLEMENTSIS [...] MD Ot 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 10/20/2017 JULIA CORONADO MD Ot I42.9 CARDIOMYOPATHY, UNSPECIFIED 10/20/2017 JULIA CORONADO MD Ot I48.91 UNSPECIFIED ATRIAL FIBRILLATION 10/20/2017 JULIA CORONADO MD Ot I50.9 HEART FAILURE, UNSPECIFIED 10/20/2017 JULIA CORONADO MD Ot J44.9 CHRONIC OBSTRUCTIVE PULMONARY DISEASE, U 10/20/2017 JULIA CORONADO MD Ot R04.0 EPISTAXIS 10/20/2017 JULIA CORONADO MD Ot R60.0 LOCALIZED EDEMA 10/20/2017 JULIA CORONADO MD Ot Z79.01 SLATE ROOFER HELPER (CURRENT) USE OF ANTICOAGULANT 10/20/2017 JULIA CORONADO MD Ot Z79.82 PRISON (CURRENT) USE OF ASPIRIN 10/20/2017 JULIA CORONADO [...] MD Ot 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 10/20/2017 JULIA CORONADO MD Ot I42.9 CARDIOMYOPATHY, UNSPECIFIED 10/20/2017 JULIA CORONADO MD Ot I48.91 UNSPECIFIED ATRIAL FIBRILLATION 10/20/2017 JULIA CORONADO MD Ot I50.9 HEART FAILURE, UNSPECIFIED 10/20/2017 JULIA CORONADO MD Ot J44.9 CHRONIC OBSTRUCTIVE PULMONARY DISEASE, U 10/20/2017 JULIA CORONADO MD Ot R04.0 EPISTAXIS 10/20/2017 JULIA CORONADO MD Ot R60.0 LOCALIZED EDEMA 10/20/2017 JULIA CORONADO MD Ot Z79.01 PRISON (CURRENT) USE OF ANTICOAGULANT 10/20/2017 JULIA CORONADO MD Ot Z79.82 SLATE ROOFER HELPER (CURRENT) USE OF ASPIRIN 10/20/2017 JULIA CORONADO MD Ot Z87.891 PERSONAL HISTORY OF NICOTINE DEPENDENCE 10/20/2017 JULIA CORONADO MD Ot Z99.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 10/23/2017 BRANDY CLEMENTSIS Ot E78.00 PURE HYPERCHOLESTEROLEMIA, UNSPECIFIED 10/23/2017 BERNOTBRANDYIS Ot I11.0 HYPERTENSIVE HEART DISEASE WITH HEART FA 10/23/2017 BRANDY CLEMENTSIS Ot 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 10/23/2017 BRANDY CLEMENTSIS Ot I48.91 UNSPECIFIED ATRIAL FIBRILLATION 10/23/2017 BRANDY CLEMENTSIS Ot I50.9 HEART FAILURE, UNSPECIFIED 10/23/2017 BRANDY CLEMENTSIS Ot J44.9 CHRONIC OBSTRUCTIVE PULMONARY DISEASE, U 10/23/2017 BRANDY CLEMENTSIS Ot M10.9 GOUT, UNSPECIFIED 10/23/2017 STARR PATY Ot R40.2142 COMA SCALE, EYES OPEN, SPONTANEOUS, EMR 10/23/2017 BRANDY CLEMENTSIS Ot R40.2252 COMA SCALE, BEST VERBAL RESPONSE, ORIENT 10/23/2017 BRANDY CLEMENTSIS Ot R40.2362 COMA SCALE, BEST MOTOR RESPONSE, OBEYS C 10/23/2017 BRANDY CLEMENTSIS Ot S01.511A LACERATION WITHOUT FOREIGN BODY OF LIP, 10/23/2017 BRANDY CLEMENTSIS Ot W01.190A FALL SAME LEV FROM SLIP/TRIP W STRIKE AG 10/23/2017 BRANDY CLEMENTSIS Ot Z23 ENCOUNTER FOR IMMUNIZATION 10/23/2017 BRANDY CLEMENTSIS Ot Z79.51 SLATE ROOFER HELPER (CURRENT) USE OF INHALED STERO 10/23/2017 BRANDY CLEMENTSIS Ot Z79.82 PRISON (CURRENT) USE OF ASPIRIN 10/23/2017 BRANDY CLEMENTSIS Ot Z82.49 FAMILY HX OF ISCHEM HEART DIS AND OTH DI 10/23/2017 PATY CLEMENTS Ot Z87.891 PERSONAL HISTORY OF NICOTINE DEPENDENCE 10/25/2017 JULIA CORONDAO MD Ot S01.511D LACERATION WITHOUT FOREIGN BODY [...] is no data. Results Test Result Range [id number] - 11/09/16 12:17 Serum or plasma urea [...] NR Blood erythrocyte morphology finding identification NORMAL [facility] Comprehensive metabolic panel - 12/08/16 [...] CELLS LEUKO REDUCED AS1 TRANSFUSED 06/13/17 1140 [facility] Blood type T Indirect antibody screen panel - 06/13/17 09:24 ABO+Rh group AN [facility] Transfusion band number [id number] [facility] Blood group antibody screen NEGATIVE [facility] Whole blood hemoglobin and hematocrit [...] ABO+Rh group AN NRG Transfusion band number [id number] NR[facility] Blood group antibody screen NEGATIVE NRG [...] 11/17/17 15:48 BNP level 1054.9 pg/mL <100.0 Complete blood count (CBC) with automated white blood cell (WBC) differential - 11/22/17 17:10 Blood leukocytes automated count (number/volume) 8.5 10*3/uL 4.3-11.0 Blood erythrocytes automated count (number/volume) 2.55 10*6/uL 4.35-5.85 Venous blood hemoglobin measurement (mass/volume) 7.3 g/dL 13.3-17.7 Blood hematocrit (volume fraction) 22 % 40-54 Automated erythrocyte mean corpuscular volume 88 [foz_us] 80-99 Automated erythrocyte mean corpuscular hemoglobin (mass per erythrocyte) 29 pg 25-34 Automated erythrocyte mean corpuscular hemoglobin concentration measurement ( mass/volume) 33 g/dL 32-36 Automated erythrocyte distribution width ratio 16.3 % 10.0-14.5 Automated blood platelet count (count/volume) 224 10*3/uL 130-400 Automated blood platelet mean volume measurement 8.7 [foz_us] 7.4-10.4 Automated blood neutrophils/100 leukocytes 85 % 42-75 Automated blood lymphocytes/100 leukocytes 6 % 12-44 Blood monocytes/100 leukocytes 8 % 0-12 Automated blood eosinophils/100 leukocytes 1 % 0-10 Automated blood basophils/100 leukocytes 0 % 0-10 Blood neutrophils automated count (number/volume) 7.3 10*3 1.8-7.8 Blood lymphocytes automated count (number/volume) 0.5 10*3 1.0-4.0 Blood monocytes automated count (number/volume) 0.6 10*3 0.0-1.0 Automated eosinophil count 0.1 10*3/uL 0.0-0.3 Automated blood basophil count (count/volume) 0.0 10*3/uL 0.0-0.1 PT panel in platelet poor plasma by coagulation assay - 11/22/17 17:10 Prothrombin time (PT) in platelet poor plasma by coagulation assay 26.9 s 12.2-14.7 INR in platelet poor plasma or blood by coagulation assay 2.5 0.8-1.4 Activated partial thromboplastin time (aPTT) in platelet poor plasma bycoagulation assay - 11/22/17 17:10 Activated partial thromboplastin time (aPTT) in platelet poor plasma bycoagulation assay 58 s 24-35 Blood manual differential performed detection - 11/22/17 17:10 Blood monocytes/100 leukocytes 2 % NRG Manual blood segmented neutrophils/100 leukocytes 88 % NRG Blood band neutrophils/100 leukocytes 0 % NRG Manual blood lymphocytes/100 leukocytes 10 % NRG Manual eosinophils/100 leukocytes in nose 0 % NRG Manual blood basophils/100 leukocytes 0 % NRG Blood anisocytosis detection by light microscopy SLIGHT NRG Blood ovalocytes detection by light microscopy SLIGHT NRG Blood hypochromia detection by light microscopy MODERATE NRG Blood spherocytes detection by light microscopy SLIGHT NRG Comprehensive metabolic panel - 11/22/17 17:10 Serum or plasma sodium measurement (moles/volume) 124 mmol/L 135-145 Serum or plasma potassium measurement (moles/volume) 4.6 mmol/L 3.6-5.0 Serum or plasma chloride measurement (moles/volume) 90 mmol/L 98-107 Carbon dioxide 25 mmol/L 21-32 Serum or plasma anion gap determination (moles/volume) 9 mmol/L 5-14 Serum or plasma urea nitrogen measurement (mass/volume) 44 mg/dL 7-18 Serum or plasma creatinine measurement (mass/volume) 1.37 mg/dL 0.60-1.30 Serum or plasma urea nitrogen/creatinine mass ratio 32 NRG Serum or plasma creatinine measurement with calculation of estimated glomerular filtration rate 50 NRG Serum or plasma glucose measurement (mass/volume) 93 mg/dL 70-105 Serum or plasma calcium measurement (mass/volume) 8.8 mg/dL 8.5-10.1 Serum or plasma total bilirubin measurement (mass/volume) 1.8 mg/dL 0.1-1.0 Serum or plasma alkaline phosphatase measurement (enzymatic activity/volume) 77 U/L 40-136 Serum or plasma aspartate aminotransferase measurement (enzymatic activity/ volume) 29 U/L 5-34 Serum or plasma alanine aminotransferase measurement (enzymatic activity/volume ) 18 U/L 0-55 Serum or plasma protein measurement (mass/volume) 6.6 g/dL 6.4-8.2 Serum or plasma albumin measurement (mass/volume) 3.9 g/dL 3.2-4.5 CALCIUM CORRECTED 8.9 mg/dL 8.5-10.1 Encounters ACCT No. Visit Date/Time Discharge Status Pt. Type Provider Facility Loc./Unit Complaint [id number] 11/17/2017 15:13:00 11/17/2017 23:59:59 CLS Outpatient NISSA ANTONIO DO [facility] RAD SOB,CHF [id number] 2017 13:21:00 2017 13:32:00 DIS Outpatient JULIA CORONADO MD [facility] ER SUTURE REMOVAL [id number] 10/17/2017 18:45:00 10/17/2017 21:13:00 DIS Emergency PATY CLEMENTS [facility] ER FALL, SPLIT LIP [id number] 10/16/2017 20:10:00 10/17/2017 12:02:00 DIS Outpatient JULIA CORONADO MD [facility] 4TH CHF,ANEMIA,HYPONATREMIA, CHRONIC ATRIAL FIB [id number] 06/12/2017 22:38:00 06/16/2017 11:40:00 DIS Inpatient RADHA MICHAELS, LEVAR Chauhan [facility] 4TH CHF W ACUTE EXACERBATION , HYPONATREMIA, COPD [id number] 02/21/2017 13:00:00 02/21/2017 23:59:59 CLS Preadmit NANCY HINKLE APRN [facility] PULM J44.9 COPD [id number] 12/21/2016 07:27:00 12/21/2016 23:59:59 CLS Preadmit NANCY HINKLE MANAGED CARE ANALYST [facility] RT COPD J44.9 [id number] 12/20/2016 11:46:00 12/20/2016 23:59:59 CLS Outpatient NANCY HINKLE APRN [facility] LAB J44.9 I25.10 I65.23 I10 E78.2 I48.0 [id number] 12/20/2016 11:46:00 12/20/2016 23:59:59 CLS Preadmit NANCY HINKLE MANAGED CARE ANALYST [facility] RAD G47.9,I48.0,Y14114, G47.33 [id number] 12/08/2016 15:52:00 12/10/2016 17:00:00 DIS Inpatient PACO BALCKMON NISSA A [facility] 4TH ADCHF,NORMOCYTIC ANEMIA, SUBTHERAPEUTIC ANEMIA; [id number] 12/02/2016 14:22:00 12/02/2016 15:37:00 DIS Emergency SABIHA HERNANDEZ MD [facility] ER HEAD INJ [id number] 11/09/2016 12:09:00 11/09/2016 23:59:59 CLS Outpatient LAVONNE KELLY MD [facility] RAD CAROTID ARTERY STENOSIS I65.23 [id number] 11/29/2013 09:35:00 11/29/2013 23:59:59 CLS Outpatient LAVONNE KELLY MD [facility] CARD ABNORMAL STRESS, CAD,HTN ,HLP,CAROTID BRUIT [id number] 09/25/2012 09:47:00 09/25/2012 23:59:59 CLS Outpatient LETICIA MICHAELS, LAVONNE Manzano [facility] CARD CHF,CAD,HYPERTIENSION, HYPERLIPIDEMIA [id number] 11/22/2017 18:20:00 ACT Inpatient NISSA ANTONIO DO [facility] 4TH HYPNATREMIA,MULTIPLE FALLS, EPISTAXIS,CHF, ANEMIA [id number] 07/24/2010 06:47:00 Document Registration [id number] 07/15/2010 10:39:00 Document Registration [id number] 07/08/2010 14:10:00 Document Registration
[2017-11-22] MEDS ORDERED: CATHETER FLUSH 10 ML SYR IV PRN (19:30)
[2017-11-22] MEDS ORDERED: ACETAMINOPHEN 325 MG TABLET PO PRN (19:30)
[2017-11-22] MEDS ORDERED: ONDANSETRON 4 MG/2 ML (SDV) Z0FRAN IV PRN (19:30)
[2017-11-22 20:00] VITALS: BP 149/69
[2017-11-22] MEDS ORDERED: FUROSEMIDE 40 MG/4 ML INJ (LASIX) IV NR (20:00)
--- NOTE | 2017-11-22 22:31 | Diagnostic Imaging Report ---
INDICATION: Congestive heart failure with shortness of breath. COMPARISON: 11/17/2017. FINDINGS: Stable marked cardiomegaly. Retrocardiac linear opacities are stable. No pleural effusion or pneumothorax. Atherosclerotic aorta. IMPRESSION: Stable marked cardiomegaly without features of pulmonary edema. Dictated by: Dictated on workstation # [id number]
[2017-11-22] MEDS: CATHETER FLUSH 10 ML SYR IV SCH (23:21)
[2017-11-23] VITALS (10 sets, daily range): BP systolic 139–163; BP diastolic 64–88
[2017-11-23] MEDS: CATHETER FLUSH 10 ML SYR IV SCH ×3 (06:29→20:19)
--- NOTE | 2017-11-23 07:56 | History & Physicial ---
History of Present Illness History of Present Illness Reason for visit/HPI Patient lives at home with his will has dementia. Daughter came by at 5 a.m. and father was doing okay. Daughter came back at noon and found father on the floor with right nares bleeding. Patient also had trauma to the head. Patient sent out to the emergency room. Patient's leg swelling. sodium 124.. Patient on blood thinner warfarin atrial fibrillation. Patient has been falling the last few weeks. 2 weeks ago INR was 4.4. Family realizes that this situation is not working. To get licensed social worker involved and cardiology. CHF Date of Admission Nov 22, 2017 at 18:20 Time Seen by a Provider: 07:51 I consulted on this patient on 11/23/17 07:42 Attending Physician Brian Antonio DO Admitting Physician Brian Antonio DO Consult Allergies and Home Medications Allergies Coded Allergies: No Allergy Information Available (Unverified , 11/09/16) Home Medications Albuterol Sulfate 18 Gm Hfa.aer.ad, 2 PUFF INH Q4H PRN for SHORTNESS OF BREATH, (Reported) Allopurinol 300 Mg Tablet, 300 MG PO DAILY, (Reported) Amlodipine Besylate 5 Mg Tablet, 5 MG PO DAILY, (Reported) Aspirin 81 Mg Tablet.dr, 81 MG PO DAILY, (Reported) Atorvastatin Calcium 20 Mg Tablet, 20 MG PO DAILY, (Reported) Digoxin 125 Mcg Tablet, 125 MCG PO DAILY, (Reported) Furosemide 80 Mg Tablet, 80 MG PO DAILY, (Reported) Losartan Potassium 100 Mg Tablet, 100 MG PO DAILY, (Reported) Metoprolol Succinate 100 Mg Tab.er.24h, 100 MG PO HS, (Reported) Potassium Chloride 10 Meq Tab.er.prt, 10 MEQ PO BID, (Reported) Patient Home Medication List Home Medication List Reviewed: No Past Vjwazzc-Pjkets-Bqvrrl Hx Patient Social History Marrital Status: Employed/Student: retired Alcohol Use: Occasionally Uses Alcohol Beverage of Choice: Beer Recreational Drug Use: No Smoking Status: Former Smoker Former Smoker, Quit: Nov 14, 1969 Type Used: Cigarettes Recent Foreign Travel: No Contact w/other who traveled: No Recent Hopitalizations: Yes (epitaxis 10/16/17) Recent Infectious Disease Expo: No Immunizations Up To Date Tetanus Booster (TDap): Less than 5yrs Pediatric: Yes Seasonal Allergies Seasonal Allergies: Yes Surgeries Yes (CARDIAC CATH 2010-NO INTERVENTION) Cardiac Respiratory Yes (O2 DEPENDENT) COPD Currently Using CPAP: No Currently Using BIPAP: No Cardiovascular Yes (CHF) Atrial Fibrillation, Cardiomyopathy, Chronic Edema/Swelling, Coronary Artery Disease, High Cholesterol, Hypertension, Irregular Heartbeat, Valvular Heart Disease Neurological No Reproductive System Sexually Transmitted Disease: No HIV/AIDS: No Genitourinary No Gastrointestinal No Musculoskeletal Yes Degenerate Disk Disease, Arthritis, Back Injury, Chronic Back Pain, Gout Endocrine History of Endocrine Disorders: No HEENT History of HEENT Disorders: No Hearing Impairment: Hard of Hearing Cancer No Psychosocial History of Psychiatric Problem: No Integumentary History of Skin or Integumenta: No (bruises, vairous stages) Blood Transfusions History of Blood Disorders: No Adverse Reaction to a Blood Tr: No Family Medical History Significant Family History: No Pertinent Family Hx Family Hx: Alzheimer's disease Congenital heart disease Hypertension Respiratory disorder Review of Systems Constitutional: malaise, weakness EENTM: other (Right nares epistaxis from trauma) Respiratory: short of breath, other (COPD) Cardiovascular: other (Atrial fibrillation) Gastrointestinal: no symptoms reported Genitourinary: no symptoms reported Physical Exam Vital Signs Vital Signs - First Documented 11/22/17 11/22/17 15:32 21:00 Temp 98.0 Pulse 70 Resp 18 B/P (MAP) 168/59 (95) Pulse Ox 96 O2 Delivery Room Air O2 Flow Rate 2.00 Capillary Refill : Less Than 3 SecondsLess Than 3 Seconds Height, Weight, BMI Height: 5'8.00" Weight: 185lbs. 4.8oz. 83.998817nj; 28.12 BMI Method:Stated General Appearance: WD/WN Eyes: Bilateral Eye Normal Inspection HEENT: Other (Epistaxis from trauma right nostril) Neck: Full Range of Motion Respiratory: No Accessory Muscle Use, No Respiratory Distress, Decreased Breath Sounds Cardiovascular: Irregularly Irregular Gastrointestinal: Non Tender, Soft Assessment/Plan Assessment and Plan Fall unwitnessed. Head trauma. Epistaxis right nostril from trauma. Atrial fibrillation. Coronary artery disease. Congestive heart failure. Hyponatremia. Social situation needs correction. Pretibial edema Admission Diagnosis Admission Status: Observation BRIAN ANTONIO DO Nov 23, 2017 07:56
--- NOTE | 2017-11-23 09:02 | Consultation-Cardiology ---
HPI-Cardiology Cardiology Consultation Date of Consultation 11/23/17 Date of Admission Time Seen by Provider: 08:30 Indication: Elevated BNP HPI Patient is a very pleasant 82 y/o male with history of advanced diastolic dysfunction, severe HTP, persistent atrial fibrillation. Presented to the ER yesterday after sustaining a fall at home. Daughter reports patient fell yesterday sometime between 5am and 12pm. Unwittnessed fall, patient does not recall event. Denies any CP or increased dyspnea. Daughter reports increased peripheral edema over the past month. Has history of multiple falls in the past. 82 years old gentleman with history of left ventricular diastolic dysfunction and severe pulmonary hypertension with persistent atrial fibrillation. Has been having generalized weakness and multiple falls at home. Brought to the hospital, having some shortness of breath. Reported hitting his back. His face. No chest pain. No full syncope was reported. Has insignificant pedal edema Home Medications & Allergies Allergies: Coded Allergies: No Allergy Information Available (Unverified , 11/09/16) Home Medication List Reviewed: Yes [id number] Hx Patient Social History Marital Status: Employed/Student: retired Alcohol Use: Occasionally Uses Recreational Drug Use: No Smoking Status: Former Smoker Type Used: Cigarettes Recent Foreign Travel: No Recent Infectious Disease Expo: No Recent Hopitalizations: Yes (epitaxis 10/16/17) Immunizations Up To Date Tetanus Booster (TDap): Less than 5yrs Past Medical History HTP, diastolic dysfunction, HTN, HLP, CAD, HTP, Persistent atrial fibrillation. Family Medical History Significant Family History: No Pertinent Family Hx Family History: Alzheimer's disease Congenital heart disease Hypertension Respiratory disorder Review of Systems Constitutional: No diaphoresis, No fever, No malaise, No weakness EENTM: No blurred vision Respiratory: No cough; dyspnea on exertion, orthopnea, short of breath; No wheezing Cardiovascular: No chest pain; edema; No palpitations Gastrointestinal: No abdominal pain, No constipation Genitourinary: No frequency, No hematuria Musculoskeletal: No back pain, No muscle pain Skin: No lesions, No rash; other (multiple bruises to arms and torso) Psychiatric/Neurological: Denies Headache, Denies Numbness Reviewed Test Results Reviewed Test Results Lab Laboratory Tests 11/22/17 17:10: White Blood Count 8.5, Red Blood Count 2.55L, Hemoglobin 7.3L, Hematocrit 22L, Mean Corpuscular Volume 88, Mean Corpuscular Hemoglobin 29, Mean Corpuscular Hemoglobin Concent 33, Red Cell Distribution Width 16.3H, Platelet Count 224, Mean Platelet Volume 8.7, Neutrophils (%) (Auto) 85H, Lymphocytes (%) (Auto) 6L , Monocytes (%) (Auto) 8, Eosinophils (%) (Auto) 1, Basophils (%) (Auto) 0, Neutrophils # (Auto) 7.3, Lymphocytes # (Auto) 0.5L, Monocytes # (Auto) 0.6, Eosinophils # (Auto) 0.1, Basophils # (Auto) 0.0, Neutrophils % (Manual) 88, Lymphocytes % (Manual) 10, Monocytes % (Manual) 2, Eosinophils % (Manual) 0, Basophils % (Manual) 0, Band Neutrophils 0, Hypochromasia MODERATE, Anisocytosis SLIGHT, Spherocytes SLIGHT, Elliptocytes SLIGHT, Prothrombin Time 26.9H, INR Comment 2.5H, Activated Partial Thromboplast Time 58H, Sodium Level 124*L, Potassium Level 4.6, Chloride Level 90L, Carbon Dioxide Level 25, Anion Gap 9, Blood Urea Nitrogen 44H, Creatinine 1.37H, Estimat Glomerular Filtration Rate 50, BUN/Creatinine Ratio 32, Glucose Level 93, Calcium Level 8.8, Corrected Calcium 8.9, Total Bilirubin 1.8H, Aspartate Amino Transf (AST/SGOT) 29, Alanine Aminotransferase (ALT/SGPT) 18, Alkaline Phosphatase 77, B-Type Natriuretic Peptide 1058.5H, Total Protein 6.6, Albumin 3.9 11/23/17 08:55: ECG Impression ECG Initial ECG Rhythm: A Fib/Flutter Physical Exam Vital Signs Vital Signs - First Documented 11/22/17 11/22/17 15:32 21:00 Temp 98.0 Pulse 70 Resp 18 B/P (MAP) 168/59 (95) Pulse Ox 96 O2 Delivery Room Air O2 Flow Rate 2.00 Capillary Refill : Less Than 3 SecondsLess Than 3 Seconds Height, Weight, BMI Height: 5'8.00" Weight: 185lbs. 4.8oz. 83.474496ah; 28.12 BMI Method:Stated General Appearance: No Apparent Distress, WD/WN HEENT: PERRL/EOMI, Other (nasal tampon to right nare) Neck: Full Range of Motion, Normal Inspection, Non Tender, Supple Respiratory: Chest Non Tender, No Accessory Muscle Use, No Respiratory Distress , Decreased Breath Sounds Cardiovascular: Regular Rate, Rhythm, No Gallop, Normal Peripheral Pulses, Irregularly Irregular Gastrointestinal: No Pulsatile Mass, Non Tender, Soft Rectal: Deferred Back: No CVA Tenderness Extremity: Non Tender, No Calf Tenderness Neurologic/Psychiatric: Alert, Oriented x3, lead clinical research coordinator II-XII Norm as Tested Skin: Normal Color, Warm/Dry Lymphatic: No Adenopathy A/P-Cardiology Admission Diagnosis s/p fall Persistent atrial fibrillation CAD CHF Peripheral edema Assessment/Plan s/p fall with multiple contusions, epistaxis- patient had an unwitnessed fall in the home yesterday, unsure if there was LOC. Continue to monitor. Persistant atrial fibrillation, currently in atrial fibrillation, rate controlled. Most recent 2-D echocardiogram revealed EF 50 percent. Mild left ventricular hypertrophy. Diastolic dysfunction. Biatrial enlargement. Maintained on Coumadin. INR therapeutic. Continue to monitor. [id number] score is 4, yearly risk of stroke without oral anticoagulation is 4 percent. Patient is maintained on Coumadin Coronary artery disease, mild to moderate disease, last cardiac catheterization was done in July 2010. Showing heavily calcified coronary system with mild disease, nonobstructive disease with cardiomyopathy, did not have the echocardiogram or the stress test done. Patient does not want to have a stress test done. He is asymptomatic at this time. Congestive heart failure,acute on chronic diastolic dysfunction, elevated BNP. Last echocardiogram was done on December 09, 2016, showing normal left ventricular function with EF 55 percent, advanced diastolic dysfunction, severely dilated right heart chambers with pulmonary artery pressure of 70 mmHg. Patient has worsening pitting edema, elevated BNP. I will reevaluate 2D Echo. Peripheral edema- +2-3 pitting edema, patient maintained on Lasix 80mg PO daily at home, took 120mg daily x 3 days prior to admission. Continue to diurese. Severe pulmonary hypertension, cor pulmonale with underlying COPD, needing to be on continuous oxygen. Followed and managed by Dr. Duron. Hyponatremia- continue to monitor Anemia- continue to monitor H/H. Chronic renal insufficiency- continue to monitor renal function. Hypertension, good control on current medication. Continue current medication and monitor Hyperlipidemia, continue to monitor lipids History of gouty arthritis, currently asymptomatic. Carotid artery stenosis, last ultrasound was done in October 2016, has heavily calcified arteries. Had a CT scan showed calcified plaque more prominent on the right with extension to the proximal, glutamine effect causing artifact to the area but appeared to be moderate stenosis, the right side estimated to be slightly better. Valvular heart disease with mild mitral, tricuspid and aortic regurgitation,I will reevaluate 2D Echo. Thank you for allowing us to participate in the management of Mr. Cain. This is Cherise Giang PA-C as a scribe for Dr. France. This is Dr. France, I have seen and evaluated the patient with Cherise, interviewed the patient and examined him, I agree with the current scribed note. In summary he is an 82 years old gentleman admitted for generalized weakness and multiple falls and fluid overload with congestive heart failure. On examination lungs were clear to auscultation bilaterally, heart is irregular , has +3 pedal edema, continue on diuretics for now, I will evaluate 2-D echocardiogram. Continue with aggressive medical therapy. Monitor his tolerance and response. I reviewed the above note and made few minor modifications using Italic Font Clinical Quality Measures DVT/VTE Risk/Contraindication: Contraindications-Pharm: Other *list below* Contraindications-Mechi: Other *list below* CHERISE CERDA Nov 23, 2017 09:02 LAVONNE FRANCE MD Nov 23, 2017 13:17
[2017-11-23 09:14] LABS: MEAN PLATELET VOLUME 8.2 FL (7.4-10.4); RED BLOOD COUNT 2.26 10^6/uL (4.35-5.85); RED CELL DISTRIBUTION WIDTH 16.3 % (10.0-14.5); WHITE BLOOD COUNT 6.7 10^3/uL (4.3-11.0)
[2017-11-23 09:18] LABS: INR 2.3 (0.8-1.4); PROTHROMBIN TIME PATIENT 25.2 SEC (12.2-14.7)
[2017-11-23 09:21] LABS: HEMOGLOBIN 6.5 G/DL (13.3-17.7)
[2017-11-23 09:32] LABS: CALCIUM 8.5 MG/DL (8.5-10.1); CREATININE SERUM 1.16 MG/DL (0.60-1.30); POTASSIUM 3.9 MMOL/L (3.6-5.0)
[2017-11-23] MEDS ORDERED: WARF5TAB PO (09:47)
[2017-11-23] MEDS ORDERED: METO-370 PO (09:48)
[2017-11-23] MEDS ORDERED: OMEP20CA12 PO (09:54)
[2017-11-23] MEDS ORDERED: ACETAMINOPHEN 325 MG TABLET PO ONE (10:00)
[2017-11-23] MEDS ORDERED: diphenhydrAMINE 25 MG TAB (BENADRYL) PO ONE ×2 (10:00→12:54)
[2017-11-23] MEDS: NS IV 500 ML 500 ML IV SCH (13:00)
[2017-11-23] MEDS: warFARin 5 MG (COUMADIN) TAB PO SCH (18:19)
[2017-11-24] VITALS (11 sets, daily range): BP systolic 146–181; BP diastolic 69–82
[2017-11-24] MEDS: CATHETER FLUSH 10 ML SYR IV SCH ×3 (05:41→19:59)
[2017-11-24 06:03] LABS: HEMOGLOBIN 7.4 G/DL (13.3-17.7); MEAN PLATELET VOLUME 8.8 FL (7.4-10.4); RED BLOOD COUNT 2.52 10^6/uL (4.35-5.85); WHITE BLOOD COUNT 10.9 10^3/uL (4.3-11.0)
[2017-11-24 06:18] LABS: PROTHROMBIN TIME PATIENT 22.7 SEC (12.2-14.7)
[2017-11-24 06:21] LABS: BUN/CREATININE RATIO 34; CALCIUM 8.6 MG/DL (8.5-10.1); CARBON DIOXIDE 23 MMOL/L (21-32); CHLORIDE 96 MMOL/L (98-107); CREATININE SERUM 1.09 MG/DL (0.60-1.30); GFR ESTIMATED > 60; GLUCOSE 116 MG/DL (70-105); POTASSIUM 4.1 MMOL/L (3.6-5.0); SODIUM 130 MMOL/L (135-145)
--- NOTE | 2017-11-24 07:53 | Cardiology Progress Note ---
Subjective Date Seen by Provider: Nov 24, 2017 Time Seen by Provider: 07:51 Subjective/Events-last exam Patient is sitting in a chair, feeling better today. Still having peripheral edema Review of Systems General: No Chills, No Night Sweats; Fatigue, Malaise; No Appetite, No Other HEENT: No Head Aches, No Visual Changes, No Eye Pain, No Ear Pain, No Dysphasia , No Sinus Congestion, No Post Nasal Drip, No Sore Throat, No Other Pulmonary: Dyspnea; No Cough, No Pleuritic Chest Pain, No Other Cardiovascular: Edema; No: Chest Pain, Palpitations, Orthopnea, Paroxysmal Noc. Dyspnea, Lt Headedness, Other Objective-Cardiology Exam Last Set of Vital Signs Vital Signs 11/24/17 11/24/17 04:26 05:39 Temp 100.0 Pulse 93 Resp 20 B/P (MAP) 174/78 (110) Pulse Ox 92 O2 Delivery OxyMask O2 Flow Rate 2.00 Capillary Refill : Less Than 3 SecondsLess Than 3 Seconds I&O Intake and Output 11/24/17 00:00 Intake Total 1150 ml Output Total 1075 ml Balance 75 ml Intake Oral 1150 ml Output Urine Total 1075 ml Bladder Scan Volume Amount 278 ml # Voids 3 General: Alert, Oriented X3, Cooperative HEENT: Atraumatic, PERRLA Neck: Supple, No JVD, No Thyromegaly Lungs: Clear to Auscultation, Normal Air Movement, Other Heart: Regular Rate, Normal S1, Normal S2, No Murmurs Abdomen: Normal Bowel Sounds, Soft, No Tenderness, No Hepatosplenomegaly, No Masses Extremities: No Clubbing, No Cyanosis, Normal Pulses, No Tenderness/Swelling, Other (+2-3 edema) Skin: No Rashes, No Breakdown, No Significant Lesion Neuro: Normal Speech, Normal Tone, Sensation Intact Psych/Mental Status: Mental Status NL, Mood NL Results Lab Laboratory Tests 11/23/17 08:55 11/24/17 05:20 A/P-Cardiology Admission Diagnosis s/p fall Persistent atrial fibrillation CAD CHF Peripheral edema Assessment/Plan S/p fall with multiple contusions, epistaxis- patient had an unwitnessed fall in the home yesterday, unsure if there was LOC. Continue to monitor. Low-grade fever, no leukocytosis. I will evaluate chest x-ray Persistent atrial fibrillation, currently in atrial fibrillation, rate controlled. Most recent 2-D echocardiogram revealed EF 50 percent. Mild left ventricular hypertrophy. Diastolic dysfunction. Biatrial enlargement. Maintained on Coumadin. INR therapeutic. Continue to monitor. Congestive heart failure, acute on chronic left ventricular diastolic dysfunction, echocardiogram showed normal LV size and function, enlarged left atrium with pulmonary hypertension. I will give additional dose of IV Lasix and continue on oral 80 mg daily. Continue to monitor [id number] score is 4, yearly risk of stroke without oral anticoagulation is 4 percent. Patient is maintained on Coumadin Coronary artery disease, mild to moderate disease, last cardiac catheterization was done in July 2010. Showing heavily calcified coronary system with mild disease, nonobstructive disease with cardiomyopathy, did not have the echocardiogram or the stress test done. Patient does not want to have a stress test done. He is asymptomatic at this time. Severe pulmonary hypertension, cor pulmonale with underlying COPD, needing to be on continuous oxygen. Followed and managed by Dr. Duron. Hyponatremia, some improvement today. Continue to monitor Anemia, I will transfuse one unit of packed RBCs and monitor Chronic renal insufficiency- continue to monitor renal function. Hypertension, restart home medications and monitor Hyperlipidemia, continue to monitor lipids History of gouty arthritis, currently asymptomatic. Carotid artery stenosis, last ultrasound was done in October 2016, has heavily calcified arteries. Had a CT scan showed calcified plaque more prominent on the right with extension to the proximal, glutamine effect causing artifact to the area but appeared to be moderate stenosis, the right side estimated to be slightly better. Clinical Quality Measures DVT/VTE Risk/Contraindication: Risk Factor Score Per Nursin RFS Level Per Nursing on Admit: 2=Moderate Contraindications-Pharm: Other *list below* Contraindications-Mechi: Other *list below* LAVONNE KELLY MD Nov 24, 2017 07:53
[2017-11-24] MEDS ORDERED: FUROSEMIDE 40 MG/4 ML INJ (LASIX) IVP NR (08:00)
--- NOTE | 2017-11-24 08:06 | Progress Note (SOAP) ---
Subjective Time Seen by a Provider: 08:02 Subjective/Events-last exam Patient feeling better today. Patient to receive another unit of packed red blood cells today. No bleeding from right nostril to remove nasal pack. Patient has swelling of legs still. Sodium 130 today improving area Hemoglobin 7.3. INR 2. Diastolic dysfunction. Falls. Severe pulmonary hypertension. Atrial fibrillation. Congestive heart failure. Hyponatremia. Anemia. Patient working with social work assistant and palliative care Objective Exam Vital Signs Date Time Temp Pulse Resp B/P (MAP) Pulse Ox O2 Delivery O2 Flow Rate FiO2 11/24/17 05:39 OxyMask 2.00 11/24/17 04:26 100.0 93 20 174/78 (110) 92 OxyMask 2.00 11/24/17 01:02 165/77 (106) 11/24/17 00:08 99.1 87 20 181/80 (113) 98 OxyMask 2.00 11/23/17 21:00 98 Venturi Mask 2.00 11/23/17 19:20 98.3 97 16 139/88 (105) 98 Room Air 11/23/17 17:10 97.8 87 18 144/79 (100) 99 OxyMask 11/23/17 16:30 97.4 74 149/68 11/23/17 13:32 97.3 66 163/81 11/23/17 13:18 97.1 87 16 143/68 11/23/17 13:17 97.1 87 143/68 11/23/17 13:01 OxyMask 2.00 11/23/17 12:00 97.3 88 18 157/74 (101) 95 Room Air 11/23/17 09:00 OxyMask 2.00 I & O 11/24/17 07:00 Intake Total 1450 ml Output Total 1825 ml Balance -375 ml Capillary Refill : Less Than 3 SecondsLess Than 3 Seconds General Appearance: No Apparent Distress, WD/WN, Other (Bruises on body) HEENT: Other (No bleeding from nares to remove nasal pack) Neck: Full Range of Motion, Normal Inspection Respiratory: No Accessory Muscle Use, No Respiratory Distress, Decreased Breath Sounds Cardiovascular: Irregularly Irregular Gastrointestinal: non tender, soft Extremity: Pedal Edema Results Lab Laboratory Tests 11/23/17 08:55 11/24/17 05:20 Laboratory Tests 11/23/17 08:55: White Blood Count 6.7, Red Blood Count 2.26L, Hemoglobin 6.5*L, Hematocrit 20*L , Mean Corpuscular Volume 89, Mean Corpuscular Hemoglobin 29, Mean Corpuscular Hemoglobin Concent 33, Red Cell Distribution Width 16.3H, Platelet Count 205, Mean Platelet Volume 8.2, Prothrombin Time 25.2H, INR Comment 2.3H, Sodium Level 128L, Potassium Level 3.9, Chloride Level 94L, Carbon Dioxide Level 24, Anion Gap 10, Blood Urea Nitrogen 45H, Creatinine 1.16, Estimat Glomerular Filtration Rate 60, BUN/Creatinine Ratio 39, Glucose Level 89, Calcium Level 8.5 11/24/17 05:20: White Blood Count 10.9, Red Blood Count 2.52L, Hemoglobin 7.4L, Hematocrit 23L, Mean Corpuscular Volume 89, Mean Corpuscular Hemoglobin 29, Mean Corpuscular Hemoglobin Concent 33, Red Cell Distribution Width 16.0H, Platelet Count 222, Mean Platelet Volume 8.8, Prothrombin Time 22.7H, INR Comment 2.0H, Sodium Level 130L, Potassium Level 4.1, Chloride Level 96L, Carbon Dioxide Level 23, Anion Gap 11, Blood Urea Nitrogen 37H, Creatinine 1.09, Estimat Glomerular Filtration Rate > 60, BUN/Creatinine Ratio 34, Glucose Level 116H, Calcium Level 8.6 Assessment/Plan Assessment/Plan Assess & Plan/Chief Complaint Falls. Anemia. Congestive heart failure. Atrial fibrillation. Epistaxis resolved. Severe pulmonary hypertension. Coronary artery disease. Congestive heart failure. Pedal edema. Diastolic i dysfunction Clinical Quality Measures Admission Status Admission Dx Fall unwitnessed. Head trauma. Epistaxis right nostril from trauma. Atrial fibrillation. Coronary artery disease. Congestive heart failure. Hyponatremia. Social situation needs correction. Pretibial edema DVT/VTE Risk/Contraindication: Risk Factor Score Per Nursin RFS Level Per Nursing on Admit: 2=Moderate Contraindications-Pharm: Other *list below* Contraindications-Mechi: Other *list below* NISSA ANTONIO DO Nov 24, 2017 08:06
[2017-11-24] MEDS: LOSARTAN 100 MG (COZAAR) TABLET PO SCH (09:52)
[2017-11-24] MEDS: amLODIPine 5 MG (NORVASC) TAB PO SCH (09:52)
[2017-11-24] MEDS: NS IV 500 ML 500 ML IV SCH (09:53)
[2017-11-24] MEDS: DIGOXIN 0.125 MG (LANOXIN) TAB PO SCH (11:10)
[2017-11-24] MEDS: FUROSEMIDE 40 MG (LASIX) TAB PO SCH (11:11)
--- NOTE | 2017-11-24 15:45 | Diagnostic Imaging Report ---
INDICATION: Fever. EXAMINATION: PA And lateral chest at 2:15 p.m. FINDINGS: The cardiomegaly noted on the prior exam of 11/22/2017 is again evident and no different. There are a few crowded bronchovascular markings in the left retrocardiac region. These could be secondary to mild pneumonia/atelectasis. The lungs are otherwise generally clear. There is no pleural effusion identified. The mediastinum is not widened. The osseous structures are intact. IMPRESSION: 1. The crowded bronchovascular markings in the left retrocardiac region are suspicious for mild pneumonia/atelectasis. Clinical followup is recommended. 2. There is no acute abnormality noted otherwise. Dictated by: Dictated on workstation # [id number]
[2017-11-24] MEDS: warFARin 5 MG (COUMADIN) TAB PO SCH (17:52)
[2017-11-24] MEDS ORDERED: RT-ALBUTEROL SULF 2.5 MG/3 ML PRE-MIX VIAL ONE (19:50)
[2017-11-24] MEDS ORDERED: RT-ADVAIR HFA 115/21 MCG PER PUFF IH SCH (20:00)
[2017-11-24] MEDS: RT-ALBUTEROL SULF 2.5 MG/3 ML PRE-MIX VIAL INH SCH (20:03)
[2017-11-24] MEDS ORDERED: meTOproloL SUCCINATE 50 MG (TOPROL XL) TAB PO SCH (21:00)
[2017-11-24] MEDS ORDERED: RT-ALBUTEROL SULF 2.5 MG/3 ML PRE-MIX VIAL INH PRN (22:15)
[2017-11-25 00:04] VITALS: BP 157/70
[2017-11-25 02:44] LABS: BILIRUBIN,URINE NEGATIVE (NEGATIVE); CLARITY,URINE SLIGHTLY CLOUDY; COLOR,URINE AMBER; GLUCOSE, URINE (UA) NEGATIVE (NEGATIVE); KETONES,URINE NEGATIVE (NEGATIVE); LEUKOCYTE ESTERASE ,URINE 1+ (NEGATIVE); NITRITE,URINE NEGATIVE (NEGATIVE); PH,URINE 5 (5-9); PROTEIN,URINE 2+ (NEGATIVE); UROBILINOGEN,URINE 4 MG/DL (NORMAL)
[2017-11-25 02:53] LABS: BACTERIA,URINE FEW /HPF; RBC,URINE 0-2 /HPF; SQUAMOUS EPITHELIAL CELL,UR 0-2 /HPF; WBC,URINE 0-2 /HPF
[2017-11-25 05:48] LABS: BASOPHILS % (AUTO) 0 % (0-10); EOSINOPHILS # (AUTO) 0.1 10^3/uL (0.0-0.3); EOSINOPHILS % (AUTO) 1 % (0-10); HEMATOCRIT 25 % (40-54); HEMOGLOBIN 8.2 G/DL (13.3-17.7); LYMPHOCYTES # (AUTO) 0.7 X 10^3 (1.0-4.0); LYMPHOCYTES % (AUTO) 7 % (12-44); MEAN CORPUSCULAR HEMOGLOBIN 29 PG (25-34); MEAN CORPUSCULAR HGB CONC 32 G/DL (32-36); MEAN CORPUSCULAR VOLUME 89 FL (80-99); MEAN PLATELET VOLUME 8.8 FL (7.4-10.4); MONOCYTES # (AUTO) 0.9 X 10^3 (0.0-1.0); MONOCYTES % (AUTO) 8 % (0-12); NEUTROPHILS # (AUTO) 9.4 X 10^3 (1.8-7.8); NEUTROPHILS % (AUTO) 85 % (42-75); PLATELET COUNT 217 10^3/uL (130-400); RED BLOOD COUNT 2.83 10^6/uL (4.35-5.85); RED CELL DISTRIBUTION WIDTH 16.8 % (10.0-14.5); WHITE BLOOD COUNT 11.2 10^3/uL (4.3-11.0)
[2017-11-25 06:00] LABS: INR 2.3 (0.8-1.4); PROTHROMBIN TIME PATIENT 25.1 SEC (12.2-14.7)
[2017-11-25 06:16] LABS: ALBUMIN 3.7 GM/DL (3.2-4.5); BILIRUBIN,TOTAL 1.6 MG/DL (0.1-1.0); CALCIUM 8.6 MG/DL (8.5-10.1); CREATININE SERUM 1.18 MG/DL (0.60-1.30); POTASSIUM 4.4 MMOL/L (3.6-5.0); TOTAL PROTEIN 7.2 GM/DL (6.4-8.2)
[2017-11-25] MEDS: RT-ALBUTEROL SULF 2.5 MG/3 ML PRE-MIX VIAL INH SCH ×2 (06:16→10:24)
[2017-11-25] MEDS: FUROSEMIDE 40 MG (LASIX) TAB PO SCH (06:41)
[2017-11-25] MEDS: CATHETER FLUSH 10 ML SYR IV SCH (06:42)
[2017-11-25] MEDS ORDERED: FUROSEMIDE 40 MG/4 ML INJ (LASIX) IVP NR (07:45)
[2017-11-25] MEDS ORDERED: cefTRIAXone FOR IV USE 1,000 MG in NS (IVPB) 50 ML IV NR (07:45)
--- NOTE | 2017-11-25 07:46 | Progress Note (SOAP) ---
Subjective Time Seen by a Provider: 07:43 Subjective/Events-last exam Patient feeling better today. Daughter and family wants to go home today. Patient to be discharged today. Patient needs to bedside commode. Explained to patient and daughter about falling and hitting head since on blood thinness Objective Exam Vital Signs Date Time Temp Pulse Resp B/P (MAP) Pulse Ox O2 Delivery O2 Flow Rate FiO2 11/25/17 06:20 96 Nasal Cannula 2.00 11/25/17 00:04 98.7 76 20 157/70 (99) 93 Nasal Cannula 2.00 11/24/17 22:04 75 95 11/24/17 20:17 96 Venturi Mask 2.00 11/24/17 20:03 95 Nasal Cannula 2.00 11/24/17 20:00 98.6 89 20 168/72 (104) 96 Nasal Cannula 2.00 11/24/17 16:24 98.7 88 20 177/76 (109) 96 Nasal Cannula 2.00 11/24/17 12:20 99.8 99 20 146/69 Nasal Cannula 2.00 11/24/17 12:00 99.8 99 20 146/69 (94) 92 Room Air 11/24/17 10:28 99.8 94 16 162/82 94 Room Air 11/24/17 09:55 98.9 109 16 178/73 93 Room Air 11/24/17 09:00 98 Venturi Mask 2.00 11/24/17 08:38 99.6 102 20 154/78 (103) 96 OxyMask 2.00 I & O 11/25/17 07:00 Intake Total 1370 ml Output Total 900 ml Balance 470 ml Capillary Refill : Less Than 3 SecondsLess Than 3 Seconds General Appearance: No Apparent Distress, WD/WN HEENT: Normal ENT Inspection Neck: Full Range of Motion, Normal Inspection Respiratory: Chest Non Tender, No Accessory Muscle Use, No Respiratory Distress Cardiovascular: Irregularly Irregular Gastrointestinal: non tender, soft Results Lab Laboratory Tests 11/25/17 05:00 Laboratory Tests 11/24/17 12:04: Lab Scanned Report Transfusion Reaction Form 11/25/17 02:30: Urine Color AMBERH, Urine Clarity SLIGHTLY CLOUDY, Urine pH 5, Urine Specific [place] 1.015L, Urine Protein 2+H, Urine Glucose (UA) NEGATIVE, Urine Ketones NEGATIVE, Urine Nitrite NEGATIVE, Urine Bilirubin NEGATIVE, Urine Urobilinogen 4H, Urine Leukocyte Esterase 1+H, Urine RBC (Auto) 1+H, Urine RBC 0-2, Urine WBC 0-2, Urine Squamous Epithelial Cells 0-2, Urine Crystals NONE, Urine Bacteria FEWH, Urine Casts NONE, Urine Mucus NEGATIVE, Urine Culture Indicated NO 11/25/17 05:00: White Blood Count 11.2H, Red Blood Count 2.83L, Hemoglobin 8.2L, Hematocrit 25L , Mean Corpuscular Volume 89, Mean Corpuscular Hemoglobin 29, Mean Corpuscular Hemoglobin Concent 32, Red Cell Distribution Width 16.8H, Platelet Count 217, Mean Platelet Volume 8.8, Neutrophils (%) (Auto) 85H, Lymphocytes (%) (Auto) 7L , Monocytes (%) (Auto) 8, Eosinophils (%) (Auto) 1, Basophils (%) (Auto) 0, Neutrophils # (Auto) 9.4H, Lymphocytes # (Auto) 0.7L, Monocytes # (Auto) 0.9, Eosinophils # (Auto) 0.1, Basophils # (Auto) 0.0, Prothrombin Time 25.1H, INR Comment 2.3H, Sodium Level 132L, Potassium Level 4.4, Chloride Level 97L, Carbon Dioxide Level 25, Anion Gap 10, Blood Urea Nitrogen 33H, Creatinine 1.18 , Estimat Glomerular Filtration Rate 59, BUN/Creatinine Ratio 28, Glucose Level 104, Calcium Level 8.6, Corrected Calcium 8.8, Total Bilirubin 1.6H, Aspartate Amino Transf (AST/SGOT) 23, Alanine Aminotransferase (ALT/SGPT) 16, Alkaline Phosphatase 73, Total Protein 7.2, Albumin 3.7 Assessment/Plan Assessment/Plan Assess & Plan/Chief Complaint Falls. Anemia. Congestive heart failure. Atrial fibrillation. Epistaxis resolved. Severe pulmonary hypertension. Coronary artery disease. Congestive heart failure. Pedal edema. Diastolic i dysfunction. . 11/25/17. Family and daughter wants patient to go home today. Patient to go home with her bedside commode. Falls. Anemia. Congestive heart failure. Atrial fibrillation. Epistaxis resolved. Severe pulmonary hypertension. Pedal edema. Anemia. 2 office next Clinical Quality Measures Admission Status Admission Dx Fall unwitnessed. Head trauma. Epistaxis right nostril from trauma. Atrial fibrillation. Coronary artery disease. Congestive heart failure. Hyponatremia. Social situation needs correction. Pretibial edema DVT/VTE Risk/Contraindication: Risk Factor Score Per Nursin RFS Level Per Nursing on Admit: 2=Moderate Contraindications-Pharm: Other *list below* Contraindications-Mechi: Other *list below* NISSA ANTONIO DO Nov 25, 2017 07:46
--- NOTE | 2017-11-25 07:49 | Cardiology Progress Note ---
Subjective Date Seen by Provider: Nov 25, 2017 Time Seen by Provider: 07:46 Subjective/Events-last exam Patient is sitting in bed, asking to go home, feeling better, no chest pain Review of Systems General: No Chills, No Night Sweats; Fatigue; No Malaise, No Appetite, No Other HEENT: No Head Aches, No Visual Changes, No Eye Pain, No Ear Pain, No Dysphasia , No Sinus Congestion, No Post Nasal Drip, No Sore Throat, No Other Pulmonary: Dyspnea; No Cough, No Pleuritic Chest Pain, No Other Cardiovascular: Edema; No: Chest Pain, Palpitations, Orthopnea, Paroxysmal Noc. Dyspnea, Lt Headedness, Other Objective-Cardiology Exam Last Set of Vital Signs Vital Signs 11/25/17 11/25/17 00:04 06:20 Temp 98.7 Pulse 76 Resp 20 B/P (MAP) 157/70 (99) Pulse Ox 96 O2 Delivery Nasal Cannula O2 Flow Rate 2.00 Capillary Refill : Less Than 3 SecondsLess Than 3 Seconds I&O Intake and Output 11/25/17 00:00 Intake Total 1470 ml Output Total 1650 ml Balance -180 ml Intake Oral 1350 ml IV Total 120 ml Output Urine Total 1650 ml # Voids 8 # Bowel Movements 2 General: Alert, Oriented X3, Cooperative HEENT: Atraumatic, PERRLA Neck: Supple, No JVD, No Thyromegaly Lungs: Clear to Auscultation, Normal Air Movement, Other Heart: Regular Rate, Normal S1, Normal S2, No Murmurs Abdomen: Normal Bowel Sounds, Soft, No Tenderness, No Hepatosplenomegaly, No Masses Extremities: No Clubbing, No Cyanosis, Normal Pulses, No Tenderness/Swelling, Other (+2-3 edema) Skin: No Rashes, No Breakdown, No Significant Lesion Neuro: Normal Speech, Normal Tone, Sensation Intact Psych/Mental Status: Mental Status NL, Mood NL Results Lab Laboratory Tests 11/25/17 05:00 A/P-Cardiology Admission Diagnosis s/p fall Persistent atrial fibrillation CAD CHF Peripheral edema Assessment/Plan S/p fall with multiple contusions, epistaxis- patient had an unwitnessed fall in the home yesterday, bleeding is better, asking to go home Low-grade fever, no leukocytosis, better today Persistent atrial fibrillation, currently in atrial fibrillation, rate controlled. Most recent 2-D echocardiogram revealed EF 50 percent. Mild left ventricular hypertrophy. Diastolic dysfunction. Biatrial enlargement. Maintained on Coumadin. INR therapeutic. Continue to monitor. Congestive heart failure, acute on chronic left ventricular diastolic dysfunction, echocardiogram showed normal LV size and function, enlarged left atrium with pulmonary hypertension. continue on oral lasix after discharge, educated on compliance with diet and limit fluid intake [id number] score is 4, yearly risk of stroke without oral anticoagulation is 4 percent. Patient is maintained on Coumadin, monitor INR as an outpatient Coronary artery disease, mild to moderate disease, last cardiac catheterization was done in July 2010. Showing heavily calcified coronary system with mild disease, nonobstructive disease with cardiomyopathy, did not have the echocardiogram or the stress test done. Patient does not want to have a stress test done. He is asymptomatic at this time. Severe pulmonary hypertension, cor pulmonale with underlying COPD, needing to be on continuous oxygen. Followed and managed by Dr. Duron. Hyponatremia, some improvement today. Continue to monitor Anemia, I will transfuse one unit of packed RBCs and monitor Chronic renal insufficiency- continue to monitor renal function. Hypertension, restart home medications and monitor Hyperlipidemia, continue to monitor lipids History of gouty arthritis, currently asymptomatic. Carotid artery stenosis, last ultrasound was done in October 2016, has heavily calcified arteries. Had a CT scan showed calcified plaque more prominent on the right with extension to the proximal, glutamine effect causing artifact to the area but appeared to be moderate stenosis, the right side estimated to be slightly better. Clinical Quality Measures DVT/VTE Risk/Contraindication: Risk Factor Score Per Nursin RFS Level Per Nursing on Admit: 2=Moderate Contraindications-Pharm: Other *list below* Contraindications-Mechi: Other *list below* LAVONNE KELLY MD Nov 25, 2017 07:49
--- NOTE | 2017-11-25 07:50 | Discharge Inst-Simple/Standard ---
Discharge Inst-Standard Patient Instructions/Follow Up Plan of Care/Instructions/FU: Sent home with bedside commode. 2 office next . Activity as Tolerated: Yes Discharge Diet: Low Sodium Diet NISSA ANTONIO DO Nov 25, 2017 07:50
[2017-11-25] MEDS: DIGOXIN 0.125 MG (LANOXIN) TAB PO SCH (08:20)
[2017-11-25] MEDS: LOSARTAN 100 MG (COZAAR) TABLET PO SCH (08:20)
[2017-11-25] MEDS: amLODIPine 5 MG (NORVASC) TAB PO SCH (08:20)
[2017-11-25 08:35] VITALS: BP 134/61
[2017-11-25 11:21] VITALS: BP 134/61
--- NOTE | 2017-11-28 08:28 | Discharge Summary ---
Diagnosis/Chief Complaint Date of Admission Nov 23, 2017 at 11:46 Date of Discharge Nov 25, 2017 at 11:20 Discharge Date: Nov 25, 2017 Discharge Time: 08:26 Discharge Diagnosis Unwitnessed fall. Head trauma. Epistaxis right nostril. Chronic atrial fibrillation. Coronary artery disease. Congestive heart failure. Hyponatremia. pretibial edema. diastolic dysfunction. Anemia requiring transfusion. Renal insufficiency Reason Hospital Visit Patient lives at home with his will has dementia. Daughter came by at 5 a.m. and father was doing okay. Daughter came back at noon and found father on the floor with right nares bleeding. Patient also had trauma to the head. Patient sent out to the emergency room. Patient's leg swelling. sodium 124.. Patient on blood thinner warfarin atrial fibrillation. Patient has been falling the last few weeks. 2 weeks ago INR was 4.4. Family realizes that this situation is not working. To get social services director involved and cardiology. CHF Discharge Summary Consultations Cardiology Discharge Physical Examination Allergies: Coded Allergies: No Allergy Information Available (Unverified , 11/09/16) Vitals & I&Os Vital Signs Date Time Temp Pulse Resp B/P (MAP) Pulse Ox O2 Delivery O2 Flow Rate FiO2 11/25/17 11:21 85 24 134/61 97 Nasal Cannula 2.00 11/25/17 08:35 97.9 Hospital Course Patient hospital improved. Patient's has dementia. Social situation at home a problem. Patient and family wants him to go back home. Labs (last 24 hrs) Laboratory Tests 11/22/17 17:10: White Blood Count 8.5, Red Blood Count 2.55L, Hemoglobin 7.3L, Hematocrit 22L, Mean Corpuscular Volume 88, Mean Corpuscular Hemoglobin 29, Mean Corpuscular Hemoglobin Concent 33, Red Cell Distribution Width 16.3H, Platelet Count 224, Mean Platelet Volume 8.7, Neutrophils (%) (Auto) 85H, Lymphocytes (%) (Auto) 6L , Monocytes (%) (Auto) 8, Eosinophils (%) (Auto) 1, Basophils (%) (Auto) 0, Neutrophils # (Auto) 7.3, Lymphocytes # (Auto) 0.5L, Monocytes # (Auto) 0.6, Eosinophils # (Auto) 0.1, Basophils # (Auto) 0.0, Neutrophils % (Manual) 88, Lymphocytes % (Manual) 10, Monocytes % (Manual) 2, Eosinophils % (Manual) 0, Basophils % (Manual) 0, Band Neutrophils 0, Hypochromasia MODERATE, Anisocytosis SLIGHT, Spherocytes SLIGHT, Elliptocytes SLIGHT, Prothrombin Time 26.9H, INR Comment 2.5H, Activated Partial Thromboplast Time 58H, Sodium Level 124*L, Potassium Level 4.6, Chloride Level 90L, Carbon Dioxide Level 25, Anion Gap 9, Blood Urea Nitrogen 44H, Creatinine 1.37H, Estimat Glomerular Filtration Rate 50, BUN/Creatinine Ratio 32, Glucose Level 93, Calcium Level 8.8, Corrected Calcium 8.9, Total Bilirubin 1.8H, Aspartate Amino Transf (AST/SGOT) 29, Alanine Aminotransferase (ALT/SGPT) 18, Alkaline Phosphatase 77, B-Type Natriuretic Peptide 1058.5H, Total Protein 6.6, Albumin 3.9 11/23/17 08:55: White Blood Count 6.7, Red Blood Count 2.26L, Hemoglobin 6.5*L, Hematocrit 20*L , Mean Corpuscular Volume 89, Mean Corpuscular Hemoglobin 29, Mean Corpuscular Hemoglobin Concent 33, Red Cell Distribution Width 16.3H, Platelet Count 205, Mean Platelet Volume 8.2, Prothrombin Time 25.2H, INR Comment 2.3H, Sodium Level 128L, Potassium Level 3.9, Chloride Level 94L, Carbon Dioxide Level 24, Anion Gap 10, Blood Urea Nitrogen 45H, Creatinine 1.16, Estimat Glomerular Filtration Rate 60, BUN/Creatinine Ratio 39, Glucose Level 89, Calcium Level 8.5 11/24/17 05:20: White Blood Count 10.9, Red Blood Count 2.52L, Hemoglobin 7.4L, Hematocrit 23L, Mean Corpuscular Volume 89, Mean Corpuscular Hemoglobin 29, Mean Corpuscular Hemoglobin Concent 33, Red Cell Distribution Width 16.0H, Platelet Count 222, Mean Platelet Volume 8.8, Prothrombin Time 22.7H, INR Comment 2.0H, Sodium Level 130L, Potassium Level 4.1, Chloride Level 96L, Carbon Dioxide Level 23, Anion Gap 11, Blood Urea Nitrogen 37H, Creatinine 1.09, Estimat Glomerular Filtration Rate > 60, BUN/Creatinine Ratio 34, Glucose Level 116H, Calcium Level 8.6 11/24/17 12:04: Lab Scanned Report Transfusion Reaction Form 11/25/17 02:30: Urine Color AMBERH, Urine Clarity SLIGHTLY CLOUDY, Urine pH 5, Urine Specific [place] 1.015L, Urine Protein 2+H, Urine Glucose (UA) NEGATIVE, Urine Ketones NEGATIVE, Urine Nitrite NEGATIVE, Urine Bilirubin NEGATIVE, Urine Urobilinogen 4H, Urine Leukocyte Esterase 1+H, Urine RBC (Auto) 1+H, Urine RBC 0-2, Urine WBC 0-2, Urine Squamous Epithelial Cells 0-2, Urine Crystals NONE, Urine Bacteria FEWH, Urine Casts NONE, Urine Mucus NEGATIVE, Urine Culture Indicated NO 11/25/17 05:00: White Blood Count 11.2H, Red Blood Count 2.83L, Hemoglobin 8.2L, Hematocrit 25L , Mean Corpuscular Volume 89, Mean Corpuscular Hemoglobin 29, Mean Corpuscular Hemoglobin Concent 32, Red Cell Distribution Width 16.8H, Platelet Count 217, Mean Platelet Volume 8.8, Neutrophils (%) (Auto) 85H, Lymphocytes (%) (Auto) 7L , Monocytes (%) (Auto) 8, Eosinophils (%) (Auto) 1, Basophils (%) (Auto) 0, Neutrophils # (Auto) 9.4H, Lymphocytes # (Auto) 0.7L, Monocytes # (Auto) 0.9, Eosinophils # (Auto) 0.1, Basophils # (Auto) 0.0, Prothrombin Time 25.1H, INR Comment 2.3H, Sodium Level 132L, Potassium Level 4.4, Chloride Level 97L, Carbon Dioxide Level 25, Anion Gap 10, Blood Urea Nitrogen 33H, Creatinine 1.18 , Estimat Glomerular Filtration Rate 59, BUN/Creatinine Ratio 28, Glucose Level 104, Calcium Level 8.6, Corrected Calcium 8.8, Total Bilirubin 1.6H, Aspartate Amino Transf (AST/SGOT) 23, Alanine Aminotransferase (ALT/SGPT) 16, Alkaline Phosphatase 73, Total Protein 7.2, Albumin 3.7 Laboratory Tests 11/22/17 17:10 11/23/17 08:55 11/24/17 05:20 11/25/17 05:00 Pending Labs Laboratory Tests 11/22/17 17:10: White Blood Count 8.5, Red Blood Count 2.55, Hemoglobin 7.3, Hematocrit 22, Mean Corpuscular Volume 88, Mean Corpuscular Hemoglobin 29, Mean Corpuscular Hemoglobin Concent 33, Red Cell Distribution Width 16.3, Platelet Count 224, Mean Platelet Volume 8.7, Neutrophils (%) (Auto) 85, Lymphocytes (%) (Auto) 6, Monocytes (%) (Auto) 8, Eosinophils (%) (Auto) 1, Basophils (%) (Auto) 0, Neutrophils # (Auto) 7.3, Lymphocytes # (Auto) 0.5, Monocytes # (Auto) 0.6, Eosinophils # (Auto) 0.1, Basophils # (Auto) 0.0, Neutrophils % (Manual) 88, Lymphocytes % (Manual) 10, Monocytes % (Manual) 2, Eosinophils % (Manual) 0, Basophils % (Manual) 0, Band Neutrophils 0, Hypochromasia MODERATE, Anisocytosis SLIGHT, Spherocytes SLIGHT, Elliptocytes SLIGHT, Prothrombin Time 26.9, INR Comment 2.5, Activated Partial Thromboplast Time 58, Sodium Level 124 , Potassium Level 4.6, Chloride Level 90, Carbon Dioxide Level 25, Anion Gap 9, Blood Urea Nitrogen 44, Creatinine 1.37, Estimat Glomerular Filtration Rate 50, BUN/Creatinine Ratio 32, Glucose Level 93, Calcium Level 8.8, Corrected Calcium 8.9, Total Bilirubin 1.8, Aspartate Amino Transf (AST/SGOT) 29, Alanine Aminotransferase (ALT/SGPT) 18, Alkaline Phosphatase 77, B-Type Natriuretic Peptide 1058.5, Total Protein 6.6, Albumin 3.9 11/23/17 08:55: White Blood Count 6.7, Red Blood Count 2.26, Hemoglobin 6.5, Hematocrit 20, Mean Corpuscular Volume 89, Mean Corpuscular Hemoglobin 29, Mean Corpuscular Hemoglobin Concent 33, Red Cell Distribution Width 16.3, Platelet Count 205, Mean Platelet Volume 8.2, Prothrombin Time 25.2, INR Comment 2.3, Sodium Level 128, Potassium Level 3.9, Chloride Level 94, Carbon Dioxide Level 24, Anion Gap 10, Blood Urea Nitrogen 45, Creatinine 1.16, Estimat Glomerular Filtration Rate 60, BUN/Creatinine Ratio 39, Glucose Level 89, Calcium Level 8.5 11/24/17 05:20: White Blood Count 10.9, Red Blood Count 2.52, Hemoglobin 7.4, Hematocrit 23, Mean Corpuscular Volume 89, Mean Corpuscular Hemoglobin 29, Mean Corpuscular Hemoglobin Concent 33, Red Cell Distribution Width 16.0, Platelet Count 222, Mean Platelet Volume 8.8, Prothrombin Time 22.7, INR Comment 2.0, Sodium Level 130, Potassium Level 4.1, Chloride Level 96, Carbon Dioxide Level 23, Anion Gap 11, Blood Urea Nitrogen 37, Creatinine 1.09, Estimat Glomerular Filtration Rate > 60, BUN/Creatinine Ratio 34, Glucose Level 116, Calcium Level 8.6 11/24/17 12:04: Lab Scanned Report Transfusion Reaction Form 11/25/17 02:30: Urine Color KENRICK, Urine Clarity SLIGHTLY CLOUDY, Urine pH 5, Urine Specific [place] 1.015, Urine Protein 2+, Urine Glucose (UA) NEGATIVE, Urine Ketones NEGATIVE, Urine Nitrite NEGATIVE, Urine Bilirubin NEGATIVE, Urine Urobilinogen 4 , Urine Leukocyte Esterase 1+, Urine RBC (Auto) 1+, Urine RBC 0-2, Urine WBC 0-2 , Urine Squamous Epithelial Cells 0-2, Urine Crystals NONE, Urine Bacteria FEW, Urine Casts NONE, Urine Mucus NEGATIVE, Urine Culture Indicated NO 11/25/17 05:00: White Blood Count 11.2, Red Blood Count 2.83, Hemoglobin 8.2, Hematocrit 25, Mean Corpuscular Volume 89, Mean Corpuscular Hemoglobin 29, Mean Corpuscular Hemoglobin Concent 32, Red Cell Distribution Width 16.8, Platelet Count 217, Mean Platelet Volume 8.8, Neutrophils (%) (Auto) 85, Lymphocytes (%) (Auto) 7, Monocytes (%) (Auto) 8, Eosinophils (%) (Auto) 1, Basophils (%) (Auto) 0, Neutrophils # (Auto) 9.4, Lymphocytes # (Auto) 0.7, Monocytes # (Auto) 0.9, Eosinophils # (Auto) 0.1, Basophils # (Auto) 0.0, Prothrombin Time 25.1, INR Comment 2.3, Sodium Level 132, Potassium Level 4.4, Chloride Level 97, Carbon Dioxide Level 25, Anion Gap 10, Blood Urea Nitrogen 33, Creatinine 1.18, Estimat Glomerular Filtration Rate 59, BUN/Creatinine Ratio 28, Glucose Level 104, Calcium Level 8.6, Corrected Calcium 8.8, Total Bilirubin 1.6, Aspartate Amino Transf (AST/SGOT) 23, Alanine Aminotransferase (ALT/SGPT) 16, Alkaline Phosphatase 73, Total Protein 7.2, Albumin 3.7 Discharge Home Medications: Active Scripts Active Reported Omeprazole 20 Mg Capsule.dr 20 Mg PO DAILY Metoprolol Succinate 50 Mg Tab.er.24h 50 Mg PO HS Coumadin (Warfarin Sodium) 5 Mg Tablet 5 Mg PO DAILY Furosemide 80 Mg Tablet 80 Mg PO DAILY Klor-Con M10 (Potassium Chloride) 10 Meq Tab.er.prt 10 Meq PO BID Losartan Potassium 100 Mg Tablet 100 Mg PO DAILY Allopurinol 300 Mg Tablet 300 Mg PO DAILY Ventolin Hfa (Albuterol Sulfate) 18 Gm Hfa.aer.ad 2 Puff INH Q4H PRN Amlodipine Besylate 5 Mg Tablet 5 Mg PO DAILY Digoxin 125 Mcg Tablet 125 Mcg PO DAILY Atorvastatin Calcium 20 Mg Tablet 20 Mg PO DAILY Instructions to patient/family Please see electronic discharge instructions given to patient. Clinical Quality Measures DVT/VTE Risk/Contraindication: Risk Factor Score Per Nursin RFS Level Per Nursing on Admit: 2=Moderate Contraindications-Pharm: Other *list below* Contraindications-Mechi: Other *list below* NISSA ANTONIO DO Nov 28, 2017 08:28
== END 2017-11-25 11:20 | disposition home or self-care (01) | DRG 291 ==
LOC: EDUNIT# 15:28 → ER 15:29 → UNDOADMOB 18:20 → 4TH 18:20 → INTOOBSV 11-23 11:46 → OBSVTOIN 11-23 11:46 → UNDODISIN 11-25 11:20
PROVIDERS: ADMIT Family Medicine; ATTEND Family Medicine
DX: I13.0 Hypertensive heart and chronic kidney disease with heart failure and stage 1 through stage 4 chronic kidney disease, or unspecified chronic kidney disease (principal); I50.33 Acute on chronic diastolic (congestive) heart failure; N18.9 Chronic kidney disease, unspecified; I48.1 Persistent atrial fibrillation; E87.1 Hypo-osmolality and hyponatremia; D64.9 Anemia, unspecified; S09.92XA Unspecified injury of nose, initial encounter; R04.0 Epistaxis; S09.90XA Unspecified injury of head, initial encounter; S40.021A Contusion of right upper arm, initial encounter; S40.022A Contusion of left upper arm, initial encounter; I42.9 Cardiomyopathy, unspecified; I25.10 Atherosclerotic heart disease of native coronary artery without angina pectoris; I27.29 Other secondary pulmonary hypertension; J44.9 Chronic obstructive pulmonary disease, unspecified; F03.90 Unspecified dementia, unspecified severity, without behavioral disturbance, psychotic disturbance, mood disturbance, and anxiety; E78.00 Pure hypercholesterolemia, unspecified; M10.9 Gout, unspecified; I65.23 Occlusion and stenosis of bilateral carotid arteries; I08.3 Combined rheumatic disorders of mitral, aortic and tricuspid valves; J30.2 Other seasonal allergic rhinitis; M19.91 Primary osteoarthritis, unspecified site; M54.9 Dorsalgia, unspecified; R29.6 Repeated falls; W19.XXXA Unspecified fall, initial encounter; Y92.019 Unspecified place in single-family (private) house as the place of occurrence of the external cause; Z87.891 Personal history of nicotine dependence; Z79.01 Long term (current) use of anticoagulants; Z99.81 Dependence on supplemental oxygen
CPT/HCPCS: 36415; 36430; 70450; 71045; 71046; 80048; 80053; 81000; 83880; 85007; 85025; 85027; 85610; 85730; 86850; 86900; 86901; 86920; 93306; 94640; G0378

== ENCOUNTER 2017-12-02 12:46 | Outpatient (CLI) | payer MEDICARE, OTHER ==
[~2017-12-02] VITALS: Ht 172.7 cm; Wt 84.1 kg
[~2017-12-02 12:46] MED LIST changes: +METO-370 PO; +OMEP20CA12 PO; +WARF-47; +WARF3TAB56; +WARF5TAB PO
[2017-12-02] MEDS ORDERED: diphenhydrAMINE 25 MG TAB (BENADRYL) PO ONE (13:15)
[2017-12-02] MEDS ORDERED: ACETAMINOPHEN 325 MG TABLET PO SCH (13:15)
[2017-12-02] MEDS ORDERED: NS IV 500 ML 500 ML IV ONE (13:15)
[2017-12-02 13:26] VITALS: BP 121/69
[2017-12-02 14:10] VITALS: BP 138/75
[2017-12-02 14:25] VITALS: BP 137/67
[2017-12-02 15:05] VITALS: BP 141/61
[2017-12-02 16:35] VITALS: BP 142/58
[2017-12-02 16:59] LABS: HEMOGLOBIN 7.7 G/DL (13.3-17.7)
[2017-12-02 17:05] VITALS: BP 121/69
== END 2017-12-02 15:00 | disposition home or self-care (01) ==
LOC: SDC 12:46
PROVIDERS: ATTEND Family Medicine
DX: D64.9 Anemia, unspecified (principal)
CPT/HCPCS: 36415; 36430; 85014; 85018; 86850; 86900; 86901; 86920

== ENCOUNTER 2017-12-04 08:37 | Inpatient (IN) | payer MEDICARE, OTHER ==
[~2017-12-04] VITALS: Ht 170.2 cm; Wt 87.9 kg
[2017-12-04] VITALS (27 sets, daily range): BP systolic 94–166; BP diastolic 53–95
--- NOTE | 2017-12-04 09:01 | ED Fall/Injury ---
General Chief Complaint: Trauma-Non Activation Stated Complaint: FALL Nursing Triage Note: ARRIVED VIA EMS FROM HOME. DAUGHTER STATES HE FELL SOMETIME BETWEEN [phone] THIS MORNING. PT ARRIVED WITH A LAC TO THE BACK OF THE HEAD. UNKNOWN LOC. PT ON BLOOD THINNERS. DENIES NECK PAIN. HAS BEEN SEEN HERE MULTIPLE TIMES LATELY FOR FALLS AND HAS WIDESPREAD VARIOUS BRUISING. RECIEVED A UNIT OF BLOOD LAST WEEK. Source: patient, family ( and daughter), EMS Exam Limitations: no limitations History of Present Illness Date Seen by Provider: Dec 04, 2017 Time Seen by Provider: 08:42 Initial Comments Patient presents to the ER by EMS with chief complaint that he had a fall sometime this morning and struck his head and has a laceration that is bleeding profusely out of the back of his head. EMS got addressed up but continues to leak through the dressing. He was at outpatient surgery receiving a blood transfusion Tuesday, 2 days ago secondary to multiple falls recently he is having a little pain in his low back mostly in the back of his head. He said he did take a tramadol just one tablet last night. His daughter lives 2 blocks away and she checked on him at midnight and everything was okay. She says she sets of his meds and he takes them routinely but he has not had his morning meds yet. He is on warfarin. He did not eat anything yesterday evening but he said he did have a beer last night. EMS reports they were unable to get a c- collar on him because he did not have one set him. He denies loss of consciousness. He has a history of congestive heart failure but no coronary artery disease. He is on the warfarin for atrial fibrillation. Patient received a flu shot but the daughter does not think he received a tetanus shot. Allergies and Home Medications Allergies Coded Allergies: No Allergy Information Available (Unverified , 11/09/16) Home Medications Albuterol Sulfate 18 Gm Hfa.aer.ad, 2 PUFF INH Q4H PRN for SHORTNESS OF BREATH, (Reported) Allopurinol 300 Mg Tablet, 300 MG PO DAILY, (Reported) Amlodipine Besylate 5 Mg Tablet, 5 MG PO DAILY, (Reported) Atorvastatin Calcium 20 Mg Tablet, 20 MG PO DAILY, (Reported) Digoxin 125 Mcg Tablet, 125 MCG PO DAILY, (Reported) Furosemide 80 Mg Tablet, 80 MG PO DAILY, (Reported) Losartan Potassium 100 Mg Tablet, 100 MG PO DAILY, (Reported) Metoprolol Succinate 50 Mg Tab.er.24h, 50 MG PO HS, (Reported) Omeprazole 20 Mg Capsule.dr, 20 MG PO DAILY, (Reported) Potassium Chloride 10 Meq Tab.er.prt, 10 MEQ PO BID, (Reported) Warfarin Sodium 5 Mg Tablet, 5 MG PO DAILY, (Reported) Patient Home Medication List Home Medication List Reviewed: Yes Review of Systems Review of Systems Constitutional: No chills, No diaphoresis Eyes: Denies Blindness, Denies Blurred Vision, Denies Drainage Ears, Nose, Mouth, Throat: denies ear pain, denies ear discharge Respiratory: No cough, No dyspnea on exertion Cardiovascular: No chest pain, No palpitations Gastrointestinal: No abdominal pain, No nausea, No vomiting Genitourinary: No discharge, No dysuria Musculoskeletal: back pain (lumbar chronic); No joint pain Skin: No pruritus, No rash Psychiatric/Neurological: Denies Headache, Denies Numbness Past Gihtxgn-Zupacu-Gqjoqg Hx Patient Social History Alcohol Use: Occasionally Uses Alcohol Beverage of Choice: Beer Recreational Drug Use: No Smoking Status: Former Smoker Type Used: Cigarettes Former Smoker, Quit: Nov 14, 1969 Recent Foreign Travel: No Contact w/Someone Who Travel: No Recent Infectious Disease Expo: No Recent Hopitalizations: Yes (epitaxis 10/16/17) Immunizations Up To Date Tetanus Booster (TDap): Less than 5yrs PED Vaccines UTD: Yes Date of Influenza Vaccine: Nov 22, 2017 Seasonal Allergies Seasonal Allergies: Yes Past Medical History Surgeries: Yes (CARDIAC CATH 2010-NO INTERVENTION) Cardiac Respiratory: Yes (O2 DEPENDENT) Chronic Bronchitis, COPD Currently Using CPAP: No Currently Using BIPAP: No Cardiac: Yes (CHF) Atrial Fibrillation, Cardiomyopathy, Chronic Edema/Swelling, Coronary Artery Disease, High Cholesterol, Hypertension, Irregular Heartbeat, Valvular Heart Disease Neurological: No Sexually Transmitted Disease: No HIV/AIDS: No Genitourinary: No Gastrointestinal: No Musculoskeletal: Yes Degenerate Disk Disease, Arthritis, Back Injury, Chronic Back Pain, Gout Endocrine: No HEENT: No Hearing Impairment: Hard of Hearing Cancer: No Psychosocial: No Integumentary: No (bruises, vairous stages) Blood Disorders: No Adverse Reaction/Blood Tranf: No Family Medical History Alzheimer's disease Congenital heart disease Hypertension Respiratory disorder No Pertinent Family Hx Physical Exam Vital Signs Vital Signs - First Documented 12/04/17 08:37 Temp 94.9 Pulse 97 Resp 16 B/P (MAP) 126/100 (109) Pulse Ox 97 O2 Delivery Room Air Capillary Refill : Less Than 3 Seconds Height, Weight, BMI Height: 5'7.00" Weight: 185lbs. 4.8oz. 83.032338pd; 28.12 BMI Method:Stated General Appearance: mild distress, other (disheveled) HEENT: PERRL/EOMI, normal ENT inspection, TMs normal, pharynx normal, other ( various ecchymoses on the face in different states of healing. There is a laceration on the occiput midline approximately 8 cm long.) Neck: non-tender, full range of motion, supple, normal inspection Cardiovascular: normal peripheral pulses, regular rate, rhythm, other (2+ pitting edema bilateral lower extremities up to the knees) Respiratory: chest non-tender, lungs clear, normal breath sounds, no respiratory distress, no accessory muscle use Peripheral Pulses: 1+ Dorsalis Pedis (R), 1+ Left Dors-Pedis (L); 2+ Radial Pulses (R), 2+ Radial Pulses (L) Gastrointestinal: normal bowel sounds, non tender, soft Extremities: normal range of motion, normal capillary refill, pedal edema (2+ pitting bilateral lower extremities), other (normal range of motion all 4 extremities and no tenderness on palpation.) Neurologic/Psychiatric: ammonium nitrate neutralizer II-XII nml as tested, no motor/sensory deficits, alert, normal mood/affect, oriented x 3, other (pupils bilateral symmetric pinpoint nonreactive to light) Skin: ecchymosis (multiple ecchymoses on the face, upper extremities, trunk, abdomen in various states of healing.) [place] Coma Score Best Eye Response: (4) Open Spontaneously Best Verbal Response: (5) Oriented Best Motor Response: (6) Obeys Commands [place] Total: 15 Procedures/Interventions Wound Location: Scalp Other Wound Location Midline occipital scalp Wound Length (cm): 8 Wound's Depth, Shape: linear, sub Q Wound Explored: clean Irrigated w/ Saline (ccs): 100 Betadine Prep?: No (chlorhexidine) Wound Debrided: minimal Staple Repair: Stapler 35W Suture Size: 5-0 Number of Sutures: 11 Layer Closure?: 1 Sterile Dressing Applied?: Yes Progress Patient's wound was cleaned thoroughly using chlorhexidine and sterile saline and then skin edges were reapproximated and stapled in place using 11 individual comfort. Wound had very slow oozing at that point so we put a pressure dressing over top of the comfort held in place with Kerlix and Coban. Had replaced the dressing a couple times with slipping off the top of his head. At this time the pressure dressing is off and the wound is hemostatic. Progress/Results/Core Measures Results/Orders Lab Results Laboratory Tests Test 12/04/17 08:53 12/04/17 09:00 Range/Units White Blood Count 7.1 4.3-11.0 10^3/uL Red Blood Count 2.29 L 4.35-5.85 10^6/uL Hemoglobin 6.6 *L 13.3-17.7 G/DL Hematocrit 21 L 40-54 % Mean Corpuscular Volume 91 80-99 FL Mean Corpuscular Hemoglobin 29 25-34 PG Mean Corpuscular Hemoglobin Concent 32 32-36 G/DL Red Cell Distribution Width 16.4 H 10.0-14.5 % Platelet Count 321 130-400 10^3/uL Mean Platelet Volume 8.3 7.4-10.4 FL Neutrophils (%) (Auto) 78 H 42-75 % Lymphocytes (%) (Auto) 10 L 12-44 % Monocytes (%) (Auto) 9 0-12 % Eosinophils (%) (Auto) 3 0-10 % Basophils (%) (Auto) 0 0-10 % Neutrophils # (Auto) 5.6 1.8-7.8 X 10^3 Lymphocytes # (Auto) 0.7 L 1.0-4.0 X 10^3 Monocytes # (Auto) 0.6 0.0-1.0 X 10^3 Eosinophils # (Auto) 0.2 0.0-0.3 10^3/uL Basophils # (Auto) 0.0 0.0-0.1 10^3/uL Sodium Level 135 135-145 MMOL/L Potassium Level 4.7 3.6-5.0 MMOL/L Chloride Level 100 98-107 MMOL/L Carbon Dioxide Level 25 21-32 MMOL/L Anion Gap 10 5-14 MMOL/L Blood Urea Nitrogen 47 H 7-18 MG/DL Creatinine 1.38 H 0.60-1.30 MG/DL Estimat Glomerular Filtration Rate 49 BUN/Creatinine Ratio 34 Glucose Level 92 70-105 MG/DL Calcium Level 8.4 L 8.5-10.1 MG/DL Corrected Calcium 9.0 8.5-10.1 MG/DL Total Bilirubin 1.3 H 0.1-1.0 MG/DL Aspartate Amino Transf (AST/SGOT) 37 H 5-34 U/L Alanine Aminotransferase (ALT/SGPT) 21 0-55 U/L Alkaline Phosphatase 66 40-136 U/L Total Protein 5.9 L 6.4-8.2 GM/DL Albumin 3.3 3.2-4.5 GM/DL Urine Color YELLOW Urine Clarity CLEAR Urine pH 7 5-9 Urine Specific [place] 1.010 L 1.016-1.022 Urine Protein 1+ H NEGATIVE Urine Glucose (UA) NEGATIVE NEGATIVE Urine Ketones NEGATIVE NEGATIVE Urine Nitrite NEGATIVE NEGATIVE Urine Bilirubin NEGATIVE NEGATIVE Urine Urobilinogen NORMAL NORMAL MG/DL Urine Leukocyte Esterase 1+ H NEGATIVE Urine RBC (Auto) NEGATIVE NEGATIVE Urine RBC NONE /HPF Urine WBC RARE /HPF Urine Squamous Epithelial Cells NONE /HPF Urine Crystals NONE /LPF Urine Bacteria NEGATIVE /HPF Urine Casts NONE /LPF Urine Mucus NEGATIVE /LPF Urine Culture Indicated NO My Orders Orders - ROMÁN LEWIS Ct Head/Face/Cervical Wo (12/04/17 08:52) Saline Lock/Iv-Start (12/04/17 08:52) Cbc With Automated Diff (12/04/17 08:52) Comprehensive Metabolic Panel (12/04/17 08:52) Protime With Inr (12/04/17 08:52) Partial Thromboplastin Time (12/04/17 08:52) Ua Culture If Indicated (12/04/17 08:52) Chest 1 View, Ap/Pa Only (12/04/17 08:52) Type And Screen (12/04/17 08:55) Ct Thoracic/Lumbar Spine Wo (12/04/17 09:23) Vital Signs/I&O 12/04/17 08:37 Temp 94.9 Pulse 97 Resp 16 B/P (MAP) 126/100 (109) Pulse Ox 97 O2 Delivery Room Air Blood Pressure Mean: 109 Progress Progress Note : Time: 09:00 Progress Note Hastily clean the occipital wound and applied comfort to help hold the skin edges together and then applied a pressure dressing over that. We'll get our x- rays and then reassess the wound. Diagnostic Imaging Diagonstic Imaging: Xray Plain Films/CT/US/NM/MRI: chest Comments No acute changes or acute cardiopulmonary processes noted from previous x-rays. 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 No acute fracture or subluxation. [facility] [place], [place] NAME: ODELL VELARDE [facility] REC#: [id number] PT STATUS: REG ER : 1935 PHYSICIAN: ROMÁN LEWIS MD ADMIT DATE: 12/04/17/ER Draft Date of Exam:12/04/17 CT THORACIC/LUMBAR SPINE WO INDICATION: Fall, pain. COMPARISON: Radiographs dated 11/17/[address] of abdomen and pelvis dated 06/12/[address] of the cervical spine dated 12/04/2017. FINDINGS: [place] right curvature of the lumbar spine. No significant anterolisthesis or retrolisthesis. Partial ankylosis of the L4 and L5 vertebral bodies. Anterior wedging of L2, L1, and T12 are identified, appearing stable from the prior examination. No new vertebral body height loss. 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 No acute fracture or dislocation. No destructive osseous process. Severe multilevel disc space height loss is noted throughout the lumbar spine. Multilevel disc osteophyte complex is also present within the lumbar spine. Central canal stenosis is identified at essentially every level within the lumbar spine, including high-grade stenosis at the L3/L4 and L4/L5 levels. Multilevel neural foraminal stenosis is present, including high-grade bilateral neural foraminal stenosis within the lower lumbar spine secondary to disc osteophyte complexes and facet joint degenerative changes. Extensive vascular calcifications. Interstitial opacities are present within the right lung. Layering calcifications within the gallbladder. Bilateral renal hypodensities are again identified. Fat stranding is present within the pelvis and abdomen bilaterally, increased from the prior examination. A 5.8 x 5.3 x 3.1 cm lobulated hyperdensity is seen posterior to the T9-T11 spinous processes. This demonstrates a hyperdense fluid/fluid level. IMPRESSION: 1. No acute osseous abnormality within the thoracic spine with advanced multilevel degenerative changes with multilevel central canal and neural foraminal stenosis, greatest within the lumbar spine. 2. Prominent hyperdense fluid collection overlying the lower thoracic spinous processes, felt to relate to a hematoma. 3. New interstitial opacities throughout the right lung, related to interstitial edema versus infiltrate. 4. Small amount of layering sludge and/or stones within the gallbladder. 5. Fat stranding throughout the abdomen and pelvis partially visualized. This is nonspecific and could relate to ascites/anasarca. 6. Additional findings as above. Dictated on workstation # [id number] Dict: 12/04/17 0948 Trans: 12/04/17 1004 TS [id number] Interpreted by: LAMAR GRADY MD Electronically signed by: Reviewed: Reviewed by Me Diagonstic Imaging: CT Plain Films/CT/US/NM/MRI: c-spine, head (maxillofacial) Comments No acute intracranial hemorrhage, midline shift, fracture, tumor, mass effect. No acute fracture, subluxation or misalignment of the cervical spine. VIA [facility]. [place], [place] NAME: ODELL VELARDE [facility] REC#: [id number] PT STATUS: REG ER : 1935 PHYSICIAN: ROMÁN LEWIS MD ADMIT DATE: 12/04/17/ER Draft Date of Exam:12/04/17 CT HEAD/FACE/CERVICAL WO PROCEDURE: CT head, face, and cervical spine without contrast. TECHNIQUE: Multiple contiguous axial images were obtained through the head, neck, and facial bones without the use of intravenous contrast. Sagittal and coronal reformations through the cervical spine and facial bones were also performed. Indication: Head and neck pain after patient fell backwards and struck head on large wooden box. Currently on blood thinners. Comparison: Head CT 11/22/[address] 10/17/2017. Discussion: Head/face: Diffuse brain volume loss is stable, likely age related. White matter hypoattenuation is nonspecific though not greater than expected for age related chronic small vessel ischemic disease. No acute intracranial hemorrhage, mass, midline shift, or hydrocephalus. Posterior scalp laceration is noted. Mild mucosal thickening is noted within the sinuses, chronic. The orbits appear symmetrical with mild chronic appearing proptosis noted which appears to be secondary to prominence of the retroconal fat. No facial fracture identified. The mastoid air cells are well-aerated. The temporomandibular joints are normally located. Cervical spine: There is straightening of the normal cervical lordosis. Advanced multilevel degenerative disease is noted involving the intervertebral disc spaces and facet joints. No acute fracture or subluxation is identified. Paraspinal soft tissues are unremarkable. Extensive atherosclerotic plaque is noted throughout the carotid bifurcations. Impression: 1. Senescent changes as described. No acute intracranial abnormality identified. No facial fracture. 2. Advanced degenerative disease is present within the cervical spine. No acute fracture identified. Dictated on workstation # [id number] Dict: 12/04/1726 Trans: 12/04/17 0947 [facility] [id number] Interpreted by: CHENG SUMMERS MD Electronically signed by: Reviewed: Reviewed by Me Departure Communication (Admissions) Time/Spoke to Admitting Phy: 10:25 Discussed case lab imaging findings with Dr. Langston: She agrees to admit the patient inpatient and wants to start with subcutaneous 2.5 mg of vitamin K and oral 2.5 mg vitamin K. She like consultation with Dr. Cummings to help manage the supratherapeutic INR and discuss whether he wants FFP or not. He would like Dr. William, surgery to follow since it is of trauma. Time/Spoke to Consulting Phy: 10:[address] William trauma surgeon on-call and he agrees to consult the patient. Discussed case with Dr. Cummings, cardiology and he agrees with the current plan would add FFP now. Impression Primary Impression: Fall Qualified Codes: W19.XXXA - Unspecified fall, initial encounter Additional Impressions: Hematoma Laceration of scalp Qualified Codes: S01.01XA - Laceration without foreign body of scalp, initial encounter Bruise Debility Supratherapeutic INR Acute blood loss anemia Disposition: ADMITTED INPATIENT Condition: Stable Admissions Decision to Admit Reason: Admit from ER (Trauma) Decision to Admit/Date: Dec 04, 2017 Time/Decision to Admit Time: 09:20 Departure-Patient Inst. Referrals: NISSA ANTONIO DO (PCP/Family) Primary Care Physician Copy Copies To 1: NISSA ANTONIO TITUS J Dec 04, 2017 09:01
[2017-12-04 09:04] LABS: BASOPHILS % (AUTO) 0 % (0-10); EOSINOPHILS # (AUTO) 0.2 10^3/uL (0.0-0.3); EOSINOPHILS % (AUTO) 3 % (0-10); HEMATOCRIT 21 % (40-54); LYMPHOCYTES # (AUTO) 0.7 X 10^3 (1.0-4.0); LYMPHOCYTES % (AUTO) 10 % (12-44); MEAN CORPUSCULAR HEMOGLOBIN 29 PG (25-34); MEAN CORPUSCULAR HGB CONC 32 G/DL (32-36); MEAN CORPUSCULAR VOLUME 91 FL (80-99); MEAN PLATELET VOLUME 8.3 FL (7.4-10.4); MONOCYTES # (AUTO) 0.6 X 10^3 (0.0-1.0); MONOCYTES % (AUTO) 9 % (0-12); NEUTROPHILS # (AUTO) 5.6 X 10^3 (1.8-7.8); NEUTROPHILS % (AUTO) 78 % (42-75); PLATELET COUNT 321 10^3/uL (130-400); RED BLOOD COUNT 2.29 10^6/uL (4.35-5.85); RED CELL DISTRIBUTION WIDTH 16.4 % (10.0-14.5); WHITE BLOOD COUNT 7.1 10^3/uL (4.3-11.0)
[2017-12-04 09:05] LABS: BILIRUBIN,URINE NEGATIVE (NEGATIVE); CLARITY,URINE CLEAR; COLOR,URINE YELLOW; GLUCOSE, URINE (UA) NEGATIVE (NEGATIVE); KETONES,URINE NEGATIVE (NEGATIVE); LEUKOCYTE ESTERASE ,URINE 1+ (NEGATIVE); NITRITE,URINE NEGATIVE (NEGATIVE); PH,URINE 7 (5-9); PROTEIN,URINE 1+ (NEGATIVE); UROBILINOGEN,URINE NORMAL (NORMAL)
[2017-12-04 09:08] LABS: HEMOGLOBIN 6.6 G/DL (13.3-17.7)
[2017-12-04 09:23] LABS: BACTERIA,URINE NEGATIVE /HPF; WBC,URINE RARE /HPF
[2017-12-04 09:25] LABS: ALBUMIN 3.3 GM/DL (3.2-4.5); BILIRUBIN,TOTAL 1.3 MG/DL (0.1-1.0); CALCIUM 8.4 MG/DL (8.5-10.1); CREATININE SERUM 1.38 MG/DL (0.60-1.30); POTASSIUM 4.7 MMOL/L (3.6-5.0); TOTAL PROTEIN 5.9 GM/DL (6.4-8.2)
--- NOTE | 2017-12-04 09:48 | Diagnostic Imaging Report ---
PROCEDURE: CT head, face, and cervical spine without contrast. TECHNIQUE: Multiple contiguous axial images were obtained through the head, neck, and facial bones without the use of intravenous contrast. Sagittal and coronal reformations through the cervical spine and facial bones were also performed. Indication: Head and neck pain after patient fell backwards and struck head on large wooden box. Currently on blood thinners. Comparison: Head CT 11/22/[address] 10/17/2017. Discussion: Head/face: Diffuse brain volume loss is stable, likely age related. White matter hypoattenuation is nonspecific though not greater than expected for age related chronic small vessel ischemic disease. No acute intracranial hemorrhage, mass, midline shift, or hydrocephalus. Posterior scalp laceration is noted. Mild mucosal thickening is noted within the sinuses, chronic. The orbits appear symmetrical with mild chronic appearing proptosis noted which appears to be secondary to prominence of the retroconal fat. No facial fracture identified. The mastoid air cells are well-aerated. The temporomandibular joints are normally located. Cervical spine: There is straightening of the normal cervical lordosis. Advanced multilevel degenerative disease is noted involving the intervertebral disc spaces and facet joints. No acute fracture or subluxation is identified. Paraspinal soft tissues are unremarkable. Extensive atherosclerotic plaque is noted throughout the carotid bifurcations. Impression: 1. Senescent changes as described. No acute intracranial abnormality identified. No facial fracture. 2. Advanced degenerative disease is present within the cervical spine. No acute fracture identified. Dictated by: Dictated on workstation # [id number]
--- NOTE | 2017-12-04 09:52 | Diagnostic Imaging Report ---
Indication: Cough and dyspnea, recent fall. Comparison: 11/24/2017. Discussion: Single portable upright view of the chest was obtained. Cardiomegaly is again noted. Elevated right hemidiaphragm, stable. Bilateral mixed interstitial and alveolar opacities are new and suggest mild pulmonary edema, less likely atypical infection. No pleural fluid or pneumothorax. Impression: 1. Cardiomegaly with suspected developing failure. Dictated by: Dictated on workstation # [id number]
--- NOTE | 2017-12-04 10:05 | Diagnostic Imaging Report ---
INDICATION: Fall, pain. COMPARISON: Radiographs dated 11/17/[address] of abdomen and pelvis dated 06/12/[address] of the cervical spine dated 12/04/2017. FINDINGS: [place] right curvature of the lumbar spine. No significant anterolisthesis or retrolisthesis. Partial ankylosis of the L4 and L5 vertebral bodies. Anterior wedging of L2, L1, and T12 are identified, appearing stable from the prior examination. No new vertebral body height loss. 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 No acute fracture or dislocation. No destructive osseous process. Severe multilevel disc space height loss is noted throughout the lumbar spine. Multilevel disc osteophyte complex is also present within the lumbar spine. Central canal stenosis is identified at essentially every level within the lumbar spine, including high-grade stenosis at the L3/L4 and L4/L5 levels. Multilevel neural foraminal stenosis is present, including high-grade bilateral neural foraminal stenosis within the lower lumbar spine secondary to disc osteophyte complexes and facet joint degenerative changes. Extensive vascular calcifications. Interstitial opacities are present within the right lung. Layering calcifications within the gallbladder. Bilateral renal hypodensities are again identified. Fat stranding is present within the pelvis and abdomen bilaterally, increased from the prior examination. A 5.8 x 5.3 x 3.1 cm lobulated hyperdensity is seen posterior to the T9-T11 spinous processes. This demonstrates a hyperdense fluid/fluid level. IMPRESSION: 1. No acute osseous abnormality within the thoracic spine with advanced multilevel degenerative changes with multilevel central canal and neural foraminal stenosis, greatest within the lumbar spine. 2. Prominent hyperdense fluid collection overlying the lower thoracic spinous processes, felt to relate to a hematoma. 3. New interstitial opacities throughout the right lung, related to interstitial edema versus infiltrate. 4. Small amount of layering sludge and/or stones within the gallbladder. 5. Fat stranding throughout the abdomen and pelvis partially visualized. This is nonspecific and could relate to ascites/anasarca. 6. Additional findings as above. Dictated by: Dictated on workstation # [id number]
[2017-12-04 10:23] LABS: INR 5.5 (0.8-1.4); PROTHROMBIN TIME PATIENT 50.6 SEC (12.2-14.7)
[2017-12-04] MEDS ORDERED: VITAMIN K 1 MG/ML ORAL SOLN 1 ML SYRINGE PO ONE (10:30)
[2017-12-04] MEDS: PHYTONADIONE (VIT. K) 10 MG/ML AMP SQ ONE ×2 (10:46→10:50)
[2017-12-04] MEDS ORDERED: NS (IVPB) 250 ML ONE (11:48)
--- NOTE | 2017-12-04 11:51 | Consultation ---
History of Present Illness History of Present Illness Patient Consulted On(arjun/time) 12/04/17 11:46 Date Seen by Provider: Dec 04, 2017 Time Seen by Provider: 11:46 Reason for Visit: unwitnessed fall at home early this morning History of Present Illness elderly gentleman living with his , who is demented, on anticoagulation regarding atrial fibrillation, sustained a fall early this morning, resulting in large scalp laceration with bleeding. Coumadin toxicity with an INR of over 5. Evaluated, conforming to ATLS protocol. No intracranial hemorrhage discovered. No cervical spine fracture. Diffuse ecchymosis. Allergies and Home Medications Allergies Coded Allergies: No Known Drug Allergies (Unverified , 12/04/17) Home Medications Albuterol Sulfate 18 Gm Hfa.aer.ad, 2 PUFF INH Q4H PRN for SHORTNESS OF BREATH, (Reported) Allopurinol 300 Mg Tablet, 300 MG PO DAILY, (Reported) Amlodipine Besylate 5 Mg Tablet, 5 MG PO DAILY, (Reported) Atorvastatin Calcium 20 Mg Tablet, 20 MG PO DAILY, (Reported) Digoxin 125 Mcg Tablet, 125 MCG PO DAILY, (Reported) Furosemide 80 Mg Tablet, 80 MG PO DAILY, (Reported) Losartan Potassium 100 Mg Tablet, 100 MG PO DAILY, (Reported) Metoprolol Succinate 50 Mg Tab.er.24h, 50 MG PO HS, (Reported) Omeprazole 20 Mg Capsule.dr, 20 MG PO DAILY, (Reported) Potassium Chloride 10 Meq Tab.er.prt, 10 MEQ PO BID, (Reported) Warfarin Sodium 5 Mg Tablet, 5 MG PO DAILY, (Reported) Patient Home Medication List Home Medication List Reviewed: Yes Past Bgrmsqd-Afpyub-Tvpuux Hx Patient Social History Alcohol Use: Occasionally Uses Alcohol Beverage of Choice: Beer Recreational Drug Use: No Smoking Status: Former Smoker Type Used: Cigarettes Former Smoker, Quit: Nov 14, 1969 Recent Foreign Travel: No Contact w/Someone Who Travel: No Recent Infectious Disease Expo: No Recent Hopitalizations: Yes (epitaxis 10/16/17) Physical Abuse: No Sexual Abuse: No Mistreated: No Fear: No Immunizations Up To Date Tetanus Booster (TDap): Less than 5yrs PED Vaccines UTD: Yes Date of Influenza Vaccine: Nov 22, 2017 Seasonal Allergies Seasonal Allergies: Yes Past Medical History Surgeries: Yes (CARDIAC CATH 2010-NO INTERVENTION) Cardiac Respiratory: Yes (O2 DEPENDENT) Chronic Bronchitis, COPD Currently Using CPAP: No Currently Using BIPAP: No Cardiac: Yes (CHF) Atrial Fibrillation, Cardiomyopathy, Chronic Edema/Swelling, Coronary Artery Disease, High Cholesterol, Hypertension, Irregular Heartbeat, Valvular Heart Disease Neurological: No Sexually Transmitted Disease: No HIV/AIDS: No Genitourinary: No Gastrointestinal: No Musculoskeletal: Yes Degenerate Disk Disease, Arthritis, Back Injury, Chronic Back Pain, Gout Endocrine: No HEENT: No Hearing Impairment: Hard of Hearing Cancer: No Psychosocial: No Integumentary: No (bruises, vairous stages) Blood Disorders: No Adverse Reaction/Blood Tranf: No Family Medical History Alzheimer's disease Congenital heart disease Hypertension Respiratory disorder No Pertinent Family Hx Review of Systems-General Constitutional: malaise, weakness EENTM: see HPI Respiratory: dyspnea on exertion Cardiovascular: see HPI Gastrointestinal: no symptoms reported Genitourinary: no symptoms reported Musculoskeletal: back pain, joint pain Skin: see HPI Physical Exam-General Problems Physical Exam Vital Signs Vital Signs - First Documented 12/04/17 08:37 Temp 94.9 Pulse 97 Resp 16 B/P (MAP) 126/100 (109) Pulse Ox 97 O2 Delivery Room Air Capillary Refill : Less Than 3 Seconds General Appearance: other Neck: supple Respiratory: crackles Cardiovascular: irregularly irregular Gastrointestinal: non tender, soft Rectal: deferred Extremities: normal inspection Skin: pallor Comments drowsy with the daughter at the bedside, answering questions. Diffuse ecchymosis all over the body. Laceration over the posterior aspect of the scalp , controlled by stapling by the ER physician. Assessment/Plan Assessment/Plan Admission Diagnosis/Plan elderly gentleman with multiple comorbidities including atrial fibrillation requiring anticoagulation. Coumadin toxicity with elevated INR. Anemia due to acute blood loss. Reasonable to transfuse and observe him. Coumadin toxicity needs to be reversed. Admission Status: Inpatient Order (span 2 midnights) Reason for Inpatient Admission: multiple medical problems requiring intervention DEISY BETTS MD Dec 04, 2017 11:51
[2017-12-04] MEDS ORDERED: ACETAMINOPHEN 500 MG TAB (TYLENOL) PO PRN (12:15)
[2017-12-04] MEDS ORDERED: ONDANSETRON 4 MG/2 ML (SDV) Z0FRAN IVP PRN (12:15)
[2017-12-04] MEDS: NS IV 500 ML 500 ML IV SCH ×3 (12:35→22:34)
--- NOTE | 2017-12-04 12:38 | History & Physical-Hospitalist ---
History of Present Illness HPI/Chief Complaint CC: Fall with severe anemia and scalp laceration with coagulopathy from Warfarin toxicity HPI: This is an 82-year-old white male clinic patient of Dr. Alcantara who lives with his with severe dementia but his daughter manages his medications and cares for him who has a past medical history of atrial fibrillation on Coumadin for stroke prophylaxis and regular alcohol use of 6 beers a day who presents to the ER after he had a fall suffering a large scalp laceration and multiple bruises and hemoglobin of 6.6. INR was 5.5 so he was given FFP and vitamin K to reverse and minimize blood loss and transfusion has been ordered. Trauma surgery has been consulted due to the significant amount of trauma but CT scans revealed no significant intracranial pathology or any soft tissue hematoma is expanding. Patient is DO NOT RESUSCITATE per living will per daughter and patient appears to be significantly debilitated and chronically ill and appears to be in the last stages of his life. We will plan on giving blood and reversing the coagulopathy with FFP and vitamin K but overall prognosis is extremely poor. Source: patient, family, RN/MD Exam Limitations: clinical condition Date Seen 12/04/17 Time Seen by a Provider: 10:30 Attending Physician Juliann Ivy DO PCP Brian Mccoy DO Referring Physician Date of Admission Dec 04, 2017 at 09:30 Home Medications & Allergies Home Medications Reviewed patient Home Medication Reconciliation performed by pharmacy medication reconciliations plastic surgery technician and/or nursing. Patients Allergies have been reviewed. Allergies Allergies Coded Allergies No Known Drug Allergies ([id number]/21/18) Past Cwinzxi-Pjahfm-Yojmhm Hx Past Med/Social Hx: Reviewed Nursing Past Med/Soc Hx, Reviewed and Corrections made Patient Social History Marrital Status: Employed/Student: retired Alcohol Use: Occasionally Uses Alcohol Beverage of Choice: Beer Recreational Drug Use: No Smoking Status: Former Smoker Former Smoker, Quit: Nov 14, 1969 Type Used: Cigarettes Recent Foreign Travel: No Contact w/other who traveled: No Recent Hopitalizations: Yes (epitaxis 10/16/17) Recent Infectious Disease Expo: No Immunizations Up To Date Tetanus Booster (TDap): Less than 5yrs Pediatric: Yes Date of Influenza Vaccine: Nov 22, 2017 Seasonal Allergies Seasonal Allergies: Yes Past Medical History Surgeries: Cardiac Respiratory: COPD Currently Using CPAP: No Currently Using BIPAP: No Cardiac: Atrial Fibrillation, Cardiomyopathy, Chronic Edema/Swelling, Coronary Artery Disease, High Cholesterol, Hypertension, Irregular Heartbeat, Valvular Heart Disease Sexually Transmitted Disease: No HIV/AIDS: No Musculoskeletal: Degenerate Disk Disease, Arthritis, Back Injury, Chronic Back Pain, Gout Hearing Impairment: Hard of Hearing History of Blood Disorders: No Adverse Reaction to Blood Cohen: No Family History Alzheimer's disease Congenital heart disease Hypertension Respiratory disorder Hypertension Review of Systems Constitutional: see HPI, dizziness, malaise, weakness EENTM: no symptoms reported Respiratory: no symptoms reported Cardiovascular: palpitations Gastrointestinal: no symptoms reported Genitourinary: no symptoms reported Musculoskeletal: back pain Skin: no symptoms reported Psychiatric/Neurological: Anxiety All Other Systems Reviewed Negative Unless Noted: Yes Physical Exam Physical Exam Vital Signs Vital Signs - First Documented 12/04/17 12/04/17 08:37 11:50 Temp 94.9 Pulse 97 Resp 16 B/P (MAP) 126/100 (109) Pulse Ox 97 O2 Delivery Room Air O2 Flow Rate 2.00 Capillary Refill : Less Than 3 Seconds Height, Weight, BMI Height: 5'7.00" Weight: 185lbs. 4.8oz. 83.800051mb; 28.12 BMI Method:Stated General Appearance: WD/WN, Chronically ill, Mild Distress, Obese Eyes: Bilateral Eye Normal Inspection, Bilateral Eye PERRL HEENT: PERRL/EOMI, Normal ENT Inspection, Pharynx Normal Neck: Full Range of Motion, Normal Inspection, Non Tender, Supple, Carotid Bruit Respiratory: Chest Non Tender, No Accessory Muscle Use, No Respiratory Distress , Decreased Breath Sounds Cardiovascular: No Edema, No Gallop, No JVD, No Murmur, Normal Peripheral Pulses, Irregularly Irregular, Tachycardia Gastrointestinal: Normal Bowel Sounds, No Organomegaly, No Pulsatile Mass, Non Tender, Soft Back: Normal Inspection, No CVA Tenderness, No Vertebral Tenderness Extremity: Normal Capillary Refill, Normal Inspection, Normal Range of Motion, Non Tender, No Calf Tenderness, No Pedal Edema Neurologic/Psychiatric: Alert, No Motor/Sensory Deficits, Depressed Affect, Disoriented Skin: Normal Color, Warm/Dry Lymphatic: No Adenopathy Results Results/Procedures Labs Laboratory Tests 12/04/17 08:53 Patient resulted labs reviewed. Assessment/Plan Admission Diagnosis Assessment: Fall with scalp laceration Multiple falls recently Severe anemia hemoglobin 6.6 requiring transfusions Coagulopathy due to warfarin INR 5.5 requiring FFP and vitamin K Chronic atrial fibrillation Regular alcohol use heavy CRI HTN Gout PÉREZ HLP Plan: ICU admit Trauma surgery consultation is appreciated along with Cardiology FFP PRBC's Hold Warfarin DNR Admission Status: Inpatient Order (span 2 midnights) Reason for Inpatient Admission: Severe anemia dn coaguloapthy and falls will require 3 days then NHP Diagnosis/Problems Diagnosis/Problems (1) Fall Status: Acute Qualifiers: Encounter type: initial encounter Qualified Codes: W19.XXXA - Unspecified fall, initial encounter (2) Supratherapeutic INR Status: Acute (3) Acute blood loss anemia Status: Acute (4) Laceration of scalp Status: Acute Qualifiers: Encounter type: initial encounter Qualified Codes: S01.01XA - Laceration without foreign body of scalp, initial encounter (5) Hypertension Status: Chronic Qualifiers: Hypertension type: essential hypertension Qualified Codes: I10 - Essential (primary) hypertension (6) Renal insufficiency Status: Chronic (7) Poor prognosis Status: Acute (8) DNR (do not resuscitate) Status: Acute (9) Hematoma Status: Acute (10) Debility Status: Chronic JULIANN IVY DO Dec 04, 2017 12:37
--- NOTE | 2017-12-04 14:06 | Consultation-Cardiology ---
HPI-Cardiology Cardiology Consultation: Date of Consultation 12/04/17 Date of Admission Attending Physician Juliann Langston DO Admitting Physician Brian Mccoy DO Consulting Physician Sage CUMMINGS MD HPI: Time Seen by a Provider: 14:06 Chief Complaint: Atrial fibrillation This is a 82-year-old gentleman with history of chronic atrial fibrillation on digoxin, rate controlling agent, Coumadin. History of dementia. He has history of congestive heart failure. He does not have any other significant cardiac history. He presents with a fall and significant laceration of his scalp with bleeding. CT head did not show any significant intracranial bleeding. INR was 5.5. Vitamin K given. Patient is anemic. He has previous history of multiple falls. Review of Systems-Cardiology Review of Systems Constitutional: As described under HPI; No As described under HPI, No no symptoms reported, No chills, No fever, No lightheadedness Eyes: No As described under HPI, No no symptoms reported, No blindness, No blurred vision, No contact lenses, No drainage, No decreased acuity, No foreign body sensation, No pain, No vision change Ears/Nose/Throat: No As described under HPI, No no symptoms reported, No chronic hearing loss, No ear discharge, No ear pain, No nasal drainage, No ulcerations Respiratory: No no symptoms reported; As described under HPI; No As described under HPI, No cough, No orthopnea, No shortness of breath, No SOB with excertion Cardiovascular: No no symptoms reported; As described under HPI; No As described under HPI, No chest pain, No edema, No irregular heart rate, No lightheadedness, No palpitations Gastrointestinal: No no symptoms reported, No As described under HPI, No abdomen distended, No abdominal pain, No blood streaked bowels, No constipation , No diarrhea, No nausea, No vomiting, No stool coloration changes Genitourinary: No As described under HPI, No burning, No dysuria, No discharge , No frequency, No flank pain, No hematuria, No urgency Skin: No rash, No skin related problems, No ulcerations Psychiatric/Neurological: As described under HPI; No anxiety, No depression, No seizure, No focal weakness, No syncope Hematologic: No bleeding abnormalities All Other Systems Reviewed Negative Unless Noted: Yes CVQ-Mmrset-Qhkxuz Hx Patient Social History Marrital Status: Employed/Student: retired Alcohol Use: Occasionally Uses Recreational Drug Use: No Smoking Status: Former Smoker Type Used: Cigarettes Recent Foreign Travel: No Recent Infectious Disease Expo: No Immunizations Up To Date Tetanus Booster (TDap): Less than 5yrs Date of Influenza Vaccine: Nov 22, 2017 Past Medical History PMH As described under Assessment. Family Medical History Family History: Alzheimer's disease Congenital heart disease Hypertension Respiratory disorder Allergies and Home Medications Allergies Coded Allergies: No Known Drug Allergies (Unverified , 12/04/17) Home Medications Albuterol Sulfate 18 Gm Hfa.aer.ad, 2 PUFF INH Q4H PRN for SHORTNESS OF BREATH, (Reported) Allopurinol 300 Mg Tablet, 300 MG PO DAILY, (Reported) Amlodipine Besylate 5 Mg Tablet, 5 MG PO DAILY, (Reported) Atorvastatin Calcium 20 Mg Tablet, 20 MG PO DAILY, (Reported) Digoxin 125 Mcg Tablet, 125 MCG PO DAILY, (Reported) Furosemide 80 Mg Tablet, 80 MG PO DAILY, (Reported) Losartan Potassium 100 Mg Tablet, 100 MG PO DAILY, (Reported) Metoprolol Succinate 50 Mg Tab.er.24h, 50 MG PO HS, (Reported) Omeprazole 20 Mg Capsule.dr, 20 MG PO DAILY, (Reported) Potassium Chloride 10 Meq Tab.er.prt, 10 MEQ PO BID, (Reported) Warfarin Sodium 5 Mg Tablet, 5 MG PO DAILY, (Reported) Patient Home Medication List Home Medication List Reviewed: Yes Physical Exam-Cardiology Physical Exam Vital Signs/I&O 12/04/17 12/04/17 12/04/17 08:37 11:50 12:21 Temp 94.9 97.3 Pulse 97 70 59 Resp 16 16 20 B/P (MAP) 126/100 (109) 135/83 (100) 128/65 Pulse Ox 97 100 100 O2 Delivery Room Air Nasal Cannula Nasal Cannula O2 Flow Rate 2.00 2.00 Capillary Refill : Less Than 3 Seconds Constitutional: appears stated age; No apparent distress; well-developed, well- nourished HEENT: PERRL; No normal ENT inspection, No TMs normal, No pharynx normal, No scleral icterus (R), No scleral icterus (L), No pale conjunctivae (R), No pale conjunctivae (L), No photophobia, No TM abnormal (R), No TM abnormal (L), No pharyngeal erythema, No tonsillar exudate; other (scalp laceration.); No discharge, No EOMI; hearing is well preserved; No hard of hearing; oral hygience is good; No ulceration, No xanthelasmas are seen Neck: No non-tender, No full range of motion, No supple, No normal inspection, No carotid bruit, No limited range of motion, No lymphadenopathy (R), No lymphadenopathy (L), No tender lateral, No tender midline, No thyromegaly, No other; carotid pulses are 2 + bilaterally; No with good upstrokes Respiratory: chest is bilaterally symmetric, lungs clear to auscultation Cardiovascular: No regular rate-rhythm; irregularly irregular; No extra beats, No parasternal heave is noted, No JVD, No edema, No bradycardia, No tachycardia , No point of maximal impulse, No cardiac thrills are palpable; S1 and S2; No gallop/S3, No gallop/S4, No diastolic murmur, No systolic murmur, No friction rub, No click, No other Gastrointestinal: No tender, No soft, No round, No distended, No pulsatile mass , No organomegaly, No guarding, No rebound, No tenderness, No hernia, No mass, No audible bowel sounds, No abnormal bowel sounds, No abdominal bruits, No spleenomegaly, No other Rectal: deferred Extremities: No normal range of motion, No non-tender, No normal inspection, No pedal edema, No calf tenderness, No normal capillary refill, No pelvis stable , No calf tenderness, No inflammation, No pedal edema, No slow capillary refill , No swelling, No other, No abrasion, No clubbing, No cyanosis, No ecchymosis, No laceration, No no lower extremity edema bilateral, No significant edema, No tenderness, No wound Neurologic/Psychiatric: other (drowsy.), power is 5/5 both on sides Skin: No rash, No ulcerations Data Review Labs Laboratory Tests 12/04/17 08:53: White Blood Count 7.1, Red Blood Count 2.29L, Hemoglobin 6.6*L, Hematocrit 21L, Mean Corpuscular Volume 91, Mean Corpuscular Hemoglobin 29, Mean Corpuscular Hemoglobin Concent 32, Red Cell Distribution Width 16.4H, Platelet Count 321, Mean Platelet Volume 8.3, Neutrophils (%) (Auto) 78H, Lymphocytes (%) (Auto) 10L , Monocytes (%) (Auto) 9, Eosinophils (%) (Auto) 3, Basophils (%) (Auto) 0, Neutrophils # (Auto) 5.6, Lymphocytes # (Auto) 0.7L, Monocytes # (Auto) 0.6, Eosinophils # (Auto) 0.2, Basophils # (Auto) 0.0, Sodium Level 135, Potassium Level 4.7, Chloride Level 100, Carbon Dioxide Level 25, Anion Gap 10, Blood Urea Nitrogen 47H, Creatinine 1.38H, Estimat Glomerular Filtration Rate 49, BUN/ Creatinine Ratio 34, Glucose Level 92, Calcium Level 8.4L, Corrected Calcium 9.0 , Total Bilirubin 1.3H, Aspartate Amino Transf (AST/SGOT) 37H, Alanine Aminotransferase (ALT/SGPT) 21, Alkaline Phosphatase 66, Total Protein 5.9L, Albumin 3.3 12/04/17 09:00: Urine Color YELLOW, Urine Clarity CLEAR, Urine pH 7, Urine Specific [place] 1.010L, Urine Protein 1+H, Urine Glucose (UA) NEGATIVE, Urine Ketones NEGATIVE, Urine Nitrite NEGATIVE, Urine Bilirubin NEGATIVE, Urine Urobilinogen NORMAL, Urine Leukocyte Esterase 1+H, Urine RBC (Auto) NEGATIVE, Urine RBC NONE, Urine WBC RARE, Urine Squamous Epithelial Cells NONE, Urine Crystals NONE, Urine Bacteria NEGATIVE, Urine Casts NONE, Urine Mucus NEGATIVE, Urine Culture Indicated NO 12/04/17 09:44: Prothrombin Time 50.6*H, INR Comment 5.5*H, Activated Partial Thromboplast Time 78H A/P-Cardiology Assessment/Admission Diagnosis Chronic atrial fibrillation, Bradycardia, Multiple fall with scalp laceration, Supratherapeutic INR, Dementia, Hyperlipidemia, Congestive heart failure Plan Chronic atrial fibrillation, patient has numerous falls in the recent past. He is not safe to be on oral anticoagulation. I will discontinue any further oral anticoagulation on him. No family was present to discuss. Bradycardia, discontinue digoxin and metoprolol. Multiple fall with scalp laceration, deferred to primary team and Dr. William. Supratherapeutic INR, vitamin K and FFP is recommended. Dementia, Hyperlipidemia, I believe there is no significant long-term benefit of this patient being on statin therapy. I will recommend discontinuing atorvastatin. Congestive heart failure, euvolemic and not in congestive heart failure. An echocardiogram will be recommended. Thank you for your consultation. Please call me if you have any questions. Yves Cummings MD, FACP, FACC, FSCAI, FHRS, CCDS Interventional Cardiology Cardiac Electrophysiology Vascular Medicine and Endovascular Interventions Sage CUMMINGS MD Dec 04, 2017 2:06 pm
[2017-12-04] MEDS ORDERED: meTOproloL SUCCINATE 50 MG (TOPROL XL) TAB PO SCH (21:00)
[2017-12-05] VITALS (15 sets, daily range): BP systolic 91–158; BP diastolic 44–82
[2017-12-05] MEDS ORDERED: RT-ALBUTEROL SULF 2.5 MG/3 ML PRE-MIX VIAL INH PRN
[2017-12-05 01:10] LABS: BASOPHILS % (AUTO) 0 % (0-10); EOSINOPHILS # (AUTO) 0.2 10^3/uL (0.0-0.3); EOSINOPHILS % (AUTO) 3 % (0-10); HEMATOCRIT 23 % (40-54); HEMOGLOBIN 7.6 G/DL (13.3-17.7); LYMPHOCYTES # (AUTO) 0.5 X 10^3 (1.0-4.0); LYMPHOCYTES % (AUTO) 7 % (12-44); MEAN CORPUSCULAR HEMOGLOBIN 29 PG (25-34); MEAN CORPUSCULAR HGB CONC 33 G/DL (32-36); MEAN CORPUSCULAR VOLUME 89 FL (80-99); MEAN PLATELET VOLUME 8.7 FL (7.4-10.4); MONOCYTES # (AUTO) 0.5 X 10^3 (0.0-1.0); MONOCYTES % (AUTO) 7 % (0-12); NEUTROPHILS # (AUTO) 5.6 X 10^3 (1.8-7.8); NEUTROPHILS % (AUTO) 83 % (42-75); PLATELET COUNT 266 10^3/uL (130-400); RED BLOOD COUNT 2.63 10^6/uL (4.35-5.85); RED CELL DISTRIBUTION WIDTH 16.4 % (10.0-14.5); WHITE BLOOD COUNT 6.7 10^3/uL (4.3-11.0)
[2017-12-05 01:17] LABS: INR 2.7 (0.8-1.4); PROTHROMBIN TIME PATIENT 28.7 SEC (12.2-14.7)
[2017-12-05 01:20] LABS: CALCIUM 8.4 MG/DL (8.5-10.1); CREATININE SERUM 1.2 MG/DL (0.60-1.30); MAGNESIUM 2.5 MG/DL (1.8-2.4); PHOSPHORUS 3.7 MG/DL (2.3-4.7); POTASSIUM 4.1 MMOL/L (3.6-5.0)
--- NOTE | 2017-12-05 05:39 | Pulmonary Consultation ---
History of Present Illness History of Present Illness Date of Consultation 12/05/17 05:33 Time Seen by Provider: 05:33 Date of Admission Reason for Visit: unwitnessed fall at home early this morning History of Present Illness 82yo with hx of dementia, Afib with coumadin therapy presented to ED s/p fall at home hitting the back of his head. Pt was found to have a large laceration back of head. ED stapled laceration. He was also found to have anemia with hb of 6.6 and received 2 units of PRBC and 2 units of FFP and vitamin K 5mg total. His hb is now 7.6. pt has hx of drinking 6 beers per day. His who he lives with also has dementia. I am consulted for ICU management. Allergies and Home Medications Allergies Coded Allergies: No Known Drug Allergies (Unverified , 12/04/17) Home Medications Albuterol Sulfate 18 Gm Hfa.aer.ad, 2 PUFF INH Q4H PRN for SHORTNESS OF BREATH, (Reported) Allopurinol 300 Mg Tablet, 300 MG PO DAILY, (Reported) Amlodipine Besylate 5 Mg Tablet, 5 MG PO DAILY, (Reported) Atorvastatin Calcium 20 Mg Tablet, 20 MG PO DAILY, (Reported) Digoxin 125 Mcg Tablet, 125 MCG PO DAILY, (Reported) Furosemide 80 Mg Tablet, 80 MG PO DAILY, (Reported) Losartan Potassium 100 Mg Tablet, 100 MG PO DAILY, (Reported) Metoprolol Succinate 50 Mg Tab.er.24h, 50 MG PO HS, (Reported) Omeprazole 20 Mg Capsule.dr, 20 MG PO DAILY, (Reported) Potassium Chloride 10 Meq Tab.er.prt, 10 MEQ PO BID, (Reported) Warfarin Sodium 5 Mg Tablet, 5 MG PO DAILY, (Reported) Past Oglnanv-Bfhkce-Myzucy Hx Past Med/Social Hx: Reviewed Nursing Past Med/Soc Hx, Reviewed and Corrections made Patient Social History Alcohol Use: Occasionally Uses Number of Drinks Today: AA Alcohol Beverage of Choice: Beer Recreational Drug Use: No Smoking Status: Former Smoker Type Used: Cigarettes Former Smoker, Quit: Nov 14, 1969 Recent Foreign Travel: No Contact w/Someone Who Travel: No Recent Infectious Disease Expo: No Recent Hopitalizations: Yes (epitaxis 10/16/17) Physical Abuse: No Sexual Abuse: No Mistreated: No Fear: No Immunizations Up To Date Tetanus Booster (TDap): Less than 5yrs PED Vaccines UTD: Yes Date of Pneumonia Vaccine: Dec 05, 2015 Date of Influenza Vaccine: Nov 22, 2017 Seasonal Allergies Seasonal Allergies: Yes Past Medical History Surgeries: Yes (CARDIAC CATH 2010-NO INTERVENTION) Cardiac Respiratory: Yes (O2 DEPENDENT) Chronic Bronchitis, COPD Currently Using CPAP: No Currently Using BIPAP: No Cardiac: Yes (CHF) Atrial Fibrillation, Cardiomyopathy, Chronic Edema/Swelling, Coronary Artery Disease, High Cholesterol, Hypertension, Irregular Heartbeat, Valvular Heart Disease Neurological: No Sexually Transmitted Disease: No HIV/AIDS: No Genitourinary: No Gastrointestinal: No Musculoskeletal: Yes Degenerate Disk Disease, Arthritis, Back Injury, Chronic Back Pain, Gout Endocrine: No HEENT: No Hearing Impairment: Hard of Hearing Cancer: No Psychosocial: No Integumentary: No (bruises, vairous stages) Blood Disorders: No Adverse Reaction/Blood Tranf: No Family Medical History Alzheimer's disease Congenital heart disease Hypertension Respiratory disorder Hypertension Review of Systems Time Seen by Provider: 05:48 Constitutional: Weakness, Malaise Respiratory: Shortness of breath, SOB with excertion Neurological: Weakness, Confusion Sepsis Event Evaluation Height, Weight, BMI Height: 5'7.00" Weight: 185lbs. 0.0oz. 83.202517ll; 29.0 BMI Method:Stated Exam Exam Vital Signs Date Time Temp Pulse Resp B/P (MAP) Pulse Ox O2 Delivery O2 Flow Rate FiO2 12/05/17 05:00 73 19 136/63 (87) 98 Room Air 12/05/17 04:00 80 18 144/47 (79) 95 Room Air 12/05/17 04:00 Nasal Cannula 2.00 12/05/17 04:00 97.4 12/05/17 03:00 56 18 136/69 (91) 97 Room Air 12/05/17 02:00 59 18 124/67 (86) 100 Room Air 12/05/17 02:00 Nasal Cannula 2.00 12/05/17 01:00 53 12/05/17 01:00 68 15 143/72 (95) 98 Room Air 12/05/17 00:03 99 Nasal Cannula 2.00 12/05/17 00:00 Nasal Cannula 2.00 12/05/17 00:00 97.3 12/05/17 00:00 72 17 127/74 (91) 99 Room Air 10/21/18 23:00 54 16 153/65 (94) 97 Room Air 2.00 12/04/17 22:00 62 12 166/78 (107) 97 Room Air 12/04/17 21:00 Nasal Cannula 2.00 12/04/17 21:00 63 25 107/68 (81) 90 Room Air 12/04/17 20:52 97.1 76 18 156/78 92 Nasal Cannula 2.00 12/04/17 20:00 73 12 156/78 (104) 99 Room Air 12/04/17 20:00 Nasal Cannula 2.00 12/04/17 19:33 98.6 92 16 94/63 (73) 100 Room Air 12/04/17 19:00 55 13 136/86 (103) 100 Nasal Cannula 2.00 12/04/17 19:00 69 12/04/17 18:00 60 11 136/57 (83) 99 Nasal Cannula 2.00 12/04/17 17:59 97.4 48 12 120/65 100 Nasal Cannula 2.00 12/04/17 17:45 97.5 64 12 120/65 100 Nasal Cannula 2.00 12/04/17 17:00 65 18 138/67 (90) 99 Nasal Cannula 2.00 12/04/17 16:37 97.5 77 13 116/81 98 Nasal Cannula 2.00 12/04/17 16:21 97.4 68 13 131/73 Nasal Cannula 2.00 12/04/17 16:09 97.4 74 22 131/73 100 Nasal Cannula 2.00 12/04/17 16:00 75 23 131/73 (92) 99 Nasal Cannula 2.00 12/04/17 16:00 97.4 12/04/17 16:00 98 Nasal Cannula 2.00 12/04/17 15:15 98.0 62 16 127/60 95 Nasal Cannula 2.00 12/04/17 15:00 61 14 135/64 (87) 98 Nasal Cannula 2.00 12/04/17 14:54 98.0 59 12 132/57 100 Nasal Cannula 1.00 12/04/17 14:25 Nasal Cannula 1.00 12/04/17 14:22 97.5 68 24 125/53 98 Nasal Cannula 1.00 12/04/17 14:00 55 26 125/53 (77) 100 Nasal Cannula 2.00 12/04/17 13:00 72 12 132/57 (82) 94 Nasal Cannula 2.00 12/04/17 12:45 68 18 129/83 (98) 96 Nasal Cannula 2.00 12/04/17 12:43 97.3 66 20 129/83 98 Nasal Cannula 1.00 12/04/17 12:30 98 Nasal Cannula 1.00 12/04/17 12:30 69 11 119/95 (103) 97 Nasal Cannula 2.00 12/04/17 12:21 58 12/04/17 12:21 97.3 59 20 128/65 100 Nasal Cannula 2.00 12/04/17 12:15 72 15 128/65 (86) 100 Nasal Cannula 2.00 12/04/17 11:58 97.3 71 16 158/56 (90) 97 Nasal Cannula 2.00 12/04/17 11:50 70 16 135/83 (100) 100 Nasal Cannula 2.00 12/04/17 08:37 94.9 97 16 126/100 (109) 97 Room Air I & O 12/05/17 07:00 Intake Total 240 ml Output Total 0 ml Balance 240 ml Height & Weight Height: 5'7.00" Weight: 185lbs. 0.0oz. 83.449994ql; 29.0 BMI Method:Stated General Appearance: No Apparent Distress, WD/WN, Anxious, Chronically ill, Obese HEENT: PERRL/EOMI, Normal ENT Inspection, Pharynx Normal Neck: Full Range of Motion, Normal Inspection, Non Tender, Supple, Carotid Bruit Respiratory: Chest Non Tender, No Accessory Muscle Use, No Respiratory Distress , Decreased Breath Sounds Cardiovascular: No Edema, No Gallop, No JVD, No Murmur, Normal Peripheral Pulses, Irregularly Irregular, Tachycardia Capillary Refill: Less Than 3 Seconds Peripheral Pulses: 1+ Dorsalis Pedis (R), 1+ Left Dors-Pedis (L); 2+ Radial Pulses (R), 2+ Radial Pulses (L) Gastrointestinal: non tender, soft Extremity: Normal Capillary Refill, Normal Inspection, Normal Range of Motion, Non Tender, No Calf Tenderness, No Pedal Edema Neurologic/Psychiatric: Alert, No Motor/Sensory Deficits, Depressed Affect, Disoriented Skin: Normal Color, Warm/Dry Lymphatic: No Adenopathy Results Lab Laboratory Tests 12/04/17 08:53 12/05/17 01:00 Assessment/Plan Assessment/Plan S/P Fall with scalp laceration requiring comfort -surgery following Hx of Multiple falls recently Coumadin coagulopathy with severe anemia hb 6.6 requiring 2 units of PRBC and 2 units of FFP -INR 5.5 on admission -monitor INR and Hb Hx of CHF -cardiology following -echo pending Chronic atrial fibrillation -hold Coumadin therapy Regular alcohol use heavy -Monitor Debility/dementia -PT lives with at home. It is doubtful they are really able to take care of themselves. They do not want ECF. Daughter states she is going to find 24/7 help for them. Will consult hospice as another possible option (education) to give them more assistance in home setting. HAMIDA ADAMS DO Dec 05, 2017 05:39
[2017-12-05] MEDS: NS IV 500 ML 500 ML IV SCH (05:58)
[2017-12-05] MEDS ORDERED: MAGNESIUM 1 GM/100 ML IVPB 100 ML IV SCH (06:00)
[2017-12-05] MEDS ORDERED: POTASSIUM CL 10MEQ/50ML IVPB 50 ML IV SCH (06:00)
[2017-12-05] MEDS ORDERED: KCL 20 MEQ TAB (K-DUR) PO SCH (06:00)
--- NOTE | 2017-12-05 07:50 | Progress Note (SOAP) ---
Subjective Time Seen by a Provider: 07:47 Subjective/Events-last exam Patient is stable today. Daughter is now willing to have 24/7 and hospice. Daughter need social organization professor to give names of people to stay at his home. Patient has history of drinking beers. Objective Exam Vital Signs Date Time Temp Pulse Resp B/P (MAP) Pulse Ox O2 Delivery O2 Flow Rate FiO2 12/05/17 06:00 59 21 119/49 (72) 95 Room Air 12/05/17 05:00 73 19 136/63 (87) 98 Room Air 12/05/17 04:00 80 18 144/47 (79) 95 Room Air 12/05/17 04:00 Nasal Cannula 2.00 12/05/17 04:00 97.4 12/05/17 03:00 56 18 136/69 (91) 97 Room Air 12/05/17 02:00 59 18 124/67 (86) 100 Room Air 12/05/17 02:00 Nasal Cannula 2.00 12/05/17 01:00 53 12/05/17 01:00 68 15 143/72 (95) 98 Room Air 12/05/17 00:03 99 Nasal Cannula 2.00 12/05/17 00:00 Nasal Cannula 2.00 12/05/17 00:00 97.3 12/05/17 00:00 72 17 127/74 (91) 99 Room Air 12/04/17 23:00 54 16 153/65 (94) 97 Room Air 2.00 12/04/17 22:00 62 12 166/78 (107) 97 Room Air 12/04/17 21:00 Nasal Cannula 2.00 12/04/17 21:00 63 25 107/68 (81) 90 Room Air 12/04/17 20:52 97.1 76 18 156/78 92 Nasal Cannula 2.00 12/04/17 20:00 73 12 156/78 (104) 99 Room Air 12/04/17 20:00 Nasal Cannula 2.00 12/04/17 19:33 98.6 92 16 94/63 (73) 100 Room Air 12/04/17 19:00 55 13 136/86 (103) 100 Nasal Cannula 2.00 12/04/17 19:00 69 12/04/17 18:00 60 11 136/57 (83) 99 Nasal Cannula 2.00 12/04/17 17:59 97.4 48 12 120/65 100 Nasal Cannula 2.00 12/04/17 17:45 97.5 64 12 120/65 100 Nasal Cannula 2.00 12/04/17 17:00 65 18 138/67 (90) 99 Nasal Cannula 2.00 12/04/17 16:37 97.5 77 13 116/81 98 Nasal Cannula 2.00 12/04/17 16:21 97.4 68 13 131/73 Nasal Cannula 2.00 12/04/17 16:09 97.4 74 22 131/73 100 Nasal Cannula 2.00 12/04/17 16:00 75 23 131/73 (92) 99 Nasal Cannula 2.00 12/04/17 16:00 97.4 12/04/17 16:00 98 Nasal Cannula 2.00 12/04/17 15:15 98.0 62 16 127/60 95 Nasal Cannula 2.00 12/04/17 15:00 61 14 135/64 (87) 98 Nasal Cannula 2.00 12/04/17 14:54 98.0 59 12 132/57 100 Nasal Cannula 1.00 12/04/17 14:25 Nasal Cannula 1.00 12/04/17 14:22 97.5 68 24 125/53 98 Nasal Cannula 1.00 12/04/17 14:00 55 26 125/53 (77) 100 Nasal Cannula 2.00 12/04/17 13:00 72 12 132/57 (82) 94 Nasal Cannula 2.00 12/04/17 12:45 68 18 129/83 (98) 96 Nasal Cannula 2.00 12/04/17 12:43 97.3 66 20 129/83 98 Nasal Cannula 1.00 12/04/17 12:30 98 Nasal Cannula 1.00 12/04/17 12:30 69 11 119/95 (103) 97 Nasal Cannula 2.00 12/04/17 12:21 58 12/04/17 12:21 97.3 59 20 128/65 100 Nasal Cannula 2.00 12/04/17 12:15 72 15 128/65 (86) 100 Nasal Cannula 2.00 12/04/17 11:58 97.3 71 16 158/56 (90) 97 Nasal Cannula 2.00 12/04/17 11:50 70 16 135/83 (100) 100 Nasal Cannula 2.00 12/04/17 08:37 94.9 97 16 126/100 (109) 97 Room Air I & O 12/05/17 07:00 Intake Total 240 ml Output Total 0 ml Balance 240 ml Capillary Refill : Less Than 3 Seconds General Appearance: No Apparent Distress, WD/WN HEENT: Normal ENT Inspection Neck: Full Range of Motion, Normal Inspection Respiratory: No Accessory Muscle Use, No Respiratory Distress Cardiovascular: Irregularly Irregular Gastrointestinal: non tender, soft Results Lab Laboratory Tests 12/04/17 08:53: White Blood Count 7.1, Red Blood Count 2.29L, Hemoglobin 6.6*L, Hematocrit 21L, Mean Corpuscular Volume 91, Mean Corpuscular Hemoglobin 29, Mean Corpuscular Hemoglobin Concent 32, Red Cell Distribution Width 16.4H, Platelet Count 321, Mean Platelet Volume 8.3, Neutrophils (%) (Auto) 78H, Lymphocytes (%) (Auto) 10L , Monocytes (%) (Auto) 9, Eosinophils (%) (Auto) 3, Basophils (%) (Auto) 0, Neutrophils # (Auto) 5.6, Lymphocytes # (Auto) 0.7L, Monocytes # (Auto) 0.6, Eosinophils # (Auto) 0.2, Basophils # (Auto) 0.0, Sodium Level 135, Potassium Level 4.7, Chloride Level 100, Carbon Dioxide Level 25, Anion Gap 10, Blood Urea Nitrogen 47H, Creatinine 1.38H, Estimat Glomerular Filtration Rate 49, BUN/ Creatinine Ratio 34, Glucose Level 92, Calcium Level 8.4L, Corrected Calcium 9.0 , Total Bilirubin 1.3H, Aspartate Amino Transf (AST/SGOT) 37H, Alanine Aminotransferase (ALT/SGPT) 21, Alkaline Phosphatase 66, Total Protein 5.9L, Albumin 3.3 12/04/17 09:00: Urine Color YELLOW, Urine Clarity CLEAR, Urine pH 7, Urine Specific [place] 1.010L, Urine Protein 1+H, Urine Glucose (UA) NEGATIVE, Urine Ketones NEGATIVE, Urine Nitrite NEGATIVE, Urine Bilirubin NEGATIVE, Urine Urobilinogen NORMAL, Urine Leukocyte Esterase 1+H, Urine RBC (Auto) NEGATIVE, Urine RBC NONE, Urine WBC RARE, Urine Squamous Epithelial Cells NONE, Urine Crystals NONE, Urine Bacteria NEGATIVE, Urine Casts NONE, Urine Mucus NEGATIVE, Urine Culture Indicated NO 10/21/18 09:44: Prothrombin Time 50.6*H, INR Comment 5.5*H, Activated Partial Thromboplast Time 78H 12/05/17 01:00: White Blood Count 6.7, Red Blood Count 2.63L, Hemoglobin 7.6L, Hematocrit 23L, Mean Corpuscular Volume 89, Mean Corpuscular Hemoglobin 29, Mean Corpuscular Hemoglobin Concent 33, Red Cell Distribution Width 16.4H, Platelet Count 266, Mean Platelet Volume 8.7, Neutrophils (%) (Auto) 83H, Lymphocytes (%) (Auto) 7L , Monocytes (%) (Auto) 7, Eosinophils (%) (Auto) 3, Basophils (%) (Auto) 0, Neutrophils # (Auto) 5.6, Lymphocytes # (Auto) 0.5L, Monocytes # (Auto) 0.5, Eosinophils # (Auto) 0.2, Basophils # (Auto) 0.0, Sodium Level 138, Potassium Level 4.1, Chloride Level 103, Carbon Dioxide Level 24, Anion Gap 11, Blood Urea Nitrogen 45H, Creatinine 1.20, Estimat Glomerular Filtration Rate 58, BUN/ Creatinine Ratio 38, Glucose Level 142H, Calcium Level 8.4L, Prothrombin Time 28.7H, INR Comment 2.7H, Phosphorus Level 3.7, Magnesium Level 2.5H Assessment/Plan Assessment/Plan Assess & Plan/Chief Complaint Unwitnessed fall again. Laceration of scalp. Hematoma. Debility. Supratherapeutic INR. Acute blood loss. Atrial fibrillation. History of alcoholism. Dementia. Daughter wants parents to live at home. Daughter wants now 24 hours people to watch over them. has dementia. Family thinking about hospice Clinical Quality Measures DVT/VTE Risk/Contraindication: Risk Factor Score Per Nursin RFS Level Per Nursing on Admit: 4+=Very High NISSA ANTONIO DO Dec 05, 2017 07:50
--- NOTE | 2017-12-05 08:06 | Diagnostic Imaging Report ---
0327 hours Since study of one day earlier, there is stable cardiomegaly. No pneumothorax or consolidation is identified. Pulmonary vascularity is at the upper limits of normal without overt edema or significant pleural fluid. Impression: Stable cardiomegaly without other acute abnormality identified. Dictated by: Dictated on workstation # [id number]
[2017-12-05] MEDS: HYDROcodone/APAP 5 MG/325 MG (LORTAB) TAB PO PRN ×2 (08:25→22:04)
[2017-12-05] MEDS ORDERED: DIGOXIN 0.125 MG (LANOXIN) TAB PO SCH (09:00)
[2017-12-05] MEDS ORDERED: TRAM50TA2 PO (10:31)
[2017-12-05] MEDS ORDERED: FERR-84 PO (10:31)
[2017-12-05] MEDS ORDERED: ASPI-983 PO (10:31)
[2017-12-05] MEDS ORDERED: CHOL20003 PO (10:31)
[2017-12-05] MEDS ORDERED: ALBU2.5V4 NEB (10:31)
[2017-12-05] MEDS ORDERED: WARF3TAB56 PO (10:31)
[2017-12-05] MEDS ORDERED: METO2.5T PO (10:31)
[2017-12-05] MEDS ORDERED: WARF-47 PO (10:31)
--- NOTE | 2017-12-05 11:47 | Cardiology Progress Note ---
Cardiology SOAP Progress Note Subjective: No cardiac complaints. Objective: I&O/Vital Signs 12/05/17 12/05/17 12/05/17 12/05/17 00:00 00:00 00:00 00:03 Temp 97.3 Pulse 72 Resp 17 B/P (MAP) 127/74 (91) Pulse Ox 99 99 O2 Delivery Room Air Nasal Cannula Nasal Cannula O2 Flow Rate 2.00 2.00 12/05/17 12/05/17 12/05/17 12/05/17 01:00 01:00 02:00 02:00 Pulse 68 53 59 Resp 15 18 B/P (MAP) 143/72 (95) 124/67 (86) Pulse Ox 98 100 O2 Delivery Room Air Nasal Cannula Room Air O2 Flow Rate 2.00 12/05/17 12/05/17 12/05/17 12/05/17 03:00 04:00 04:00 04:00 Temp 97.4 Pulse 56 80 Resp 18 18 B/P (MAP) 136/69 (91) 144/47 (79) Pulse Ox 97 95 O2 Delivery Room Air Nasal Cannula Room Air O2 Flow Rate 2.00 12/05/17 12/05/17 12/05/17 12/05/17 05:00 06:00 07:00 07:00 Pulse 73 59 61 63 Resp 19 21 16 B/P (MAP) 136/63 (87) 119/49 (72) 91/67 (75) Pulse Ox 98 95 95 O2 Delivery Room Air Room Air Room Air 12/05/17 12/05/17 12/05/17 12/05/17 08:00 08:00 08:00 09:00 Temp 98.6 Pulse 86 96 Resp 29 29 B/P (MAP) 101/49 (66) 125/44 (71) Pulse Ox 98 96 99 O2 Delivery Room Air Nasal Cannula Room Air O2 Flow Rate 2.00 12/05/17 12/05/17 12/05/17 12/05/17 09:00 10:00 10:24 11:32 Pulse 61 B/P (MAP) 142/76 (98) Pulse Ox 90 98 O2 Delivery Nasal Cannula Room Air Nasal Cannula Nasal Cannula O2 Flow Rate 2.00 2.00 2.00 12/05/17 00:00 Intake Total 240 ml Output Total 0 ml Balance 240 ml Weight (Pounds): 190 Weight (Ounces): 0.0 Weight (Calculated Kilograms): 86.877092 Constitutional: appears stated age; No apparent distress; well-developed, well- nourished Respiratory: chest is bilaterally symmetric, lungs clear to auscultation Cardiovascular: No regular rate-rhythm; irregularly irregular; No extra beats, No parasternal heave is noted, No JVD, No edema, No bradycardia, No tachycardia , No point of maximal impulse, No cardiac thrills are palpable; S1 and S2; No gallop/S3, No gallop/S4, No diastolic murmur, No systolic murmur, No friction rub, No click, No other Gastrointestional: No tender, No soft, No round, No distended, No pulsatile mass, No organomegaly, No guarding, No rebound, No tenderness, No hernia, No mass, No audible bowel sounds, No abnormal bowel sounds, No abdominal bruits, No spleenomegaly, No other Extremities: No normal range of motion, No non-tender, No normal inspection, No pedal edema, No calf tenderness, No normal capillary refill, No pelvis stable , No calf tenderness, No inflammation, No pedal edema, No slow capillary refill , No swelling, No other, No abrasion, No clubbing, No cyanosis, No ecchymosis, No laceration, No no lower extremity edema bilateral, No significant edema, No tenderness, No wound Neurologic/Psychiatric: other (drowsy.), power is 5/5 both on sides Skin: No rash, No ulcerations Results/Procedures: Labs Laboratory Tests 12/05/17 01:00: White Blood Count 6.7, Red Blood Count 2.63L, Hemoglobin 7.6L, Hematocrit 23L, Mean Corpuscular Volume 89, Mean Corpuscular Hemoglobin 29, Mean Corpuscular Hemoglobin Concent 33, Red Cell Distribution Width 16.4H, Platelet Count 266, Mean Platelet Volume 8.7, Neutrophils (%) (Auto) 83H, Lymphocytes (%) (Auto) 7L , Monocytes (%) (Auto) 7, Eosinophils (%) (Auto) 3, Basophils (%) (Auto) 0, Neutrophils # (Auto) 5.6, Lymphocytes # (Auto) 0.5L, Monocytes # (Auto) 0.5, Eosinophils # (Auto) 0.2, Basophils # (Auto) 0.0, Prothrombin Time 28.7H, INR Comment 2.7H, Sodium Level 138, Potassium Level 4.1, Chloride Level 103, Carbon Dioxide Level 24, Anion Gap 11, Blood Urea Nitrogen 45H, Creatinine 1.20, Estimat Glomerular Filtration Rate 58, BUN/Creatinine Ratio 38, Glucose Level 142H, Calcium Level 8.4L, Phosphorus Level 3.7, Magnesium Level 2.5H A/P: Assessment/Dx: Chronic atrial fibrillation, Bradycardia, Multiple fall with scalp laceration, Supratherapeutic INR, Dementia, Hyperlipidemia, Congestive heart failure Plan: Chronic atrial fibrillation, patient has numerous falls in the recent past. He is not safe to be on oral anticoagulation. I will discontinue any further oral anticoagulation on him. Discussed at length with the family and patient. I did tell them that there is risk of stroke but the risk of intracranial bleeding is much higher considering his numerous falls. Bradycardia, discontinue digoxin and metoprolol. Multiple fall with scalp laceration, deferred to primary team and Dr. William. Supratherapeutic INR, vitamin K and FFP given. INR 2.2 today. Dementia, Hyperlipidemia, I believe there is no significant long-term benefit of this patient being on statin therapy. I will recommend discontinuing atorvastatin. Congestive heart failure, euvolemic and not in congestive heart failure. An echocardiogram will be recommended. Dr. [place] to take over cardiology care from tomorrow. Thank you for your consultation. Please call me if you have any questions. Yves Velez MD, FACP, FACC, FSCAI, FHRS, CCDS Interventional Cardiology Cardiac Electrophysiology Vascular Medicine and Endovascular Interventions Sage VELEZ MD Dec 05, 2017 11:47 am
--- NOTE | 2017-12-05 12:50 | Progress Note (SOAP) ---
Subjective Date Seen by a Provider: Dec 05, 2017 Time Seen by a Provider: 11:20 Subjective/Events-last exam patient appears to be more awake and interactive. Denies any sources of pain at this point Review of Systems General: No Chills, No Night Sweats, No Fatigue, No Malaise Pulmonary: Cough Cardiovascular: No: Chest Pain, Palpitations, Orthopnea, Paroxysmal Noc. Dyspnea, Edema, Lt Headedness Gastrointestinal: No: Nausea, Vomiting, Abdominal Pain, Diarrhea, Constipation , Melena, Hematochezia Genitourinary: No Dysuria, No Frequency, No Incontinence, No Hematuria, No Retention Musculoskeletal: No: other, neck pain, shoulder pain, arm pain, back pain, hand pain, leg pain, foot pain Neurological: No: Weakness, Numbness, Incoordination, Change in speech, Confusion, Seizures, Other Objective Exam Vital Signs Date Time Temp Pulse Resp B/P (MAP) Pulse Ox O2 Delivery O2 Flow Rate FiO2 12/05/17 11:32 Nasal Cannula 2.00 12/05/17 10:24 98 Nasal Cannula 2.00 12/05/17 10:00 61 142/76 (98) 90 Room Air 12/05/17 09:00 Nasal Cannula 2.00 12/05/17 09:00 96 29 125/44 (71) 99 Room Air 12/05/17 08:00 96 Nasal Cannula 2.00 12/05/17 08:00 98.6 12/05/17 08:00 86 29 101/49 (66) 98 Room Air 12/05/17 07:00 63 16 91/67 (75) 95 Room Air 12/05/17 07:00 61 12/05/17 06:00 59 21 119/49 (72) 95 Room Air 12/05/17 05:00 73 19 136/63 (87) 98 Room Air 12/05/17 04:00 80 18 144/47 (79) 95 Room Air 12/05/17 04:00 Nasal Cannula 2.00 12/05/17 04:00 97.4 12/05/17 03:00 56 18 136/69 (91) 97 Room Air 12/05/17 02:00 59 18 124/67 (86) 100 Room Air 12/05/17 02:00 Nasal Cannula 2.00 12/05/17 01:00 53 12/05/17 01:00 68 15 143/72 (95) 98 Room Air 12/05/17 00:03 99 Nasal Cannula 2.00 12/05/17 00:00 Nasal Cannula 2.00 12/05/17 00:00 97.3 12/05/17 00:00 72 17 127/74 (91) 99 Room Air 12/04/17 23:00 54 16 153/65 (94) 97 Room Air 2.00 12/04/17 22:00 62 12 166/78 (107) 97 Room Air 12/04/17 21:00 Nasal Cannula 2.00 12/04/17 21:00 63 25 107/68 (81) 90 Room Air 12/04/17 20:52 97.1 76 18 156/78 92 Nasal Cannula 2.00 12/04/17 20:00 73 12 156/78 (104) 99 Room Air 12/04/17 20:00 Nasal Cannula 2.00 12/04/17 19:33 98.6 92 16 94/63 (73) 100 Room Air 12/04/17 19:00 55 13 136/86 (103) 100 Nasal Cannula 2.00 12/04/17 19:00 69 12/04/17 18:00 60 11 136/57 (83) 99 Nasal Cannula 2.00 12/04/17 17:59 97.4 48 12 120/65 100 Nasal Cannula 2.00 12/04/17 17:45 97.5 64 12 120/65 100 Nasal Cannula 2.00 12/04/17 17:00 65 18 138/67 (90) 99 Nasal Cannula 2.00 12/04/17 16:37 97.5 77 13 116/81 98 Nasal Cannula 2.00 12/04/17 16:21 97.4 68 13 131/73 Nasal Cannula 2.00 12/04/17 16:09 97.4 74 22 131/73 100 Nasal Cannula 2.00 12/04/17 16:00 75 23 131/73 (92) 99 Nasal Cannula 2.00 12/04/17 16:00 97.4 12/04/17 16:00 98 Nasal Cannula 2.00 12/04/17 15:15 98.0 62 16 127/60 95 Nasal Cannula 2.00 12/04/17 15:00 61 14 135/64 (87) 98 Nasal Cannula 2.00 12/04/17 14:54 98.0 59 12 132/57 100 Nasal Cannula 1.00 12/04/17 14:25 Nasal Cannula 1.00 12/04/17 14:22 97.5 68 24 125/53 98 Nasal Cannula 1.00 12/04/17 14:00 55 26 125/53 (77) 100 Nasal Cannula 2.00 12/04/17 13:00 72 12 132/57 (82) 94 Nasal Cannula 2.00 I & O 12/05/17 07:00 Intake Total 240 ml Output Total 0 ml Balance 240 ml Capillary Refill : Less Than 3 Seconds General Appearance: No Apparent Distress HEENT: Other Neck: Normal Inspection Gastrointestinal: non tender, soft Neurologic/Psychiatric: Alert, Oriented x3 Skin: Other Other comments laceration over the occipital region of the scalp managed by comfort. No hematoma. No active bleeding. Multiple areas of ecchymosis over his body. Patient has very prominent bilateral proptosis of his eyes. The exact etiology of this finding is unclear at this point. Results Lab Laboratory Tests 12/05/17 01:00: White Blood Count 6.7, Red Blood Count 2.63L, Hemoglobin 7.6L, Hematocrit 23L, Mean Corpuscular Volume 89, Mean Corpuscular Hemoglobin 29, Mean Corpuscular Hemoglobin Concent 33, Red Cell Distribution Width 16.4H, Platelet Count 266, Mean Platelet Volume 8.7, Neutrophils (%) (Auto) 83H, Lymphocytes (%) (Auto) 7L , Monocytes (%) (Auto) 7, Eosinophils (%) (Auto) 3, Basophils (%) (Auto) 0, Neutrophils # (Auto) 5.6, Lymphocytes # (Auto) 0.5L, Monocytes # (Auto) 0.5, Eosinophils # (Auto) 0.2, Basophils # (Auto) 0.0, Prothrombin Time 28.7H, INR Comment 2.7H, Sodium Level 138, Potassium Level 4.1, Chloride Level 103, Carbon Dioxide Level 24, Anion Gap 11, Blood Urea Nitrogen 45H, Creatinine 1.20, Estimat Glomerular Filtration Rate 58, BUN/Creatinine Ratio 38, Glucose Level 142H, Calcium Level 8.4L, Phosphorus Level 3.7, Magnesium Level 2.5H 12/05/17 12:00: Lab Scanned Report Transfusion Reaction Form Assessment/Plan Assessment/Plan Assess & Plan/Chief Complaint elderly gentleman with multiple comorbidities including atrial fibrillation requiring anticoagulation. Coumadin toxicity with elevated INR. Anemia due to acute blood loss. Reasonable to transfuse and observe him. Coumadin toxicity needs to be reversed. Elderly gentleman with multiple comorbidities including atrial fibrillation, requiring anticoagulation. Coumadin toxicity corrected with frozen plasma. Overall general condition much improved. Laceration of the scalp, managed appropriately. Final Diagnosis scalp laceration. Coumadin toxicity. Clinical Quality Measures DVT/VTE Risk/Contraindication: Risk Factor Score Per Nursin RFS Level Per Nursing on Admit: 4+=Very High DEISY BETTS MD Dec 05, 2017 12:50
[2017-12-06 03:58] VITALS: BP 149/89
--- NOTE | 2017-12-06 06:54 | Pulmonary Progress Note ---
Subjective Time Seen by a Provider: 06:54 Subjective/Events-last exam No complications noted. Sepsis Event Evaluation Height, Weight, BMI Height: 5'7.00" Weight: 193lbs. 13.0oz. [id number]; 29.0 BMI Method:Stated Exam Exam Vital Signs Date Time Temp Pulse Resp B/P (MAP) Pulse Ox O2 Delivery O2 Flow Rate FiO2 12/06/17 03:58 98.7 90 22 149/89 (109) 98 Nasal Cannula 2.00 12/05/17 23:45 98.7 85 22 158/69 (98) 99 Nasal Cannula 2.00 12/05/17 21:00 Nasal Cannula 2.00 12/05/17 19:30 95.7 88 16 132/62 (85) 100 Nasal Cannula 2.00 12/05/17 18:18 Nasal Cannula 2.00 12/05/17 15:25 96.7 90 16 145/82 (103) 98 Nasal Cannula 2.00 12/05/17 12:00 97.6 77 20 143/67 (92) 99 Room Air 12/05/17 11:32 Nasal Cannula 2.00 12/05/17 10:24 98 Nasal Cannula 2.00 12/05/17 10:00 61 142/76 (98) 90 Room Air 12/05/17 09:00 Nasal Cannula 2.00 12/05/17 09:00 96 29 125/44 (71) 99 Room Air 12/05/17 08:00 96 Nasal Cannula 2.00 12/05/17 08:00 98.6 12/05/17 08:00 86 29 101/49 (66) 98 Room Air 12/05/17 07:00 63 16 91/67 (75) 95 Room Air 12/05/17 07:00 61 I & O 12/06/17 07:00 Intake Total 2290 ml Output Total 550 ml Balance 1740 ml Height & Weight Height: 5'7.00" Weight: 193lbs. 13.0oz. [id number]; 29.0 BMI Method:Stated General Appearance: No Apparent Distress HEENT: Other Neck: Normal Inspection Respiratory: No Accessory Muscle Use, No Respiratory Distress Cardiovascular: Irregularly Irregular Capillary Refill: Less Than 3 Seconds Peripheral Pulses: 1+ Dorsalis Pedis (R), 1+ Left Dors-Pedis (L); 2+ Radial Pulses (R), 2+ Radial Pulses (L) Gastrointestinal: non tender, soft Extremity: Normal Capillary Refill, Normal Inspection, Normal Range of Motion, Non Tender, No Calf Tenderness, No Pedal Edema Neurologic/Psychiatric: Alert, Oriented x3 Skin: Other Lymphatic: No Adenopathy Results Lab Laboratory Tests 12/04/17 08:53 12/05/17 01:00 Assessment/Plan Assessment/Plan S/P Fall with scalp laceration requiring comfort -surgery following Hx of Multiple falls recently Coumadin coagulopathy - improved Hx of CHF -cardiology following -echo pending Chronic atrial fibrillation -Cardiology following Regular alcohol use heavy -Monitor Debility/dementia -PT lives with at home. It is doubtful they are really able to take care of themselves. They do not want ECF. Daughter states she is going to find 24/7 help for them. Will consult hospice as another possible option (education) to give them more assistance in home setting. Daughter is considering hospice care and 24/7 home care for her parents. PT appears to be stable now. I am going to sign off please call with any questions. HAMIDA ADAMS DO Dec 06, 2017 06:54
--- NOTE | 2017-12-06 07:26 | Cardiology Progress Note ---
Subjective Date Seen by Provider: Dec 06, 2017 Time Seen by Provider: 07:21 Subjective/Events-last exam Patient is laying down in bed, having some cough and shortness of breath and wheezing, still having generalized weakness. Review of Systems General: No Chills, No Night Sweats; Fatigue, Malaise; No Appetite, No Other HEENT: No Head Aches, No Visual Changes, No Eye Pain, No Ear Pain, No Dysphasia , No Sinus Congestion, No Post Nasal Drip, No Sore Throat, No Other Pulmonary: Dyspnea, Cough; No Pleuritic Chest Pain, No Other Cardiovascular: Edema; No: Chest Pain, Palpitations, Orthopnea, Paroxysmal Noc. Dyspnea, Lt Headedness, Other Objective-Cardiology Exam Last Set of Vital Signs Vital Signs 12/06/17 12/06/17 03:58 07:11 Temp 98.7 Pulse 90 Resp 22 B/P (MAP) 149/89 (109) Pulse Ox 98 O2 Delivery Nasal Cannula O2 Flow Rate 2.00 Capillary Refill : Less Than 3 Seconds I&O Intake and Output 12/06/17 00:00 Intake Total 2190 ml Output Total 550 ml Balance 1640 ml Intake Oral 2190 ml Output Urine Total 550 ml # Voids 1 # Urine Diapers 1 General: Alert, Oriented X3, Cooperative HEENT: Atraumatic, PERRLA Neck: Supple, No Thyromegaly Lungs: Normal Air Movement, Other (Bilateral wheezing and rhonchi) Heart: Regular Rate, Normal S1, Normal S2, No Murmurs Abdomen: Normal Bowel Sounds, Soft, No Tenderness, No Hepatosplenomegaly, No Masses Extremities: Normal Pulses, Other (Have erythema and bruising on the right leg , +2 edema) Skin: No Rashes, Other (Laceration and bruising on the face and head) Neuro: Normal Speech, Normal Tone, Sensation Intact Psych/Mental Status: Mood NL Results Lab Laboratory Tests Test 12/05/17 12:00 Range/Units Lab Scanned Report Transfusion Reaction Form [id number] A/P-Cardiology Admission Diagnosis Head laceration Chronic atrial fibrillation Coronary artery disease Hypertension Assessment/Plan Multiple falls and contusion and laceration, received stabling of the head. Unsteady gait. Unable to support himself. I had a long discussion with the family and discussed the possibility of senior living. Persistent atrial fibrillation, currently in atrial fibrillation, rate controlled. Most recent 2-D echocardiogram revealed EF 50 percent. Mild left ventricular hypertrophy. Diastolic dysfunction. Biatrial enlargement, unable to tolerate Coumadin due to to the multiple falls and unsteady gait. Family understand the increased risk of stroke. Bradycardia, metoprolol and digoxin were discontinued. Continue to monitor heart rate Congestive heart failure, Chronic left ventricular diastolic dysfunction, echocardiogram showed normal LV size and function, enlarged left atrium with pulmonary hypertension, continue on current medications and monitor [id number] score is 4, yearly risk of stroke without oral anticoagulation is 4 percent, unable to tolerate Coumadin due to his current unsteady gait and multiple falls and laceration Coronary artery disease, mild to moderate disease, last cardiac catheterization was done in July 2010. Showing heavily calcified coronary system with mild disease, nonobstructive disease with cardiomyopathy, He is asymptomatic at this time. Severe pulmonary hypertension, cor pulmonale with underlying COPD, needing to be on continuous oxygen. Followed and managed by Dr. Duron. Anemia, received blood transfusion, continue to monitor H&H. Chronic renal insufficiency- continue to monitor renal function. Hypertension, restart home medications and monitor Hyperlipidemia, continue to monitor lipids History of gouty arthritis, currently asymptomatic. Carotid artery stenosis, last ultrasound was done in October 2016, has heavily calcified arteries. Had a CT scan showed calcified plaque more prominent on the right with extension to the proximal, glutamine effect causing artifact to the area but appeared to be moderate stenosis, the right side estimated to be slightly better. Clinical Quality Measures DVT/VTE Risk/Contraindication: Risk Factor Score Per Nursin RFS Level Per Nursing on Admit: 4+=Very High LAVONNE KELLY MD Dec 06, 2017 07:26
--- NOTE | 2017-12-06 07:39 | Progress Note (SOAP) ---
Subjective Time Seen by a Provider: 07:37 Subjective/Events-last exam She and resting comfortably today. Spoke to granddaughter this morning. Family has hospice 06/09 somebody at home. Plan to discharge today Objective Exam Vital Signs Date Time Temp Pulse Resp B/P (MAP) Pulse Ox O2 Delivery O2 Flow Rate FiO2 12/06/17 07:11 98 Nasal Cannula 2.00 12/06/17 03:58 98.7 90 22 149/89 (109) 98 Nasal Cannula 2.00 12/05/17 23:45 98.7 85 22 158/69 (98) 99 Nasal Cannula 2.00 12/05/17 21:00 Nasal Cannula 2.00 12/05/17 19:30 95.7 88 16 132/62 (85) 100 Nasal Cannula 2.00 12/05/17 18:18 Nasal Cannula 2.00 12/05/17 15:25 96.7 90 16 145/82 (103) 98 Nasal Cannula 2.00 12/05/17 12:00 97.6 77 20 143/67 (92) 99 Room Air 12/05/17 11:32 Nasal Cannula 2.00 12/05/17 10:24 98 Nasal Cannula 2.00 12/05/17 10:00 61 142/76 (98) 90 Room Air 12/05/17 09:00 Nasal Cannula 2.00 12/05/17 09:00 96 29 125/44 (71) 99 Room Air 12/05/17 08:00 96 Nasal Cannula 2.00 12/05/17 08:00 98.6 12/05/17 08:00 86 29 101/49 (66) 98 Room Air I & O 12/06/17 07:00 Intake Total 2290 ml Output Total 550 ml Balance 1740 ml Capillary Refill : Less Than 3 Seconds General Appearance: No Apparent Distress, WD/WN HEENT: Normal ENT Inspection Neck: Normal Inspection Respiratory: No Accessory Muscle Use, No Respiratory Distress Cardiovascular: Irregularly Irregular Gastrointestinal: non tender, soft Results Lab Laboratory Tests 12/05/17 12:00: Lab Scanned Report Transfusion Reaction Form Microbiology 12/04/17 MRSA Screen - Final, Complete Assessment/Plan Assessment/Plan Assess & Plan/Chief Complaint Unwitnessed fall again. Laceration of scalp. Hematoma. Debility. Supratherapeutic INR. Acute blood loss. Atrial fibrillation. History of alcoholism. Dementia. Daughter wants parents to live at home. Daughter wants now 24 hours people to watch over them. has dementia. Family thinking about hospice. . 12/06/17. Unwitnessed fall. Laceration of scalp. Hematoma. Debility. Supratherapeutic INR yesterday INR 2.5. Dementia. Plan to discharge today back home Clinical Quality Measures DVT/VTE Risk/Contraindication: Risk Factor Score Per Nursin RFS Level Per Nursing on Admit: 4+=Very High NISSA ANTONIO DO Dec 06, 2017 07:39
[2017-12-06 07:52] LABS: HEMOGLOBIN 7.2 G/DL (13.3-17.7); MEAN PLATELET VOLUME 8.4 FL (7.4-10.4); RED BLOOD COUNT 2.52 10^6/uL (4.35-5.85); RED CELL DISTRIBUTION WIDTH 15.8 % (10.0-14.5); WHITE BLOOD COUNT 7.8 10^3/uL (4.3-11.0)
[2017-12-06 08:03] VITALS: BP 165/72
[2017-12-06 08:03] LABS: INR 2.2 (0.8-1.4); PROTHROMBIN TIME PATIENT 24.4 SEC (12.2-14.7)
[2017-12-06 08:10] LABS: BUN/CREATININE RATIO 40; CALCIUM 8.1 MG/DL (8.5-10.1); CARBON DIOXIDE 25 MMOL/L (21-32); CHLORIDE 99 MMOL/L (98-107); CREATININE SERUM 0.84 MG/DL (0.60-1.30); GFR ESTIMATED > 60; GLUCOSE 100 MG/DL (70-105); POTASSIUM 4.1 MMOL/L (3.6-5.0); SODIUM 134 MMOL/L (135-145)
[2017-12-06] MEDS ORDERED: diphenhydrAMINE 25 MG TAB (BENADRYL) PO NR (08:30)
[2017-12-06] MEDS ORDERED: ACETAMINOPHEN 325 MG TABLET PO NR (08:30)
[2017-12-06 10:45] VITALS: BP 140/72
[2017-12-06] MEDS ORDERED: NS IV 500 ML 500 ML IV ONE (10:45)
[2017-12-06 11:13] VITALS: BP 155/50
[2017-12-06 12:00] VITALS: BP 156/66
[2017-12-06 13:50] VITALS: BP 140/64
--- NOTE | 2017-12-08 07:44 | Discharge Summary ---
Diagnosis/Chief Complaint Date of Admission Dec 04, 2017 at 09:30 Date of Discharge Dec 06, 2017 at 15:05 Discharge Date: Dec 06, 2017 Discharge Time: 07:41 Discharge Diagnosis Fall with scalp laceration. Multiple falls recently. Severe anemia requiring transfusions Elevated INR. Chronic atrial fibrillation. Alcohol usage history. Hypertension. Gout. Hematoma thoracic lower area. Discharge Summary Consultations Surgeon. Early Childhood Education Worker. Discharge Physical Examination Allergies: Coded Allergies: No Known Drug Allergies (Unverified , 12/04/17) Vitals & I&Os Vital Signs Date Time Temp Pulse Resp B/P (MAP) Pulse Ox O2 Delivery O2 Flow Rate FiO2 12/06/17 16:17 12/06/17 13:50 96.6 83 20 99 Nasal Cannula 3.00 Hospital Course Patient received transfusions. Daughter willing to have 06/09 in house supervision. Daughter wants hospice. Labs (last 24 hrs) Laboratory Tests 12/04/17 08:53: White Blood Count 7.1, Red Blood Count 2.29L, Hemoglobin 6.6*L, Hematocrit 21L, Mean Corpuscular Volume 91, Mean Corpuscular Hemoglobin 29, Mean Corpuscular Hemoglobin Concent 32, Red Cell Distribution Width 16.4H, Platelet Count 321, Mean Platelet Volume 8.3, Neutrophils (%) (Auto) 78H, Lymphocytes (%) (Auto) 10L , Monocytes (%) (Auto) 9, Eosinophils (%) (Auto) 3, Basophils (%) (Auto) 0, Neutrophils # (Auto) 5.6, Lymphocytes # (Auto) 0.7L, Monocytes # (Auto) 0.6, Eosinophils # (Auto) 0.2, Basophils # (Auto) 0.0, Sodium Level 135, Potassium Level 4.7, Chloride Level 100, Carbon Dioxide Level 25, Anion Gap 10, Blood Urea Nitrogen 47H, Creatinine 1.38H, Estimat Glomerular Filtration Rate 49, BUN/ Creatinine Ratio 34, Glucose Level 92, Calcium Level 8.4L, Corrected Calcium 9.0 , Total Bilirubin 1.3H, Aspartate Amino Transf (AST/SGOT) 37H, Alanine Aminotransferase (ALT/SGPT) 21, Alkaline Phosphatase 66, Total Protein 5.9L, Albumin 3.3 12/04/17 09:00: Urine Color YELLOW, Urine Clarity CLEAR, Urine pH 7, Urine Specific Letcher 1.010L, Urine Protein 1+H, Urine Glucose (UA) NEGATIVE, Urine Ketones NEGATIVE, Urine Nitrite NEGATIVE, Urine Bilirubin NEGATIVE, Urine Urobilinogen NORMAL, Urine Leukocyte Esterase 1+H, Urine RBC (Auto) NEGATIVE, Urine RBC NONE, Urine WBC RARE, Urine Squamous Epithelial Cells NONE, Urine Crystals NONE, Urine Bacteria NEGATIVE, Urine Casts NONE, Urine Mucus NEGATIVE, Urine Culture Indicated NO 12/04/17 09:44: Prothrombin Time 50.6*H, INR Comment 5.5*H, Activated Partial Thromboplast Time 78H 12/05/17 01:00: White Blood Count 6.7, Red Blood Count 2.63L, Hemoglobin 7.6L, Hematocrit 23L, Mean Corpuscular Volume 89, Mean Corpuscular Hemoglobin 29, Mean Corpuscular Hemoglobin Concent 33, Red Cell Distribution Width 16.4H, Platelet Count 266, Mean Platelet Volume 8.7, Neutrophils (%) (Auto) 83H, Lymphocytes (%) (Auto) 7L , Monocytes (%) (Auto) 7, Eosinophils (%) (Auto) 3, Basophils (%) (Auto) 0, Neutrophils # (Auto) 5.6, Lymphocytes # (Auto) 0.5L, Monocytes # (Auto) 0.5, Eosinophils # (Auto) 0.2, Basophils # (Auto) 0.0, Sodium Level 138, Potassium Level 4.1, Chloride Level 103, Carbon Dioxide Level 24, Anion Gap 11, Blood Urea Nitrogen 45H, Creatinine 1.20, Estimat Glomerular Filtration Rate 58, BUN/ Creatinine Ratio 38, Glucose Level 142H, Calcium Level 8.4L, Prothrombin Time 28.7H, INR Comment 2.7H, Phosphorus Level 3.7, Magnesium Level 2.5H 12/05/17 12:00: Lab Scanned Report Transfusion Reaction Form 12/06/17 07:46: White Blood Count 7.8, Red Blood Count 2.52L, Hemoglobin 7.2L, Hematocrit 23L, Mean Corpuscular Volume 90, Mean Corpuscular Hemoglobin 29, Mean Corpuscular Hemoglobin Concent 32, Red Cell Distribution Width 15.8H, Platelet Count 239, Mean Platelet Volume 8.4, Prothrombin Time 24.4H, INR Comment 2.2H, Sodium Level 134L, Potassium Level 4.1, Chloride Level 99, Carbon Dioxide Level 25, Anion Gap 10, Blood Urea Nitrogen 34H, Creatinine 0.84, Estimat Glomerular Filtration Rate > 60, BUN/Creatinine Ratio 40, Glucose Level 100, Calcium Level 8.1L 12/07/17 11:36: Lab Scanned Report Transfusion Reaction Form Microbiology 12/04/17 MRSA Screen - Final, Complete Laboratory Tests 12/04/17 08:53 12/05/17 01:00 12/06/17 07:46 Pending Labs Microbiology Date/Time Source Procedure Growth Status 12/04/17 12:00 Nasal MRSA Screen - Final Complete Laboratory Tests 12/04/17 08:53: White Blood Count 7.1, Red Blood Count 2.29, Hemoglobin 6.6, Hematocrit 21, Mean Corpuscular Volume 91, Mean Corpuscular Hemoglobin 29, Mean Corpuscular Hemoglobin Concent 32, Red Cell Distribution Width 16.4, Platelet Count 321, Mean Platelet Volume 8.3, Neutrophils (%) (Auto) 78, Lymphocytes (%) (Auto) 10, Monocytes (%) (Auto) 9, Eosinophils (%) (Auto) 3, Basophils (%) (Auto) 0, Neutrophils # (Auto) 5.6, Lymphocytes # (Auto) 0.7, Monocytes # (Auto) 0.6, Eosinophils # (Auto) 0.2, Basophils # (Auto) 0.0, Sodium Level 135, Potassium Level 4.7, Chloride Level 100, Carbon Dioxide Level 25, Anion Gap 10, Blood Urea Nitrogen 47, Creatinine 1.38, Estimat Glomerular Filtration Rate 49, BUN/ Creatinine Ratio 34, Glucose Level 92, Calcium Level 8.4, Corrected Calcium 9.0 , Total Bilirubin 1.3, Aspartate Amino Transf (AST/SGOT) 37, Alanine Aminotransferase (ALT/SGPT) 21, Alkaline Phosphatase 66, Total Protein 5.9, Albumin 3.3 12/04/17 09:00: Urine Color YELLOW, Urine Clarity CLEAR, Urine pH 7, Urine Specific Letcher 1.010, Urine Protein 1+, Urine Glucose (UA) NEGATIVE, Urine Ketones NEGATIVE, Urine Nitrite NEGATIVE, Urine Bilirubin NEGATIVE, Urine Urobilinogen NORMAL, Urine Leukocyte Esterase 1+, Urine RBC (Auto) NEGATIVE, Urine RBC NONE, Urine WBC RARE, Urine Squamous Epithelial Cells NONE, Urine Crystals NONE, Urine Bacteria NEGATIVE, Urine Casts NONE, Urine Mucus NEGATIVE, Urine Culture Indicated NO 12/04/17 09:44: Prothrombin Time 50.6, INR Comment 5.5, Activated Partial Thromboplast Time 78 12/05/17 01:00: White Blood Count 6.7, Red Blood Count 2.63, Hemoglobin 7.6, Hematocrit 23, Mean Corpuscular Volume 89, Mean Corpuscular Hemoglobin 29, Mean Corpuscular Hemoglobin Concent 33, Red Cell Distribution Width 16.4, Platelet Count 266, Mean Platelet Volume 8.7, Neutrophils (%) (Auto) 83, Lymphocytes (%) (Auto) 7, Monocytes (%) (Auto) 7, Eosinophils (%) (Auto) 3, Basophils (%) (Auto) 0, Neutrophils # (Auto) 5.6, Lymphocytes # (Auto) 0.5, Monocytes # (Auto) 0.5, Eosinophils # (Auto) 0.2, Basophils # (Auto) 0.0, Sodium Level 138, Potassium Level 4.1, Chloride Level 103, Carbon Dioxide Level 24, Anion Gap 11, Blood Urea Nitrogen 45, Creatinine 1.20, Estimat Glomerular Filtration Rate 58, BUN/ Creatinine Ratio 38, Glucose Level 142, Calcium Level 8.4, Prothrombin Time 28.7 , INR Comment 2.7, Phosphorus Level 3.7, Magnesium Level 2.5 12/05/17 12:00: Lab Scanned Report Transfusion Reaction Form 12/06/17 07:46: White Blood Count 7.8, Red Blood Count 2.52, Hemoglobin 7.2, Hematocrit 23, Mean Corpuscular Volume 90, Mean Corpuscular Hemoglobin 29, Mean Corpuscular Hemoglobin Concent 32, Red Cell Distribution Width 15.8, Platelet Count 239, Mean Platelet Volume 8.4, Prothrombin Time 24.4, INR Comment 2.2, Sodium Level 134, Potassium Level 4.1, Chloride Level 99, Carbon Dioxide Level 25, Anion Gap 10, Blood Urea Nitrogen 34, Creatinine 0.84, Estimat Glomerular Filtration Rate > 60, BUN/Creatinine Ratio 40, Glucose Level 100, Calcium Level 8.1 12/07/17 11:36: Lab Scanned Report Transfusion Reaction Form Discussion & Recommendations Patient had multiple falls. Patient fragile. Patient to live at home with and have caretakers Discharge Home Medications: Active Scripts Active Reported Tramadol HCl 50 Mg Tablet 50-100 Mg PO HS PRN Iron (Ferrous Sulfate) 325 Mg Tablet 325 Mg PO DAILY Albuterol Sulfate 2.5 Mg/3 Ml Vial.neb 2.5 Mg NEB DAILY Metolazone 2.5 Mg Tablet 2.5 Mg PO UD PRN TWICE WEEKLY OR MORE IF NEEDED Vitamin D3 (Cholecalciferol (Vitamin D3)) 2,000 Unit Capsule 2,000 Unit PO DAILY Aspirin EC (Aspirin) 81 Mg Tablet.dr 81 Mg PO DAILY Omeprazole 20 Mg Capsule.dr 20 Mg PO DAILY Metoprolol Succinate 50 Mg Tab.er.24h 25 Mg PO HS Furosemide 80 Mg Tablet 80 Mg PO DAILY Klor-Con M10 (Potassium Chloride) 10 Meq Tab.er.prt 10 Meq PO BID Losartan Potassium 100 Mg Tablet 100 Mg PO DAILY Allopurinol 300 Mg Tablet 300 Mg PO DAILY Ventolin Hfa (Albuterol Sulfate) 18 Gm Hfa.aer.ad 2 Puff INH Q4H PRN Amlodipine Besylate 5 Mg Tablet 5 Mg PO DAILY Atorvastatin Calcium 20 Mg Tablet 20 Mg PO DAILY Instructions to patient/family Please see electronic discharge instructions given to patient. Clinical Quality Measures DVT/VTE Risk/Contraindication: Risk Factor Score Per Nursin RFS Level Per Nursing on Admit: 4+=Very High NISSA ANTONIO DO Dec 08, 2017 07:44
== END 2017-12-06 15:05 | disposition hospice, home (50) | DRG 812 ==
LOC: EDUNIT# 08:37 → ER 08:37 → ICU 09:30 → 4TH 12-05 10:45
PROVIDERS: ADMIT Internal Medicine; ATTEND Internal Medicine
DX: D62 Acute posthemorrhagic anemia (principal); S01.01XA Laceration without foreign body of scalp, initial encounter; R79.1 Abnormal coagulation profile; I13.0 Hypertensive heart and chronic kidney disease with heart failure and stage 1 through stage 4 chronic kidney disease, or unspecified chronic kidney disease; I50.32 Chronic diastolic (congestive) heart failure; N18.9 Chronic kidney disease, unspecified; I42.9 Cardiomyopathy, unspecified; H05.20 Unspecified exophthalmos; I65.23 Occlusion and stenosis of bilateral carotid arteries; Z66 Do not resuscitate; I48.2 Chronic atrial fibrillation; J44.9 Chronic obstructive pulmonary disease, unspecified; I25.10 Atherosclerotic heart disease of native coronary artery without angina pectoris; E78.5 Hyperlipidemia, unspecified; R53.81 Other malaise; R00.1 Bradycardia, unspecified; F03.90 Unspecified dementia, unspecified severity, without behavioral disturbance, psychotic disturbance, mood disturbance, and anxiety; F10.20 Alcohol dependence, uncomplicated; R26.81 Unsteadiness on feet; I27.20 Pulmonary hypertension, unspecified; I27.81 Cor pulmonale (chronic); W18.00XA Striking against unspecified object with subsequent fall, initial encounter; Y92.019 Unspecified place in single-family (private) house as the place of occurrence of the external cause; Z79.01 Long term (current) use of anticoagulants; Z87.891 Personal history of nicotine dependence; Z99.81 Dependence on supplemental oxygen
CPT/HCPCS: 12002; 36415; 70450; 70486; 71045; 72125; 72128; 72131; 80048; 80053; 81000; 83735; 84100; 85025; 85027; 85610; 85730; 86850; 86900; 86901; 86920; 87081; 93005; 94640; 94760; 96372